=== PATIENT | female | born 1950 | race Caucasian/White ===

== ENCOUNTER 2024-12-12 11:23 | Outpatient (REF) | payer MEDICARE, SELFPAY ==
[2024-12-12 12:19] LABS: Anion Gap 8.3; BUN Creatinine Ratio 9.1; Calcium 8.1 mg/dL (8.5-10.1); Carbon Dioxide 30.2 mmol/L (21.0-32.0); Chloride 104 mmol/L (98-107); Estimated GFR (African America >60 (>=60 mL/min/1.73m^2); Estimated GFR (Non-African Ame >60 (>=60 mL/min/1.73m^2); Glucose 103 mg/dL (74-106); Potassium 3.5 mmol/L (3.5-5.1); Sodium 139 mmol/L (136-145)
== END 2024-12-12 11:24 | disposition home or self-care (01) ==
LOC: LAB 11:23
PROVIDERS: Family Provider Family Medicine; PCP Family Medicine; Visit Provider Family Medicine
DX: A04.72 Enterocolitis due to Clostridium difficile, not specified as recurrent (principal)
CPT/HCPCS: 36415; 80048

== ENCOUNTER 2024-12-17 08:18 | Outpatient (OUT) | payer MEDICARE, SELFPAY ==
--- NOTE | 2024-12-17 08:21 | US_ITS ---
[place] [id number] Patient Name: FLOR NIETO MRN: [id number] date: 1950 Sex: F Assigned Patient Location: US Current Patient Location: US Accession/Order Number: [id number] Exam Date: 12/17/2024 14:58 Report Date: 12/17/2024 14:59 At the request of: MARCELINO GROSS NP Procedure: US renal BI BILATERAL RENAL AND BLADDER ULTRASOUND CLINICAL HISTORY: Hydronephrosis COMPARISON: None FINDINGS: Estimation of renal size is approximately 8.1 cm on the right and 12.2 cm on the left. No contour deforming mass, shadowing stone or hydronephrosis. The urinary bladder is decompressed by Martinez. US/US renal BI IMPRESSION: NO ACUTE FINDINGS. NO HYDRONEPHROSIS. Impression dictated by: Polo Landeros Jr., D.O.12/17/2024 2:59 PM Dictation Location: [place] [address] Electronically authenticated by: [id number] Y Date: 12/17/2024 14:59
== END 2024-12-17 08:19 | disposition home or self-care (01) ==
LOC: US 08:18
PROVIDERS: Family Provider Family Medicine; PCP Family Medicine; Visit Provider Nurse Practitioner Family
DX: N13.30 Unspecified hydronephrosis (principal)
CPT/HCPCS: 76775

== ENCOUNTER 2024-12-23 09:29 | Outpatient (REF) | payer MEDICARE, SELFPAY ==
[2024-12-23 10:42] LABS: Vancomycin Trough 22.9 ug/mL (5.0-20.0)
== END 2024-12-23 09:30 | disposition home or self-care (01) ==
LOC: LAB 09:29
PROVIDERS: Family Provider Family Medicine; PCP Family Medicine; Visit Provider Family Medicine
DX: Z79.2 Long term (current) use of antibiotics (principal)
CPT/HCPCS: 36415; 80202

== ENCOUNTER 2024-12-23 13:08 | Outpatient (OUT) | payer MEDICARE, SELFPAY | END 2024-12-23 13:09 | disposition home or self-care (01) | LOC: WC 13:08 | PROVIDERS: Family Provider Family Medicine; PCP Family Medicine; Visit Provider Podiatrist Foot & Ankle Surgery | DX: L97.925 Non-pressure chronic ulcer of unspecified part of left lower leg with muscle involvement without evidence of necrosis (principal) | CPT/HCPCS: 80202; G0463 ==

== ENCOUNTER 2025-01-16 09:45 | Outpatient (OUT) | payer MEDICARE, SELFPAY | END 2025-01-16 09:46 | disposition home or self-care (01) | LOC: WC 09:46 | PROVIDERS: Family Provider Family Medicine; PCP Family Medicine; Visit Provider Physician Assistant | DX: L97.925 Non-pressure chronic ulcer of unspecified part of left lower leg with muscle involvement without evidence of necrosis (principal) | CPT/HCPCS: A6213; G0463 ==

== ENCOUNTER 2025-01-21 13:39 | Outpatient (OUT) | payer MEDICARE, SELFPAY ==
--- NOTE | 2025-01-21 13:44 | MR_ITS ---
[place] [id number] Patient Name: FLOR NIETO MRN: [id number] date: 1950 Sex: F Assigned Patient Location: MRI Current Patient Location: MRI Accession/Order Number: [id number] Exam Date: 01/21/2025 15:06 Report Date: 01/21/2025 15:11 At the request of: SHARON BUSBY Procedure: MR lumbar spine wo con EXAMINATION: MRI LUMBAR SPINE WITHOUT IV CONTRAST CLINICAL HISTORY: Compression deformity COMPARISON: None TECHNIQUE: Multiecho imaging was performed in the sagittal and axial planes without contrast administration. FINDINGS: Mild vertebral body height loss involving the L2 vertebral body with mild bone marrow edema present suggestive of a subacute component. There is approximately 2 mm of retropulsion into the spinal canal. Minimal vertebral body height loss involving the L1 vertebral body without bone marrow edema likely chronic in nature. No retropulsion into the spinal canal is seen. Remaining vertebral body heights appear maintained. Spinal cord demonstrate normal position without abnormal cord signal. No paraspinal mass. Visualized retroperitoneum demonstrates no acute process. Cyst right kidney. At L1-L2: Diffuse broad-based disc bulge is present malignant flavum hypertrophy and facet joint degenerative changes causing moderate canal and bilateral neural foraminal stenosis. At L2-L3: 2 mm of anterolisthesis. Mild broad-based disc bulge with ligamentum flavum hypertrophy and facet joint degenerative changes causing mild canal and bilateral neural foraminal stenosis. At L3-L4: Diffuse broad-based disc bulge is present with ligamentum flavum hypertrophy and facet joint degenerative changes causing mild canal stenosis. No significant neural foraminal stenosis. At L4-L5: Diffuse broad-based disc bulge is present with ligamentum flavum flavum hypertrophy and facet joint degenerative changes causing moderate canal and bilateral neural foraminal stenosis. At L5-S1: No posterior disc pathology. No neural canal or foraminal stenosis. MR/MR lumbar spine wo con IMPRESSION: Multilevel degenerative disease as described above. Compression deformities involving L1 and L2 vertebral bodies with what appears to be a subacute component involving the L2 vertebral body. There is approximately 2 mm retropulsion into the spinal canal of the L2 vertebral body fracture. Impression dictated by: Polo Landeros Jr., D.OJia 01/21/2025 3:11 PM Dictation Location: [place] [address] Electronically authenticated by: [id number] Y Date: 01/21/2025 15:11
== END 2025-01-21 13:40 | disposition home or self-care (01) ==
LOC: MRI 13:39
PROVIDERS: Family Provider Family Medicine; PCP Family Medicine; Visit Provider Nurse Practitioner
DX: S32.020A Wedge compression fracture of second lumbar vertebra, initial encounter for closed fracture (principal); M51.369 Other intervertebral disc degeneration, lumbar region without mention of lumbar back pain or lower extremity pain
CPT/HCPCS: 72148

== ENCOUNTER 2025-02-03 09:20 | Outpatient (OUT) | payer MEDICARE, SELFPAY | END 2025-02-03 09:21 | disposition home or self-care (01) | LOC: WC 09:20 | PROVIDERS: Family Provider Family Medicine; PCP Family Medicine; Visit Provider Physician Assistant | DX: L97.925 Non-pressure chronic ulcer of unspecified part of left lower leg with muscle involvement without evidence of necrosis (principal) | CPT/HCPCS: G0463 ==

== ENCOUNTER 2025-02-24 10:46 | Outpatient (OUT) | payer MEDICARE, SELFPAY ==
--- OUTSIDE RECORDS SUMMARY | 2025-02-24 10:48 | XMS_ITS | Encounter Summary ---
Author Organization [employer] Address [id number] [place] [address] Care Team Providers Care Psychiatric Social Worker Supervisor Name Role Phone Destiny Figueroa APRN-CFNP Primary Care Pro vider Reason for Visit * Reason Onset Date Comments Hospital Follow-up 10/08/2024 Encounter Details Date Type Department Care Team (Late st Contact Info) Description 10/08/2024 [facility] [address] [place] [address] [facility] Follow-up Social History Tobacco Use Types Packs/Day Years Used Date Smoking Tobacco: Never Smokeless Tobacco: Never Alcohol Use Standard Drinks/Week Comments Never 0 (1 standard drink = 0.6 oz pur e alcohol) [facility] Utilities Answer Date Recorded In the past 12 months has [employer] electric, gas, oil, or water company threatened to shut off services in your home? No 10/07/2024 AUDIT-C Answer Date Recorded Q1: How often do you have a drink containing alcohol? Never 10/06/2024 Q2: How many drinks containi ng alcohol do you have on a typical day when you are drinking? Patient does not drink Q3: How often do you have si x or more drinks on one occasion? Never 10/06/2024 PHQ-2 Answer Date Recorded Total Score 6 10/06/2024 PRAPARE - Transportation Answer Date Re corded In the past 12 months, has l ack of transportation kept you from medical appointments or from getting medications? No 09/24 In the past 12 months, has l ack of transportation kept you from meetings, work, or from getting things needed for daily living? No 10/07/2024 Housing Instability Answer Date Recorde d Are you worried or concerned that in the next two months you may not have stable housing that you own, rent or stay in as a part of a household? No 10/07/2024 Hunger Screening Answer Date Recorded Within the past 12 months we worried whether our food would run out before we got money to buy more. Never True 10/08/2024 Within the past 12 months th e food we bought just didn't last and we didn't have money to get more. Never True 10/08/2024 Comments No Sex and Gender Information Value Date Recorded Sex Assigned at Not on file Legal Sex Female 8:35 PM EDT Gender Identity Not on file Sexual Orientation Not on file documented as of this encounter Mental Status * Question Answer Entry Date Author Overall Cognitive Status X 10/11/2024 11:09 AM EST Geraldine Naidu COTA/Rowan documented in this encounter Miscellaneous Notes * Telephone Encounter - Rody Wiggins - 10/08/2024 10:21 AM EST Message from the 10/07/24 discharge list per RBP. 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 * Telephone Encounter - Brittany Keene MA - 10/08/2024 10:21 AM EST Pt still currently admitted to [facility]. JLW * Telephone Encounter - Brittany Keene MA - 10/08/2024 10:21 AM EST Pt still currently admitted to [facility]. JLW * Telephone Encounter - Brittany Keene MA - 10/08/2024 10:21 AM EST Pt still currently admitted to [facility]. JLW * Telephone Encounter - Brittany Keene MA - 10/08/2024 10:21 AM EST Pt still currently admitted to [facility]. JLW * Telephone Encounter - Michelle Bey - 10/08/2024 10:21 AM EST STILL INPT * Telephone Encounter - Brittany Keene MA - 10/08/2024 10:21 AM EST Pt still currently admitted to [facility]. JLW * Telephone Encounter - Brittany Keene MA - 10/08/2024 10:21 AM EST Appt sched 11/21/2024 in [facility] office. JLW documented in this encounter Plan of Treatment Not on file documented as of this encounter Goals Goal Patient Goal Type Associated Problems Recent Progress Patient-Stated? Author safe transition from hospital General Yes Corrine Porras, RN Note: Evaluation of progress towards goal: Progressing towards safe transition from hospital <enter goal here> General Yes Claudia Whitman SOFTWARE DEVELOPER MID LEVEL Note: Evaluation of progress towards goal: Current Discharge Plan: SNF for short term rehab documented as of this encounter Visit Diagnoses Not on filedocumented in this encounter Additional Health Concerns Assessment Noted Time PHQ-9 Depression Total Score: 6 10/06/19 25 7:54 PM EST documented as of this encounter Care Teams Psychiatric Social Worker Supervisor Relationship Specialty Start Date End Date Destiny Figueroa APRN-CFNP [id number] [place] [address] PCP - General Family Medicine 05/30/24 documented as of this encounter
--- OUTSIDE RECORDS SUMMARY | 2025-02-24 10:48 | XMS_ITS | Clinical Summary ---
Author Organization [facility] Address [address] [place] [address] Care Team Providers Care Diploma Pharmacy Technician Name Role Phone Unavailable Primary Care Provider Unavailabl e Encounters Date Type Department Care Team Description 01/23/2025 Telephone MILAGRO FRAZIER [address] [place] [address] Rosa Reed PA hospital f/u r/s 01/21/2025 Clinisync Result Encounter [facility] External Department Unsolicited Provider, Generic External Data 12/23/2024 Clinisync Result Encounter [facility] External Department Unsolicited Lynda Peters MD 12/17/2024 Clinisync Result Encounter [facility] External Department Unsolicited Provider, Generic External Data 12/12/2024 Clinisync Result Encounter [facility] External Department Unsolicited Lynda Peters MD 12/12/2024 Abstract [facility] [address] [place] [address] Unallocated, Noms MD Giovanna from Last 3 Months Social History Tobacco Use Types Packs/Day Years Used Date Smoking Tobacco: Never Assessed Comments Unknown Sex and Gender Information Value Date Recorded Sex Assigned at Not on file Legal Sex Female 10:14 PM EDT Gender Identity Not on file Sexual Orientation Not on file Plan of Treatment Not on file Procedures Procedure Name Priority Date/Time Associated Diagnosis Comments MR LUMBAR SPINE WO CON 3:11 PM EDT [facility] VANCOMYCINOUGH LEVEL Routine 12/23/2024 8:30 AM EDT US RENAL BI 12/17/2024 2:59 PM EDT ALL BASIC METABOLIC PANEL Routine 12/12/2024 10:50 AM EDT from Last 3 Months Results * MR LUMBAR SPINE WO CON (01/21/2025 3:11 PM EDT) Anatomical Region Laterality Modality Other 01/21/2025 3:11 PM EDT Narrative 01/21/2025 3:14 [place] [address] Magnetic Resonance Report Signed Patient: KELSEY NIETO MR#: [id number] : 1950 Acct:[id number] Age/Sex: 74 / F ADM Date: 01/21/25 Loc: MRI Attending Dr: SHARON BUSBY Ordering Physician: SHARON BUSBY Date of Service: 01/21/25 Procedure(s): MR lumbar spine wo con Accession Number(s): [id number] cc: LYNDA PETERS ; SHARON BUSBY [place] [id number] Patient Name: KELSEY NIETO MRN: [facility]:[id number] date: 1950 Sex: F Assigned Patient Location: MRI Current Patient Location: MRI Accession/Order Number: [id number] Exam Date: 01/21/2025 15:06 Report Date: 01/21/2025 15:11 At the request of: SHARON BUSBY Procedure: MR lumbar spine wo con EXAMINATION: MRI LUMBAR SPINE WITHOUT IV CONTRAST CLINICAL HISTORY: Compression deformity COMPARISON: None TECHNIQUE: Multiecho imaging was performed in the sagittal and axial planes without contrast administration. FINDINGS: Mild vertebral body height loss involving the L2 vertebral body with mild bone marrow edema present suggestive of a subacute component. There is approximately 2 mm of retropulsion into the spinal canal. Minimal vertebral body height loss involving the L1 vertebral body without bone marrow edema likely chronic in nature. No retropulsion into the spinal canal is seen. Remaining vertebral body heights appear maintained. Spinal cord demonstrate normal position without abnormal cord signal. No paraspinal mass. Visualized retroperitoneum demonstrates no acute process. Cyst right kidney. At L1-L2: Diffuse broad-based disc bulge is present malignant flavum hypertrophy and facet joint degenerative changes causing moderate canal and bilateral neural foraminal stenosis. At L2-L3: 2 mm of anterolisthesis. Mild broad-based disc bulge with ligamentum flavum hypertrophy and facet joint degenerative changes causing mild canal and bilateral neural foraminal stenosis. At L3-L4: Diffuse broad-based disc bulge is present with ligamentum flavum hypertrophy and facet joint degenerative changes causing mild canal stenosis. No significant neural foraminal stenosis. At L4-L5: Diffuse broad-based disc bulge is present with ligamentum flavum flavum hypertrophy and facet joint degenerative changes causing moderate canal and bilateral neural foraminal stenosis. At L5-S1: No posterior disc pathology. No neural canal or foraminal stenosis. MR/MR lumbar spine wo con IMPRESSION: Multilevel degenerative disease as described above. Compression deformities involving L1 and L2 vertebral bodies with what appears to be a subacute component involving the L2 vertebral body. There is approximately 2 mm retropulsion into the spinal canal of the L2 vertebral body fracture. Impression dictated by: Polo Landeros Jr., D.O. 01/21/2025 3:11 PM Dictation Location: [place] [address] Electronically authenticated by: [id number] Y Date: 01/21/2025 15:11 Dictated By: Polo Landeros M.D. Signed By: 01/21/25 1514 DD/ 1511 TD/TT: Fire Sprinkler Designer: Procedure Note Radiology, Radiologist, MD - 01/21/2025 [place] [address] Magnetic Resonance Report Signed Patient: KELSEY NIETO LMR#: [id number] : 1950Acct:[id number] Age/Sex: 74 / FADM Date: 01/21/25 Loc: MRI Attending Dr: SHARON BUSBY Ordering Physician: SHARON BUSBY Date of Service: 01/21/25 Procedure(s): MR lumbar spine wo con Accession Number(s): [id number] cc: LYNDA PETERS ; SHARON BUSBY [place] [id number] Patient Name: KELSEY NIETO MRN: [facility]:[id number] date: 1950 Sex: F Assigned Patient Location: MRI Current Patient Location: MRI Accession/Order Number: [id number] Exam Date: 01/21/2025 15:06 Report Date: 01/21/2025 15:11 At the request of: SHARON BUSBY Procedure: MR lumbar spine wo con EXAMINATION: MRI LUMBAR SPINE WITHOUT IV CONTRAST CLINICAL HISTORY: Compression deformity COMPARISON: None TECHNIQUE: Multiecho imaging was performed in the sagittal and axialplanes without contrast administration. FINDINGS: Mild vertebral body height loss involving the L2 vertebral bodywith mild bone marrow edema present suggestive of a subacute component. Thereis approximately 2 mm of retropulsion into the spinal canal. Minimalvertebral body height loss involving the L1 vertebral body without bone marrow edema likely chronic in nature. No retropulsion into the spinal canal is seen. Remaining vertebral body heights appear maintained. Spinal corddemonstrate normal position without abnormal cord signal. No paraspinal mass.Visualized retroperitoneum demonstrates no acute process. Cyst right kidney. At L1-L2: Diffuse broad-based disc bulge is present malignant flavum hypertrophy and facet joint degenerative changes causing moderate [place] bilateral neural foraminal stenosis. At L2-L3: 2 mm of anterolisthesis. Mild broad-based disc bulge with ligamentum flavum hypertrophy and facet joint degenerative changes causing mild canal and bilateral neural foraminal stenosis. At L3-L4: Diffuse broad-based disc bulge is present with ligamentum flavum hypertrophy and facet joint degenerative changes causing mild canalstenosis. No significant neural foraminal stenosis. At L4-L5: Diffuse broad-based disc bulge is present with ligamentum flavum flavum hypertrophy and facet joint degenerative changes causing moderatecanal and bilateral neural foraminal stenosis. At L5-S1: No posterior disc pathology. No neural canal or foraminalstenosis. MR/MR lumbar spine wo con IMPRESSION: Multilevel degenerative disease as described above. Compression deformities involving L1 and L2 vertebral bodies with whatappears to be a subacute component involving the L2 vertebral body. There is approximately 2 mm retropulsion into the spinal canal of the L2 vertebralbody fracture. Impression dictated by: Polo Landeros Jr., D.O. 01/21/2025 3:11 PM Dictation Location: [place] [address] Electronically authenticated by: [id number] Y Date: :11 Dictated By: Polo Landeros M.D. Signed By:01/21/25 1514 DD/ 1511 TD/TT: Fire Sprinkler Designer: us Generic External Data Provider [facility] Final Result * (ABNORMAL) [facility] VANCOMYCINTROUGH LEVEL (12/23/2024 8:30 AM EDT) VANCOMYCIN TROUGH 22.9(H) 5.0 - 20.0 ug/mL [facility] 12/23/2024 8:30 AM EDT 12/23/2024 9:37 AM EDT Narrative [facility] - 12/23/2024 10:42 AM EDT [facility] DROP OFF Lynda Peters MD [facility] Final Result [facility] * US RENAL BI (12/17/2024 2:59 PM EDT) Anatomical Region Laterality Modality Other 12/17/2024 2:59 PM EDT Narrative 12/17/2024 3:01 [place] [address] Ultrasound Report Signed Patient: KELSEY NIETO MR#: [id number] : 1950 Acct:[id number] Age/Sex: 74 / F ADM Date: 12/17/24 Loc: US Attending Dr: Anabel Hernández CERTIFIED EXECUTIVE CHEF Ordering Physician: Anabel Hernández NP Date of Service: 12/17/24 Procedure(s): US renal BI Accession Number(s): [id number] cc: LYNDA PETERS ; Anabel Hernández NP [address] [address] Patient Name: KELSEY NIETO MRN: [id number] date: 1950 Sex: F Assigned Patient Location: US Current Patient Location: US Accession/Order Number: [id number] Exam Date: 12/17/2024 14:58 Report Date: 12/17/2024 14:59 At the request of: ANABEL HERNÁNDEZ NP Procedure: US renal BI BILATERAL RENAL AND BLADDER ULTRASOUND CLINICAL HISTORY: Hydronephrosis COMPARISON: None FINDINGS: Estimation of renal size is approximately 8.1 cm on the right and 12.2 cm on the left. No contour deforming mass, shadowing stone or hydronephrosis. The urinary bladder is decompressed by Martinez. US/US renal BI IMPRESSION: NO ACUTE FINDINGS. NO HYDRONEPHROSIS. Impression dictated by: Polo Landeros Jr., D.O.12/17/2024 2:59 PM Dictation Location: [place] [address] Electronically authenticated by: [id number] Y Date: 12/17/2024 14:59 Dictated By: Polo Landeros M.D. Signed By: 12/17/24 1501 DD/ 1459 TD/TT: Fire Sprinkler Designer: Procedure Note Radiology, Radiologist, MD - 12/17/[address] [address] Ultrasound Report Signed Patient: KELSEY NIETO LMR#: [id number] : 1950Acct:[id number] Age/Sex: 74 / FADM Date: 12/17/24 Loc: US Attending Dr: Anabel Hernández NP Ordering Physician: Anabel Hernández NP Date of Service: 12/17/24 Procedure(s): US renal BI Accession Number(s): [id number] cc: LYNDA PETERS ; Anabel Hernández NP The [address] [address] Patient Name: KELSEY NIETO MRN: [facility]:[id number] date: 1950 Sex: F Assigned Patient Location: US Current Patient Location: US Accession/Order Number: [id number] Exam Date: 12/17/2024 14:58 Report Date: 12/17/2024 14:59 At the request of: ANABEL HERNÁNDEZ NP Procedure: US renal BI BILATERAL RENAL AND BLADDER ULTRASOUND CLINICAL HISTORY: Hydronephrosis COMPARISON: None FINDINGS: Estimation of renal size is approximately 8.1 cm on the right and 12.2 cmon the left. No contour deforming mass, shadowing stone or hydronephrosis. The urinary bladder is decompressed by Martinez. US/US renal BI IMPRESSION: NO ACUTE FINDINGS. NO HYDRONEPHROSIS. Impression dictated by: Polo Landeros Jr., Aletha12/17/2024 2:59 PM Dictation Location: [place] [address] Electronically authenticated by: [id number] Y Date: 4:59 Dictated By: Polo Landeros M.D. Signed By:12/17/24 1501 DD/ 1459 TD/TT: Fire Sprinkler Designer: [facility] External Data Provider [facility] Final Result * (ABNORMAL) ALL BASIC METABOLIC PANEL (12/12/2024 10:50 AM EDT) SODIUM 139 136 - 145 mmol/L [facility] POTASSIUM 3.5 3.5 - 5.1 mmol/L [facility] CHLORIDE 104 98 - 107 mmol/L [facility] CARBON DIOXIDE 30.2 21.0 - 32.0 mmol/L [facility] ANION GAP 8.3 [facility] GLUCOSE 103 74 - 106 mg/dL [facility] BLOOD UREA NITROGEN 7.0 7.0 - 18.0 mg/dL [facility] CREATININE 0.77 0.55 - 1.02 mg/dL [facility] EGFR-AF LATVIAN >60 >=60 mL/min/1.7 3m 2 [facility] EGFR-NON AF LATVIAN >60 >=60 mL/min/1.7 3m 2 [facility] BUN CREATININE RATIO 9.1 [facility] CALCIUM 8.1(L) 8.5 - 10.1 mg/dL [facility] 12/12/2024 10:5 0 AM EDT 12/12/2024 12:05 PM EDT Narrative [facility] - 12/12/2024 12:23 PM EDT [facility] DROP OFF us Lynda PARISH Final Result [facility] from Last 3 Months Insurance [employer] MEDICARE
--- OUTSIDE RECORDS SUMMARY | 2025-02-24 10:48 | XMS_ITS | Encounter Summary ---
Author Organization [id number] [address] [place] [address] Care Team Providers Care Licensed Insurance Sales Agent Name Role Phone Destiny Figueroa APRN-CFNP Primary Care Pro vider Encounter Details Date Type Department Care Team (Late st Contact Info) Description 09/11/2024 Orders Only [facility] [address] [place] [phone] External, Scanning Provider Social History Tobacco Use Types Packs/Day Years Used Date Smoking Tobacco: Never Smokeless Tobacco: Never Alcohol Use Standard Drinks/Week Comments Never 0 (1 standard drink = 0.6 oz pur e alcohol) [facility] Utilities Answer Date Recorded In the past 12 months has [employer], gas, oil, or water [employer] threatened to shut off services in your home? No 05/30/2024 AUDIT-C Answer Date Recorded Q1: How often do you have a drink containing alcohol? Never 05/30/2024 Q2: How many drinks containi ng alcohol do you have on a typical day when you are drinking? Patient does not drink Q3: How often do you have si x or more drinks on one occasion? Never 05/30/2024 PHQ-2 Answer Date Recorded Total Score 9 05/30/2024 PRAPARE - Transportation Answer Date Re corded In the past 12 months, has l ack of transportation kept you from medical appointments or from getting medications? No 02/2024 In the past 12 months, has l ack of transportation kept you from meetings, work, or from getting things needed for daily living? No 05/30/2024 Housing Instability Answer Date Recorde d Are you worried or concerned that in the next two months you may not have stable housing that you own, rent or stay in as a part of a household? No 05/30/2024 Hunger Screening Answer Date Recorded Within the past 12 months we worried whether our food would run out before we got money to buy more. Never True 05/30/2024 Within the past 12 months th e food we bought just didn't last and we didn't have money to get more. Never True 05/30/2024 Comments No Sex and Gender Information Value Date Recorded Sex Assigned at Not on file Legal Sex Female 8:35 PM EDT Gender Identity Not on file Sexual Orientation Not on file documented as of this encounter Plan of Treatment Not on file documented as of this encounter Goals Goal Patient Goal Type Associated Problems Recent Progress Patient-Stated? Author safe transition from hospital General Yes Corrine Porras, RN Note: Evaluation of progress towards goal: Progressing towards safe transition from hospital documented as of this encounter Procedures Procedure Name Priority Date/Time Associated Diagnosis Comments ECG 12-LEAD Routine 08/21/2024 3:00 PM EST ECHO COMPLETE W CONTRAST Routine 08/19/2024 3:02 PM EST ECG 12-LEAD Routine 08/19/2024 3:02 PM EST ECG 12-LEAD Routine 08/18/2024 3:01 PM EST documented in this encounter Results * ECG 12 lead (08/21/2024 3:00 PM EST) us Scanning Provider External ECG ORDERABLES Final Result MANUALLY TRANSCRIBED RESULTS * Echo complete W/ contrast (08/19/2024 3:02 PM EST) Anatomical Region Laterality Modality Chest N/A Ultrasound us Scanning Provider External CV ECHO ORDERABLES Fi nal Result * ECG 12 lead (08/19/2024 3:02 PM EST) us Scanning Provider External ECG ORDERABLES Final Result MANUALLY TRANSCRIBED RESULTS * ECG 12 lead (08/18/2024 3:01 PM EST) us Scanning Provider External ECG ORDERABLES Final Result Performing Organization Address City/[facility] Co de Phone Number MANUALLY TRANSCRIBED RESULTS documented in this encounter Visit Diagnoses Not on filedocumented in this encounter Additional Health Concerns Assessment Noted Time PHQ-9 Depression Total Score: 9 05/30/20 24 10:46 AM EDT documented as of this encounter Care Teams Licensed Insurance Sales Agent Relationship Specialty Start Date End Date Destiny Figueroa APRN-CFNP [address] [place] [address] PCP - General Family Medicine 05/30/24 documented as of this encounter
--- OUTSIDE RECORDS SUMMARY | 2025-02-24 10:48 | XMS_ITS | Encounter Summary ---
Author Organization [facility] [facility] Address [id number] [address] [place] [address] Care Team Providers Care Air Support Operations Operator Name Role Phone Destiny Figueroa ENRICHMENT TEACHER-CFNP Primary Care Pro vider Reason for Visit * Reason Onset Date Comments Sign Off Patient Care 08/25/2024 Encounter Details Date Type Department Care Team (Late st Contact Info) Description 08/25/2024 Telephone [facility] [address] [place] [phone] Des Whyte MD [address] [place], [place] [id number] Sign Off Patient Care Social History Tobacco Use Types Packs/Day Years Used Date Smoking Tobacco: Never Smokeless Tobacco: Never Alcohol Use Standard Drinks/Week Comments Never 0 (1 standard drink = 0.6 oz pur e alcohol) [facility] Utilities Answer Date Recorded In the past 12 months has [employer], gas, oil, or water [employer] threatened to shut off services in your [...] on file documented as of this encounter Miscellaneous Notes * Telephone Encounter - Lizzy Herrera - 08/25/2024 10:34 AM EST PER MESSAGE FROM THE 08/20/2024 D/C LIST: PER FRS; HE HAS SIGNED OFF PT CARE FROM DX:AFIB/PAF-PTNEEDS TO F/U IN 1-2 WEEKS-[facility] documented in this encounter Plan of Treatment Not on file documented as of this encounter Goals Goal Patient Goal Type Associated Problems Recent Progress Patient-Stated? Author safe transition from hospital General Yes Corrine Porras, RN Note: Evaluation of progress towards goal: Progressing towards safe transition from hospital documented as of this encounter Visit Diagnoses Not on filedocumented in this encounter Additional Health Concerns Assessment Noted Time PHQ-9 Depression Total Score: 9 05/30/20 24 10:46 AM EDT documented as of this encounter Care Teams Air Support Operations Operator Relationship Specialty Start Date End Date Destiny Figueroa, TORI-LAURA [address] [place] [address] PCP - General Family Medicine 05/30/24 documented as of this encounter
--- OUTSIDE RECORDS SUMMARY | 2025-02-24 10:48 | XMS_ITS | Clinical Summary ---
Author Organization [employer] Address [facility]-[id number] [address] [place] [address] Care Team Providers Care Financial Manager Name Role Phone Destiny Figueroa APRN-CFALVINO Primary Care Pro vider Allergies Active Allergy Reactions Criticality Noted Date Comments Citalopram Other (See Comments) 05/30/2024 unknown Cortisone Other (See Comments) Medium 05/30/2024 Unknown ELEVATES B/P Hydromorphone Other (See Comments) 05/30/2024 Severe sedation Iodine Swelling High 07/07/2024 Other Reaction(s): Tongue swelling TONGUE AND LIPS Penicillin Hives,Swelling High 05/30/2024 Mouth and tongue swelling Other Reaction(s): HIVES SWELLING LIPS AND TONGUE Shellfish Derived Swelling High 07/07/2024 LIPS AND TONGUE Shrimp rigors High 05/30/2024 Medications pravastatin (PRAVACHOL) 20 mg tablet Take 1 tablet (20 mg total) by mouth in the morning. Active traZODone (DESYREL) 50 mg tablet Take 1 tablet (50 mg total) by mouth nightly. Active hydrOXYzine (ATARAX) 25 mg tablet Take 1 tablet (25 mg total) by mouth 4 (four) times a day as needed for anxiety. Active aspirin 81 mg Take 1 tablet (81 mg total) by mouth in the morning. Active oxybutynin XL (DITROPAN XL) 15 mg 24 hr tablet Take 1 tablet (15 mg total) by mouth in the morning. Active tiZANidine (ZANAFLEX) 4 mg tablet Take 1 tablet (4 mg total) by mouth in the morning and at bedtime. Active ELIQUIS 5 mg tablet Take 1 tablet (5 mg total) by mouth in the morning and 1 tablet (5 mg total) before bedtime. 4 Active ONETOUCH ULTRA2 METER [facility] USE TO CHECK GLUCOSE ONCE DAILY 4 Active ONETOUCH DELICA PLUS LANCET 33 gauge misc USE 1 LANCET TO CHECK GLUCOSE ONCE DAILY 4 Active mirtazapine (REMERON) 15 mg tablet Take 1 tablet (15 mg total) by mouth nightly. 4 Active acetaminophen (TYLENOL) 325 mg tablet Take 2 tablets (650 mg total) by mouth every 6 (six) hours as needed for pain. 30 tablet 5 Active diclofenac sodium (VOLTAREN) 1 % gel Apply 2 g topically in the morning and 2 g at noon and 2 g in the evening and 2 g before bedtime. 100 g 5 Active lidocaine (LIDODERM) 5 %Indications:Sk in ulcer of sacrum, limited to breakdown of skin ([facility]) Place 1 patch on the skin in the morning. Remove & Discard patch within 12 hours or as directed by MD. 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 10/21/2024 Pressure injury of deep tissue of sacral region 10/07/2024 Traumatic injury of sacrum 10/07/2024 Skin ulcer of sacrum, limited to breakdown of sk in 10/07/2024 Traumatic ulcer of left lowe r extremity with fat layer exposed 10/07/2024 Pulmonary embolism 10/06/2024 Transaminitis 05/30/2024 Benign essential tremor 05/30/2024 HTN (hypertension) 05/30/2024 Hyperlipemia, mixed 05/30/2024 Type 2 diabetes mellitus 05/30/2024 Right upper quadrant abdominal pain 05/30/2024 Immunizations No known immunizations Family History Medical History Relation Name Comments Heart attack Brother Other Father cerebral hemorr gina Stroke Father Heart disease Mother Stroke Mother COPD Sister Heart disease Sister Relation Name Status Comments Brother Father Mother Sister Social History Tobacco Use Types Packs/Day Years Used Date Smoking Tobacco: Never Smokeless Tobacco: Never Tobacco Cessation:Counseling Given: Not Answered Alcohol Use Standard Drinks/Week Comments Never 0 (1 standard drink = 0.6 oz pur e alcohol) [facility] Utilities Answer Date Recorded In the past 12 months has th e electric, gas, oil, or water company threatened [...] on file Sexual Orientation Not on file Last Filed Vital Signs Vital Sign Reading Time Taken Comments Blood Pressure 153/76 10/29/2024 8:05 AM EST Pulse 92 10/29/2024 9:00 AM EST Temperature 36.7 C (98 F) 10/29/2024 8:05 AM EST Respiratory Rate 15 10/29/2024 8:05 AM EST Oxygen Saturation 98% 10/29/2024 8:05 AM EST Inhaled Oxygen Concentration - - Weight 106.2 kg (234 lb 2.1 oz) 10/29/2024 5:00 AM EST Height 165.1 cm (5' 5 ) 10/07/2024 4:39 AM EST Body Mass Index 38.96 10/07/2024 4:39 AM EST Plan of Treatment Health Maintenance Due Date Last Done Comments Diabetic Ophthalmology Exam 1950 DTaP,Tdap and Td Vaccines (1 - Tdap) 1968 Zoster (Shingles) Vaccine (1 of 2) 1999 Fall Risk Screening 2014 Influenza Vaccine 05/25/2025 Depression Screening 10/06/2025 10/06/2024 Tobacco Screening 10/28/2025 10/28/2024 Goals Goal Patient Goal Type Associated Problems Recent Progress Patient-Stated? Author safe transition from hospital General Yes Corrine Porras, RN Note: Evaluation of progress towards goal: Progressing towards safe transition from hospital <enter goal here> General Yes Claudia Whitman HAND ROUTER OPERATOR Note: Evaluation of progress towards goal: Current Discharge Plan: SNF for short term rehab Medical Devices Implanted Type Area Sales Contracts Analyst Device Identifier Shelf Expiration Date Model / Serial / Lot Filter Embl 49mm 65cm Vc Rdpq Preld Flsh Sdprt Intro Strl Rpl [id number] - [id number] Implanted:Qty: 1 on 10/06/2024 by Mer Galvan MD at [facility] IVC Filter [employer] [id number] 07/30/2027 [id number] / / [id number] Insurance [employer] MEDICARE Advance Directives Documents on File Type Date Recorded Patient Heating Systems Installer Expl anation Durable Power of Community Coordinator 11/03/2024 11:17 AM Durable Power of Community Coordinator 10/15/2024 7:36 PM Power of Community Coordinator 10 15 2024 Advance Directive 10/15/2024 7:34 PM Ivonne Gutierrezhailey Mukul phillips Power of Community Coordinator 10 15 2024 Durable Power of Community Coordinator 10/15/2024 4:46 PM [facility] Myles r of Community Coordinator * Full Code (Latest Code Status on File) Date Activated Date Inactivated Comments 10/06/2024 6:34 PM 10/29/2024 2:26 PM * Full Code Date Activated Date Inactivated Comments 05/30/2024 5:31 AM 05/31/2024 7:59 PM Healthcare Agents on File Name Relationship Healthcare Agent Relationshi p Communication Ivonne Ngdavid Daughter Health Care Agent Geetha Gilmant Daughter First Alternate Health Care Agent Care Teams Financial Manager Relationship Specialty Start Date End Date Destiny Figueroa, EXCHANGE SPECIALIST-CFALVINO [address] [place] [address] PCP - General Family Medicine 05/30/24
--- OUTSIDE RECORDS SUMMARY | 2025-02-24 10:48 | XMS_ITS | Encounter Summary ---
Author Organization [employer] Address [facility]-[id number] [address] [place] [address] Care Team Providers Care Gang Boss Name Role Phone Destiny Figueroa APRN-CFNP Primary Care Pro vider Encounter Details Date Type Department Care Team (Late st Contact Info) Description 10/07/2024 Orders Only [facility] [address] [place] [phone] Transcribe, Orders Support User Pain (Primary Dx); Acute chest pain Social History Tobacco Use Types Packs/Day Years Used Date Smoking Tobacco: Never Smokeless Tobacco: Never Alcohol Use Standard Drinks/Week Comments Never 0 (1 standard drink = 0.6 oz pur e alcohol) [facility] Utilities Answer Date Recorded In the past 12 months has [employer], gas, oil, or water [employer] threatened to shut off services in your [...] on file documented as of this encounter Functional Status * Intimate Partner Violence Question Answer Date of Assessment Author Within the last year, have y ou been humiliated or emotionally abused in other ways by your partner or ex-partner? No 10/07/2024 9:42 AM Cristina Gonzáles RN Within the last year, have y ou been afraid of your partner or ex-partner? No 10/07/2024 9:42 AM Cristina Gonzáles RN Within the last year, have y ou been raped or forced to have any kind of sexual activity by your partner or ex-partner? No 10/07/2024 9:42 AM Cristina Gonzáles RN Within the last year, have y ou been kicked, hit, slapped, or otherwise physically hurt by your partner or ex-partner? No 10/07/2024 9:42 AM Cristina Gonzáles RN * Question Answer Date of Assessment Author Functional Status Moderate assistance 10/07/2024 9:40 AM Cristina Gonzáles RN documented as of this encounter Mental Status * Question Answer Entry Date Author Overall Cognitive Status X 10/09/2024 9:38 AM EST Tazzi, Lynzie, PT documented in this encounter Plan of Treatment Not on file documented as of this encounter Goals Goal Patient Goal Type Associated Problems Recent Progress Patient-Stated? Author safe transition from hospital General Yes Corrine Porras, RN Note: Evaluation of progress towards goal: Progressing towards safe transition from hospital <enter goal here> General Yes Claudia Whitman DEPUTY COUNTY ATTORNEY Note: Evaluation of progress towards goal: Current Discharge Plan: SNF for short term rehab documented as of this encounter Results * CT extremity lower left with contrast (10/06/2024 10:40 AM EST) us Scanning Provider External IMG CT ORDERABLES Fin al Result * CT angiogram chest (10/06/2024 10:30 AM EST) us Scanning Provider External IMG CT ORDERABLES Fin al Result documented in this encounter Visit Diagnoses Diagnosis Pain- Primary Generalized pain Acute chest pain Unspecified chest pain documented in this encounter Additional Health Concerns Assessment Noted Time PHQ-9 Depression Total Score: 6 10/06/19 25 7:54 PM EST documented as of this encounter Care Teams Gang Boss Relationship Specialty Start Date End Date Destiny Figueroa APRN-LAURA [address] [place] [address] PCP - General Family Medicine 05/30/24 documented as of this encounter
--- OUTSIDE RECORDS SUMMARY | 2025-02-24 10:48 | XMS_ITS | Encounter Summary ---
Author Organization [employer] Address [facility]-[id number] [address] [place] [address] Care Team Providers Care Wood Buffer Name Role Phone Destiny Figueroa APRN-CFALVINO Primary Care Pro vider Encounter Details Date Type Department Care Team (Late st Contact Info) Description 10/07/2024 Orders Only [facility] [address] [place] [phone] External, Scanning Provider Pain (Primary Dx) Social History Tobacco Use Types Packs/Day Years Used Date Smoking Tobacco: Never Smokeless Tobacco: Never Alcohol Use Standard Drinks/Week Comments Never 0 (1 standard drink = 0.6 oz pur e alcohol) [facility] Utilities Answer Date Recorded In the past 12 months has [employer], gas, oil, or water [employer] threatened to shut off services in your [...] Status Moderate assistance 10/07/2024 9:40 AM Cristina Goználes RN documented as of this encounter Mental Status * Question Answer Entry Date Author Overall Cognitive Status X 10/09/2024 9:38 AM Lazaro Machado PT documented in this encounter Plan of Treatment Not on file documented as of this encounter Goals Goal Patient Goal Type Associated Problems Recent Progress Patient-Stated? Author safe transition from hospital General Yes Corrine Porras, RN Note: Evaluation of progress towards goal: Progressing towards safe transition from hospital <enter goal here> General Yes Claudia Whitman PILOT CAPTAIN Note: Evaluation of progress towards goal: Current Discharge Plan: SNF for short term rehab documented as of this encounter Results * Vas venous duplex lwr bilateral (10/06/2024 12:05 PM EST) us Scanning Provider External CV VASCULAR ORDERABLE S Final Result Performing Organization Address City/[facility]/ZIP Co de Phone Number MEDSTREAMING * Non [facility] Echo (10/06/2024 12:05 PM EST) us Scanning Provider External CV ECHO ORDERABLES Fi nal Result Performing Organization Address City/[facility]/ZIP Co de Phone Number XCELERA * CT lumbar spine without contrast (10/04/2024 9:35 AM EST) us Scanning Provider External IMG CT ORDERABLES Fin al Result * CT abdomen and pelvis without contrast (10/04/2024 9:30 AM EST) us Scanning Provider External IMG CT ORDERABLES Fin al Result * CT chest without contrast (10/04/2024 9:25 AM EST) us Scanning Provider External IMG CT ORDERABLES Fin al Result documented in this encounter Visit Diagnoses Diagnosis Pain- Primary Generalized pain documented in this encounter Additional Health Concerns Assessment Noted Time PHQ-9 Depression Total Score: 6 10/06/19 25 7:54 PM EST documented as of this encounter Care Teams Wood Buffer Relationship Specialty Start Date End Date Destiny Figueroa, CASINO INVESTIGATOR-CFNP [address] [place] [id number] PCP - General Family Medicine 05/30/24 documented as of this encounter
--- OUTSIDE RECORDS SUMMARY | 2025-02-24 10:49 | XMS_ITS | Encounter Summary ---
Author Organization [facility] Address [facility]-[id number] [address] [place] [address] Care Team Providers Care Percolator Operator Name Role Phone Destiny Figueroa APRN-CFNP Primary Care Pro vider Encounter Details Date Type Department Care Team (Late st Contact Info) Description 11/20/2024 Orders Only [facility] [address] [place] [phone] External, Scanning Provider Social History Tobacco Use Types Packs/Day Years Used Date Smoking Tobacco: Never Smokeless Tobacco: Never Alcohol Use Standard Drinks/Week Comments Never 0 (1 standard drink = 0.6 oz pur e alcohol) [facility] Utilities Answer Date Recorded In the past 12 months has [employer], gas, oil, or water [employer] threatened to shut off services in your [...] <enter goal here> General Yes Claudia Whitman LSW Note: Evaluation of progress towards goal: Current Discharge Plan: SNF for short term rehab documented as of this encounter Procedures Procedure Name Priority Date/Time Associated Diagnosis Comments ECHO COMPLETE WO CONTRAST Routine 10/07/2024 2:17 PM EST MULTIPLE LABS Routine 10/06/2024 2:[address] CHEST W CONT Routine 10/06/2024 2:18 PM EST MULTIPLE LABS Routine 10/05/2024 2:23 PM EST ECG 12-LEAD Routine 10/04/2024 2:23 PM EST documented in this encounter Results * Echo complete W/O contrast (10/07/2024 2:17 PM EST) Anatomical Region Laterality Modality Chest N/A Ultrasound us Scanning Provider External CV ECHO ORDERABLES Fi nal Result * Multiple labs (10/06/2024 2:22 PM EST) us Scanning Provider External ID IMAGING Final Result Performing Organization Address City/[facility] Co de Phone Number MANUALLY TRANSCRIBED RESULTS * CT chest with contrast (10/06/2024 2:18 PM EST) Anatomical Region Laterality Modality Body, Lung, Chest, Body Covera N/A C omputed Tomography us Scanning Provider External IMG CT ORDERABLES Fin al Result * Multiple labs (10/05/2024 2:23 PM EST) us Scanning Provider External ID IMAGING Final Result Performing Organization Address City/[facility] Co de Phone Number MANUALLY TRANSCRIBED RESULTS * ECG 12 lead (10/04/2024 2:23 PM EST) us Scanning Provider External ECG ORDERABLES Final Result Performing Organization Address City/[facility] de Phone Number MANUALLY TRANSCRIBED RESULTS documented in this encounter Visit Diagnoses Not on filedocumented in this encounter Additional Health Concerns Assessment Noted Time PHQ-9 Depression Total Score: 6 10/06/19 25 7:54 PM EST documented as of this encounter Care Teams Percolator Operator Relationship Specialty Start Date End Date Destiny Figueroa APRN-CFNP [address] [place] [address] PCP - General Family Medicine 05/30/24 documented as of this encounter
--- OUTSIDE RECORDS SUMMARY | 2025-02-24 10:49 | XMS_ITS | Clinical Summary ---
Author Organization [facility] Address [address] [place] [address] Phone Care Team Providers Care Health Safety Instructor Name Role Phone Unavailable Primary Care Provider Unavailabl e Encounters Date Type Department Care Team Description 11/26/2024 Scanned Document [facility] [address] [place] [address] Scanning, Generic Provider from Last 3 Months Social History Tobacco Use Types Packs/Day Years Used Date Smoking Tobacco: Never Assessed Comments Unknown Sex and Gender Information Value Date Recorded Sex Assigned at Not on file Legal Sex Female 9:11 AM EST Gender Identity Not on file Sexual Orientation Not on file Plan of Treatment Upcoming Encounters Date Type Department Care Team (Late st Contact Info) Description 07/29/2025 9:10 AM EST Office Visit [facility] [address] [phone] Rola Phillips MD 703 [facility] 2, [facility] [address] [place] [address] Health Maintenance Due Date Last Done Comments Bone Density Scan 1949 CT Colonography 1949 Colonoscopy 1949 Colorectal Cancer Screening 1949 FIT-DNA (Cologuard) 1949 FIT 1949 Lipid Panel 1949 Sigmoidoscopy 1949 Yearly Adult Physical 1949 Diabetes Screening 1967 Hepatitis C Screening 1967 DTaP/Tdap/Td Vaccines (1 - Tdap) 1971 Pneumococcal Vaccine (1 of 1 - PCV) 1999 Zoster Vaccines (1 of 2) 1999 COVID-19 Vaccine (1 - 4-2 5 season) 2024 RSV High Risk: (Elderly (60+ ) or Population) (1 - 1-dose 75+ series) 2024 Influenza Vaccine (Season Ended) 2025 HIB Vaccines Aged Out No longer eligi ble based on patient's age to complete this topic HPV Vaccines Aged Out No longer eligi ble based on patient's age to complete this topic Hepatitis A Vaccines Aged Out No long er eligible based on patient's age to complete this topic Hepatitis B Vaccines Aged Out No long er eligible based on patient's age to complete this topic IPV Vaccines Aged Out No longer eligi ble based on patient's age to complete this topic Meningococcal Vaccine Aged Out No nathan charlie eligible based on patient's age to complete this topic Rotavirus Vaccines Aged Out No longer eligible based on patient's age to complete this topic Insurance
--- OUTSIDE RECORDS SUMMARY | 2025-02-24 10:49 | XMS_ITS | Encounter Summary ---
Author Organization [facility] Address [address] [place] [address] Phone Care Team Providers Care Sliver Lapper Name Role Phone Unavailable Primary Care Provider Unavailabl e Encounter Details Date Type Department Care Team (Late st Contact Info) Description 11/26/2024 Scanned Document [facility] [address] [place] [phone] Scanning, Generic Provider Social History Tobacco Use Types Packs/Day Years Used Date Smoking Tobacco: Never Assessed Comments Unknown Sex and Gender Information Value Date Recorded Sex Assigned at Not on file Legal Sex Female 9:11 AM EST Gender Identity Not on file Sexual Orientation Not on file documented as of this encounter Plan of Treatment Upcoming Encounters Date Type Department Care Team (Late st Contact Info) Description 07/29/2025 9:10 AM EST Office Visit [facility] [address] [phone] Rola Phillips MD 703 [facility] 2, [facility] [address] [place] [address] documented as of this encounter Visit Diagnoses Not on filedocumented in this encounter
== END 2025-02-24 10:47 | disposition home or self-care (01) ==
LOC: WC 10:46
PROVIDERS: Family Provider Family Medicine; PCP Family Medicine; Visit Provider Physician Assistant
DX: L97.925 Non-pressure chronic ulcer of unspecified part of left lower leg with muscle involvement without evidence of necrosis (principal); L89.610 Pressure ulcer of right heel, unstageable; L76.32 Postprocedural hematoma of skin and subcutaneous tissue following other procedure
CPT/HCPCS: A6213; G0463

== ENCOUNTER 2025-03-04 10:42 | Outpatient (OUT) | payer MEDICARE, SELFPAY ==
--- OUTSIDE RECORDS SUMMARY | 2025-01-14 10:30 | XMS_ITS ---
Author Organization [facility] Address [address] [place] [address] [place] [address] Care Team Providers Care Baker Head Name Role Phone Lynda Jean Primary Care Provider Kevin Quintana Unavailable [phone] Encounters Encounter Location Date Provider Diagnosis [address] [address] 01/14/2025 Kevin Reyes Plan Of Treatment No Information Progress Notes * Kelsey NIETODOB:1950 (74 yo F)Acc No.[id number]:01/14/2025 Patient: Kelsey PETER Provider: Joey Reyes DPM :1950 A ge:74 Y S ex:Female Date:01/14/2025 Address:[facility] Pcp:Lynda Jean Subjective: * Chief Complaints: * * Medical History: Objective: * Vitals: Assessment: Plan: * Treatment: * Images: * Electronic signature of Davison in MIGEL Reyes on 03/04/2025 at 10:44 AM EDT Sign off status: Pending * Provider: Joey Reyes DPM Date: 01/14/2025 Generated for Mirta stearns/Theodora/eTransmitting on: 03/04/2025 10:44 AM EDT
--- OUTSIDE RECORDS SUMMARY | 2025-02-06 05:20 | XMS_ITS ---
Author Organization [facility] Address [address] [place] [address] Care Team Providers Care Electric Needle Specialist Name Role Phone Chris Lynda Unavailable [phone] Amber Montes De Oca Unavailable [phone] Allergies Allergen (clinical drug ingredient) Drug/Non Drug Allergy documented on EMR Reaction Allergy Type Onset Date Status PCN (uncoded) Unknown Allergy Active Reason For Referral Reason REFERRAL FOR [place] [facility] PAINMANGEMENT FOR L4-5 JUNITO Diagnosis 1 Compression fracture of L1 vertebra with routine healing, subsequent encounter (S32.010D) Referral Organization [facility] Referring Provider First Name Lydna Referring Provider Last Name Chris Referring Provider Speciality Orthopedic Surgery Referred Organization [facility] Referred Address [address] [place] [address] [address], [address],[place], [place],[address], General Notes Alyssa Gutierrez 2024 10:23:41 AM >, Alyssa Gutierrez 02/11/2025 10:02:14 AM >FAXED Referral Priority Routine REASON FOR VISIT Low Back Pain Encounters Encounter Location Date Provider Diagnosis [facility] Office [address] [place] [address] [place] [address] 02/06/2025 Amber Montes De Oca Compression fracture of L1 vertebra with routine healing, subsequent encounter S32.010D and Compression fracture of L2 vertebra with routine healing, subsequent encounter S32.020D Assessments Encounter Date Diagnosis (ICD Code) Assessment Notes Treatment Notes Treatment Clinical Notes Section Notes 02/06/2025 Compression fracture of L1 vertebra with routine healing, subsequent encounter (ICD-10 - S32.010D) 1. Dynamic L4-5 spondylolisthesis 2. L1 and L2 compression fracture 3. 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 02/06/2025 Compression fracture of L2 vertebra with routine healing, subsequent encounter (ICD-10 - S32.020D) 1. Dynamic L4-5 spondylolisthesis 2. L1 and L2 compression fracture 3. 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 02/06/2025 Other Plan established by Dr. Boswell. Patient evaluated by myself and Dr. Boswell today. We did review imaging with patient and her daughter and recommend an LSO brace for the compression fractures and referral to the [facility] for an L4-5 epidural steroid injection. She can wear the LSO brace when out of bed. We will see her back in 4 weeks for symptom recheck for her compression fracture. The patient is very much in agreement with the treatment and/or diagnostic plan set forth and all questions were answered to the patient's satisfaction. Thanks once again. If we can be of further service to your patients with disorders of the spine, cervical, thoracic, or lumbar, please do not hesitate to contact Dr. Boswell. Best regards, 1. Dynamic L4-5 spondylolisthesis 2. L1 and L2 compression fracture 3. 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 Plan Of Treatment Treatment Notes Assessment Notes Other Plan established by Dr. Boswell. Patient evaluated by myself and Dr. Boswell today. We did review imaging with patient and her daughter and recommend an LSO brace for the compression fractures and referral to the [facility] for an L4-5 epidural steroid injection. She can wear the LSO brace when out of bed. We will see her back in 4 weeks for symptom recheck for her compression fracture. The patient is very much in agreement with the treatment and/or diagnostic plan set forth and all questions were answered to the patient's satisfaction. Thanks once again. If we can be of further service to your patients with disorders of the spine, cervical, thoracic, or lumbar, please do not hesitate to contact Dr. Boswell. Best regards, Pending Test Test Name Order Date Lumbar spine, 4v flex ext - 67427 2024 DME - Lumbar Support, Surgical OTS 02/06 Epidural injection - lumbar 02/06/2025 Referrals Referral Date Details 02/06/2025 02/06/2025, REFERRAL FOR [place] PAINMANGEMENT FOR L4-5 JUNITO, [address], [place], [address], Next Appt Details Follow Up: 6 Weeks, Reason: Provider Name:Lynda Jha, 03/13/2025 10:10:00 AM, [address] [facility], [address], [place], [address], Progress Notes * EMILIA, DAYANNAVANESSADOB:1950 (74 yo F)Acc No.[id number]:02/06/2025 Patient: FLOR PETER Provider: JORDY Alexis :1950 A ge:74 Y S ex:Female Date:02/06/2025 [facility] Subjective: * Chief Complaints: * 1 . Low Back Pain. * HPI: G eneral Follow Up Information: Dictated by Amber Montes De Oca PA-C Patient is a 74-year-old female that presents with complaints of low back pain and numbness and tingling into her bilateral lower extremities down to her feet. She has been at a [facility] facility since the fall last year for multiple medical issues and fell in July and then again in December there. She has been using a wheelchair as she has been having leg weakness and ambulation issues after being diagnosed with a pulmonary alcoholism and bilateral lower extremity blood clots. She has chronic wounds on her right lower extremity. She also lost a significant amount of weight after she could eat last fall from stomach issues. Current VAS score of 5 out of 10. Percentagewise 50% of her pain is in her back and 50% is in her legs, 25% in the left leg and 75% in the right leg. Aggravating factors of her pain are sitting, bending forward, lying on her side, back, and stomach, rising from sitting, and changing positions. She does have a Martinez in place but denies any bowel incontinence or saddle anesthesia. G eneral Info per Patient Report: Side affected is R ight. J oint or body part affected is l ower back. S tart of Pain/Cause of Injury f ell out of bed. W ork related: N o. M otor vehicle accident: N o. M VA N o. T hird constitution party responsibility: N o. W hat activities make your symptoms worse? s itting,bending forward,lying on side,lying on back, lying on stomach, rising from sitting . * ROS: C onstitutional: Appetite Change Y es. M arked Fatigue Y es. ? E yes: Glasses/ Contacts Y es. G astrointestinal: Nausea/Vomiting Y es. S tomach Pain/Ulcers Y es.?Frequent Diarrhea Y es. F requent Constipation Y es. H emorrhoids Y es. ? S kin: Easy Bruising Y es. S wollen Ankles Y es. ? M usculoskeletal: Joint pain Y es. B ack Pain Y es. N renaldo Pain?Yes. M uscle Pain Y es. C ardiovascular: Abnormal Heart Beat Y es. L eg Swelling Y es. ? N eurological: Headaches/Migraines Y es. P sychiatric: Anxiety Y es. D epression Y es. * Medical History: H igh Blood Pressure, Abnormal Heart Rhythm, Liver Disease, Diabetes, Irritable bowel syndrome, Blood Clots in Legs/Lungs, Anxiety, Depression, Rheumatoid arthritis. * Surgical History: P ulmonary bilateral lung 09/2024. * Family History: N o Family History documented.. * Medications: N one * Allergies: P CN. Objective: * Vitals: P ain Scale (NRS): 5. * Examination: G eneral examination: O n examination, the patient is well-developed, well-nourished, well-groomed, alert and oriented x3, normal mood. Patient in a wheelchair, ambulation not observed. Limited lumbar ROM. Midline lumbar tenderness and right lumbar paraspinal tenderness. 5/5 muscle strength bilateral lower extremities. Sensory intact lower extremities. Negative SLR and clonus bilaterally. X -ray Imaging Studies: 4 view x-rays of the lumbar spine AP/lateral and flexion/extension taken in office were reviewed and interpreted by myself as compression deformities at L1 and L2. Worse at L2. There appears to be some anterolisthesis of L4 on 5 in flexion view that corrects in extension. M RI Imaging Studies: M RI lumbar spine without contrast was reviewed from the [facility] from 01/21/2025 Impression Multilevel degenerative disease. Compression deformities involving L1 and L2 vertebral bodies with what appears to be a subacute component involving the L2 vertebral body. There is approximately 2 mm retropulsion into the spinal canal of the L2 vertebral body fracture. L1-2 diffuse broad-based disc bulge is present, ligamentum flavum hypertrophy and facet joint degenerative changes causing moderate canal and bilateral neuroforaminal stenosis. L2-3 2 mm of anterolisthesis. Mild broad-based disc bulge with ligamentum flavum hypertrophy and facet joint degenerative changes causing mild canal and bilateral neuroforaminal stenosis. L3-4 diffuse broad-based disc bulge is present with ligamentum flavum hypertrophy and facet joint degenerative changes causing mild canal stenosis. No significant neural foraminal stenosis. L4-5 diffuse broad-based disc bulges present with ligamentum flavum hypertrophy and facet joint degenerative changes causing moderate canal and bilateral neuroforaminal stenosis. L5-S1 no posterior disc pathology. No neural canal or foraminal stenosis. C T Imaging Studies: C T lumbar spine without contrast was reviewed from 10/04/2024 from [facility] Impression Stable moderate compression fracture of L2 with marked central canal and foramen narrowing at this level, not appreciably changed since CT abdomen/pelvis from 08/18/2024. Multilevel moderate marked degenerative facet arthropathy of the lumbar spine and mild disc bulging resulting in multilevel moderate to marked neuroforaminal narrowing and moderate central canal narrowing, grossly stable. Assessment: * Assessment: 1. C ompression fracture of L1 vertebra with routine healing, subsequent encounter - S32.010D (Primary) 2 . C ompression fracture of L2 vertebra with routine healing, subsequent encounter - S32.020D 1. Dynamic L4-5 spondylolist hesis 2. L1 and L2 compression fracture 3. L4-5 neuroforaminal stenosis/stenosis/radiculopathy. Plan: * Treatment: 2. O thers I maging: Lumbar spine, 4v flex ext - [id number] Notes: Plan established by Dr. Boswell. Patient evaluated by myself and Dr. Boswell today. We did review imaging with patient and her daughter and recommend an LSO brace for the compression fractures and referral to the [facility] for an L4-5 epidural steroid injection. She can wear the LSO brace when out of bed. We will see her back in 4 weeks for symptom recheck for her compression fracture. The patient is very much in agreement with the treatment and/or diagnostic plan set forth and all questions were answered to the patient's satisfaction. Thanks once again. If we can be of further service to your patients with disorders of the spine, cervical, thoracic, or lumbar, please do not hesitate to contact Dr. Boswell. Best regards, * Procedure Codes: 7 2109 X-ray Lumbar Spine, 5 view complete * Follow Up: 6 Weeks Forms: * Images: * Electronic signature of Colt Montes De Oca PA-C on 03/04/2025 at 10:45 AM EDT Sign off status: Pending * Provider: JORDY Alexis Date: 0 02/06/2025 Generated for Mirta stearns/Theodora/Belkisitting on: 0 03/04/2025 10:45 AM EDT History and Physical Notes * HPI (History of Present Illness) Category Sub-Category Detail Notes Category Not es General Follow Up Information Dictated by Amber Montes De Oca PA-C Patient is a 74-year-old female that presents with complaints of low back pain and numbness and tingling into her bilateral lower extremities down to her feet. She has been at a prison facility since the fall last year for multiple medical issues and fell in July and then again in December there. She has been using a wheelchair as she has been having leg weakness and ambulation issues after being diagnosed with a pulmonary alcoholism and bilateral lower extremity blood clots. She has chronic wounds on her right lower extremity. She also lost a significant amount of weight after she could eat last fall from stomach issues. Current VAS score of 5 out of 10. Percentagewise 50% of her pain is in her back and 50% is in her legs, 25% in the left leg and 75% in the right leg. Aggravating factors of her pain are sitting, bending forward, lying on her side, back, and stomach, rising from sitting, and changing positions. She does have a Martinez in place but denies any bowel incontinence or saddle anesthesia. General Info per Patient Report Side affected is Right Joint or body part affected is lower klaus k Work related: No Motor vehicle accident: No Start of Pain/Cause of Injury fell out o f bed Third constitution party responsibility: No What activities make your symptoms worse ? sitting,bending forward,lying on side,lying on back, lying on stomach, rising from sitting MVA No Examination Category Sub-Category Detail Notes Category Not es General examination On exami nation, the patient is well-developed, well-nourished, well-groomed, alert and oriented x3, normal mood. Patient in a wheelchair, ambulation not observed. Limited lumbar ROM. Midline lumbar tenderness and right lumbar paraspinal tenderness. 5/5 muscle strength bilateral lower extremities. Sensory intact lower extremities. Negative SLR and clonus bilaterally. X-ray Imaging Studies 4 view x-rays of the lumbar spine AP/lateral and flexion/extension taken in office were reviewed and interpreted by myself as compression deformities at L1 and L2. Worse at L2. There appears to be some anterolisthesis of L4 on 5 in flexion view that corrects in extension. MRI Imaging Studies MRI lumbar spine without contrast was reviewed from the [facility] from 01/21/2025 Impression Multilevel degenerative disease. Compression deformities involving L1 and L2 vertebral bodies with what appears to be a subacute component involving the L2 vertebral body. There is approximately 2 mm retropulsion into the spinal canal of the L2 vertebral body fracture. L1-2 diffuse broad-based disc bulge is present, ligamentum flavum hypertrophy and facet joint degenerative changes causing moderate canal and bilateral neuroforaminal stenosis. L2-3 2 mm of anterolisthesis. Mild broad-based disc bulge with ligamentum flavum hypertrophy and facet joint degenerative changes causing mild canal and bilateral neuroforaminal stenosis. L3-4 diffuse broad-based disc bulge is present with ligamentum flavum hypertrophy and facet joint degenerative changes causing mild canal stenosis. No significant neural foraminal stenosis. L4-5 diffuse broad-based disc bulges present with ligamentum flavum hypertrophy and facet joint degenerative changes causing moderate canal and bilateral neuroforaminal stenosis. L5-S1 no posterior disc pathology. No neural canal or foraminal stenosis. CT Imaging Studies CT lumbar spine without contrast was reviewed from 10/04/2024 from [facility] Impression Stable moderate compression fracture of L2 with marked central canal and foramen narrowing at this level, not appreciably changed since CT abdomen/pelvis from 08/18/2024. Multilevel moderate marked degenerative facet arthropathy of the lumbar spine and mild disc bulging resulting in multilevel moderate to marked neuroforaminal narrowing and moderate central canal narrowing, grossly stable. Consultation Request Notes Referral Date Referring Provider Referred Provider Not es 02/06/2025 Lynda Perez , REFERRAL [facility] FOR L4-5 JUNITO
--- OUTSIDE RECORDS SUMMARY | 2025-03-04 10:45 | XMS_ITS | Patient Health Record ---
Author Organization [facility] Address [address] [place] [address] [place] [address] Care Team Providers Care Dermatology Physician Name Role Phone Lynda Jean Primary Care Provider Kevin Quintana Unavailable [phone] Reason For Referral No Information Encounters Encounter Location Date Provider Diagnosis [facility] [address] [place] [address] 01/14/2025 Kevin Reyes Plan Of Treatment No Information Insurance Providers Payer Name Payer Address Payer Phone Subscriber Number Group Number Insured Name Patient Relationship to Insured Coverage Start Date Coverage End Date [facility] [address] [address] [place] [phone] [id number] Kelsey Macias Self - patient is the insured
--- OUTSIDE RECORDS SUMMARY | 2025-03-04 10:45 | XMS_ITS | Encounter Summary ---
Author Organization [employer] Address [facility]-[id number] [address] [place] [address] Care Team Providers Care Hand Crocheter Name Role Phone Destiny Figueroa APRN-CFALVINO Primary Care Pro vider Encounter Details Date Type Department Care Team (Late st Contact Info) Description 10/07/2024 Orders Only [facility] [address] [place] [phone] External, Scanning Provider Pain (Primary Dx) Social History Tobacco Use Types Packs/Day Years Used Date Smoking Tobacco: Never Smokeless Tobacco: Never Alcohol Use Standard Drinks/Week Comments Never 0 (1 standard drink = 0.6 oz pur e alcohol) [facility] Utilities Answer Date Recorded In the past 12 months has [employer], gas, oil, or water [employer] threatened to shut off services in your [...] <enter goal here> General Yes Claudia Whitman EMPLOYEE RELATIONS DIRECTOR Note: Evaluation of progress towards goal: Current Discharge Plan: SNF for short term rehab documented as of this encounter Results * Vas venous duplex lwr bilateral (10/06/2024 12:05 PM EST) us Scanning Provider External CV VASCULAR ORDERABLE S Final Result Performing Organization Address City/[facility]/ZIP Co de Phone Number MEDSTREAMING * Non [facility] Echo (10/06/2024 12:05 PM EST) us Scanning Provider External CV ECHO ORDERABLES Fi nal Result Performing Organization Address City/[facility]/ZIP Co de Phone Number XCELERA * [...] documented as of this encounter Care Teams Hand Crocheter Relationship Specialty Start Date End Date Destiny Figueroa, LAST CODE STRIPER-CFNP [address] [phone] PCP - General Family Medicine 05/30/24 documented as of this encounter
--- OUTSIDE RECORDS SUMMARY | 2025-03-04 10:45 | XMS_ITS | Encounter Summary ---
Author Organization [facility] Address [facility]-[id number] [address] [place] [address] Care Team Providers Care Nutrition Professor Name Role Phone Destiny Figueroa APRN-CFNP Primary Care Pro vider Encounter Details Date Type Department Care Team (Late st Contact Info) Description 09/11/2024 Orders Only [facility] [address] [place] [phone] External, Scanning Provider Social History Tobacco Use Types Packs/Day Years Used Date Smoking Tobacco: Never Smokeless Tobacco: Never Alcohol Use Standard Drinks/Week Comments Never 0 (1 standard drink = 0.6 oz pur e alcohol) [facility] Utilities Answer Date Recorded In the past 12 months has [employer], gas, oil, or water [employer] threatened to shut off services in your [...] ECG ORDERABLES Final Result Performing Organization Address City/[facility] Co de Phone Number MANUALLY TRANSCRIBED RESULTS documented in this encounter Visit Diagnoses Not on filedocumented in this encounter Additional Health Concerns Assessment Noted Time PHQ-9 Depression Total Score: 9 05/30/20 24 10:46 AM EDT documented as of this encounter Care Teams Nutrition Professor Relationship Specialty Start Date End Date Destiny Figueroa APRN-CFNP [address] [place] [address] PCP - General Family Medicine 05/30/24 documented as of this encounter
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
--- OUTSIDE RECORDS SUMMARY | 2025-03-04 10:45 | XMS_ITS | Continuity of Care Document ---
Author Organization [facility] Address [address] [place] [id number] Insurance Providers Payer Plan Claims Address Claims Phone Policy Number Group Number Relation Employer Guarantor Name Guarantor Guarantor Address Guarantor Phone [employer] tel:(86 6) [phone] [id number] MMO MCR Adv PFFS MMO MCR Adv PFFS [id number] [facility] MCR PFFS [id number] Problems Condition ICD9 code ICD10 code SNOMED code Start Date End Date S tatus Enterocolitis due to Clostridium difficile, not specified as recurrent A04.72 12/05/2024 Active Peripheral vascular disease, unspecified I73.9 12/05/2024 Acti ve Type 2 diabetes mellitus without complications E11.9 12/05/2024 Act magda Hyperlipidemia, unspecified E78.5 12/05/2024 Active Anxiety disorder, unspecified F41.9 12/05/2024 Active Major depressive disorder, single episode, mild F32.0 12/05/2024 Active Cellulitis of right lower limb L03.115 12/05/2024 Active Cellulitis of left lower limb L03.116 12/05/2024 Active Acute respiratory failure, unspecified whether with hypoxia or hypercapnia J96.00 12/05/2024 Active Rheumatoid arthritis without rheumatoid factor, unspecified site M06.00 12/05/2024 Active Unspecified osteoarthritis, unspecified site M19.90 12/05/2024 Active Generalized edema R60.1 12/05/2024 Act magda Abnormality of albumin R77.0 12/05/2024 Active Hereditary and idiopathic neuropathy, unspecified G60.9 12/05/2024 A ctive Obesity, class 2 12/05/2024 Acti ve Essential (primary) hypertension I10 12/05/2024 Active Nausea R11.0 12/05/2024 Active Muscle weakness (generalized) M62.81 12/06/2024 Active Difficulty in walking, not elsewhere classified R26.2 12/06/2024 Active Dysphagia, oropharyngeal phase R13.12 12/06/2024 Active Cognitive communication deficit R41.841 12/06/2024 Active Retention of urine, unspecified R33.9 12/08/2024 Active Type 2 diabetes mellitus with diabetic polyneuropathy E11.42 12/05/2024 Active Bacteremia R78.81 12/05/2024 Active Other disorders of plasma-protein metabolism, 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 12/05/2024 Active Essential tremor G25.0 12/05/2024 Acti ve Paroxysmal atrial fibrillation I48.0 12/05/2024 Active 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.929 12/05/2024 Acti ve Retention of urine, unspecified R33.9 12/05/2024 Active Personal history of pulmonary embolism Z86.711 12/05/2024 Active Nutritional deficiency, unspecified E63.9 12/09/2024 Active Dysphagia, oral phase R13.11 12/11/2024 Active Neuromuscular dysfunction of bladder, unspecified N31.9 01/23/2025 A ctive Neuromuscular dysfunction of bladder, unspecified N31.9 01/24/2025 A ctive Obesity, class 2 E66.812 12/05/2024 Acti ve Results Test Value / Unit Interpretation Reference Ran ge Tuberculosis reaction wheal[ 51536-4] Tuberculosis reaction wheal [06338-8] See note TB test Tuberculosis reaction wheal[ 43496-0] Tuberculosis reaction wheal [46215-3] 0 mm NEG Allergies, adverse reactions, alerts Substance Reaction Date Status Type No allergies have been recorded Non Drug Penicillins (PCN) 12/06/2024 Non Jeb g citalopram 12/08/2024 Non Drug cortisone 12/08/2024 Non Drug hydromorphone 12/08/2024 Non Drug iodine 12/08/2024 Non Drug morphine 12/08/2024 Non Drug Shrimp 12/08/2024 Non Drug Immunizations Vaccine Route Date Status COVID-19 Vaccine Unassigned Route of Administration Refused Medications Medication Instructions Route Dosage Frequency Start Date Stop Date Indications Status amiodarone 200 mg tablet (amiodarone) 200mg, oral, Twice A Day oral 1.0 12.0 h 12/12 Peripheral vascular disease, unspecified Active furosemide 20 mg tablet (furosemide) 20mg, oral, Twice A Day oral 1.0 12.0 h 12/07 Generalized edema Active gabapentin 100 mg capsule (gabapentin) 100 mg, oral, Three Times A Day oral 1.0 8.0 h 01/16 Hereditary and idiopathic neuropathy, unspecified Active metronidazole in NaCl (iso-os) 500 mg/100 mL piggyback (metronidazole in NaCl (iso-os)) 500mg, intravenous, Every 8 Hours intraveno us 1.0 8.0 h 12/07 Enterocolitis due to Clostridium difficile, not specified as recurrent Active potassium chloride 20 mEq tablet extended release (potassium chloride) 20, oral, Twice A Day oral 1.0 12.0 h 2024 Generalized edema Active aspirin 81 mg tablet,chewabl e (aspirin) 81 mg, oral, Once A Day oral 1.0 1.0 d 2024 Peripheral vascular disease, unspecified Active atorvastatin 80 mg tablet (atorvastatin) 80 mg, oral, At Bedtime oral 1.0 2024 Hyperlipidemia , unspecified Active calcium carbonate-quiana min D3 600 mg-10 mcg (400 unit) tablet (calcium carbonate-quiana min D3) one tablet, oral, Once A Day oral 1.0 1.0 d 2024 Unspecified osteoarthritis , unspecified site Active Eliquis (apixaban) 5 mg tablet (Eliquis (apixaban)) 5 mg, oral, Twice A Day oral 1.0 12.0 h 2024 Peripheral vascular disease, unspecified Active glucagon HCl 1 mg/mL recon soln (glucagon HCl) 1 mg, intramuscular , Three Times A Day - PRN intramusc ular 1.0 8.0 h 12/17 Active Lidoderm (lidocaine) 5 % adhesive patch,medicate d (Lidoderm (lidocaine)) one patch, patch, Twice A Day, on in AM off in PM 1.0 12.0 h 2024 Unspecified osteoarthritis , unspecified site Active metoprolol tartrate 25 mg tablet (metoprolol tartrate) 25 mg, oral, Twice A Day oral 1.0 12.0 h 2024 Essential (primary) hypertension Active mirtazapine 15 mg tablet (mirtazapine) 15 mg, oral, At Bedtime oral 1.0 01/19 Anxiety disorder, unspecified Active multivitamin - tablet (multivitamin) one tablet, oral, Once A Day oral 1.0 1.0 d 12/08 Abnormality of albumin Active promethazine 12.5 mg tablet (promethazine) 12.5 mg, oral, With Meals, Do not give after 4 pm oral 1.0 01/14 Nausea Active Tylenol (acetaminophen ) 325 mg tablet (Tylenol (acetaminophen )) 650 mg, oral, Every 6 Hours - PRN oral 1.0 6.0 h 2024 Unspecified osteoarthritis , unspecified site Active Voltaren Arthritis Pain (diclofenac sodium) 1 % gel (Voltaren Arthritis Pain (diclofenac sodium)) 2 grams, topical, Every 6 Hours, apply to elbow wrist and back of hand topical 1.0 6.0 h 2024 Unspecified osteoarthritis , unspecified site Active vancomycin 250 mg capsule (vancomycin) 500, oral, Every 6 Hours oral 1.0 6.0 h 12/07 Active Beneprotein (whey protein isolate) 6 gram-25 kcal/7 gram powder in packet (Beneprotein (whey protein isolate)) 1 packet, oral, Before Meals and At Bedtime oral 1.0 2024 Enterocolitis due to Clostridium difficile, not specified as recurrent Active Normal Saline Flush (sodium chloride 0.9 % (flush)) - syringe (Normal Saline Flush (sodium chloride 0.9 % (flush))) 10ml, injection, 6 Times Per Day 1.0 6.0 d 12/08 Active tramadol 50 mg tablet (tramadol) 1 tab, oral, Every 6 Hours - PRN, for severe pain oral 1.0 6.0 h 01/12 Active furosemide 20 mg tablet (furosemide) 40mg, oral, Twice A Day oral 1.0 12.0 h 12/08 Generalized edema Active vancomycin 50 mg/mL recon soln (vancomycin) 10ml, oral, Every 6 Hours oral 1.0 6.0 h 12/09 Enterocolitis due to Clostridium difficile, not specified as recurrent Active vancomycin 50 mg/mL recon soln (vancomycin) 10ml, oral, Every 6 Hours oral 1.0 6.0 h 12/09 Enterocolitis due to Clostridium difficile, not specified as recurrent Active vancomycin 50 mg/mL recon soln (vancomycin) 10ml, oral, Every 6 Hours oral 1.0 6.0 h 12/07 Enterocolitis due to Clostridium difficile, not specified as recurrent Active amiodarone 200 mg tablet (amiodarone) 200mg, oral, Twice A Day oral 1.0 12.0 h 12/08 Peripheral vascular disease, unspecified Active amiodarone 200 mg tablet (amiodarone) 200mg, oral, Once A Day oral 1.0 1.0 d 12/08 Peripheral vascular disease, unspecified Active Daily Multivitamin-M inerals (multivitamin with minerals) - tablet (Daily Multivitamin-M inerals (multivitamin with minerals)) 1 tablet, oral, Once A Day oral 1.0 1.0 d 12/17 Type 2 diabetes mellitus without complications Active furosemide 20 mg tablet (furosemide) 20mg, oral, Twice A Day oral 1.0 12.0 h 2024 Generalized edema Active amiodarone 200 mg tablet (amiodarone) 200mg, oral, Twice A Day oral 1.0 12.0 h 12/08 Peripheral vascular disease, unspecified Active Mucinex (guaifenesin) 600 mg tablet extended release 12hr (Mucinex (guaifenesin)) 600, oral, Twice A Day oral 1.0 12.0 h 12/18 Active amiodarone 200 mg tablet (amiodarone) 200mg, oral, Once A Day oral 1.0 1.0 d 2024 Peripheral vascular disease, unspecified Active Normal Saline Flush (sodium chloride 0.9 % (flush)) - syringe (Normal Saline Flush (sodium chloride 0.9 % (flush))) 10ml, injection, Twice A Day 1.0 12.0 h 01/06 Active amiodarone 200 mg tablet (amiodarone) 200mg, oral, Once A Day oral 1.0 1.0 d 12/05 Active amiodarone 200 mg tablet (amiodarone) 200mg, oral, Once A Day oral 1.0 1.0 d 12/08 Peripheral vascular disease, unspecified Active Glucagon Emergency Kit (human) (glucagon) 1 mg recon soln (Glucagon Emergency Kit (human) (glucagon)) 1 mg, intramuscular , Three Times A Day - PRN intramusc ular 1.0 8.0 h 2024 Type 2 diabetes mellitus with diabetic polyneuropathy Active [id number] penny fum-folic ac 7.5 mg iron-400 mcg tablet (multivit-min- iron fum-folic ac) 1 tablet, oral, Once A Day, supplement oral 1.0 1.0 d 2024 Active cefepime 1 gram recon soln (cefepime) 1 gram, intravenous, Twice A Day, wound infection/abs cess LLE intraveno us 1.0 12.0 h 12/24 Active cefepime 1 gram recon soln (cefepime) 1 gram, intravenous, Twice A Day, wound infection/abs cess LLE intraveno us 1.0 12.0 h 12/31 Active Normal Saline Flush (sodium chloride 0.9 % (flush)) - syringe (Normal Saline Flush (sodium chloride 0.9 % (flush))) 10 cc, injection, Four Times A Day 1.0 6.0 h 12/31 Active vancomycin 1,000 mg recon soln (vancomycin) 1 gram, intravenous, Twice A Day, wound infection/abs cess LLE. PHARMACY TO DOSE intraveno us 1.0 12.0 h 12/31 Active vancomycin 1,000 mg recon soln (vancomycin) 1 gram, intravenous, Twice A Day, wound infection/abs cess LLE intraveno us 1.0 12.0 h 12/21 Active cefepime 1 gram recon soln (cefepime) 1 gram, intravenous, Twice A Day, wound infection/abs cess LLE intraveno us 1.0 12.0 h 12/21 Active Zoloft (sertraline) 25 mg tablet (Zoloft (sertraline)) 25mg, oral, Once A Day, Give one tablet daily for depression. oral 1.0 1.0 d 01/19 Active vancomycin in 0.9 % sodium chl 750 mg/150 mL solution (vancomycin in 0.9 % sodium chl) 750 mg, intravenous, Twice A Day intraveno us 1.0 12.0 h 12/31 Bacteremia Active vancomycin 1,000 mg recon soln (vancomycin) 1 gram, intravenous, Twice A Day, wound infection/abs cess LLE. PHARMACY TO DOSE intraveno us 1.0 12.0 h 12/24 Active Normal Saline Flush (sodium chloride 0.9 % (flush)) - syringe (Normal Saline Flush (sodium chloride 0.9 % (flush))) 10 cc, injection, Four Times A Day 1.0 6.0 h 01/06 Active cyclobenzaprin e 10 mg tablet (cyclobenzapri ne) 1 tab, oral, Three Times A Day - PRN, pain oral 1.0 8.0 h 01/14 Active hydrocodone-ac etaminophen 7.5-325 mg tablet (hydrocodone-a cetaminophen) 1 tab, oral, Every 6 Hours - PRN, pain oral 1.0 6.0 h 2024 Active gabapentin 100 mg capsule (gabapentin) 200mg, oral, Three Times A Day, Give to tabs to equal 200mg oral 1.0 8.0 h 01/19 Hereditary and idiopathic neuropathy, unspecified Active ferrous sulfate 325 mg (65 mg iron) tablet (ferrous sulfate) 325mg, oral, Twice A Day oral 1.0 12.0 h 2024 Active gabapentin 300 mg capsule (gabapentin) 1 capsule, oral, Three Times A Day oral 1.0 8.0 h 2024 Type 2 diabetes mellitus with diabetic polyneuropathy Active mirtazapine 30 mg tablet (mirtazapine) 30mg, oral, At Bedtime oral 1.0 2024 Active Prilosec OTC (omeprazole magnesium) 20 mg tablet,delayed release (DR/EC) (Prilosec OTC (omeprazole magnesium)) 20mg, oral, Once A Day oral 1.0 1.0 d 2024 Active Zoloft (sertraline) 50 mg tablet (Zoloft (sertraline)) 50mg, oral, Once A Day oral 1.0 1.0 d 2024 Active Calcium with Vitamin D (calcium carbonate-quiana min d3) 600 mg-10 mcg (400 unit) tablet (Calcium with Vitamin D (calcium carbonate-quiana min d3)) 1 tab, oral, Once A Day, hypocalcemia oral 1.0 1.0 d 2024 Active Vital Signs Date Vital Result Comment 12/05/2024 11:48 PM Heart Rate 73 /min Blood Pressure Systolic 109 mm[Hg] Blood Pressure Diastolic 59 mm[Hg] 12/05/2024 07:50 PM Temperature 98.3 [degF] Oxygen Saturation 98 % Respiratory Rate 18 /min Heart Rate 73 /min Blood Pressure Systolic 109 mm[Hg] Blood Pressure Diastolic 59 mm[Hg] 12/06/2024 06:27 AM Body Height 64 [in_us] 12/06/2024 08:04 AM Heart Rate 76 /min Blood Pressure Systolic 136 mm[Hg] Blood Pressure Diastolic 58 mm[Hg] 12/06/2024 04:22 PM Temperature 98.1 [degF] Oxygen Saturation 96 % Respiratory Rate 18 /min Heart Rate 83 /min Blood Pressure Systolic 122 mm[Hg] Blood Pressure Diastolic 72 mm[Hg] 12/06/2024 04:21 PM Temperature 98.1 [degF] Oxygen Saturation 96 % Respiratory Rate 18 /min Heart Rate 83 /min Blood Pressure Systolic 122 mm[Hg] Blood Pressure Diastolic 72 mm[Hg] 12/06/2024 07:13 PM Heart Rate 83 /min Blood Pressure Systolic 122 mm[Hg] Blood Pressure Diastolic 72 mm[Hg] 12/07/2024 01:37 AM Oxygen Saturation 98 % 12/07/2024 01:36 AM Temperature 98 [degF] Respiratory Rate 18 /min Heart Rate 80 /min Blood Pressure Systolic 129 mm[Hg] Blood Pressure Diastolic 70 mm[Hg] 12/07/2024 08:12 AM Heart Rate 81 /min Blood Pressure Systolic 108 mm[Hg] Blood Pressure Diastolic 58 mm[Hg] 12/07/2024 12:17 PM Temperature 98.3 [degF] Oxygen Saturation 96 % Respiratory Rate 16 /min 12/07/2024 01:54 PM Temperature 98.3 [degF] Oxygen Saturation 96 % Respiratory Rate 16 /min Heart Rate 81 /min Blood Pressure Systolic 108 mm[Hg] Blood Pressure Diastolic 58 mm[Hg] 12/07/2024 04:56 PM Temperature 98.3 [degF] Oxygen Saturation 94 % Respiratory Rate 18 /min Heart Rate 90 /min Blood Pressure Systolic 132 mm[Hg] Blood Pressure Diastolic 80 mm[Hg] 12/07/2024 07:18 PM Heart Rate 90 /min Blood Pressure Systolic 132 mm[Hg] Blood Pressure Diastolic 80 mm[Hg] 12/07/2024 07:15 PM Heart Rate 90 /min Blood Pressure Systolic 132 mm[Hg] Blood Pressure Diastolic 80 mm[Hg] 12/08/2024 12:18 AM Temperature 98 [degF] Oxygen Saturation 95 % Respiratory Rate 18 /min Heart Rate 87 /min Blood Pressure Systolic 130 mm[Hg] Blood Pressure Diastolic 81 mm[Hg] 12/08/2024 08:06 AM Heart Rate 99 /min Blood Pressure Systolic 151 mm[Hg] Blood Pressure Diastolic 84 mm[Hg] 12/08/2024 04:47 AM Heart Rate 90 /min Blood Pressure Systolic 133 mm[Hg] Blood Pressure Diastolic 75 mm[Hg] 12/08/2024 12:06 PM Temperature 98.2 [degF] Oxygen Saturation 97 % Respiratory Rate 18 /min Heart Rate 92 /min Blood Pressure Systolic 131 mm[Hg] Blood Pressure Diastolic 80 mm[Hg] 12/08/2024 08:30 PM Heart Rate 97 /min Blood Pressure Systolic 125 mm[Hg] Blood Pressure Diastolic 53 mm[Hg] 12/08/2024 12:15 PM Body Weight 221.2 [lb_av] Body Mass Index 37.96 kg/m2 12/09/2024 02:38 AM Temperature 98.1 [degF] Oxygen Saturation 98 % Respiratory Rate 16 /min 12/09/2024 08:21 AM Heart Rate 89 /min Blood Pressure Systolic 141 mm[Hg] Blood Pressure Diastolic 60 mm[Hg] 12/09/2024 12:09 PM Temperature 98.4 [degF] Oxygen Saturation 98 % Respiratory Rate 16 /min 12/09/2024 10:46 PM Heart Rate 83 /min Blood Pressure Systolic 114 mm[Hg] Blood Pressure Diastolic 65 mm[Hg] 12/10/2024 08:28 AM Temperature 98.3 [degF] Oxygen Saturation 97 % Respiratory Rate 18 /min Heart Rate 90 /min Blood Pressure Systolic 137 mm[Hg] Blood Pressure Diastolic 70 mm[Hg] 12/11/2024 12:09 AM Heart Rate 56 /min Blood Pressure Systolic 93 mm[Hg] Blood Pressure Diastolic 59 mm[Hg] 12/11/2024 07:46 AM Heart Rate 104 /min Blood Pressure Systolic 110 mm[Hg] Blood Pressure Diastolic 60 mm[Hg] 12/11/2024 09:19 AM Temperature 98.2 [degF] Oxygen Saturation 96 % Respiratory Rate 18 /min Heart Rate 104 /min Blood Pressure Systolic 110 mm[Hg] Blood Pressure Diastolic 60 mm[Hg] 12/11/2024 09:16 PM Heart Rate 90 /min Blood Pressure Systolic 118 mm[Hg] Blood Pressure Diastolic 68 mm[Hg] 12/12/2024 07:44 AM Heart Rate 89 /min Blood Pressure Systolic 122 mm[Hg] Blood Pressure Diastolic 80 mm[Hg] 12/12/2024 09:59 AM Temperature 98.1 [degF] Oxygen Saturation 98 % Respiratory Rate 18 /min Heart Rate 89 /min Blood Pressure Systolic 122 mm[Hg] Blood Pressure Diastolic 80 mm[Hg] 12/12/2024 09:07 PM Heart Rate 90 /min Blood Pressure Systolic 131 mm[Hg] Blood Pressure Diastolic 84 mm[Hg] 12/13/2024 09:36 AM Heart Rate 86 /min Blood Pressure Systolic 126 mm[Hg] Blood Pressure Diastolic 80 mm[Hg] 12/13/2024 01:33 PM Temperature 98 [degF] Oxygen Saturation 98 % Respiratory Rate 18 /min 12/13/2024 08:33 PM Heart Rate 97 /min Blood Pressure Systolic 115 mm[Hg] Blood Pressure Diastolic 67 mm[Hg] 12/14/2024 09:20 AM Heart Rate 90 /min Blood Pressure Systolic 121 mm[Hg] Blood Pressure Diastolic 63 mm[Hg] 12/14/2024 10:23 AM Temperature 98.2 [degF] Oxygen Saturation 98 % Respiratory Rate 18 /min Heart Rate 84 /min Blood Pressure Systolic 126 mm[Hg] Blood Pressure Diastolic 66 mm[Hg] 12/14/2024 09:05 PM Heart Rate 98 /min Blood Pressure Systolic 125 mm[Hg] Blood Pressure Diastolic 60 mm[Hg] 12/15/2024 07:43 AM Heart Rate 83 /min Blood Pressure Systolic 126 mm[Hg] Blood Pressure Diastolic 90 mm[Hg] 12/15/2024 10:02 AM Temperature 98 [degF] Oxygen Saturation 95 % Respiratory Rate 18 /min Heart Rate 83 /min Blood Pressure Systolic 126 mm[Hg] Blood Pressure Diastolic 90 mm[Hg] 12/15/2024 09:10 PM Heart Rate 86 /min Blood Pressure Systolic 128 mm[Hg] Blood Pressure Diastolic 86 mm[Hg] 12/15/2024 12:08 PM Body Weight 207.2 [lb_av] Body Mass Index 35.56 kg/m2 12/16/2024 07:30 AM Heart Rate 83 /min Blood Pressure Systolic 130 mm[Hg] Blood Pressure Diastolic 82 mm[Hg] 12/16/2024 09:32 AM Temperature 98.4 [degF] Oxygen Saturation 93 % Respiratory Rate 18 /min Heart Rate 83 /min Blood Pressure Systolic 130 mm[Hg] Blood Pressure Diastolic 82 mm[Hg] 12/16/2024 09:51 PM Heart Rate 89 /min Blood Pressure Systolic 132 mm[Hg] Blood Pressure Diastolic 72 mm[Hg] 12/17/2024 07:47 AM Temperature 97.9 [degF] Oxygen Saturation 95 % Respiratory Rate 20 /min Heart Rate 91 /min Blood Pressure Systolic 103 mm[Hg] Blood Pressure Diastolic 81 mm[Hg] 12/17/2024 07:41 PM Heart Rate 89 /min Blood Pressure Systolic 135 mm[Hg] Blood Pressure Diastolic 69 mm[Hg] 12/18/2024 10:57 AM Temperature 97.5 [degF] Oxygen Saturation 95 % Respiratory Rate 18 /min Heart Rate 88 /min Blood Pressure Systolic 132 mm[Hg] Blood Pressure Diastolic 76 mm[Hg] 12/18/2024 09:17 AM Heart Rate 86 /min Blood Pressure Systolic 140 mm[Hg] Blood Pressure Diastolic 72 mm[Hg] 12/18/2024 08:57 PM Heart Rate 86 /min Blood Pressure Systolic 126 mm[Hg] Blood Pressure Diastolic 75 mm[Hg] 12/19/2024 09:21 AM Heart Rate 82 /min Blood Pressure Systolic 122 mm[Hg] Blood Pressure Diastolic 70 mm[Hg] 12/19/2024 08:59 PM Heart Rate 89 /min Blood Pressure Systolic 108 mm[Hg] Blood Pressure Diastolic 56 mm[Hg] 12/20/2024 08:00 AM Heart Rate 84 /min Blood Pressure Systolic 142 mm[Hg] Blood Pressure Diastolic 86 mm[Hg] 12/20/2024 09:56 AM Temperature 98.3 [degF] Oxygen Saturation 95 % Respiratory Rate 18 /min Heart Rate 84 /min Blood Pressure Systolic 142 mm[Hg] Blood Pressure Diastolic 86 mm[Hg] 12/20/2024 07:27 PM Heart Rate 88 /min Blood Pressure Systolic 118 mm[Hg] Blood Pressure Diastolic 78 mm[Hg] 12/21/2024 07:58 AM Heart Rate 87 /min Blood Pressure Systolic 120 mm[Hg] Blood Pressure Diastolic 80 mm[Hg] 12/21/2024 10:00 AM Temperature 98.6 [degF] Oxygen Saturation 95 % Respiratory Rate 18 /min Heart Rate 87 /min Blood Pressure Systolic 120 mm[Hg] Blood Pressure Diastolic 80 mm[Hg] 12/21/2024 08:13 PM Heart Rate 85 /min Blood Pressure Systolic 124 mm[Hg] Blood Pressure Diastolic 82 mm[Hg] 12/22/2024 09:14 AM Temperature 97.9 [degF] Oxygen Saturation 97 % Respiratory Rate 18 /min Heart Rate 80 /min Blood Pressure Systolic 126 mm[Hg] Blood Pressure Diastolic 77 mm[Hg] 12/22/2024 08:01 PM Heart Rate 87 /min Blood Pressure Systolic 125 mm[Hg] Blood Pressure Diastolic 70 mm[Hg] 12/22/2024 02:39 PM Body Weight 201.6 [lb_av] Body Mass Index 34.6 kg/m2 12/23/2024 08:25 AM Temperature 98 [degF] Oxygen Saturation 97 % Respiratory Rate 18 /min Heart Rate 82 /min Blood Pressure Systolic 132 mm[Hg] Blood Pressure Diastolic 73 mm[Hg] 12/23/2024 11:34 PM Heart Rate 93 /min Blood Pressure Systolic 127 mm[Hg] Blood Pressure Diastolic 80 mm[Hg] 12/24/2024 08:54 AM Temperature 98.1 [degF] Respiratory Rate 18 /min Heart Rate 85 /min 12/24/2024 08:50 AM Blood Pressure Systolic 116 mm[Hg] Blood Pressure Diastolic 41 mm[Hg] 12/24/2024 08:48 AM Heart Rate 60 /min 12/24/2024 08:55 AM Oxygen Saturation 98 % 12/24/2024 10:57 PM Heart Rate 82 /min Blood Pressure Systolic 124 mm[Hg] Blood Pressure Diastolic 54 mm[Hg] 12/25/2024 07:54 AM Heart Rate 76 /min Blood Pressure Systolic 128 mm[Hg] Blood Pressure Diastolic 80 mm[Hg] 12/25/2024 09:47 AM Temperature 98.2 [degF] Oxygen Saturation 99 % Respiratory Rate 18 /min Heart Rate 76 /min Blood Pressure Systolic 128 mm[Hg] Blood Pressure Diastolic 80 mm[Hg] 12/25/2024 07:46 PM Heart Rate 79 /min Blood Pressure Systolic 130 mm[Hg] Blood Pressure Diastolic 78 mm[Hg] 12/26/2024 07:52 AM Heart Rate 78 /min Blood Pressure Systolic 122 mm[Hg] Blood Pressure Diastolic 80 mm[Hg] 12/26/2024 11:22 AM Temperature 98.3 [degF] Oxygen Saturation 97 % Respiratory Rate 18 /min Heart Rate 78 /min Blood Pressure Systolic 122 mm[Hg] Blood Pressure Diastolic 80 mm[Hg] 12/26/2024 08:13 PM Heart Rate 80 /min Blood Pressure Systolic 129 mm[Hg] Blood Pressure Diastolic 75 mm[Hg] 12/27/2024 08:49 AM Heart Rate 82 /min Blood Pressure Systolic 122 mm[Hg] Blood Pressure Diastolic 78 mm[Hg] 12/28/2024 12:43 AM Heart Rate 75 /min Blood Pressure Systolic 118 mm[Hg] Blood Pressure Diastolic 64 mm[Hg] 12/27/2024 10:50 AM Temperature 98 [degF] Oxygen Saturation 98 % Blood Pressure Systolic 130 mm[Hg] Blood Pressure Diastolic 74 mm[Hg] 12/28/2024 08:31 AM Heart Rate 76 /min Blood Pressure Systolic 124 mm[Hg] Blood Pressure Diastolic 66 mm[Hg] 12/28/2024 10:14 PM Heart Rate 84 /min Blood Pressure Systolic 121 mm[Hg] Blood Pressure Diastolic 73 mm[Hg] 12/29/2024 08:04 AM Heart Rate 76 /min Blood Pressure Systolic 118 mm[Hg] Blood Pressure Diastolic 80 mm[Hg] 12/29/2024 10:03 AM Temperature 98.1 [degF] Oxygen Saturation 96 % Respiratory Rate 18 /min Heart Rate 76 /min Blood Pressure Systolic 118 mm[Hg] Blood Pressure Diastolic 80 mm[Hg] 12/29/2024 02:45 PM Temperature 98.2 [degF] Oxygen Saturation 97 % Respiratory Rate 18 /min Heart Rate 75 /min Blood Pressure Systolic 130 mm[Hg] Blood Pressure Diastolic 72 mm[Hg] 12/29/2024 04:23 PM Temperature 98.2 [degF] Oxygen Saturation 97 % Respiratory Rate 18 /min Heart Rate 75 /min Blood Pressure Systolic 130 mm[Hg] Blood Pressure Diastolic 72 mm[Hg] 12/29/2024 11:21 PM Temperature 98.4 [degF] Oxygen Saturation 98 % Respiratory Rate 18 /min Heart Rate 78 /min Blood Pressure Systolic 120 mm[Hg] Blood Pressure Diastolic 82 mm[Hg] 12/29/2024 10:48 PM Heart Rate 80 /min 12/29/2024 10:50 PM Blood Pressure Systolic 126 mm[Hg] Blood Pressure Diastolic 78 mm[Hg] 12/30/2024 07:52 AM Heart Rate 65 /min Blood Pressure Systolic 130 mm[Hg] Blood Pressure Diastolic 90 mm[Hg] 12/30/2024 01:01 AM Body Weight 190.2 [lb_av] Body Mass Index 32.64 kg/m2 12/30/2024 10:06 AM Temperature 98.1 [degF] Oxygen Saturation 91 % Respiratory Rate 16 /min Heart Rate 65 /min Blood Pressure Systolic 130 mm[Hg] Blood Pressure Diastolic 90 mm[Hg] 12/30/2024 09:42 PM Heart Rate 79 /min Blood Pressure Systolic 95 mm[Hg] Blood Pressure Diastolic 67 mm[Hg] 12/31/2024 01:29 AM Temperature 98.4 [degF] Oxygen Saturation 95 % Respiratory Rate 16 /min Heart Rate 79 /min Blood Pressure Systolic 95 mm[Hg] Blood Pressure Diastolic 67 mm[Hg] 12/31/2024 09:31 AM Heart Rate 76 /min Blood Pressure Systolic 110 mm[Hg] Blood Pressure Diastolic 87 mm[Hg] 12/31/2024 12:28 PM Temperature 98.4 [degF] Oxygen Saturation 95 % Respiratory Rate 18 /min Heart Rate 78 /min Blood Pressure Systolic 128 mm[Hg] Blood Pressure Diastolic 68 mm[Hg] 12/31/2024 05:46 PM Temperature 98.3 [degF] Oxygen Saturation 95 % Respiratory Rate 20 /min Heart Rate 74 /min Blood Pressure Systolic 118 mm[Hg] Blood Pressure Diastolic 62 mm[Hg] 12/31/2024 09:53 PM Heart Rate 68 /min 12/31/2024 09:52 PM Blood Pressure Systolic 110 mm[Hg] Blood Pressure Diastolic 58 mm[Hg] 01/01/2025 01:31 AM Temperature 98.4 [degF] Oxygen Saturation 97 % Respiratory Rate 18 /min Heart Rate 70 /min Blood Pressure Systolic 118 mm[Hg] Blood Pressure Diastolic 70 mm[Hg] 12/31/2024 10:29 PM Body Weight 299.8 [lb_av] Body Mass Index 51.45 kg/m2 01/01/2025 09:12 AM Blood Pressure Systolic 114 mm[Hg] Blood Pressure Diastolic 72 mm[Hg] 01/01/2025 09:11 AM Heart Rate 76 /min 01/01/2025 12:47 PM Oxygen Saturation 97 % Respiratory Rate 18 /min 01/01/2025 12:46 PM Temperature 98.1 [degF] 01/02/2025 08:10 AM Temperature 97.5 [degF] Oxygen Saturation 96 % Respiratory Rate 18 /min Heart Rate 74 /min Blood Pressure Systolic 96 mm[Hg] Blood Pressure Diastolic 74 mm[Hg] 01/02/2025 07:57 AM Temperature 97.8 [degF] Oxygen Saturation 96 % Respiratory Rate 18 /min Heart Rate 80 /min Blood Pressure Systolic 87 mm[Hg] Blood Pressure Diastolic 70 mm[Hg] 01/02/2025 10:06 PM Heart Rate 62 /min Blood Pressure Systolic 120 mm[Hg] Blood Pressure Diastolic 76 mm[Hg] 01/02/2025 02:00 PM Body Weight 198.2 [lb_av] Body Mass Index 34.02 kg/m2 01/03/2025 07:57 AM Heart Rate 75 /min Blood Pressure Systolic 120 mm[Hg] Blood Pressure Diastolic 72 mm[Hg] 01/03/2025 09:52 AM Temperature 98.2 [degF] Oxygen Saturation 97 % Respiratory Rate 18 /min Heart Rate 75 /min Blood Pressure Systolic 120 mm[Hg] Blood Pressure Diastolic 72 mm[Hg] 01/03/2025 08:49 PM Heart Rate 83 /min Blood Pressure Systolic 95 mm[Hg] Blood Pressure Diastolic 72 mm[Hg] 01/04/2025 07:42 AM Heart Rate 71 /min Blood Pressure Systolic 140 mm[Hg] Blood Pressure Diastolic 88 mm[Hg] 01/04/2025 09:40 AM Temperature 98.3 [degF] Oxygen Saturation 98 % Respiratory Rate 18 /min Heart Rate 71 /min Blood Pressure Systolic 140 mm[Hg] Blood Pressure Diastolic 88 mm[Hg] 01/04/2025 07:37 PM Heart Rate 77 /min Blood Pressure Systolic 131 mm[Hg] Blood Pressure Diastolic 61 mm[Hg] 01/05/2025 08:34 AM Heart Rate 82 /min Blood Pressure Systolic 136 mm[Hg] Blood Pressure Diastolic 66 mm[Hg] 01/05/2025 11:48 AM Temperature 98.1 [degF] Oxygen Saturation 97 % Respiratory Rate 18 /min 01/05/2025 11:51 AM Body Weight 202.4 [lb_av] Body Mass Index 34.74 kg/m2 01/05/2025 08:12 PM Blood Pressure Systolic 106 mm[Hg] Blood Pressure Diastolic 62 mm[Hg] 01/05/2025 08:11 PM Heart Rate 64 /min 01/06/2025 08:42 AM Blood Pressure Systolic 110 mm[Hg] Blood Pressure Diastolic 66 mm[Hg] 01/06/2025 08:46 AM Heart Rate 66 /min 01/07/2025 01:19 AM Heart Rate 75 /min Blood Pressure Systolic 104 mm[Hg] Blood Pressure Diastolic 57 mm[Hg] 01/07/2025 09:07 AM Temperature 98 [degF] Oxygen Saturation 94 % Respiratory Rate 18 /min 01/07/2025 09:06 AM Heart Rate 80 /min Blood Pressure Systolic 147 mm[Hg] Blood Pressure Diastolic 41 mm[Hg] 01/07/2025 09:28 PM Heart Rate 74 /min Blood Pressure Systolic 136 mm[Hg] Blood Pressure Diastolic 66 mm[Hg] 01/08/2025 10:05 AM Temperature 98.6 [degF] Oxygen Saturation 91 % Respiratory Rate 16 /min Heart Rate 71 /min Blood Pressure Systolic 100 mm[Hg] Blood Pressure Diastolic 66 mm[Hg] 01/08/2025 10:52 PM Heart Rate 73 /min Blood Pressure Systolic 98 mm[Hg] Blood Pressure Diastolic 68 mm[Hg] 01/09/2025 07:46 AM Temperature 99 [degF] Oxygen Saturation 98 % Respiratory Rate 15 /min Heart Rate 83 /min Blood Pressure Systolic 121 mm[Hg] Blood Pressure Diastolic 59 mm[Hg] 01/09/2025 12:07 PM Temperature 99 [degF] Oxygen Saturation 98 % Respiratory Rate 16 /min Heart Rate 83 /min Blood Pressure Systolic 121 mm[Hg] Blood Pressure Diastolic 59 mm[Hg] 01/09/2025 07:59 PM Blood Pressure Systolic 136 mm[Hg] Blood Pressure Diastolic 50 mm[Hg] 01/09/2025 07:58 PM Heart Rate 72 /min 01/10/2025 09:00 AM Temperature 98.4 [degF] Oxygen Saturation 97 % Respiratory Rate 16 /min Blood Pressure Systolic 122 mm[Hg] Blood Pressure Diastolic 60 mm[Hg] 01/10/2025 08:53 AM Heart Rate 76 /min Blood Pressure Systolic 130 mm[Hg] Blood Pressure Diastolic 58 mm[Hg] 01/10/2025 10:41 PM Heart Rate 61 /min Blood Pressure Systolic 106 mm[Hg] Blood Pressure Diastolic 56 mm[Hg] 01/11/2025 08:56 AM Heart Rate 66 /min Blood Pressure Systolic 110 mm[Hg] Blood Pressure Diastolic 62 mm[Hg] 01/11/2025 11:40 PM Heart Rate 71 /min Blood Pressure Systolic 105 mm[Hg] Blood Pressure Diastolic 61 mm[Hg] 01/12/2025 07:39 AM Heart Rate 78 /min Blood Pressure Systolic 122 mm[Hg] Blood Pressure Diastolic 80 mm[Hg] 01/12/2025 09:41 AM Temperature 98.9 [degF] Oxygen Saturation 99 % Respiratory Rate 18 /min Heart Rate 78 /min Blood Pressure Systolic 122 mm[Hg] Blood Pressure Diastolic 80 mm[Hg] 01/12/2025 07:34 PM Heart Rate 69 /min Blood Pressure Systolic 120 mm[Hg] Blood Pressure Diastolic 64 mm[Hg] 01/13/2025 01:33 AM Temperature 98 [degF] Oxygen Saturation 93 % Respiratory Rate 18 /min Heart Rate 63 /min Blood Pressure Systolic 125 mm[Hg] Blood Pressure Diastolic 57 mm[Hg] 01/13/2025 08:32 AM Heart Rate 65 /min Blood Pressure Systolic 126 mm[Hg] Blood Pressure Diastolic 60 mm[Hg] 01/13/2025 01:27 PM Temperature 98.2 [degF] 01/13/2025 09:27 PM Heart Rate 75 /min Blood Pressure Systolic 100 mm[Hg] Blood Pressure Diastolic 77 mm[Hg] 01/13/2025 03:47 PM Body Weight 202.6 [lb_av] Body Mass Index 34.77 kg/m2 01/14/2025 08:23 AM Temperature 98.2 [degF] Oxygen Saturation 96 % Respiratory Rate 18 /min Heart Rate 73 /min 01/14/2025 08:21 AM Heart Rate 73 /min Blood Pressure Systolic 134 mm[Hg] Blood Pressure Diastolic 55 mm[Hg] 01/14/2025 09:25 PM Heart Rate 77 /min Blood Pressure Systolic 85 mm[Hg] Blood Pressure Diastolic 51 mm[Hg] 01/15/2025 01:04 AM Temperature 97.8 [degF] Oxygen Saturation 95 % Respiratory Rate 18 /min Heart Rate 72 /min Blood Pressure Systolic 109 mm[Hg] Blood Pressure Diastolic 61 mm[Hg] 01/15/2025 06:52 AM Temperature 98 [degF] Oxygen Saturation 98 % Respiratory Rate 18 /min Heart Rate 83 /min Blood Pressure Systolic 155 mm[Hg] Blood Pressure Diastolic 66 mm[Hg] 01/15/2025 08:49 PM Heart Rate 76 /min 01/15/2025 08:47 PM Blood Pressure Systolic 147 mm[Hg] Blood Pressure Diastolic 86 mm[Hg] 01/15/2025 08:42 AM Heart Rate 80 /min Blood Pressure Systolic 150 mm[Hg] Blood Pressure Diastolic 62 mm[Hg] 01/16/2025 02:02 AM Temperature 98 [degF] Oxygen Saturation 98 % Respiratory Rate 16 /min Heart Rate 73 /min Blood Pressure Systolic 121 mm[Hg] Blood Pressure Diastolic 62 mm[Hg] 01/16/2025 10:44 AM Temperature 97.8 [degF] Oxygen Saturation 97 % Respiratory Rate 16 /min 01/16/2025 10:42 AM Heart Rate 70 /min Blood Pressure Systolic 124 mm[Hg] Blood Pressure Diastolic 66 mm[Hg] 01/16/2025 11:43 PM Heart Rate 88 /min Blood Pressure Systolic 122 mm[Hg] Blood Pressure Diastolic 52 mm[Hg] 01/17/2025 07:45 AM Heart Rate 78 /min Blood Pressure Systolic 140 mm[Hg] Blood Pressure Diastolic 80 mm[Hg] 01/17/2025 09:35 AM Temperature 98.7 [degF] Oxygen Saturation 94 % Respiratory Rate 18 /min Heart Rate 78 /min Blood Pressure Systolic 140 mm[Hg] Blood Pressure Diastolic 80 mm[Hg] 01/17/2025 07:48 PM Heart Rate 90 /min Blood Pressure Systolic 138 mm[Hg] Blood Pressure Diastolic 84 mm[Hg] 01/18/2025 07:35 AM Heart Rate 71 /min Blood Pressure Systolic 142 mm[Hg] Blood Pressure Diastolic 74 mm[Hg] 01/18/2025 09:53 AM Temperature 98.4 [degF] Oxygen Saturation 96 % Respiratory Rate 18 /min Heart Rate 71 /min Blood Pressure Systolic 142 mm[Hg] Blood Pressure Diastolic 74 mm[Hg] 01/18/2025 07:37 PM Heart Rate 103 /min Blood Pressure Systolic 111 mm[Hg] Blood Pressure Diastolic 83 mm[Hg] 01/19/2025 08:38 AM Oxygen Saturation 95 % 01/19/2025 08:37 AM Respiratory Rate 18 /min Heart Rate 98 /min Blood Pressure Systolic 110 mm[Hg] Blood Pressure Diastolic 80 mm[Hg] 01/19/2025 08:36 AM Temperature 98.2 [degF] 01/20/2025 02:55 AM Temperature 97.8 [degF] Oxygen Saturation 98 % Respiratory Rate 16 /min Heart Rate 68 /min Blood Pressure Systolic 131 mm[Hg] Blood Pressure Diastolic 64 mm[Hg] 01/20/2025 08:47 AM Oxygen Saturation 97 % Respiratory Rate 16 /min Heart Rate 62 /min Blood Pressure Systolic 128 mm[Hg] Blood Pressure Diastolic 66 mm[Hg] 01/20/2025 08:45 AM Temperature 97.8 [degF] 01/20/2025 11:26 PM Heart Rate 81 /min Blood Pressure Systolic 113 mm[Hg] Blood Pressure Diastolic 51 mm[Hg] 01/21/2025 08:22 AM Temperature 98.8 [degF] Oxygen Saturation 95 % Respiratory Rate 18 /min Heart Rate 58 /min Blood Pressure Systolic 102 mm[Hg] Blood Pressure Diastolic 60 mm[Hg] 01/21/2025 11:54 PM Heart Rate 85 /min Blood Pressure Systolic 123 mm[Hg] Blood Pressure Diastolic 66 mm[Hg] 01/22/2025 07:37 AM Heart Rate 80 /min Blood Pressure Systolic 148 mm[Hg] Blood Pressure Diastolic 82 mm[Hg] 01/22/2025 09:33 AM Temperature 98.4 [degF] Oxygen Saturation 90 % Respiratory Rate 18 /min Heart Rate 80 /min Blood Pressure Systolic 148 mm[Hg] Blood Pressure Diastolic 82 mm[Hg] 01/22/2025 08:33 PM Heart Rate 71 /min Blood Pressure Systolic 75 mm[Hg] Blood Pressure Diastolic 49 mm[Hg] 01/23/2025 07:48 AM Heart Rate 74 /min Blood Pressure Systolic 120 mm[Hg] Blood Pressure Diastolic 88 mm[Hg] 01/23/2025 09:34 AM Temperature 98.3 [degF] Oxygen Saturation 97 % Respiratory Rate 16 /min Heart Rate 74 /min Blood Pressure Systolic 120 mm[Hg] Blood Pressure Diastolic 88 mm[Hg] 01/23/2025 02:25 PM Body Weight 192.4 [lb_av] Body Mass Index 33.02 kg/m2 01/23/2025 08:37 PM Heart Rate 73 /min Blood Pressure Systolic 129 mm[Hg] Blood Pressure Diastolic 64 mm[Hg] 01/24/2025 07:13 AM Heart Rate 75 /min Blood Pressure Systolic 131 mm[Hg] Blood Pressure Diastolic 67 mm[Hg] 01/25/2025 09:20 AM Temperature 98.1 [degF] Oxygen Saturation 98 % Respiratory Rate 16 /min Blood Pressure Systolic 122 mm[Hg] Blood Pressure Diastolic 68 mm[Hg] 01/25/2025 09:14 AM Heart Rate 70 /min Blood Pressure Systolic 130 mm[Hg] Blood Pressure Diastolic 64 mm[Hg] 01/25/2025 08:37 PM Heart Rate 75 /min Blood Pressure Systolic 158 mm[Hg] Blood Pressure Diastolic 63 mm[Hg] 01/26/2025 09:30 AM Temperature 98.1 [degF] Oxygen Saturation 94 % Respiratory Rate 16 /min Heart Rate 66 /min Blood Pressure Systolic 116 mm[Hg] Blood Pressure Diastolic 80 mm[Hg] 01/26/2025 07:35 AM Heart Rate 66 /min Blood Pressure Systolic 116 mm[Hg] Blood Pressure Diastolic 80 mm[Hg] Social History No smoking Hx information available Encounters Type CPT Code Date Location Provider Indication s encounter report 12/05/2024 04:01 PM Edelmira Jean MD encounter report 12/05/2024 07:00 PM Edelmira Jean MD Advance Directives Directive Description Verification Date Supporting Document(s) Other Directive
--- OUTSIDE RECORDS SUMMARY | 2025-03-04 10:45 | XMS_ITS | Encounter Summary ---
[id number] [address] [place] [address] Care Team Providers Care Door Puller Name Role Phone Destiny Figueroa APRN-CFNP Primary Care Pro vider Encounter Details Date Type Department Care Team (Late st Contact Info) Description 11/20/2024 Orders Only [facility] [address] [place] [phone] External, Scanning Provider Social History Tobacco Use Types Packs/Day Years Used Date Smoking Tobacco: Never Smokeless Tobacco: Never Alcohol Use Standard Drinks/Week Comments Never 0 (1 standard drink = 0.6 oz pur e alcohol) [facility] Utilities Answer Date Recorded In the past 12 months has [employer], gas, oil, or water [employer] threatened to shut off services in your [...] 2:22 PM EST) us Scanning Provider External [place] [facility] Final Result Performing Organization Address City/[facility] Co de Phone Number MANUALLY TRANSCRIBED RESULTS * CT chest with contrast (10/06/2024 2:18 PM EST) Anatomical Region Laterality Modality Body, Lung, Chest, Body Covera N/A C omputed Tomography us Scanning Provider External IMG CT ORDERABLES Fin al Result * Multiple labs (10/05/2024 2:23 PM EST) us Scanning Provider External [place] [facility] Final Result Performing Organization Address City/[facility] Co de Phone Number MANUALLY TRANSCRIBED RESULTS * ECG 12 lead (10/04/2024 2:23 PM EST) us Scanning Provider External ECG ORDERABLES Final Result Performing Organization Address City/[facility] de Phone Number MANUALLY TRANSCRIBED RESULTS documented in this encounter Visit Diagnoses Not on filedocumented in this encounter Additional Health Concerns Assessment Noted Time PHQ-9 Depression Total Score: 6 10/06/19 25 7:54 PM EST documented as of this encounter Care Teams Door Puller Relationship Specialty Start Date End Date Destiny Figueroa APRN-CFNP [address] [place] [address] PCP - General Family Medicine 05/30/24 documented as of this encounter
--- OUTSIDE RECORDS SUMMARY | 2025-03-04 10:45 | XMS_ITS | Clinical Summary ---
Author Organization [facility] Address [address] [place] [address] Care Team Providers Care Rooming House Operator Name Role Phone Unavailable Primary Care Provider Unavailabl e Encounters Date Type Department Care Team Description 01/23/2025 Telephone MILAGRO FRAZIER [address] [place] [address] Rosa Reed PA hospital f/u r/s 01/21/2025 Clinisync Result Encounter [facility] External Department Unsolicited Provider, Generic External Data 12/23/2024 Clinisync Result Encounter [facility] External Department Unsolicited Lynda Peters MD 12/17/2024 Clinisync Result Encounter [facility] External Department Unsolicited Provider, Generic External Data 12/12/2024 Clinisync Result Encounter [facility] External Department Unsolicited Lynda Peters MD 12/12/2024 Abstract [facility] [address] [place] [address] Unallocated, Noms MD Giovanna from [...] LUMBAR SPINE WO CON 3:11 PM EDT [facility] VANCOMYCINOUGH LEVEL Routine 12/23/2024 8:30 AM EDT US RENAL BI 12/17/2024 2:59 PM EDT ALL BASIC METABOLIC PANEL Routine 12/12/2024 10:50 AM EDT from Last 3 Months Results * MR LUMBAR SPINE WO CON (01/21/2025 3:11 PM EDT) Anatomical Region Laterality Modality Other 01/21/2025 3:11 PM EDT Narrative 01/21/2025 3:14 [place] [address] Magnetic Resonance Report Signed Patient: KELSEY NIETO MR#: [id number] : 1950 Acct:[id number] Age/Sex: 74 / F ADM Date: 01/21/25 Loc: MRI Attending Dr: SHARON BUSBY Ordering Physician: SHARON BUSBY Date of Service: 01/21/25 Procedure(s): MR lumbar spine wo con Accession Number(s): [id number] cc: LYNDA PETERS ; SHARON BUSBY [place] [id number] Patient Name: KELSEY NIETO MRN: [id number] date: 1950 Sex: F Assigned Patient Location: MRI Current Patient Location: MRI Accession/Order Number: [id number] Exam Date: 01/21/2025 15:06 Report Date: 01/21/2025 [...] Jr., D.O. 01/21/2025 3:11 PM Dictation Location: [place] [address] Electronically authenticated by: [id number] Y Date: 01/21/2025 15:11 Dictated By: Polo Landeros M.D. Signed By: 01/21/25 1514 DD/ 1511 TD/TT: Arts And Crafts Instructor: Procedure Note Radiology, Radiologist, MD - 01/21/2025 [place] [address] Magnetic Resonance Report Signed Patient: KELSEY NIETO LMR#: [id number] : 1950Acct:[id number] Age/Sex: 74 / FADM Date: 01/21/25 Loc: MRI Attending Dr: SHARON BUSBY Ordering Physician: SHARON BUSBY Date of Service: 01/21/25 Procedure(s): MR lumbar spine wo con Accession Number(s): [id number] cc: LYNDA PETERS ; SHARON BUSBY [place] [id number] Patient Name: KELSEY NIETO MRN: [facility]:[id number] date: 1950 Sex: F Assigned Patient Location: MRI Current Patient Location: MRI Accession/Order Number: [id number] Exam Date: 01/21/2025 15:06 Report Date: 01/21/2025 [...] Jr., D.O. 01/21/2025 3:11 PM Dictation Location: [place] [address] Electronically authenticated by: [id number] Y Date: :11 Dictated By: Polo Landeros M.D. Signed By:01/21/25 1514 DD/ 1511 TD/TT: Arts And Crafts Instructor: us Generic External Data Provider [facility] Final Result * (ABNORMAL) [facility] VANCOMYCINTROUGH LEVEL (12/23/2024 8:30 AM EDT) VANCOMYCIN TROUGH 22.9(H) 5.0 - 20.0 ug/mL [facility] 12/23/2024 8:30 AM EDT 12/23/2024 9:37 AM EDT Narrative [facility] - 12/23/2024 10:42 AM EDT [facility] DROP OFF Lynda Peters MD [facility] Final Result [facility] * US RENAL BI (12/17/2024 2:59 PM EDT) Anatomical Region Laterality Modality Other 12/17/2024 2:59 PM EDT Narrative 12/17/2024 3:01 [place] [address] Ultrasound Report Signed Patient: KELSEY NIETO MR#: [id number] : 1950 Acct:[id number] Age/Sex: 74 / F ADM Date: 12/17/24 Loc: US Attending Dr: Anabel Hernández LEGAL NURSE CONSULTANT Ordering Physician: Anabel Hernández NP Date of Service: 12/17/24 Procedure(s): US renal BI Accession Number(s): [id number] cc: LYNDA PETERS ; Anabel Hernández NP [address] [address] Patient Name: KELSEY NIETO MRN: [id number] date: 1950 Sex: F Assigned Patient Location: US Current Patient Location: US Accession/Order Number: [id number] Exam Date: 12/17/2024 14:58 Report Date: 12/17/2024 [...] Landeros Jr., D.O.12/17/2024 2:59 PM Dictation Location: [place] [address] Electronically authenticated by: [id number] Y Date: 12/17/2024 14:59 Dictated By: Polo Landeros M.D. Signed By: 12/17/24 1501 DD/ 1459 TD/TT: Arts And Crafts Instructor: Procedure Note Radiology, Radiologist, MD - 12/17/[address] [address] Ultrasound Report Signed Patient: KELSEY NIETO LMR#: [id number] : 1950Acct:[id number] Age/Sex: 74 / FADM Date: 12/17/24 Loc: US Attending Dr: Anabel Hernández NP Ordering Physician: Anabel Hernández NP Date of Service: 12/17/24 Procedure(s): US renal BI Accession Number(s): [id number] cc: LYNDA PETERS ; Anabel Hernández NP The [address] [address] Patient Name: KELSEY NIETO MRN: [id number] date: 1950 Sex: F Assigned Patient Location: US Current Patient Location: US Accession/Order Number: [id number] Exam Date: 12/17/2024 14:58 Report Date: 12/17/2024 [...] Landeros Jr., Aletha12/17/2024 2:59 PM Dictation Location: [place] [address] Electronically authenticated by: [id number] Y Date: 4:59 Dictated By: Polo Landeros M.D. Signed By:12/17/24 1501 DD/ 1459 TD/TT: Arts And Crafts Instructor: [facility] External Data Provider [facility] Final Result [...] 0.55 - 1.02 mg/dL TB[facility] TB[facility] EGFR-AF [place] >60 >=60 mL/min/1.7 3m 2 TB[facility] EGFR-NON AF [place] >60 >=60 mL/min/1.7 3m 2 [facility] BUN CREATININE RATIO 9.1 [facility] CALCIUM 8.1(L) 8.5 - 10.1 mg/dL [facility] 12/12/2024 10:5 0 AM EDT 12/12/2024 12:05 PM EDT Narrative [facility] - 12/12/2024 12:23 PM EDT [facility] DROP OFF us Lynda PARISH Final Result [facility] from Last 3 Months Insurance [employer] MEDICARE
--- OUTSIDE RECORDS SUMMARY | 2025-03-04 10:45 | XMS_ITS | Patient Health Record ---
Author Organization [facility] Address [address] [place] [address] Care Team Providers Care Bonding Machine Operator Name Role Phone Lynda Perez Unavailable [phone] Amber Montes De Oca Unavailable [phone] Allergies Allergen (clinical drug ingredient) Drug/Non Drug Allergy documented on EMR Reaction Allergy Type Onset Date Status PCN (uncoded) Unknown Allergy Active Reason For Referral Reason REFERRAL FOR [facility] FOR L4-5 JUNITO Diagnosis 1 Compression fracture of L1 vertebra with routine healing, subsequent encounter (S32.010D) Referral Organization [facility] Referring Provider First Name Lynda Referring Provider Last Name [facility] Referring Provider Speciality Orthopedic Surgery Referred Organization [facility] Referred Address [address] [place] [address] [address], [address],[place], [place],[address], General Notes Alyssa Gutierrez 2024 10:23:41 AM >, Alyssa Gutierrez 02/11/2025 10:02:14 AM >FAXED Referral Priority Routine Encounters Encounter Location Date Provider Diagnosis [facility] Office [address] [place] [address] [place] [address] 02/06/2025 Amber Montes De Oca Compression fracture [...] the compression fractures and referral to the [place] [facility] for an L4-5 epidural [...] 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 Plan Of Treatment Pending Test Test Name Order Date Lumbar spine, 4v flex ext - 41780 2024 DME - Lumbar Support, Surgical OTS 02/06 Epidural injection - lumbar 02/06/2025 Next Appt Details Provider Name:Lynda Ramirez , 03/13/2025 10:10:00 AM, [address], [address], [place], [address], Insurance Providers Payer Name Payer Address Payer Phone Subscriber Number Group Number Insured Name Patient Relationship to Insured Coverage Start Date Coverage End Date MEDICARE UHC AARP [address] [address] [place] [address] [id number] EMILIA FLOR Self - patient is the insured [place] [address] [id number] FLOR NIETO Self - patient is the insured 5 [facility] [address] [place] [address] [phone] 2025 FLOR NIETO Self - patient is the insured 5 Medical (General) History Medical History History ICD Code High Blood Pressure Abnormal Heart Rhythm Liver Disease Diabetes Irritable bowel syndrome Blood Clots in Legs/Lungs Anxiety Depression Rheumatoid arthritis Surgical History Surgery Date(Month/Year) Pulmonary bilateral lung 09/2024
--- OUTSIDE RECORDS SUMMARY | 2025-03-04 10:45 | XMS_ITS | Encounter Summary ---
Author Organization [facility] [facility] Address [facility] [address] [place] [place] [address] Care Team Providers Care Aluminum Can Collector Name Role Phone Destiny Figueroa APRN-CFNP Primary Care Pro vider Reason for Visit * Reason Onset Date Comments Hospital Follow-up 10/08/2024 Encounter Details Date Type Department Care Team (Late st Contact Info) Description 10/08/2024 [facility] [address] [place] [address] [facility] Follow-up Social History Tobacco Use Types Packs/Day Years Used Date Smoking Tobacco: Never Smokeless Tobacco: Never Alcohol Use Standard Drinks/Week Comments Never 0 (1 standard drink = 0.6 oz pur e alcohol) [facility] Utilities Answer Date Recorded In the past 12 months has [employer], gas, oil, or water company threatened [...] RBP. He signed off patient care from [facility] Dx [place] pulmonary embolism with bilateral heavy [...] AM EST Pt still currently admitted to [facility]. JLW * Telephone Encounter - Brittany Keene MA - 10/08/2024 10:21 AM EST Pt still currently admitted to [facility]. JLW * Telephone Encounter - Brittany Keene MA - 10/08/2024 10:21 AM EST Pt still currently admitted to [facility]. JLW * Telephone Encounter - Brittany Keene MA - 10/08/2024 10:21 AM EST Pt still currently admitted to [facility]. JLW * Telephone Encounter - Michelle Bey - 10/08/2024 10:21 AM EST STILL INPT * Telephone Encounter - Brittany Keene MA - 10/08/2024 10:21 AM EST Pt still currently admitted to [facility]. JLW * Telephone Encounter - Brittany Keene [...] <enter goal here> General Yes Claudia Whitman AGRONOMY MANAGER Note: Evaluation of progress towards goal: Current Discharge Plan: SNF for short term rehab documented as of this encounter Visit Diagnoses Not on filedocumented in this encounter Additional Health Concerns Assessment Noted Time PHQ-9 Depression Total Score: 6 10/06/19 25 7:54 PM EST documented as of this encounter Care Teams Aluminum Can Collector Relationship Specialty Start Date End Date Destiny Figueroa APRN-CFNP [address] [place] [address] PCP - General Family Medicine 05/30/24 documented as of this encounter
--- OUTSIDE RECORDS SUMMARY | 2025-03-04 10:45 | XMS_ITS | Encounter Summary ---
Author Organization [employer] Address [facility] [id number] [address] [place] [address] Care Team Providers Care Health Counselor Name Role Phone Destiny Figueroa SALT CUTTER-CFNP Primary Care Pro vider Reason for Visit * Reason Onset Date Comments Sign Off Patient Care 08/25/2024 Encounter Details Date Type Department Care Team (Late st Contact Info) Description 08/25/2024 Telephone [facility] [address] [place] [phone] Des Whyte MD [address] [place], [place] [id number] Sign Off Patient Care Social History Tobacco Use Types Packs/Day Years Used Date Smoking Tobacco: Never Smokeless Tobacco: Never Alcohol Use Standard Drinks/Week Comments Never 0 (1 standard drink = 0.6 oz pur e alcohol) [facility] Utilities Answer Date Recorded In the past 12 months has [employer], gas, oil, or water [employer] threatened to shut off services in your [...] documented as of this encounter Care Teams Health Counselor Relationship Specialty Start Date End Date Destiny Figueroa, TORI-LAURA [address] [place] [address] PCP - General Family Medicine 05/30/24 documented as of this encounter
--- OUTSIDE RECORDS SUMMARY | 2025-03-04 10:45 | XMS_ITS | Clinical Summary ---
Author Organization [facility] Address [address] [place] [address] Phone Care Team Providers Care Support Director Name Role Phone Unavailable Primary Care Provider Unavailabl e Encounters Date Type Department Care Team Description 02/26/2025 Scanned Document [facility] [address] [place] [address] Scanning, Generic Provider 02/26/[address] [address] Kassidy Blake LPN hematoma 12/05/2024 Scanned Document [facility] [address] [place] [address] Scanning, Generic Provider from Last [...] Description 07/29/2025 9:10 AM EST Office Visit [address] [address] Rola Phillips MD [address] [facility] [address] [place] [address] Health Maintenance Due Date Last [...] of 2) 1999 COVID-19 Vaccine (1 - 2023-2 5 season) 2024 RSV High Risk: (Elderly [...] patient's age to complete this topic Insurance [facility]
--- OUTSIDE RECORDS SUMMARY | 2025-03-04 10:45 | XMS_ITS | Encounter Summary ---
Author Organization [facility] Address [address] [place] [address] Phone Care Team Providers Care Night Clerk Name Role Phone Unavailable Primary Care Provider Unavailabl e Encounter Details Date Type Department Care Team (Late st Contact Info) Description 11/26/2024 Scanned Document [facility] [address] [place] [address] Scanning, Generic Provider Social History Tobacco Use [...] Description 07/29/2025 9:10 AM EST Office Visit [facility] [address] [phone] Rola Phillips MD 703 [facility] [address] [place] [address] documented as of this encounter Visit Diagnoses Not on filedocumented in this encounter
--- OUTSIDE RECORDS SUMMARY | 2025-03-04 10:45 | XMS_ITS | Encounter Summary ---
Author Organization [facility] Address [address] [place] [address] Phone Care Team Providers Care Mortuary Technician Name Role Phone Unavailable Primary Care Provider Unavailabl e Encounter Details Date Type Department Care Team (Late st Contact Info) Description 02/26/2025 Scanned Document [facility] [address] [place] [address] Scanning, Generic Provider Social History Tobacco Use [...] Description 07/29/2025 9:10 AM EST Office Visit [facility] [address] [phone] Rola Phillips MD [address]03 [facility] [address] [place] [address] documented as of this encounter Visit Diagnoses Not on filedocumented in this encounter
--- OUTSIDE RECORDS SUMMARY | 2025-03-04 10:45 | XMS_ITS | Encounter Summary ---
Author Organization [facility] Address [address] [place] [address] Care Team Providers Care Spiritual Advisor Name Role Phone Unavailable Primary Care Provider Unavailabl e Encounter Details Date Type Department Care Team (Late st Contact Info) Description 12/12/2024 Abstract [facility] [address] [place] [address] Unallocated, Noms Provider, [address] [place] [address] Social History Tobacco Use Types Packs/Day Years Used Date Smoking Tobacco: Never Assessed Comments Unknown Sex and Gender Information Value Date Recorded Sex Assigned at Not on file Legal Sex Female 10:14 PM EDT Gender Identity Not on file Sexual Orientation Not on file documented as of this encounter Plan of Treatment Not on file documented as of this encounter Visit Diagnoses Not on filedocumented in this encounter
--- OUTSIDE RECORDS SUMMARY | 2025-03-04 10:45 | XMS_ITS | Encounter Summary ---
Author Organization [employer] Address [facility] [id number] [address] [place] [address] Care Team Providers Care Commercial Accountant Name Role Phone Destiny Figueroa APRN-CFNP Primary Care Pro vider Encounter Details Date Type Department Care Team (Late st Contact Info) Description 10/07/2024 Orders Only [facility] [address] [place] [phone] Transcribe, Orders Support User Pain (Primary Dx); Acute chest pain Social History Tobacco Use Types Packs/Day Years Used Date Smoking Tobacco: Never Smokeless Tobacco: Never Alcohol Use Standard Drinks/Week Comments Never 0 (1 standard drink = 0.6 oz pur e alcohol) [facility] Utilities Answer Date Recorded In the past 12 months has [employer], gas, oil, or water [employer] threatened to shut off services in your [...] <enter goal here> General Yes Claudia Whitman PROFESSOR OF FINE ART Note: Evaluation of progress towards goal: Current [...] documented as of this encounter Care Teams Commercial Accountant Relationship Specialty Start Date End Date Destiny Figueroa APRN-LAURA [address] [place] [address] PCP - General Family Medicine 05/30/24 documented as of this encounter
--- OUTSIDE RECORDS SUMMARY | 2025-03-04 10:45 | XMS_ITS | Encounter Summary ---
Author Organization [facility] Address [address] [place] [address] Phone Care Team Providers Care Virtualization Engineer Name Role Phone Unavailable Primary Care Provider Unavailabl e Encounter Details Date Type Department Care Team (Late st Contact Info) Description 12/05/2024 Scanned Document [facility] [address] [place] [address] Scanning, Generic Provider Social History Tobacco Use [...] Description 07/29/2025 9:10 AM EST Office Visit [facility] [address] [phone] Rola Phillips MD 703 [facility] [address] [place] [address] documented as of this encounter Visit Diagnoses Not on filedocumented in this encounter
--- OUTSIDE RECORDS SUMMARY | 2025-03-04 10:45 | XMS_ITS | Encounter Summary ---
Author Organization [facility] Address [address] [place] [address] Phone Care Team Providers Care Fighting Vehicle Infantryman Name Role Phone Unavailable Primary Care Provider Unavailabl e Reason for Visit * Reason Onset Date Comments hematoma 02/26/2025 Encounter Details Date Type Department Care Team (Late st Contact Info) Description 02/26/2025 Telephone [facility] 703 [facility] [address] [place] [address] Kassidy Blake LPN hematoma Social History Tobacco Use Types Packs/Day Years Used Date Smoking Tobacco: Never Assessed Comments Unknown Sex and Gender Information Value Date Recorded Sex Assigned at Not on file Legal Sex Female 9:11 AM EST Gender Identity Not on file Sexual Orientation Not on file documented as of this encounter Miscellaneous Notes * Telephone Encounter - Yamileth Macedo RN - 03/02/2025 12:56 PM EDT [facility] left message on nurse line. Phoned [facility] back, they states that house doctor wanted Dr. Rola Phillips MD to be aware that patient has developed large hematomas on her legs in the last [address]. [address] Rola Phillips MD is aware but he is deferring this to patient's pcp until she isseen by him in July, she verbalized understanding. * Telephone Encounter - Sue Jackson LPN - 03/02/2025 9:58 AM EDT [facility] phoned left message on nursing line. Attempted to phone unable to leave message. Orders faxed [phone]. * Telephone Encounter - Gretta Cohen LPN - 02/27/2025 2:22 PM EDT [facility]oned [facility] and left VM with Aida DON to return call. * Telephone Encounter - Kassidy Blake LPN - 02/26/2025 3:14 PM EDT Discharge is in the chart. Per discharge patient is taking Klor con 20meq 2 daily Lasix 20 mg bid Amio 200 mg daily Eliquis 5 mg bid Asa 81 mg daily Gabapentin, Lidocaine patch, lipitor 80 mg daily, metoprolol tart 25 mg bid Promethazine 12.5 mg daily and mirtazapine 15 mg daily * Telephone Encounter - Kassidy Blake LPN - 02/26/2025 2:15 PM EDT [facility] called [phone] to report large hematomas cole lower extremities. House doctor inquired if Eliquis should be adjusted. Consult in chart, will request discharge. July visit with Dr. Rola Phillips MD pending. [facility] to fax med list over and will forward to Dr. Rola Phillips MD when received. documented in this encounter Plan of Treatment Upcoming Encounters Date Type Department Care Team (Late st Contact Info) Description 07/29/2025 9:10 AM EST Office Visit [facility] 703 [facility] [address] [place] [address] Rola Phillips MD 703 [facility] [address] [place] [address] documented as of this encounter Visit Diagnoses Not on filedocumented in this encounter
== END 2025-03-04 10:43 | disposition home or self-care (01) ==
LOC: WC 10:42
PROVIDERS: Family Provider Family Medicine; PCP Family Medicine; Visit Provider Physician Assistant
DX: L89.610 Pressure ulcer of right heel, unstageable (principal); S81.802D Unspecified open wound, left lower leg, subsequent encounter
CPT/HCPCS: A6213; G0463

== ENCOUNTER 2025-03-09 13:20 | Outpatient (OUT) | payer MEDICARE, SELFPAY ==
--- OUTSIDE RECORDS SUMMARY | 2025-03-09 13:26 | XMS_ITS | Encounter Summary ---
Author Organization [facility] Address [address] [place] [address] Care Team Providers Care Sr. Vendor Management Associate Name Role Phone Unavailable Primary Care Provider Unavailabl e Encounter Details Date Type Department Care Team (Late st Contact Info) Description 12/12/2024 Abstract [facility] [address] [place] [address] Unallocated, Noms Provider, [address] [place] [address] Social History Tobacco Use Types Packs/Day Years [...]
--- OUTSIDE RECORDS SUMMARY | 2025-03-09 13:26 | XMS_ITS | Encounter Summary ---
Author Organization [facility] Address [address] [place] [address] Phone Care Team Providers Care Supervisor Denture Department Name Role Phone Unavailable Primary Care Provider Unavailabl e Reason for Visit * Reason Onset Date Comments hematoma 02/26/2025 Encounter Details Date Type Department Care Team (Late st Contact Info) Description 02/26/2025 Telephone [facility] 703 [facility] [address] [place] [address] Kassidy Blake LPN hematoma Social [...] Macedo RN - 03/02/2025 12:56 PM EDT [facility] left message on nurse line. Phoned [facility] back, they states that house doctor [...] Jackson LPN - 03/02/2025 9:58 AM EDT [facility] phoned left message on nursing line. Attempted to phone unable to leave message. Orders faxed [phone]. * Telephone Encounter - Gretta Cohen LPN - 02/27/2025 2:22 PM EDT Phoned [facility] and left VM with Aida DON [...] Blake LPN - 02/26/2025 2:15 PM EDT [facility] called [phone] to report large hematomas cole lower extremities. House doctor inquired if Eliquis should be adjusted. Consult in chart, will request discharge. July visit with Dr. Rola Phillips MD pending. [facility] to fax med list over and will forward to Dr. Rola Phillips MD when received. documented in this encounter Plan of Treatment Upcoming Encounters Date Type Department Care Team (Late st Contact Info) Description 07/29/2025 9:10 AM EST Office Visit [facility] 703 [facility] [address] [place] [address] Rola Phillips MD 703 [facility] [address] [place] [address] documented as of this encounter Visit Diagnoses Not on filedocumented in this encounter
--- OUTSIDE RECORDS SUMMARY | 2025-03-09 13:26 | XMS_ITS | Clinical Summary ---
Author Organization [facility] Address [address] [place] [address] Care Team Providers Care Career And Guidance Counselor Name Role Phone Destiny Figueroa Primary Care Provider [phone] Allergies Active Allergy Reactions Criticality Noted Date Comments Cortisone Other Medium 07/07/2024 ELEVATES B/P Hydromorphone Other Low 07/07/2024 COULDN'T TALK Iodine Swelling High 07/07/2024 TONGUE AND LIPS Penicillin Hives,Swelling High 07/07/2024 LIPS AND TONGUE Shellfish Derived Swelling High 07/07/2024 LIPS AND TONGUE Medications celecoxib (CeleBREX) 200 mg capsule Take 200 mg by mouth two times daily. Active hydrOXYzine HCL (Atarax) 25 mg tablet Take 25 mg by mouth if needed for anxiety. Active metoprolol succinate XL (Toprol-XL) 25 mg 24 hr tablet Take 25 mg by mouth at bedtime. Do not crush or chew. Active oxybutynin XL (Ditropan-XL) 15 mg 24 hr tablet Take 15 mg by mouth in the morning. Do not crush, chew, or split. Active pravastatin (Pravachol) 20 mg tablet Take 20 mg by mouth at bedtime. Active tiZANidine (Zanaflex) 4 mg capsule Take 4 mg by mouth two times daily. Active traZODone (Desyrel) 50 mg tablet Take 50 mg by mouth at bedtime. Active amLODIPine (Norvasc) 10 mg tablet Take by mouth in the morning. Active polyethylene glycol (Glycolax) oral powder Take 17 g by mouth in the morning. Active ondansetron (Zofran) 4 mg tablet Take 4 mg by mouth every 8 (eight) hours if needed for nausea or vomiting. Active aspirin 325 mg EC tablet Take 325 mg by mouth in the morning. Active pantoprazole (ProtoNix) 40 mg EC tabletIndication s:Gastroesophage al reflux disease, unspecified whether esophagitis present Take 1 tablet (40 mg) by mouth before breakfast. Do not crush, chew, or split. 30 tablet 1 07/21/2024 Active Social History Tobacco Use Types Packs/Day Years Used Date Smoking Tobacco: Never Smokeless Tobacco: Never Tobacco Cessation:Counseling Given: Not Answered Alcohol Use Standard Drinks/Week Comments Yes 0 (1 standard drink = 0.6 oz pur e alcohol) 1-2 A YEAR Comments No Sex and Gender Information Value Date Recorded Sex Assigned at Not on file Legal Sex Female 11:59 PM EDT Gender Identity Not on file Sexual Orientation Not on file Last Filed Vital Signs Vital Sign Reading Time Taken Comments Blood Pressure 162/72 07/21/2024 3:45 PM EDT Pulse 92 07/21/2024 3:45 PM EDT Temperature 36.5 C (97.7 F) 07/21/2024 3:30 PM EDT Respiratory Rate 14 07/21/2024 3:45 PM EDT Oxygen Saturation 99% 07/21/2024 3:45 PM EDT Inhaled Oxygen Concentration - - Weight 113 kg (248 lb 7.3 oz) 07/21/2024 11:44 A M EDT Height 163.8 cm (5' 4.5 ) 07/21/2024 11:44 AM ED T Body Mass Index 41.99 07/21/2024 11:44 AM EDT Plan of Treatment Health Maintenance Due Date Last Done Comments CT Colonography 1949 Colonoscopy 1949 Colorectal Cancer Screening 1949 Diabetes: Hemoglobin A1C 1949 FIT-DNA 1949 FIT 1949 FOBT 1950 Medicare Annual Wellness (AWV) 1950 Sigmoidoscopy 1949 Diabetes: Retinopathy Screening 1959 Depression Screening 1961 Diabetes: Urine Protein Screening 1968 Pneumococcal Vaccine: 50+ Ye ars (1 of 2 - PCV) 1968 Adult Tetanus 1971 Zoster Vaccines (1 of 2) 1999 Fall Risk Screening 2014 COVID-19 Vaccine (2023-2 5 season) 2024 Influenza Vaccine (Season Ended) 2025 HIB Vaccines Aged Out No longer eligi ble based on patient's age to complete this topic HPV Vaccines Aged Out No longer eligi ble based on patient's age to complete this topic IPV Vaccines Aged Out No longer eligi ble based on patient's age to complete this topic Meningococcal B Vaccine Aged Out No l onger eligible based on patient's age to complete this topic Meningococcal Vaccine Aged Out No nathan charlie eligible based on patient's age to complete this topic Rotavirus Vaccines Aged Out No longer eligible based on patient's age to complete this topic Insurance [employer] MEDICARE [employer] MEDICARE Care Teams Career And Guidance Counselor Relationship Specialty Start Date End Date Destiny Figueroa PCP - General 07/21/24
--- OUTSIDE RECORDS SUMMARY | 2025-03-09 13:26 | XMS_ITS | Clinical Summary ---
Author Organization [facility] Address [address] [place] [address] Phone Care Team Providers Care Personnel Recruiter Name Role Phone Unavailable Primary Care Provider Unavailabl e Encounters Date Type Department Care Team Description 02/26/2025 Scanned Document [facility] [address] [place] [phone] Scanning, Generic Provider 02/26/[address] [place] [address] Kassidy Blake, SUPERVISOR MOLD SHOP hematoma from Last 3 Months Social History Tobacco [...] Description 07/29/2025 9:10 AM EST Office Visit [facility] 703 [facility] [address] [place] [address] Rola Phillips MD 703 [facility] [address] [place] [address] Health Maintenance Due Date Last [...]
--- OUTSIDE RECORDS SUMMARY | 2025-03-09 13:26 | XMS_ITS | Encounter Summary ---
Author Organization [facility] Address [address] [place] [address] Phone Care Team Providers Care Sheet Metal Assembler Name Role Phone Unavailable Primary Care Provider Unavailabl e Encounter Details Date Type Department Care Team (Late st Contact Info) Description 11/26/2024 Scanned Document [facility] [address] [place] [address] Scanning, Generic Provider Social History Tobacco Use [...] Office Visit [facility] [address] [phone] Rola Phillips MD 703 [facility] [address] [place] [address] documented as of this encounter Visit Diagnoses Not on filedocumented in this encounter
--- OUTSIDE RECORDS SUMMARY | 2025-03-09 13:26 | XMS_ITS | Referral Summary ---
Author Organization [facility] Address [address] [place] [address] Care Team Providers Care Benzene Operator Name Role Phone Destiny Figueroa Primary Care Provider [phone] Allergies Active Allergy Reactions Criticality Noted Date [...] 07/21/2024 11:44 AM EDT Plan of Treatment Not on file Insurance [employer] MEDICARE [employer] MEDICARE Care Teams Benzene Operator Relationship Specialty Start Date End Date Destiny Figueroa PCP - General 07/21/24
--- OUTSIDE RECORDS SUMMARY | 2025-03-09 13:26 | XMS_ITS | Encounter Summary ---
Author Organization [facility] Address [address] [place] [address] Phone Care Team Providers Care Senior Teradata Developer Name Role Phone Unavailable Primary Care Provider Unavailabl e Encounter Details Date Type Department Care Team (Late st Contact Info) Description 02/26/2025 Scanned Document [facility] [address] [place] [address] Scanning, Generic Provider Social History Tobacco Use [...] Description 07/29/2025 9:10 AM EST Office Visit [facility] [address] [phone] Rola Phillips MD 703 [facility] [address] [place] [address] documented as of this encounter Visit Diagnoses Not on filedocumented in this encounter
--- OUTSIDE RECORDS SUMMARY | 2025-03-09 13:26 | XMS_ITS | Clinical Summary ---
Author Organization [facility] Address [address] [place] [address] Care Team Providers Care Disbursing Officer Name Role Phone Unavailable Primary Care Provider Unavailabl e Encounters Date Type Department Care Team Description 01/23/2025 Telephone MILAGRO FRAZIER [address] [place] [address] Rosa Reed PA hospital f/u r/s 01/21/2025 Clinisync Result Encounter [facility] External Department Unsolicited Provider, Generic External Data 12/23/2024 Clinisync Result Encounter [facility] External Department Unsolicited Lynda Peters MD 12/17/2024 Clinisync Result Encounter [facility] External Department Unsolicited Provider, Generic External Data 12/12/2024 Clinisync Result Encounter [facility] External Department Unsolicited Lynda Peters MD 12/12/2024 Abstract [facility] [address] [place] [address] Unallocated, Noms MD Giovanna from [...] LUMBAR SPINE WO CON 3:11 PM EDT [facility] VANCOMYCINOUGH LEVEL Routine 12/23/2024 8:30 AM EDT US RENAL BI 12/17/2024 2:59 PM EDT ALL BASIC METABOLIC PANEL Routine 12/12/2024 10:50 AM EDT from Last 3 Months Results * MR LUMBAR SPINE WO CON (01/21/2025 3:11 PM EDT) Anatomical Region Laterality Modality Other 01/21/2025 3:11 PM EDT Narrative 01/21/2025 3:14 [place] [address] Magnetic Resonance Report Signed Patient: KELSEY NIETO MR#: [id number] : 1950 Acct:[id number] Age/Sex: 74 / F ADM Date: 01/21/25 Loc: MRI Attending Dr: SHARON BUSBY Ordering Physician: SHARON BUSBY Date of Service: 01/21/25 Procedure(s): MR lumbar spine wo con Accession Number(s): [id number] cc: LYNDA PETERS ; SHARON BUSBY [place] [id number] Patient Name: KELSEY NIETO MRN: [id number] date: 1950 Sex: F Assigned Patient Location: MRI Current Patient Location: MRI Accession/Order Number: [id number] Exam Date: 01/21/2025 15:06 Report Date: 01/21/2025 [...] Jr., D.O. 01/21/2025 3:11 PM Dictation Location: [place] [address] Electronically authenticated by: [id number] Y Date: 01/21/2025 15:11 Dictated By: Polo Landeros M.D. Signed By: 01/21/25 1514 DD/ 1511 TD/TT: Director Of Product Development: Procedure Note Radiology, Radiologist, MD - 01/21/2025 [place] [address] Magnetic Resonance Report Signed Patient: KELSEY NIETO LMR#: [id number] : 1950Acct:[id number] Age/Sex: 74 / FADM Date: 01/21/25 Loc: MRI Attending Dr: SHARON BUSBY Ordering Physician: SHARON BUSBY Date of Service: 01/21/25 Procedure(s): MR lumbar spine wo con Accession Number(s): [id number] cc: LYNDA PETERS ; SHARON BUSBY [place] [id number] Patient Name: KELSEY NIETO MRN: [facility]:[id number] date: 1950 Sex: F Assigned Patient Location: MRI Current Patient Location: MRI Accession/Order Number: [id number] Exam Date: 01/21/2025 15:06 Report Date: 01/21/2025 [...] Jr., D.O. 01/21/2025 3:11 PM Dictation Location: [place] [address] Electronically authenticated by: [id number] Y Date: :11 Dictated By: Polo Landeros M.D. Signed By:01/21/25 1514 DD/ 1511 TD/TT: Director Of Product Development: us Generic External Data Provider [facility] IMAGING Final Result * (ABNORMAL) [facility] VANCOMYCINTROUGH LEVEL (12/23/2024 8:30 AM EDT) VANCOMYCIN TROUGH 22.9(H) 5.0 - 20.0 ug/mL TB[facility] 12/23/2024 8:30 AM EDT 12/23/2024 9:37 AM EDT Narrative CLINISYNC - 12/23/2024 10:42 AM EDT [facility] DROP OFF Lynda Peters MD CLINISYNC Final Result [facility] * US RENAL BI (12/17/2024 2:59 PM EDT) Anatomical Region Laterality Modality Other 12/17/2024 2:59 PM EDT Narrative 12/17/2024 3:01 [place] [address] Ultrasound Report Signed Patient: KELSEY NIETO MR#: [id number] : 1950 Acct:[id number] Age/Sex: 74 / F ADM Date: 12/17/24 Loc: US Attending Dr: Anabel Hernández FITTING ROOM INSPECTOR Ordering Physician: Anabel Hernández NP Date of Service: 12/17/24 Procedure(s): US renal BI Accession Number(s): [id number] cc: LYNDA PETERS ; Anabel Hernández NP [address] [address] Patient Name: KELSEY NIETO MRN: [id number] date: 1950 Sex: F Assigned Patient Location: US Current Patient Location: US Accession/Order Number: [id number] Exam Date: 12/17/2024 14:58 Report Date: 12/17/2024 [...] Landeros Jr., D.O.12/17/2024 2:59 PM Dictation Location: [place] [address] Electronically authenticated by: [id number] Y Date: 12/17/2024 14:59 Dictated By: Polo Landeros M.D. Signed By: 12/17/24 1501 DD/ 1459 TD/TT: Director Of Product Development: Procedure Note Radiology, Radiologist, MD - 12/17/[address] [address] Ultrasound Report Signed Patient: KELSEY NIETO LMR#: [id number] : 1950Acct:[id number] Age/Sex: 74 / FADM Date: 12/17/24 Loc: US Attending Dr: Anabel Hernández NP Ordering Physician: Anabel Hernández NP Date of Service: 12/17/24 Procedure(s): US renal BI Accession Number(s): [id number] cc: LYNDA PETERS ; Anabel Hernández NP The [address] [address] Patient Name: KELSEY NIETO MRN: [id number] date: 1950 Sex: F Assigned Patient Location: US Current Patient Location: US Accession/Order Number: [id number] Exam Date: 12/17/2024 14:58 Report Date: 12/17/2024 [...] Landeros Jr., Aletha12/17/2024 2:59 PM Dictation Location: [place] [address] Electronically authenticated by: [id number] Y Date: 4:59 Dictated By: Polo Landeros M.D. Signed By:12/17/24 1501 DD/ 1459 TD/TT: Director Of Product Development: [facility] [place] Data Provider [facility] IMAG[facility] Final Result [...] 0.55 - 1.02 mg/dL TBH TB[facility] EGFR-AF ANGUILLAN >60 >=60 mL/min/1.7 3m 2 TB[facility] EGFR-NON AF ANGUILLAN >60 >=60 mL/min/1.7 3m 2 [facility] BUN CREATININE RATIO 9.1 [facility] CALCIUM 8.1(L) 8.5 - 10.1 mg/dL [facility] 12/12/2024 10:5 0 AM EDT 12/12/2024 12:05 PM EDT Narrative CLINISYNC - 12/12/2024 12:23 PM EDT [facility] DROP OFF us Lynda PARISH Final Result CLINISYCRUZ [facility] from Last 3 Months Insurance [employer] MEDICARE
--- OUTSIDE RECORDS SUMMARY | 2025-03-09 13:26 | XMS_ITS | Encounter Summary ---
Author Organization [facility] Address [address] [place] [address] Phone Care Team Providers Care Cook Boat Name Role Phone Unavailable Primary Care Provider Unavailabl e Encounter Details Date Type Department Care Team (Late st Contact Info) Description 12/05/2024 Scanned Document [facility] [address] [place] [address] Scanning, Generic Provider Social History Tobacco Use [...] Description 07/29/2025 9:10 AM EST Office Visit [facility] [address] [phone] Rola Phillips MD 703 [facility] 2[address] [place] [address] documented as of this encounter Visit Diagnoses Not on filedocumented in this encounter
--- OUTSIDE RECORDS SUMMARY | 2025-03-09 13:27 | XMS_ITS | Encounter Summary ---
Author Organization [employer] Address [id number] [address] [place] [address] Care Team Providers Care Manpower Development Advisor Name Role Phone Destiny Figueroa APRN-CFNP Primary Care Pro vider Reason for Visit * Reason Onset Date Comments Hospital Follow-up 10/08/2024 Encounter Details Date Type Department Care Team (Late st Contact Info) Description 10/08/2024 [facility]phone [facility] [address] [place] [address] [facility] Follow-up Social History Tobacco Use Types Packs/Day Years Used Date Smoking Tobacco: Never Smokeless Tobacco: Never Alcohol Use Standard Drinks/Week Comments Never 0 (1 standard drink = 0.6 oz pur e alcohol) [facility] Utilities Answer Date Recorded In the past 12 months has [employer], gas, oil, or water company threatened [...] RBP. He signed off patient care from [facility] Dx Saddle pulmonary embolism with bilateral [...] AM EST Pt still currently admitted to [facility]. JLW * Telephone Encounter - Brittany Keene MA - 10/08/2024 10:21 AM EST Pt still currently admitted to [facility]. JLW * Telephone Encounter - Brittany Keene MA - 10/08/2024 10:21 AM EST Pt still currently admitted to [facility]. JLW * Telephone Encounter - Brittany Keene MA - 10/08/2024 10:21 AM EST Pt still currently admitted to [facility]. JLW * Telephone Encounter - Michelle Bey - 10/08/2024 10:21 AM EST STILL INPT * Telephone Encounter - Brittany Keene MA - 10/08/2024 10:21 AM EST Pt still currently admitted to [facility]. JLW * Telephone Encounter - Brittany [...] <enter goal here> General Yes Claudia Whitman DROSSER Note: Evaluation of progress towards goal: Current Discharge Plan: SNF for short term rehab documented as of this encounter Visit Diagnoses Not on filedocumented in this encounter Additional Health Concerns Assessment Noted Time PHQ-9 Depression Total Score: 6 10/06/19 25 7:54 PM EST documented as of this encounter Care Teams Manpower Development Advisor Relationship Specialty Start Date End Date Destiny Figueroa APRN-CFNP [address] [place] [address] PCP - General Family Medicine 05/30/24 documented as of this encounter
--- OUTSIDE RECORDS SUMMARY | 2025-03-09 13:27 | XMS_ITS | Encounter Summary ---
Author Organization [employer] Address [id number] [address] [place] [address] Care Team Providers Care Executive Creative Director Name Role Phone Destiny Figueroa APRN-CFALVINO Primary Care Pro vider Encounter Details Date Type Department Care Team (Late st Contact Info) Description 10/07/2024 Orders Only [facility] [address] [place] [phone] External, Scanning Provider Pain (Primary Dx) Social History Tobacco Use Types Packs/Day Years Used Date Smoking Tobacco: Never Smokeless Tobacco: Never Alcohol Use Standard Drinks/Week Comments Never 0 (1 standard drink = 0.6 oz pur e alcohol) [facility] Utilities Answer Date Recorded In the past 12 months has [employer], gas, oil, or water [employer] threatened to shut off services in your [...] <enter goal here> General Yes Claudia Whitman FRAME NAILER Note: Evaluation of progress towards goal: Current Discharge Plan: SNF for short term rehab documented as of this encounter Results * Vas venous duplex lwr bilateral (10/06/2024 12:05 PM EST) us Scanning Provider External CV VASCULAR ORDERABLE S Final Result Performing Organization Address City/[facility]/ZIP Co de Phone Number MEDSTREAMING * Non [facility] Echo (10/06/2024 12:05 PM EST) us Scanning Provider External CV ECHO ORDERABLES Fi nal Result Performing Organization Address City/[facility]/ZIP Co de Phone Number XCELERA * CT [...] documented as of this encounter Care Teams Executive Creative Director Relationship Specialty Start Date End Date Destiny Figueroa, WAREHOUSE RECORD CLERK-CFNP [address] [place] [phone] PCP - General Family Medicine 05/30/24 documented as of this encounter
--- OUTSIDE RECORDS SUMMARY | 2025-03-09 13:27 | XMS_ITS | Clinical Summary ---
Author Organization [employer] Address [id number] [address] [place] [address] Care Team Providers Care Appliance Adjuster Name Role Phone Destiny Figueroa APRN-CFALVINO Primary [...] before bedtime. 4 Active ONETOUCH ULTRA2 METER [facility] USE TO CHECK GLUCOSE ONCE DAILY 4 [...] of sacrum, limited to breakdown of skin ([facility]) Place 1 patch on the skin in [...] urinary incontinence 10/21/2024 Pressure injury due to clinical medical assistant 10/21/2024 Pressure injury of deep tissue of [...] drink = 0.6 oz pur e alcohol) [facility] Utilities Answer Date Recorded In [...] <enter goal here> General Yes Claudia Whitman CASHIER CLERK Note: Evaluation of progress towards goal: Current Discharge Plan: SNF for short term rehab Medical Devices Implanted Type Area Box Stamper Device Identifier Shelf Expiration Date Model / Serial / Lot Filter Embl 49mm 65cm Vc Rdpq Preld Flsh Sdprt Intro Strl Rpl [id number] - [id number] Implanted:Qty: 1 on 10/06/2024 by Mer Galvan MD at [facility] IVC Filter COOK VASCULAR [id number] 07/30/2027 [id number] / / [id number] Insurance [employer] MEDICARE Advance Directives Documents on File Type Date Recorded Patient Nailing Machine Operator Expl anation Durable Power of Employment Trainer 11/03/2024 11:17 AM Durable Power of Employment Trainer 10/15/2024 7:36 PM Power of Employment Trainer 10 15 2024 Advance Directive 10/15/2024 7:34 PM Ivonne Gutierrezhailey Mukul phillips Power of Employment Trainer 10 15 2024 Durable Power of Employment Trainer 10/15/2024 4:46 PM [facility] Myles r of Employment Trainer * Full Code (Latest Code Status on File) Date Activated Date Inactivated Comments 10/06/2024 6:34 PM 10/29/2024 2:26 PM * Full Code Date Activated Date Inactivated Comments 05/30/2024 5:31 AM 05/31/2024 7:59 PM Healthcare Agents on File Name Relationship Healthcare Agent Relationshi p Communication Ivonne Ngdavid Daughter Health Care Agent Geetha Gilmant Daughter First Alternate Health Care Agent Care Teams Appliance Adjuster Relationship Specialty Start Date End Date Destiny Figueroa, BRAIDING OPERATOR-CFALVINO [address] [place] [address] PCP - General Family Medicine 05/30/24
--- OUTSIDE RECORDS SUMMARY | 2025-03-09 13:27 | XMS_ITS | Encounter Summary ---
Author Organization [employer] Address [id number] [address] [place] [address] Care Team Providers Care Gelatin Dynamite Packing Operator Name Role Phone Destiny Figueroa APRN-CFNP Primary Care Pro vider Encounter Details Date Type Department Care Team (Late st Contact Info) Description 10/07/2024 Orders Only [facility] [address] [place] [phone] Transcribe, Orders Support User Pain (Primary Dx); Acute chest pain Social History Tobacco Use Types Packs/Day Years Used Date Smoking Tobacco: Never Smokeless Tobacco: Never Alcohol Use Standard Drinks/Week Comments Never 0 (1 standard drink = 0.6 oz pur e alcohol) [facility] Utilities Answer Date Recorded In the past 12 months has [employer], gas, oil, or water [employer] threatened to shut off services in your [...] <enter goal here> General Yes Claudia Whitman TALENT RECRUITER Note: Evaluation of progress towards goal: Current [...] documented as of this encounter Care Teams Gelatin Dynamite Packing Operator Relationship Specialty Start Date End Date Destiny Figueroa APRN-LAURA [address] [place] [address] PCP - General Family Medicine 05/30/24 documented as of this encounter
--- OUTSIDE RECORDS SUMMARY | 2025-03-09 13:27 | XMS_ITS | Encounter Summary ---
Author Organization [employer] Address [facility] [id number] [address] [place] [address] Care Team Providers Care Sounding Device Operator Name Role Phone Destiny Figueroa MARKET MAKER-CFNP Primary Care Pro vider Reason for Visit * Reason Onset Date Comments Sign Off Patient Care 08/25/2024 Encounter Details Date Type Department Care Team (Late st Contact Info) Description 08/25/2024 Telephone [facility] [address] [place] [phone] Des Whyte MD [address] [place], [place] [phone] Sign Off Patient Care Social History Tobacco Use Types Packs/Day Years Used Date Smoking Tobacco: Never Smokeless Tobacco: Never Alcohol Use Standard Drinks/Week Comments Never 0 (1 standard drink = 0.6 oz pur e alcohol) [facility] Utilities Answer Date Recorded In the past 12 months has [employer], gas, oil, or water [employer] threatened to shut off services in your [...] documented as of this encounter Care Teams Sounding Device Operator Relationship Specialty Start Date End Date Destiny Figueroa, TORI-LAURA [address] [place] [address] PCP - General Family Medicine 05/30/24 documented as of this encounter
--- OUTSIDE RECORDS SUMMARY | 2025-03-09 13:27 | XMS_ITS | Encounter Summary ---
Author Organization [facility] Address [id number] [address] [place] [address] Care Team Providers Care Fire Management Technician Name Role Phone Destiny Figueroa APRN-CFNP Primary Care Pro vider Encounter Details Date Type Department Care Team (Late st Contact Info) Description 09/11/2024 Orders Only [facility] [address] [place] [phone] External, Scanning Provider Social History Tobacco Use Types Packs/Day Years Used Date Smoking Tobacco: Never Smokeless Tobacco: Never Alcohol Use Standard Drinks/Week Comments Never 0 (1 standard drink = 0.6 oz pur e alcohol) [facility] Utilities Answer Date Recorded In the past 12 months has [employer], gas, oil, or water [employer] threatened to shut off services in your [...] ECG ORDERABLES Final Result Performing Organization Address City/[facility] Co de Phone Number MANUALLY TRANSCRIBED RESULTS documented in this encounter Visit Diagnoses Not on filedocumented in this encounter Additional Health Concerns Assessment Noted Time PHQ-9 Depression Total Score: 9 05/30/20 24 10:46 AM EDT documented as of this encounter Care Teams Fire Management Technician Relationship Specialty Start Date End Date Destiny Figueroa APRN-CFNP [address] [place] [address] PCP - General Family Medicine 05/30/24 documented as of this encounter
--- OUTSIDE RECORDS SUMMARY | 2025-03-09 13:27 | XMS_ITS | Encounter Summary ---
Author Organization [facility] Address [id number] [address] [place] [address] Care Team Providers Care Patient Relations Representative Name Role Phone Destiny Figueroa APRN-CFNP Primary Care Pro vider Encounter Details Date Type Department Care Team (Late st Contact Info) Description 11/20/2024 Orders Only [facility] [address] [place] [phone] External, Scanning Provider Social History Tobacco Use Types Packs/Day Years Used Date Smoking Tobacco: Never Smokeless Tobacco: Never Alcohol Use Standard Drinks/Week Comments Never 0 (1 standard drink = 0.6 oz pur e alcohol) [facility] Utilities Answer Date Recorded In the past 12 months has [employer], gas, oil, or water [employer] threatened to shut off services in your [...] 2:22 PM EST) us Scanning Provider External CO IMAGING Final Result Performing Organization Address City/[facility] Co de Phone Number MANUALLY TRANSCRIBED RESULTS * CT chest with contrast (10/06/2024 2:18 PM EST) Anatomical Region Laterality Modality Body, Lung, Chest, Body Covera N/A C omputed Tomography us Scanning Provider External IMG CT ORDERABLES Fin al Result * Multiple labs (10/05/2024 2:23 PM EST) us Scanning Provider External CO IMAGING Final Result Performing Organization Address City/[facility] Co de Phone Number MANUALLY TRANSCRIBED RESULTS * ECG 12 lead (10/04/2024 2:23 PM EST) us Scanning Provider External ECG ORDERABLES Final Result Performing Organization Address City/[facility]/[place] de Phone Number MANUALLY TRANSCRIBED RESULTS documented in this encounter Visit Diagnoses Not on filedocumented in this encounter Additional Health Concerns Assessment Noted Time PHQ-9 Depression Total Score: 6 10/06/19 25 7:54 PM EST documented as of this encounter Care Teams Patient Relations Representative Relationship Specialty Start Date End Date Destiny Figueroa APRN-CFNP [address] [place] [address] PCP - General Family Medicine 05/30/24 documented as of this encounter
--- NOTE | 2025-03-09 14:23 | P.CN_ITS ---
Consult Note: HPI Data of Consult Patient: new to practice Consult date: 03/09/25 Requesting Physician: Jim Solomon MD Primary Care Provider: NAJMA PETERS Family Provider: DAVID COVINGTON, Consult Narrative Reason for consult: low back, bilateral lower extrem pain Narrative: 74of who presents for evaluation. several months of worsening low back, bilateral hip and leg pain. imaging reviewed, shows subacute l1 and l2 fractures, also multilevel stenosis, worst at l4-5. recently evaluated by back surgeon, who recommended patient undergo lumbar epidural. has continued in a series of provider directed home exercises >6 weeks, without benefit. uses pain meds as needed. denies adverse med side effects. cc:: CC: Jim Solomon MD Review of Systems ROS Status of ROS 10 or more systems reviewed and unremark able except as noted in history and below Exam Narrative Exam Narrative: Psych-alert and oriented x 3. Attentive and appropriate, constitutionally normal, displays normal mood and affect per situation. There are no obvious deficits in memory, reasoning, or intellect.? Skin-no obvious rashes, bruising, erythema noted to the patient's area of pain.? Extremities- extremities are warm with minimal edema and palpable pulses. Lumbar-tenderness to palpation noted in the lumbar spine and paraspinal musculature. Pain is elicited with flexion, extension, and lateral rotation of the lumbar spine. Range of motion is diminished with these motions. Facet loading maneuvers are positive. Strength-noted to be unremarkable with the exception of decreased strength rated at 4 out of 5 in bilateral quadriceps femoris, anterior tibialis. Sensory-no notable sensory deficits in the bilateral lower extremities to touch or pinprick in all dermatomal distributions with the exception to decreased sensation to the bilateral L4, 5 dermatomal distribution Coordination remains intact.? Gait remains non-antalgic Assessment and Plan Assessment and Plan (1) Lumbar stenosis with neurogenic claudication: (2) Lumbar spondylosis: Plan 74yof who presents for evaluation. failed conservative measures, as noted. lizy phan reviewed, as noted. given symptoms and imaging, prudent to attempt bilateral l4-5 tfesi under fluoroscopic guidance. she is in agreement. meds reviewed, no changes. follow up after procedure.
== END 2025-03-09 13:21 | disposition home or self-care (01) ==
PROVIDERS: Family Provider Family Medicine; PCP Family Medicine; Visit Provider Anesthesiology
DX: M48.062 Spinal stenosis, lumbar region with neurogenic claudication (principal); M47.816 Spondylosis without myelopathy or radiculopathy, lumbar region
CPT/HCPCS: G0463

== ENCOUNTER 2025-03-16 08:49 | Day surgery (SDC) | payer MEDICARE, SELFPAY ==
[2025-03-16 09:08] VITALS: BP 123/64; PULSE 74; TEMP 36.3; O2SAT 97
[2025-03-16 09:12] LABS: Glucometer 115 mg/dL (74-106)
[2025-03-16 09:53] VITALS: BP 170/73; PULSE 74; O2SAT 99
[2025-03-16 09:56] VITALS: BP 156/63; PULSE 94; O2SAT 96
[2025-03-16] MEDS: BUPIVACAINE HCL 0.25% PF 25 MG/10 ML VIAL INJ (09:56)
[2025-03-16] MEDS: 0.9 % SODIUM CHLORIDE 10 ML SYRINGE - SALINE FLUSH INJ (09:56)
[2025-03-16] MEDS: IOHEXOL 240 MG/ML - 10 ML VIAL INJ (09:56)
[2025-03-16] MEDS: LIDOCAINE HCL 2% 400 MG/20 ML MDV 3 ML INJ (09:57)
[2025-03-16] MEDS: METHYLPREDNISOLONE ACETATE 80 MG/ML VIAL INJ (09:57)
--- NOTE | 2025-03-16 09:59 | W.PM.PROCNOT ---
Date of procedure: 03/16/25 Pre-op diagnosis: Pain due to lumbar stenosis with neurogenic claudication Post-op diagnosis: same as pre-op Procedure: Procedure: Bilateral L4-5 transforaminal epidural steroid injection Medications: Bupivacaine 0.25% 2cc, lidocaine 2% 1cc, depomedrol 80mg The patient was seen and examined in the preoperative holding area.? Informed consent was obtained and placed on the chart.? Patient was brought to the medical procedure unit and placed in the prone position where a timeout was completed verifying the correct patient, procedure site, position, and planned special equipment using sterile aseptic technique.? Under direct fluoroscopic visualization a 25-gauge Quincke tipped spinal needle was advanced at level left L4-5 to the designated neural foramen where contrast dye was injected to show adequate spread.? There was no evidence of vascular or adverse uptake.? Epidural spread was appreciated.? The above-mentioned injectate was then placed in a 1.5 mL aliquot preceded by negative aspiration.? The needle was removed. The same procedure, at the same level, was completed on the opposite side. ? Patient was taken to the postprocedural recovery area and monitored for an appropriate length of time before found suitable for discharge in the accompaniment of a responsible adult. Anesthesia: Local Surgeon: Jim Solomon Pathology: none sent Condition: stable Disposition: no change
== END 2025-03-16 10:12 | disposition home or self-care (01) ==
LOC: SURGOUT 08:50
PROVIDERS: Family Provider Family Medicine; PCP Family Medicine; Visit Provider Anesthesiology
DX: M54.50 Low back pain, unspecified (principal); M48.062 Spinal stenosis, lumbar region with neurogenic claudication; E11.8 Type 2 diabetes mellitus with unspecified complications; Z79.85 Long-term (current) use of injectable non-insulin antidiabetic drugs
CPT/HCPCS: 36415; 64483; 82948; J0665; J1010; Q9966

== ENCOUNTER 2025-03-18 13:51 | Outpatient (OUT) | payer MEDICARE, SELFPAY ==
--- OUTSIDE RECORDS SUMMARY | 2025-03-18 13:53 | XMS_ITS | Encounter Summary ---
Author Organization [facility] Address [address] [place] [address] Care Team Providers Care Boarder Steam Name Role Phone Unavailable Primary Care Provider Unavailabl e Encounter Details Date Type Department Care Team (Late st Contact Info) Description 12/12/2024 Abstract [facility] [address] [place] [address] Unallocated, Noms Provider, [address] [place] [address] Social History Tobacco Use Types Packs/Day Years [...]
--- OUTSIDE RECORDS SUMMARY | 2025-03-18 13:53 | XMS_ITS | Encounter Summary ---
Author Organization [facility] Address [address] [place] [address] Phone Care Team Providers Care Central Office Frame Wirer Name Role Phone Unavailable Primary Care Provider Unavailabl e Encounter Details Date Type Department Care Team (Late st Contact Info) Description 11/26/2024 Scanned Document [facility] [address] [place] [address] Scanning, Generic Provider Social History Tobacco Use [...] Description 07/29/2025 9:10 AM EST Office Visit [facility] [address] [phone] Rola Phillips MD 703 [facility] [address] [place] [address] documented as of this encounter Visit Diagnoses Not on filedocumented in this encounter
--- OUTSIDE RECORDS SUMMARY | 2025-03-18 13:53 | XMS_ITS | Clinical Summary ---
Author Organization [facility] Address [address] [place] [address] Phone Care Team Providers Care Lumber Loader Name Role Phone Unavailable Primary Care Provider Unavailabl e Encounters Date Type Department Care Team Description 02/26/2025 Scanned Document [facility] [address] [place] [place] [phone] Scanning, Generic Provider 02/26/[address] [place] [address] Kassidy Blake, SHORE HAND DREDGE OR BARGE hematoma from Last 3 Months Social History [...] Description 07/29/2025 9:10 AM EST Office Visit [facility] 703 [facility] [address] [place] [address] Rola Phillips MD 703 [facility] [address] [place] [address] Health Maintenance Due Date Last Done Comments Bone Density Scan 1950 CT Colonography 1950 Colonoscopy 1950 Colorectal Cancer Screening 1950 FIT-DNA (Cologuard) 1950 FIT 1950 Lipid Panel 1950 Sigmoidoscopy 1950 Skin Cancer Screening 1950 Yearly Adult Physical 1950 Diabetes Screening [...] age to complete this topic HPV Vaccines (No Doses Required) Completed Hepatitis A Vaccines Aged Out No long [...] patient's age to complete this topic [place] [address] [place] [address] Member Subscriber Plan / Payer (Ef fective 2024-Present) Name:Kelsey Macias Relation to Subscriber:Self Name:Kelsey Macias Payer ID:[id number] (NAIC) Group ID:[id number] Type:Not on file Address: Cole Trotter [address] [place] [id number]
--- OUTSIDE RECORDS SUMMARY | 2025-03-18 13:53 | XMS_ITS | Clinical Summary ---
Author Organization [facility] Address [address] [place] [address] Care Team Providers Care News Internship Name Role Phone Unavailable Primary Care Provider Unavailabl e Encounters Date Type Department Care Team Description 01/23/2025 Telephone MILAGRO FRAZIER [address] [place] [address] Rosa Reed PA hospital f/u r/s 01/21/2025 Clinisync Result Encounter [facility] External Department Unsolicited Provider, Generic External Data 12/23/2024 Clinisync Result Encounter [facility] External Department Unsolicited Najma Peters MD 12/17/2024 Clinisync Result Encounter [facility] External Department Unsolicited Provider, Generic External Data from Last 3 Months Social History Tobacco [...] LUMBAR SPINE WO CON 3:11 PM EDT [facility] VANCOMYCINTROUGH LEVEL Routine 12/23/2024 8:30 AM EDT US RENAL BI 12/17/2024 2:59 PM EDT from Last 3 Months Results * MR LUMBAR SPINE WO CON (01/21/2025 3:11 PM EDT) Anatomical Region Laterality Modality Other 01/21/2025 3:11 PM EDT Narrative 01/21/2025 3:14 [place] [address] Magnetic Resonance Report Signed Patient: KELSEY NIETO MR#: [id number] : 1950 Acct:[id number] Age/Sex: 74 / F ADM Date: 01/21/25 Loc: MRI Attending Dr: SHARON BUSBY Ordering Physician: SHARON BUSBY Date of Service: 01/21/25 Procedure(s): MR lumbar spine wo con Accession Number(s): [id number] cc: NAJMA PETERS ; SHARON BUSBY [place] [address] Patient Name: KELSEY NIETO MRN: [id number] date: 1950 Sex: F Assigned Patient Location: MRI Current Patient Location: MRI Accession/Order Number: [id number] Exam Date: 01/21/2025 15:06 Report Date: 01/21/2025 [...] Jr., D.O. 01/21/2025 3:11 PM Dictation Location: [place] [address] Electronically authenticated by: [id number] Y Date: 01/21/2025 15:11 Dictated By: Polo Landeros M.D. Signed By: 01/21/25 1514 DD/ 1511 TD/TT: Access Liaison: Procedure Note Radiology, Radiologist, MD - 01/21/2025 [address] [place] [id number] Magnetic Resonance Report Signed Patient: KELSEY NIETO LMR#: [id number] : 1950Acct:[id number] Age/Sex: 74 / FADM Date: 01/21/25 Loc: MRI Attending Dr: SHARON BUSBY Ordering Physician: SHARON BUSBY Date of Service: 01/21/25 Procedure(s): MR lumbar spine wo con Accession Number(s): [id number] cc: NAJMA PETERS ; SHARON BUSBY [address] [address] Patient Name: KELSEY NIETO MRN: [id number] date: 1950 Sex: F Assigned Patient Location: MRI Current Patient Location: MRI Accession/Order Number: [id number] Exam Date: 01/21/2025 15:06 Report Date: 01/21/2025 [...] Jr., D.O. 01/21/2025 3:11 PM Dictation Location: [place] [address] Electronically authenticated by: [id number] Y Date: 5:11 Dictated By: Polo Landeros M.D. Signed By:01/21/25 1514 DD/ 1511 TD/TT: Access Liaison: us Generic External Data Provider [facility] Final Result * (ABNORMAL) [facility] VANCOMYCINTROUGH LEVEL (12/23/2024 8:30 AM EDT) VANCOMYCIN TROUGH 22.9(H) 5.0 - 20.0 ug/mL [facility] 12/23/2024 8:30 AM EDT 12/23/2024 9:37 AM EDT Narrative [facility] - 12/23/2024 10:42 AM EDT [facility] DROP OFF us Najma Peters MD [facility] Final [facility] * US RENAL BI (12/17/2024 2:59 PM EDT) Anatomical Region Laterality Modality Other 12/17/2024 2:59 PM EDT Narrative 12/17/2024 3:01 [place] [address] Ultrasound Report Signed Patient: KELSEY NIETO MR#: [id number] : 1950 Acct:[id number] Age/Sex: 74 / F ADM Date: 12/17/24 Loc: US Attending Dr: Anabel Hernández MEDICAL PRACTICE MANAGER Ordering Physician: Anabel Hernández NP Date of Service: 12/17/24 Procedure(s): US renal BI Accession Number(s): [id number] cc: NAJMA PETERS ; Anabel Hernández MEDICAL PRACTICE MANAGER [place] [id number] Patient Name: KELSEY NIETO MRN: [id number] date: 1950 Sex: F Assigned Patient Location: US Current Patient Location: US Accession/Order Number: [id number] Exam Date: 12/17/2024 14:58 Report Date: 12/17/2024 [...] Landeros Jr., D.O.12/17/2024 2:59 PM Dictation Location: [place] [address] Electronically authenticated by: [id number] Y Date: 12/17/2024 14:59 Dictated By: Polo Landeros M.D. Signed By: 12/17/24 1501 DD/ 1459 TD/TT: Access Liaison: Procedure Note Radiology, Radiologist, - 12/17/2024 [place] [address] Ultrasound Report Signed Patient: KELSEY NIETO LMR#: [id number] : 1950Acct:[id number] Age/Sex: 74 / FADM Date: 12/17/24 Loc: US Attending Dr: Anabel Hernández NP Ordering Physician: Anabel Hernández NP Date of Service: 12/17/24 Procedure(s): US renal BI Accession Number(s): [id number] cc: NAJMA PETERS ; Anabel Hernández NP [address] [place] [id number] Patient Name: KELSEY NIETO MRN: [facility]:[id number] date: 1950 Sex: F Assigned Patient Location: Current Patient Location: US Accession/Order Number: [id number] Exam Date: 12/17/2024 14:58 Report Date: 12/17/2024 [...] Landeros Jr., D.O.12/17/2024 2:59 PM Dictation Location: [place] [address] Electronically authenticated by: [id number] Y Date: 4:59 Dictated By: Polo Landeros M.D. Signed By:12/17/24 1501 DD/ 1459 TD/TT: Access Liaison: Generic External Data Provider [facility] Final Result from Last 3 Months Insurance [employer] MEDICARE
--- OUTSIDE RECORDS SUMMARY | 2025-03-18 13:53 | XMS_ITS | Encounter Summary ---
Author Organization [facility] Address [address] [place] [address] Phone Care Team Providers Care Brick Dropper Name Role Phone Unavailable Primary Care Provider Unavailabl e Encounter Details Date Type Department Care Team (Late st Contact Info) Description 02/26/2025 Scanned Document [facility] [address] [place] [address] Scanning, Generic Provider Social History Tobacco Use [...] Description 07/29/2025 9:10 AM EST Office Visit [facility] [address] [phone] Rola Phillips MD 703 [facility] [address] [place] [address] documented as of this encounter Visit Diagnoses Not on filedocumented in this encounter
--- OUTSIDE RECORDS SUMMARY | 2025-03-18 13:53 | XMS_ITS | Referral Summary ---
Author Organization [facility] Address [address] [place] [address] Care Team Providers Care Geoscience Professor Name Role Phone Destiny Figueroa Primary Care Provider [phone] Allergies Active Allergy Reactions Criticality Noted Date [...] MUTUAL MEDICARE UNITED HEALTH[employer]ARE MEDICARE Care Teams Geoscience Professor Relationship Specialty Start Date End Date Destiny Figueroa PCP - General 07/21/24
--- OUTSIDE RECORDS SUMMARY | 2025-03-18 13:53 | XMS_ITS | Encounter Summary ---
Author Organization [facility] Address [address] [place] [address] Phone Care Team Providers Care Parts Lister Name Role Phone Unavailable Primary Care Provider Unavailabl e Encounter Details Date Type Department Care Team (Late st Contact Info) Description 12/05/2024 Scanned Document [facility] [address] [place] [address] Scanning, Generic Provider Social History Tobacco Use [...] Description 07/29/2025 9:10 AM EST Office Visit [facility] [address] [phone] Rola Phillips MD 703 [facility] [address] [place] [address] documented as of this encounter Visit Diagnoses Not on filedocumented in this encounter
--- OUTSIDE RECORDS SUMMARY | 2025-03-18 13:53 | XMS_ITS | Clinical Summary ---
Author Organization [facility] Address [address] [place] [address] Care Team Providers Care Kitchen Stewardess Name Role Phone Destiny Figueroa Primary Care Provider [phone] Allergies Active Allergy Reactions Criticality Noted Date [...] MUTUAL MEDICARE UNITED HEALTH[employer]ARE MEDICARE Care Teams Kitchen Stewardess Relationship Specialty Start Date End Date Destiny Figueroa PCP - General 07/21/24
--- OUTSIDE RECORDS SUMMARY | 2025-03-18 13:54 | XMS_ITS | Clinical Summary ---
Author Organization [facility] Address [id number] [address] [place] [address] Care Team Providers Care Enterprise Software Engineer Name Role Phone Destiny Figueroa APRN-CFALVINO Primary [...] before bedtime. 4 Active ONETOUCH ULTRA2 METER [facility] USE TO CHECK GLUCOSE ONCE DAILY 4 [...] of sacrum, limited to breakdown of skin ([facility]) Place 1 patch on the skin in [...] incontinence 10/21/2024 Pressure injury due to medical technical writer 10/21/2024 Pressure injury of deep tissue of [...] drink = 0.6 oz pur e alcohol) [facility] Utilities Answer Date Recorded In [...] <enter goal here> General Yes Claudia Whitman LAWYER CRIMINAL Note: Evaluation of progress towards goal: Current Discharge Plan: SNF for short term rehab Medical Devices Implanted Type Area Home Health Cna Device Identifier Shelf Expiration Date Model / Serial / Lot Filter Embl 49mm 65cm Vc Rdpq Preld Flsh Sdprt Intro Strl Rpl [id number] - [id number] Implanted:Qty: 1 on 10/06/2024 by Mer Galvan MD at [facility] IVC Filter [employer] [id number] 07/30/2027 [id number] / / [id number] Insurance [employer] MEDICARE Advance Directives Documents on File Type Date Recorded Patient Bee Tender Expl anation Durable Power of Medical Management Specialist 11/03/2024 11:17 AM Durable Power of Medical Management Specialist 10/15/2024 7:36 PM Power of Medical Management Specialist 10 15 2024 Advance Directive 10/15/2024 7:34 PM Ivonne Gutierrezhailey Mukul phillips Power of Medical Management Specialist 10 15 2024 Durable Power of Medical Management Specialist 10/15/2024 4:46 PM [facility] Myles r of Medical Management Specialist * Full Code (Latest Code Status on File) Date Activated Date Inactivated Comments 10/06/2024 6:34 PM 10/29/2024 2:26 PM * Full Code Date Activated Date Inactivated Comments 05/30/2024 5:31 AM 05/31/2024 7:59 PM Healthcare Agents on File Name Relationship Healthcare Agent Relationshi p Communication Ivonne Ngdavid Daughter Health Care Agent Geetha Gilmant Daughter First Alternate Health Care Agent Care Teams Enterprise Software Engineer Relationship Specialty Start Date End Date Destiny Figueroa, CASE MANAGEMENT ASSOCIATE-CFALVINO [address] [place] [address] PCP - General Family Medicine 05/30/24
--- OUTSIDE RECORDS SUMMARY | 2025-03-18 13:54 | XMS_ITS | Encounter Summary ---
Author Organization [facility] Address [id number] [address] [place] [address] Care Team Providers Care Act English Tutor Name Role Phone Destiny Figueroa APRN-CFNP Primary Care Pro vider Encounter Details Date Type Department Care Team (Late st Contact Info) Description 09/11/2024 Orders Only [facility] [address] [place] [phone] External, Scanning Provider Social History Tobacco Use Types Packs/Day Years Used Date Smoking Tobacco: Never Smokeless Tobacco: Never Alcohol Use Standard Drinks/Week Comments Never 0 (1 standard drink = 0.6 oz pur e alcohol) [facility] Utilities Answer Date Recorded In the past 12 months has [facility], gas, oil, or water [employer] threatened to shut off services in your [...] Final Result Performing Organization Address City/[facility] Co de Phone Number MANUALLY TRANSCRIBED RESULTS documented in this encounter Visit Diagnoses Not on filedocumented in this encounter Additional Health Concerns Assessment Noted Time PHQ-9 Depression Total Score: 9 05/30/20 24 10:46 AM EDT documented as of this encounter Care Teams Act English Tutor Relationship Specialty Start Date End Date Destiny Figueroa APRN-CFNP [address] [place] [address] PCP - General Family Medicine 05/30/24 documented as of this encounter
--- OUTSIDE RECORDS SUMMARY | 2025-03-18 13:54 | XMS_ITS | Encounter Summary ---
Author Organization [employer] Address [id number] [address] [place] [address] Care Team Providers Care Desk Officer Name Role Phone Destiny Figueroa REWARDS CONSULTANT-CFNP Primary Care Pro vider Reason for Visit * Reason Onset Date Comments Sign Off Patient Care 08/25/2024 Encounter Details Date Type Department Care Team (Late st Contact Info) Description 08/25/2024 Telephone [facility] [address] [place] [phone] Des Whyte MD [address] [place], [place] [phone] Sign Off Patient Care Social History Tobacco Use Types Packs/Day Years Used Date Smoking Tobacco: Never Smokeless Tobacco: Never Alcohol Use Standard Drinks/Week Comments Never 0 (1 standard drink = 0.6 oz pur e alcohol) [facility] Utilities Answer Date Recorded In the past 12 months has [employer], gas, oil, or water [employer] threatened to shut off services in your [...] documented as of this encounter Care Teams Desk Officer Relationship Specialty Start Date End Date Destiny Figueroa, TORI-LAURA [address] [place] [address] PCP - General Family Medicine 05/30/24 documented as of this encounter
--- OUTSIDE RECORDS SUMMARY | 2025-03-18 13:54 | XMS_ITS | Encounter Summary ---
Author Organization [employer] Address [facility] [place] [place]-[id number] [address] [place] [place] [address] Care Team Providers Care Traffic Engineering Technician Name Role Phone Destiny Figueroa APRN-CFNP Primary Care Pro vider Reason for Visit * Reason Onset Date Comments Hospital Follow-up 10/08/2024 Encounter Details Date Type Department Care Team (Late st Contact Info) Description 10/08/2024 [facility]phone [facility] [address] [place] [address] [facility] Follow-up Social History Tobacco Use Types Packs/Day Years Used Date Smoking Tobacco: Never Smokeless Tobacco: Never Alcohol Use Standard Drinks/Week Comments Never 0 (1 standard drink = 0.6 oz pur e alcohol) [facility] Utilities Answer Date Recorded In the past 12 months has [employer] electric, gas, oil, or water company threatened [...] RBP. He signed off patient care from [facility] Dx Saddle pulmonary embolism with bilateral [...] AM EST Pt still currently admitted to [facility]. JLW * Telephone Encounter - Brittany Keene MA - 10/08/2024 10:21 AM EST Pt still currently admitted to [facility]. JLW * Telephone Encounter - Brittany Keene MA - 10/08/2024 10:21 AM EST Pt still currently admitted to [facility]. JLW * Telephone Encounter - Brittany Keene MA - 10/08/2024 10:21 AM EST Pt still currently admitted to [facility]. JLW * Telephone Encounter - Michelle Bey - 10/08/2024 10:21 AM EST STILL INPT * Telephone Encounter - Brittany Keene MA - 10/08/2024 10:21 AM EST Pt still currently admitted to [facility]. JLW * Telephone Encounter - Brittany [...] <enter goal here> General Yes Claudia Whitman BARKEEPER Note: Evaluation of progress towards goal: Current Discharge Plan: SNF for short term rehab documented as of this encounter Visit Diagnoses Not on filedocumented in this encounter Additional Health Concerns Assessment Noted Time PHQ-9 Depression Total Score: 6 10/06/19 25 7:54 PM EST documented as of this encounter Care Teams Traffic Engineering Technician Relationship Specialty Start Date End Date Destiny Figueroa APRN-CFNP [address] [place] [address] PCP - General Family Medicine 05/30/24 documented as of this encounter
--- OUTSIDE RECORDS SUMMARY | 2025-03-18 13:54 | XMS_ITS | Encounter Summary ---
Author Organization [employer] Address [id number] [address] [place] [address] Care Team Providers Care Director Correctional Agency Name Role Phone Destiny Figueroa APRN-CFNP Primary Care Pro vider Encounter Details Date Type Department Care Team (Late st Contact Info) Description 10/07/2024 Orders Only [facility] [address] [place] [phone] Transcribe, Orders Support User Pain (Primary Dx); Acute chest pain Social History Tobacco Use Types Packs/Day Years Used Date Smoking Tobacco: Never Smokeless Tobacco: Never Alcohol Use Standard Drinks/Week Comments Never 0 (1 standard drink = 0.6 oz pur e alcohol) [facility] Utilities Answer Date Recorded In the past 12 months has [employer], gas, oil, or water [employer] threatened to shut off services in your [...] documented as of this encounter Functional Status documented as of this encounter Mental Status * Question Answer Entry Date Author Overall Cognitive Status X 10/09/2024 9:38 AM EST Lazaro Bonds PT documented in this encounter Plan of [...] documented as of this encounter Care Teams Director Correctional Agency Relationship Specialty Start Date End Date Destiny Figueroa APRN-CFNP [address] [place] [address] PCP - General Family Medicine 05/30/24 documented as of this encounter
--- OUTSIDE RECORDS SUMMARY | 2025-03-18 13:54 | XMS_ITS | Encounter Summary ---
Author Organization [facility] [employer] Address [facility] [id number] [address] [place] [address] Care Team Providers Care Data Entry Analyst Name Role Phone Destiny Figueroa APRN-CFNP Primary Care Pro vider Encounter Details Date Type Department Care Team (Late st Contact Info) Description 11/20/2024 Orders Only [facility] [address] [place] [phone] External, Scanning Provider Social History Tobacco Use Types Packs/Day Years Used Date Smoking Tobacco: Never Smokeless Tobacco: Never Alcohol Use Standard Drinks/Week Comments Never 0 (1 standard drink = 0.6 oz pur e alcohol) [facility] Utilities Answer Date Recorded In the past 12 months has [employer], gas, oil, or water [employer] threatened to shut off services in your [...] 2:22 PM EST) us Scanning Provider External [place] [facility] Final Result Performing Organization Address [facility] Co de Phone Number MANUALLY TRANSCRIBED RESULTS * CT chest with contrast (10/06/2024 2:18 PM EST) Anatomical Region Laterality Modality Body, Lung, Chest, Body Covera N/A C omputed Tomography us Scanning Provider External IMG CT ORDERABLES Fin al Result * Multiple labs (10/05/2024 2:23 PM EST) us Scanning Provider External [place] [facility] Final Result Performing Organization Address [facility] Co de Phone Number MANUALLY TRANSCRIBED RESULTS * ECG 12 lead (10/04/2024 2:23 PM EST) us Scanning Provider External ECG ORDERABLES Final Result Performing Organization Address [facility] de Phone Number MANUALLY TRANSCRIBED RESULTS documented in this encounter Visit Diagnoses Not on filedocumented in this encounter Additional Health Concerns Assessment Noted Time PHQ-9 Depression Total Score: 6 10/06/19 25 7:54 PM EST documented as of this encounter Care Teams Data Entry Analyst Relationship Specialty Start Date End Date Destiny Figueroa APRN-CFNP [address] [place] [address] PCP - General Family Medicine 05/30/24 documented as of this encounter
--- OUTSIDE RECORDS SUMMARY | 2025-03-18 13:54 | XMS_ITS | Encounter Summary ---
Author Organization [employer] Address [facility] [id number] [address] [place] [address] Care Team Providers Care Cycle Liaison Name Role Phone Destiny Figueroa APRN-CFALVINO Primary Care Pro vider Encounter Details Date Type Department Care Team (Late st Contact Info) Description 10/07/2024 Orders Only [facility] [address] [place] [phone] External, Scanning Provider Pain (Primary Dx) Social History Tobacco Use Types Packs/Day Years Used Date Smoking Tobacco: Never Smokeless Tobacco: Never Alcohol Use Standard Drinks/Week Comments Never 0 (1 standard drink = 0.6 oz pur e alcohol) [facility] Utilities Answer Date Recorded In the past 12 months has [employer], gas, oil, or water [employer] threatened to shut off services in your [...] Status X 10/09/2024 9:38 AM EST Lazaro Bonds, PT documented in this encounter Plan of Treatment Not on file documented as of this encounter Goals Goal Patient Goal Type Associated Problems Recent Progress Patient-Stated? Author safe transition from hospital General Yes Corrine Porras, RN Note: Evaluation of progress towards goal: Progressing towards safe transition from hospital <enter goal here> General Yes Claudia Whitman MEDIA RELATIONS ASSOCIATE Note: Evaluation of progress towards goal: Current Discharge Plan: SNF for short term rehab documented as of this encounter Results * Vas venous duplex lwr bilateral (10/06/2024 12:05 PM EST) us Scanning Provider External CV VASCULAR ORDERABLE S Final Result [facility] * Non [facility] Echo (10/06/2024 12:05 PM EST) us Scanning Provider External CV ECHO ORDERABLES Fi nal Result XCELERA * CT lumbar spine without contrast [...] documented as of this encounter Care Teams Cycle Liaison Relationship Specialty Start Date End Date Destiny Figueroa APRN-LAURA [address] [place] [address] PCP - General Family Medicine 05/30/24 documented as of this encounter
== END 2025-03-18 13:52 | disposition home or self-care (01) ==
LOC: WC 13:51
PROVIDERS: Family Provider Family Medicine; PCP Family Medicine; Visit Provider Physician Assistant
DX: L89.610 Pressure ulcer of right heel, unstageable (principal); S81.802D Unspecified open wound, left lower leg, subsequent encounter
CPT/HCPCS: G0463

== ENCOUNTER 2025-03-25 15:04 | Outpatient (OUT) | payer MEDICARE, SELFPAY ==
--- OUTSIDE RECORDS SUMMARY | 2025-01-14 10:30 | XMS_ITS ---
Author Organization [facility] Address [address] [place] [address] [place] [address] Care Team Providers Care Wrong Address Clerk Name Role Phone Lynda Jean Primary Care Provider Kevin Quintana [facility] [phone] Encounters Encounter Location Date Provider Diagnosis [address] [address] 01/14/2025 Kevin Reyes Plan Of Treatment No Information Progress Notes * Kelsey NIETODOB:1950 (74 yo F)Acc No.[id number]:01/14/2025 Patient: Kelsey PETER Provider: Joey Reyes DPM :1950 A ge:74 Y S ex:Female Date:01/14/2025 Address:[facility] Pcp:Lynda Jean Subjective: * Chief Complaints: * * Medical History: Objective: * Vitals: Assessment: Plan: * Treatment: * Images: * Electronic signature of Linden in MIGEL Reyes on 03/25/2025 at 03:08 PM EDT Sign off status: Pending * Provider: Joey Reyes DPM Date: 01/14/2025 Generated for Mirta stearns/Theodora/eTransmitting on: 03/25/2025 03:08 PM EDT
--- OUTSIDE RECORDS SUMMARY | 2025-03-13 06:10 | XMS_ITS ---
Author Organization [facility] Address [address] [place] [address] Care Team Providers Care Tool Room Gear Machine Operator Name Role Phone Miranda PINEDA, Lynda Primary Care Provider Lynda Santos Unavailable [phone] REASON FOR VISIT LUMBAR RECHECK Encounters Encounter Location Date Provider Diagnosis [facility] [facility] [address] [place] [address] [place] [address] 03/13/2025 Lynda Perez Plan Of Treatment No Information Progress Notes * FLOR NIETODOB:1950 (74 yo F)Acc No.[id number]:03/13/2025 Patient: FLOR PETER Provider: Estuardo Boswell MD, PhD :1950 A ge:74 Y S ex:Female Date:03/13/2025 [facility] Pcp:Lynda Jean MD Subjective: * Chief Complaints: * 1 . LUMBAR RECHECK. * Medical History: Objective: * Vitals: Assessment: Plan: * Treatment: Forms: * Images: * Electronic signature of Alex Perez MD, PHD on 03/25/2025 at 03:08 PM EDT Sign off status: Pending * Provider: Estuardo Boswell MD, PhD Date: 03/13/2025 Generated for Ebeni jinny/Fapat/eTransmitting on: 03/25/2025 03:08 PM EDT
--- OUTSIDE RECORDS SUMMARY | 2025-03-20 06:00 | XMS_ITS ---
Author Organization [facility] Address [address] [place] [address] Care Team Providers Care Electrical Assembler Name Role Phone Lynda Jean MD Primary Care Provider [facility] Unavailable [phone] Beny Blackwell Unavailable [phone] Allergies Allergen (clinical drug ingredient) Drug/Non Drug Allergy documented on EMR Reaction Allergy Type Onset Date Status PCN (uncoded) Unknown Allergy Active Reason For Referral Reason NO AUTH REQ......... ...................NOT SCHEDULED...................................[facility] MRI cervical and lumbar spine at [place] Diagnosis 1 Radiculopathy, lumba r region (M54.16) Diagnosis 2 Weakness (R53.1) Diagnosis 3 Cervical myelopathy (G95.9) Referral Organization [facility] Referring Provider First Name Lynda Referring Provider Last Name Chris Referring Provider Speciality Orthopedic Surgery Referred Organization [facility] fer Referred Address [place], [place], Procedure 1 MRI Cervical w/o dye (04714) Procedure 2 MRI Lumbar Spine w/o Dye (29639) General Notes Octavia Rutherford 02/23 11:04:01 AM >, Leni Foster 03/20/2025 11:36:49 AM > [facility] ACTIVE [facility]FFECT[facility] 09/24/24 PER [facility] PROVIDER PORTAL. NO AUTHORIZATION REQUIRED. FAXED TO [facility]. Ariel Rutherforda 03/23/2025 09:49:57 AM > faxed Referral [...] Problem Status W/U Status Risk Notes Problem [id number] Cervical myelopathy (G95.9) Active confirmed Encounters Encounter Location Date Provider Diagnosis [facility] [facility] [address] [place] [phone] 03/20/2025 Beny Diglio Radiculopathy, lumba r region [...] Date Details 03/20/2025 03/20/2025, NO AUTH REQ............................NOT SCHEDULED...................................[facility] MRI cervical and lumbar spine at [place], [place] Next Appt Details Follow Up: after mri, Reason : Progress Notes * MICHELE NIETO:1950 (74 yo F)Acc No.[id number]:03/20/2025 Patient: FLOR PETER Provider: Ruth Ann Blackwell PA-C :1950 A ge:74 Y S ex:Female Date:03/20/2025 Address:[address] [place] [address], [id number] Pcp:Lynda Jean MD Subjective: * Chief [...] MRI : Lumbosacral Spine W/O Contrast - 86901 3. C ervical myelopathy I maging: MRI : Cervical Spine W/O Contrast - 14952 Referral To: Reason:NO AUTH REQ............................NOT SCHEDULED.................................. .[facility] MRI cervical and lumbar spine at [place] 4. W eakness I maging: MRI : Cervical Spine W/O Contrast - 45604 Referral To: Reason:NO AUTH REQ............................NOT SCHEDULED.................................. .[facility] MRI cervical and lumbar spine at [place] 5. O thers Notes: Patient with complaints [...] Electronic signature of Bola Blackwell PA-C on 03/25/2025 at 03:07 PM EDT Sign off status: Pending * Provider: Ruth Ann Blackwell PA-C Date: 0 03/20/2025 Generated for Mirta stearns/Theodora/Belkisitting on: 0 03/25/2025 03:07 PM EDT History and Physical Notes * HPI [...] Lynda Perez , NO AUTH REQ............................NOT SCHEDULED......................... ..........[facility] MRI cervical and lumbar spine at [place]
--- OUTSIDE RECORDS SUMMARY | 2025-03-25 15:08 | XMS_ITS | Encounter Summary ---
Author Organization [facility] Address [address] [place] [address] Phone Care Team Providers Care Pricing Coordinator Name Role Phone Unavailable Primary Care Provider Unavailabl e Encounter Details Date Type Department Care Team (Late st Contact Info) Description 02/26/2025 Scanned Document [facility] [address] [place] [phone] Scanning, Generic Provider Social History Tobacco Use [...] Description 07/29/2025 9:10 AM EST Office Visit [facility] [address] [phone] Rola Phillips MD [address] [facility] [address] [place] [address] documented as of this encounter Visit Diagnoses Not on filedocumented in this encounter
--- OUTSIDE RECORDS SUMMARY | 2025-03-25 15:08 | XMS_ITS | Encounter Summary ---
Author Organization [facility] Address [address] [place] [address] Care Team Providers Care Financial Aid Administrator Name Role Phone Unavailable Primary Care Provider Unavailabl e Encounter Details Date Type Department Care Team (Late st Contact Info) Description 12/12/2024 Abstract [facility] [address] [place] [address] Unallocated, Noms Provider, [address] [place] [address] Social History Tobacco Use Types Packs/Day Years [...]
--- OUTSIDE RECORDS SUMMARY | 2025-03-25 15:08 | XMS_ITS | Clinical Summary ---
Author Organization [facility] Address [address] [facility] [place] [address] Care Team Providers Care Floodplain Manager Name Role Phone Unavailable Primary Care Provider Unavailabl e Encounters Date Type Department Care Team Description 01/23/2025 Telephone MILAGRO FRAZIER [address] [place] [address] Rosa Reed PA hospital f/u [...] Diagnosis Comments MR LUMBAR SPINE WO CON 01/21/2025 3:11 PM EDT from Last 3 Months Results * MR LUMBAR SPINE WO CON (01/21/2025 3:11 PM EDT) Anatomical Region Laterality Modality Other 01/21/2025 3:11 PM EDT Narrative 01/21/2025 3:14 PM EDT The [address] [address] Magnetic Resonance Report Signed Patient: KELSEY NIETO MR#: [id number] : 1950 Acct:[id number] Age/Sex: 74 / F ADM Date: 01/21/25 Loc: MRI Attending Dr: SHARON BUSBY Ordering Physician: SHARON BUSBY Date of Service: 01/21/25 Procedure(s): MR lumbar spine wo con Accession Number(s): [id number] cc: NAJMA PETERS ; SHARON BUSBY [place] [id number] Patient Name: KELSEY NIETO MRN: [id number] date: 1950 Sex: F Assigned Patient Location: MRI Current Patient Location: MRI Accession/Order Number: [id number] Exam Date: 01/21/2025 15:06 Report Date: 01/21/2025 [...] Jr., D.O. 01/21/2025 3:11 PM Dictation Location: [place] [address] Electronically authenticated by: [id number] Y Date: 01/21/2025 15:11 Dictated By: Polo Landeros M.D. Signed By: 01/21/25 1514 DD/ 151 TD/TT: Binitrotoluene Operator: Procedure Note Radiology, Radiologist, MD - 01/21/2025 [place] [address] Magnetic Resonance Report Signed Patient: KELSEY NIETO R#: [id number] : 1950Acct:[id number] Age/Sex: 74 / FADM Date: 01/21/25 Loc: MRI Attending Dr: SHARON BUSBY Ordering Physician: SHARON BUSBY Date of Service: 01/21/25 Procedure(s): MR lumbar spine wo con Accession Number(s): [id number] cc: NAJMA PETERS ; SHARON BUSBY [place] [address] Patient Name: KELSEY NIETO MRN: [id number] date: 1950 Sex: F Assigned Patient Location: MRI Current Patient Location: MRI Accession/Order Number: [id number] Exam Date: 01/21/2025 15:06 Report Date: 01/21/2025 [...] Jr., D.O. 01/21/2025 3:11 PM Dictation Location: [place] [address] Electronically authenticated by: [id number] Y Date: :11 Dictated By: Polo Landeros M.D. Signed By:01/21/25 1514 DD/ 1511 TD/TT: Binitrotoluene Operator: Generic External Data Provider [facility] Final Result from Last 3 Months Insurance UNITED HEALTHCARE MEDICARE
--- OUTSIDE RECORDS SUMMARY | 2025-03-25 15:08 | XMS_ITS | Encounter Summary ---
Author Organization [facility] Address [address] [place] [address] Phone Care Team Providers Care Digital Design Engineer Name Role Phone Unavailable Primary Care Provider Unavailabl e Encounter Details Date Type Department Care Team (Late st Contact Info) Description 11/26/2024 Scanned Document [facility] [address] [place] [address] Scanning, Generic Provider Social History Tobacco Use [...] Description 07/29/2025 9:10 AM EST Office Visit [facility] [address] [phone] Rola Phillips MD 703 [facility] [address] [place] [address] documented as of this encounter Visit Diagnoses Not on filedocumented in this encounter
--- OUTSIDE RECORDS SUMMARY | 2025-03-25 15:08 | XMS_ITS | Encounter Summary ---
Author Organization [facility] Address [address] [place] [address] Phone Care Team Providers Care Food Service Representative Name Role Phone Unavailable Primary Care Provider Unavailabl e Encounter Details Date Type Department Care Team (Late st Contact Info) Description 12/05/2024 Scanned Document [facility] [address] [place] [phone] Scanning, Generic Provider Social History Tobacco Use [...] Description 07/29/2025 9:10 AM EST Office Visit [facility] [address] [phone] Rola Phillips MD 703 [facility] [address] [place] [address] documented as of this encounter Visit Diagnoses Not on filedocumented in this encounter
--- OUTSIDE RECORDS SUMMARY | 2025-03-25 15:08 | XMS_ITS | Clinical Summary ---
Author Organization [facility] Address [address] [place] [address] Care Team Providers Care Synoptic Meteorologist Name Role Phone Destiny Figueroa Primary Care Provider [phone] Allergies Active Allergy Reactions Criticality Noted Date [...] Vaccine (2023-2 5 season) 2024 Influenza Vaccine (#1) 2025 HIB Vaccines Aged Out No longer [...] MUTUAL MEDICARE UNITED HEALTHC[employer] MEDICARE Care Teams Synoptic Meteorologist Relationship Specialty Start Date End Date Destiny Figueroa PCP - General 07/21/24
--- OUTSIDE RECORDS SUMMARY | 2025-03-25 15:08 | XMS_ITS | Clinical Summary ---
Author Organization [facility] Address [address] [place] [address] Phone Care Team Providers Care Otolaryngology Physician Name Role Phone Unavailable Primary Care Provider Unavailabl e Encounters Date Type Department Care Team Description 02/26/2025 Scanned Document [facility] [address] [place] [phone] Scanning, Generic Provider 02/26/[address] [place] [address] Kassidy Blake, HR ADVISOR hematoma from Last 3 Months Social History [...] Description 07/29/2025 9:10 AM EST Office Visit [facility] 703 [facility] [address] [place] [address] Rloa Phillips MD 7[address] [facility] [address] [place] [address] Health Maintenance Due Date Last [...] patient's age to complete this topic Insurance [place] [address] [address] [facility]
--- OUTSIDE RECORDS SUMMARY | 2025-03-25 15:09 | XMS_ITS ---
Author Organization [facility] Care Team Providers Care Overhead Line Worker Name Role Phone OsorioCarlos whitingn Unavailable Unavailable Allergies and adverse reactions Code CodeSystem Substance Reaction Severity StartDate Concern Status 795007404 SNOMED CT Shrimp Unknown 09/05/2024 active 7984 RXNORM Penicillin Unknown 09/05/2024 active 3423 RXNORM Dilaudid Unknown 09/05/2024 active 2878 RXNORM Cortisone Unknown 09/05/2024 active 2556 RXNORM Citalopram Unknown 09/05/2024 active Care Team Name Role Address Phone Organization Dates [place] [facility] [facility] [address] [facility] [address], [place], [address], [place] (Office): : : [facility] 09/12/2024 - 10/04/2024 Goals Section Goals Description Status Target Date Early recognition of respira tory infection to allow for prompt treatment. Active 12/28/2024 LLE wound will resolve by ne xt review without s/sx of pain or infection. Active 12/28/2024 Maintain baseline VS x's 90 days. Active 12/28/2024 Maintain partial continence and no s/sx of UTI x 's 90 days. Active 12/28/2024 No adverse side effects of psychotropic medicati on x's 90 days. Active 12/28/2024 No s/sx of dental pain/infection x's 90 days. Ac tive 12/28/2024 Prevent falls x's 90 days. Active 12/28 Prevent skin breakdown r/t pressure x's 90 days. Active 12/28/2024 Resident will continue to re ceive support from family and friends to help maintain mood. Active 12/28/2024 Resident will demonstrate relaxed facial express ions Active 12/28/2024 Resident will discharge to [facility] with services as necessary upon completion of rehab Active 12/28/2024 Resident will express feelin gs d/t lack of control over illness and/or placement Active 12/28/2024 Resident will express positi ve aspect of self and/or situation daily through next review Active 12/28/2024 Resident will receive daily opportunities for social contact through the review date. Active 12/28/2024 Resident will remain free of respiratory infection AEB normal vital signs, absence of signs and symptoms of respiratory infection. Active 12/28/2024 Resident will show evidence of adjustment to placement by having meals in dining room, attending activities of choice through the review date. Active 12/28/2024 Resident will verbalize acce ptance of placement in facility through next review Active 12/28/2024 Resident will verbalize/comm unicate and understanding of the discharge plan and describe the desired outcome by the review date. Active 12/28/2024 The resident will maintain t he ability to seek social contact and stimulation through the review date. Active 12/28/2024 Will be free from any s/sx o f hypo/hyperglycemia through the review date. Active 12/28/2024 Will be free from s/sx of pain or discomfort x's 90 days. Active 12/28/2024 Will consume at least 50% of 2 meals/day Active 12/28/2024 Will have minimal or no SOB x's 90 days. Active 12/28/2024 Will have minimal or no edema through next revie w. Active 12/28/2024 Will have no complications r elated to diabetes through the review date. Active 12/28/2024 Will have soft formed BM q1-3 days. x's 90 days. Active 12/28/2024 Will improve current level o f function in order to return home when rehab complete. Active 12/28/2024 Immunizations Immunization Status Vaccine Details Vaccine Code CodeSystem Alcides e Notes TB 2 Step Mantoux Skin Test completed tuberculin skin test; unspecified formulation lotNumber: [id number] expiry: 01/22/2026 Mfg: Aplisol Given 0.1 ml Left Forearm intradermally Step 1 of Multi-step with next step required 98 CVX created date: 09/19/2024 consent date: 09/19/2024 administere d date: 09/19/2024 TB 2 Step Mantoux Skin Test completed tuberculin skin test; unspecified formulation Given 0.1 ml Right Forearm intradermally Step 2 of Multi-step with next step required 98 CVX created date: 09/15/2024 consent date: 09/12/2024 administere d date: 09/12/2024 TB 2 Step Mantoux Skin Test completed tuberculin skin test; unspecified formulation Given 0.1 ml intradermally Step 1 of Multi-step with next step required 98 CVX created date: 09/15/2024 consent date: 09/12/2024 administere d date: 09/12/2024 Mental Status Section Date Assessment Total Score Description 10/04/2024 CAM 0 No delirium ind icated 09/30/2024 BIMS 12 moderate cognit magda impairment CAM 0 No delirium ind icated PHQ-9 01 minimal depress ion Problems Problem # Description Date of onset Resolved Date Code CodeSystem Concern Status 1 ACIDOSIS, UNSPECIFIED 09/12/[address] active 2 ACUTE STRESS REACTION 09/12/[address] active 3 ANXIETY DISORDER, UNSPECIFIED 09/12/[address] active 4 CONTUSION OF LEFT LOWER LEG, SUBSEQUENT ENCOUNTER 09/12/[address] active 5 COVID-19 09/12/[address] active 6 DEPRESSION, UNSPECIFIED 09/12/[address] active 7 ESSENTIAL TREMOR 09/12/[address] active 8 HISTORY OF FALLING 09/12/[address] active 9 HYPOKALEMIA 09/12/[address] active 10 IRON DEFICIENCY ANEMIA SECONDARY TO BLOOD LOSS (CHRONIC) 09/12/[address] active 11 MIXED HYPERLIPIDEMIA 09/12/[address] active 12 MORBID (SEVERE) OBESITY DUE TO EXCESS CALORIES 09/12/[address] active 13 MUSCLE WEAKNESS (GENERALIZED) 09/12/[address] active 14 NEED FOR ASSISTANCE WITH PERSONAL CARE 09/12/[address] active 15 ORTHOSTATIC HYPOTENSION 09/12/[address] active 16 OVERACTIVE BLADDER 09/12/[address] active 17 PAROXYSMAL ATRIAL FIBRILLATION 09/12/[address] active 18 TYPE 2 DIABETES MELLITUS WITH DIABETIC POLYNEUROPATHY 09/12/[address] active 19 UNSPECIFIED OSTEOARTHRITIS, UNSPECIFIED SITE 09/12/[address] active 20 UNSTEADINESS ON FEET 09/12/[address] active Reason for Referral No Reasons for Referral Entered Social History Social History Observation Description Start Date End Date Code Code System Current Smoking Status Tobacco smoking consumption unknown 941628795 SNOMED CT Sex Assigned At Female 1950 81279-2 [facility] Gender Identity Vital Signs Code Code System Vitals Name Values and Units Timing Information 9279-1 [facility] Respiratory Rate Value=18.0 Units=/m in 10/04/2024 8462-4 [facility] Blood Pressure-Diastolic Value=43 Un its=mmHg 10/04/2024 8480-6 [facility] Blood Pressure-Systolic Value=86 Uni ts=mmHg 10/04/2024 8310-5 [facility] Body Temperature Gqifs=588.7 Units= F 10/04/2024 8867-4 [facility] Heart rate Qyluh=376.0 Units=/min 10/04/2024 96474-4 [facility] O2 % dC Oximetry Value=92.0 Units= % 10/04/2024 71084-5 [facility] Pain Level Value=0.0 10/04/2024 2339-0 [facility] Blood Sugar Aqxfz=503.0 Units=mg/dL 10/03/2024 97793-2 [facility] Weight Ztegn=923.0 Units=Lbs 12/2024 8302-2 [facility] Height Value=65.0 Units=Inches 09/12/2024
--- OUTSIDE RECORDS SUMMARY | 2025-03-25 15:09 | XMS_ITS | Encounter Summary ---
Author Organization [employer] [facility] [employer] Address [facility]-[id number] [address] [place] [address] Care Team Providers Care Hide And Skin Classer Name Role Phone Destiny Figueroa APRN-CFALVINO Primary Care Pro vider Encounter Details Date Type Department Care Team (Late st Contact Info) Description 10/07/2024 Orders Only [facility] [address] [place] [phone] External, Scanning Provider Pain (Primary Dx) Social History Tobacco Use Types Packs/Day Years Used Date Smoking Tobacco: Never Smokeless Tobacco: Never Alcohol Use Standard Drinks/Week Comments Never 0 (1 standard drink = 0.6 oz pur e alcohol) [facility] Utilities Answer Date Recorded In the past 12 months has [employer], gas, oil, or water [employer] threatened to shut off services in your [...] <enter goal here> General Yes Claudia Whitman SPRAY MAKER Note: Evaluation of progress towards goal: Current [...] documented as of this encounter Care Teams Hide And Skin Classer Relationship Specialty Start Date End Date Destiny Figueroa APRN-LAURA [address] [place] [address] PCP - General Family Medicine 05/30/24 documented as of this encounter
--- OUTSIDE RECORDS SUMMARY | 2025-03-25 15:09 | XMS_ITS | Clinical Summary ---
Author Organization [employer] Address [id number] [address] [place] [address] Care Team Providers Care Sales Engineer Name Role Phone Destiny Figueroa APRN-CFALVINO [...] before bedtime. 4 Active ONETOUCH ULTRA2 METER [facility] USE TO CHECK GLUCOSE ONCE DAILY 4 [...] of sacrum, limited to breakdown of skin ([facility]) Place 1 patch on the skin in [...] urinary incontinence 10/21/2024 Pressure injury due to registered medical assistant 10/21/2024 Pressure injury of deep [...] drink = 0.6 oz pur e alcohol) [facility] Utilities Answer Date [...] <enter goal here> General Yes Claudia Whitman RIVET [employer] Note: Evaluation of progress towards goal: Current Discharge Plan: SNF for short term rehab Medical Devices Implanted Type Area Carpet Installer Device Identifier Shelf Expiration Date Model / Serial / Lot Filter Embl 49mm 65cm Vc Rdpq Preld Flsh Sdprt Intro Strl Rpl [id number] - [id number] Implanted:Qty: 1 on 10/06/2024 by Mer Galvan MD at [facility] IVC Filter [employer] [id number] 07/30/2027 [id number] / / [id number] Insurance UNITED[employer]ARE MEDICARE Advance Directives Documents on File Type Date Recorded Patient Therapist Phys Expl anation Durable Power of Rag Shredder 11/03/2024 11:17 AM Durable Power of Rag Shredder 10/15/2024 7:36 PM Power of Rag Shredder 10 15 2024 Advance Directive 10/15/2024 7:34 PM Ivonne Gutierrezhailey Mukul phillips Power of Rag Shredder 10 15 2024 Durable Power of Rag Shredder 10/15/2024 4:46 PM [facility] Myles r of Rag Shredder * Full Code (Latest Code Status on File) Date Activated Date Inactivated Comments 10/06/2024 6:34 PM 10/29/2024 2:26 PM * Full Code Date Activated Date Inactivated Comments 05/30/2024 5:31 AM 05/31/2024 7:59 PM Healthcare Agents on File Name Relationship Healthcare Agent Relationshi p Communication Ivonne Ngdavid Daughter Health Care Agent Geetha Gilmant Daughter First Alternate Health Care Agent Care Teams Sales Engineer Relationship Specialty Start Date End Date Destiny Figueroa, ASE MASTER MECHANIC-CFALVINO [address] [place] [address] PCP - General Family Medicine 05/30/24
--- OUTSIDE RECORDS SUMMARY | 2025-03-25 15:09 | XMS_ITS | Encounter Summary ---
Author Organization [employer] [facility] [employer] Address [id number] [address] [place] [address] Care Team Providers Care Wound Care Rn Name Role Phone Destiny Figueroa APRN-CFNP Primary Care Pro vider Encounter Details Date Type Department Care Team (Late st Contact Info) Description 10/07/2024 Orders Only [facility] [address] [place] [phone] Transcribe, Orders Support User Pain (Primary Dx); Acute chest pain Social History Tobacco Use Types Packs/Day Years Used Date Smoking Tobacco: Never Smokeless Tobacco: Never Alcohol Use Standard Drinks/Week Comments Never 0 (1 standard drink = 0.6 oz pur e alcohol) [facility] Utilities Answer Date Recorded In the past 12 months has [employer], gas, oil, or water [employer] threatened to shut off services in your [...] documented as of this encounter Care Teams Wound Care Rn Relationship Specialty Start Date End Date Destiny Figueroa APRN-CFNP [address] [place] [address] PCP - General Family Medicine 05/30/24 documented as of this encounter
--- OUTSIDE RECORDS SUMMARY | 2025-03-25 15:09 | XMS_ITS | Patient Health Record ---
Author Organization [facility] Address [address] [place] [address] [place] [address] Care Team Providers Care Licensing Analyst Name Role Phone Lynda Jean Primary Care Provider Kevin Quintana Unavailable [phone] Reason For Referral No Information Encounters Encounter Location Date Provider Diagnosis [facility] [address] [place] [address] 01/14/2025 Kevin Reyes Plan Of Treatment No Information Insurance Providers Payer Name Payer Address Payer Phone Subscriber Number Group Number Insured Name Patient Relationship to Insured Coverage Start Date Coverage End Date [facility] [place] [facility] [address] [address] [place] [address] [id number] Kelsey Macias Self - patient is the insured
--- OUTSIDE RECORDS SUMMARY | 2025-03-25 15:09 | XMS_ITS | Encounter Summary ---
Author Organization [employer] Address [id number] [address] [place] [address] Care Team Providers Care Carbon Accountant Name Role Phone Destiny Figueroa APRN-CFNP Primary Care Pro vider Reason for Visit * Reason Onset Date Comments Hospital Follow-up 10/08/2024 Encounter Details Date Type Department Care Team (Late st Contact Info) Description 10/08/2024 Telephone [facility] [address] [place] [address] [facility] Follow-up Social History Tobacco Use Types Packs/Day Years Used Date Smoking Tobacco: Never Smokeless Tobacco: Never Alcohol Use Standard Drinks/Week Comments Never 0 (1 standard drink = 0.6 oz pur e alcohol) [facility] Utilities Answer Date Recorded In the past 12 months has [employer], gas, oil, or water company threatened [...] RBP. He signed off patient care from [facility] Dx Saddle pulmonary embolism with bilateral heavy [...] AM EST Pt still currently admitted to [facility]. JLW * Telephone Encounter - Brittany Keene MA - 10/08/2024 10:21 AM EST Pt still currently admitted to [facility]. JLW * Telephone Encounter - Brittany Keene MA - 10/08/2024 10:21 AM EST Pt still currently admitted to [facility]. JLW * Telephone Encounter - Brittany Keene MA - 10/08/2024 10:21 AM EST Pt still currently admitted to [facility]. JLW * Telephone Encounter - Michelle Bey - 10/08/2024 10:21 AM EST STILL INPT * Telephone Encounter - Brittany Keene MA - 10/08/2024 10:21 AM EST Pt still currently admitted to [facility]. JLW * Telephone Encounter - Brittany Keene [...] <enter goal here> General Yes Claudia Whitman FACILITIES MECHANICAL DESIGN ENGINEER Note: Evaluation of progress towards goal: Current Discharge Plan: SNF for short term rehab documented as of this encounter Visit Diagnoses Not on filedocumented in this encounter Additional Health Concerns Assessment Noted Time PHQ-9 Depression Total Score: 6 10/06/19 25 7:54 PM EST documented as of this encounter Care Teams Carbon Accountant Relationship Specialty Start Date End Date Destiny Figueroa APRN-CFNP [address] [place] [address] PCP - General Family Medicine 05/30/24 documented as of this encounter
--- OUTSIDE RECORDS SUMMARY | 2025-03-25 15:09 | XMS_ITS | Encounter Summary ---
Author Organization [facility] Address [id number] [address] [place] [address] Care Team Providers Care Organizational Development Director Name Role Phone Destiny Figueroa APRN-CFNP Primary Care Pro vider Encounter Details Date Type Department Care Team (Late st Contact Info) Description 09/11/2024 Orders Only [facility] [address] [place] [phone] External, Scanning Provider Social History Tobacco Use Types Packs/Day Years Used Date Smoking Tobacco: Never Smokeless Tobacco: Never Alcohol Use Standard Drinks/Week Comments Never 0 (1 standard drink = 0.6 oz pur e alcohol) [facility] Utilities Answer Date Recorded In the past 12 months has [employer], gas, oil, or water [employer] threatened to shut off services in your [...] ECG ORDERABLES Final Result Performing Organization Address City/[facility] Co de Phone Number MANUALLY TRANSCRIBED RESULTS documented in this encounter Visit Diagnoses Not on filedocumented in this encounter Additional Health Concerns Assessment Noted Time PHQ-9 Depression Total Score: 9 05/30/20 24 10:46 AM EDT documented as of this encounter Care Teams Organizational Development Director Relationship Specialty Start Date End Date Destiny Figueroa APRN-CFNP [address] [place] [address] PCP - General Family Medicine 05/30/24 documented as of this encounter
--- OUTSIDE RECORDS SUMMARY | 2025-03-25 15:09 | XMS_ITS | Encounter Summary ---
Author Organization [facility] tem Address [id number] [address] [place] [address] Care Team Providers Care Clinical Lab Assistant Name Role Phone Destiny Figueroa APRN-CFNP Primary Care Pro vider Encounter Details Date Type Department Care Team (Late st Contact Info) Description 11/20/2024 Orders Only [facility] [address] [place] [phone] External, Scanning Provider Social History Tobacco Use Types Packs/Day Years Used Date Smoking Tobacco: Never Smokeless Tobacco: Never Alcohol Use Standard Drinks/Week Comments Never 0 (1 standard drink = 0.6 oz pur e alcohol) [facility] Utilities Answer Date Recorded In the past 12 months has [employer], gas, oil, or water [employer] threatened to shut off services in your [...] 2:22 PM EST) us Scanning Provider External NE IMAGING Final Result Performing Organization Address [facility] Co de Phone Number MANUALLY TRANSCRIBED RESULTS * CT chest with contrast (10/06/2024 2:18 PM EST) Anatomical Region Laterality Modality Body, Lung, Chest, Body Covera N/A C omputed Tomography us Scanning Provider External IMG CT ORDERABLES Fin al Result * Multiple labs (10/05/2024 2:23 PM EST) us Scanning Provider External NE IMAGING Final Result Performing Organization Address [facility] Co de Phone Number MANUALLY TRANSCRIBED RESULTS * ECG 12 lead (10/04/2024 2:23 PM EST) us Scanning Provider External ECG ORDERABLES Final Result Performing Organization Address [facility] de Phone Number MANUALLY TRANSCRIBED RESULTS documented in this encounter Visit Diagnoses Not on filedocumented in this encounter Additional Health Concerns Assessment Noted Time PHQ-9 Depression Total Score: 6 10/06/19 25 7:54 PM EST documented as of this encounter Care Teams Clinical Lab Assistant Relationship Specialty Start Date End Date Destiny Figueroa APRN-CFNP [address] [place] [address] PCP - General Family Medicine 05/30/24 documented as of this encounter
--- OUTSIDE RECORDS SUMMARY | 2025-03-25 15:09 | XMS_ITS | Patient Health Record ---
Author Organization [facility] Address [address] [place] [address] Care Team Providers Care Plunger Machine Operator Name Role Phone Lynda Jean MD Primary Care Provider Lynda Santos Unavailable [phone] Beny Blackwell Unavailable [phone] Amber Diamond Unavailable [phone] Allergies Allergen (clinical drug ingredient) Drug/Non Drug Allergy documented on EMR Reaction Allergy Type Onset Date Status PCN (uncoded) Unknown Allergy Active Reason For Referral Reason REFERRAL FOR NEW [place] [facility] FOR L4-5 JUNITO Diagnosis 1 Compression fracture of L1 vertebra with routine healing, subsequent encounter (S32.010D) Referral Organization [facility] Referring Provider First Name Lynda Referring Provider Last Name [facility] Referring Provider Speciality Orthopedic Surgery Referred Organization [facility] Referred Address [address] [facility] [address], [address],[place], [place],[address], General Notes Alyssa Gutierrez 2024 10:23:41 AM >, Alyssa Gutierrez 02/11/2025 10:02:14 AM >FAXED Referral Priority Routine Reason NO AUTH REQ......... ...................NOT SCHEDULED...................................[facility] MRI cervical and lumbar spine at [place] Diagnosis 1 Radiculopathy, lumba r region (M54.16) Diagnosis 2 Weakness (R53.1) Diagnosis 3 Cervical myelopathy (G95.9) Referral Organization [facility] Referring Provider First Name Lynda Referring Provider Last Name [facility] Referring Provider Speciality Orthopedic Surgery Referred Organization [facility] Referred Address [place], [place], Procedure 1 MRI Cervical w/o dye ([address]136) Procedure 2 MRI Lumbar Spine w/o Dye (83628) General Notes Octavia Rutherford 02/23 11:04:01 AM >, Leni Foster 03/20/2025 11:36:49 AM > [facility] ACTIVE AND EFFECTIVE 09/24/24 PER [facility] PROVIDER PORTAL. NO AUTHORIZATION REQUIRED. FAXED TO KARIN.Sangeeta Sara 03/23/2025 09:49:57 AM > faxed Referral Priority Routine Medications Medication SIG (Take, Route, Fr equency, Duration) Notes Start Date End Date Status Lyrica Active metoprolol Active mirtazapine Active gabapentin Active Colace Active Eliquis Active ferrous sulfate Acti ve furosemide Active potassium chloride A ctive amiodarone Active promethazine Active aspirin Active Tylenol Active atorvastatin Active Zoloft Active Calcium 600+D Active Problems Problem Type SNOMED Code ICD Code Onset Dates Problem Status W/U Status Risk Notes Problem 864684689 Cervical myelopathy (G95.9) Active confirmed Problem 718217315588983 Spondylolisthesi s, 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) Active confirmed Problem 507180463 Radiculopathy, lumbar region (M54.16) Active confirmed Problem 782088965 History of fall (Z91.81) Active confirmed Problem 55340680 Spinal stenosis, lumbar region without neurogenic claudication (M48.061) Active confirmed Problem 385655235 Compression fracture of L1 vertebra, initial encounter (S32.010A) Active confirmed Problem 58515257182704597 Compression fracture of L2 vertebra, initial encounter (S32.020A) Active confirmed Encounters Encounter Location Date Provider Diagnosis [facility] [address] [place] [address] 03/20/2025 Beny Diglio Radiculopathy, lumbar region M54.16 ; Spinal stenosis, lumbar region without neurogenic claudication M48.061 ; Cervical myelopathy G95.9 and Weakness R53.[address] [place] [address] [place] [address] 02/06/2025 [facility] Spinal stenosis, lumbar region without neurogenic claudication M48.061 ; Compression fracture of L1 vertebra, initial encounter S32.010A ; Compression fracture of L2 vertebra, initial encounter S32.020A ; Spondylolisthesis, lumbar region M43.16 ; Radiculopathy, lumbar region M54.16 and History of fall Z91.81 Assessments Encounter Date Diagnosis (ICD Code) Assessment Notes Treatment Notes Treatment Clinical Notes Section Notes 02/06/2025 Spinal stenosis, lumbar region without neurogenic claudication (ICD-10 - M48.061) 1. Dynamic L4-5 spondylolisthesis 2. L1 and L2 compression fracture 3. 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 02/06/2025 Compression fracture of L1 vertebra, initial encounter (ICD-10 - S32.010A) 1. Dynamic L4-5 spondylolisthesis 2. L1 and L2 compression fracture 3. 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 02/06/2025 Compression fracture of L2 vertebra, initial encounter (ICD-10 - S32.020A) 1. Dynamic L4-5 spondylolisthesis 2. L1 and L2 compression fracture 3. 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 03/20/2025 Radiculopathy, lumbar region (ICD-10 - M54.16) 1. Upper and lower extremity weakness 2. Cervical myelopathy 3. L4-5 spondylolisthesis , grade 1 with stenosis and radiculopathy 4. L1 and L2 compression fractures 03/20/2025 Spinal stenosis, lumbar region without neurogenic claudication (ICD-10 - M48.061) 1. Upper and lower extremity weakness 2. Cervical myelopathy 3. L4-5 spondylolisthesis , grade 1 with stenosis and radiculopathy 4. L1 and L2 compression fractures 02/06/2025 Spondylolisthesi s, lumbar region (ICD-10 - M43.16) 1. Dynamic L4-5 spondylolisthesis 2. L1 and L2 compression fracture 3. 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 02/06/2025 Radiculopathy, lumbar region (ICD-10 - M54.16) 1. Dynamic L4-5 spondylolisthesis 2. L1 and L2 compression fracture 3. 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 03/20/2025 Cervical myelopathy (ICD-10 - G95.9) 1. Upper and lower extremity weakness 2. Cervical myelopathy 3. L4-5 spondylolisthesis , grade 1 with stenosis and radiculopathy 4. L1 and L2 compression fractures 03/20/2025 Weakness (ICD-10 - R53.1) 1. Upper and lower extremity weakness 2. Cervical myelopathy 3. L4-5 spondylolisthesis , grade 1 with stenosis and radiculopathy 4. L1 and L2 compression fractures 02/06/2025 History of fall (ICD-10 - Z91.81) 1. Dynamic L4-5 spondylolisthesis 2. L1 and L2 compression fracture 3. 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 03/20/2025 Other Patient with complaints today of [...] extremity weakness 2. Cervical myelopathy 3. L4-5 spondylolisthesis , grade 1 with stenosis and radiculopathy 4. L1 and L2 compression fractures 02/06/2025 Other Plan established by Dr. Boswell. Patient evaluated by myself and Dr. Boswell today. We did review imaging with patient and her daughter and recommend an LSO brace for the compression fractures and referral to the [place] [facility] for an L4-5 epidural [...] Date Lumbar spine, 4v flex ext - 98556 2024 MRI : Cervical Spine W/O Contrast - 7214 1 03/20/2025 MRI : Lumbosacral Spine W/O Contrast - 7 2148 03/20/2025 DME - Lumbar Support, Surgical OTS 02/06 Epidural injection - lumbar 02/06/2025 Insurance Providers Payer Name Payer Address Payer Phone Subscriber Number Group Number Insured Name Patient Relationship to Insured Coverage Start Date Coverage End Date MEDICARE UHC AARP [address] [address] [place] [address] [id number] FLOR NIETO Self - patient is the insured 5 [place] [address] [id number] FLOR NIETO Self - patient is the insured 5 [facility] [address] [place] [address]25 FLOR NIETO Self - patient is the insured 5 Medical (General) History Medical History History ICD Code High Blood Pressure Abnormal Heart Rhythm Liver Disease Diabetes Irritable bowel syndrome Blood Clots in Legs/Lungs Anxiety Depression Rheumatoid arthritis Surgical History Surgery Date(Month/Year) Pulmonary bilateral lung 09/2024
--- OUTSIDE RECORDS SUMMARY | 2025-03-25 15:09 | XMS_ITS | Encounter Summary ---
Author Organization [employer] Address [id number] [address] [place] [address] Care Team Providers Care Derrick Car Operator Name Role Phone Destiny Figueroa ONCOLOGY PATIENT NAVIGATOR-CFNP Primary Care Pro vider Reason for Visit * Reason Onset Date Comments Sign Off Patient Care 08/25/2024 Encounter Details Date Type Department Care Team (Late st Contact Info) Description 08/25/2024 Telephone [facility] [address] [place] [phone] Des Whyte MD [address] [place], [place] [phone] Sign Off Patient Care Social History Tobacco Use Types Packs/Day Years Used Date Smoking Tobacco: Never Smokeless Tobacco: Never Alcohol Use Standard Drinks/Week Comments Never 0 (1 standard drink = 0.6 oz pur e alcohol) [facility] Utilities Answer Date Recorded In the past 12 months has [employer], gas, oil, or water [employer] threatened to shut off services in your [...] documented as of this encounter Care Teams Derrick Car Operator Relationship Specialty Start Date End Date Destiny Figueroa, TORI-LAURA [address] [place] [address] PCP - General Family Medicine 05/30/24 documented as of this encounter
--- NOTE | 2025-03-25 15:40 | PM.CN ---
Consult Note: HPI Data of Consult Patient: known to practice within the last 3 years Requesting Physician: Sasha Gomez NP Primary Care Provider: NAJMA PETERS Family Provider: DAVID COVINGTON DO Consult Narrative Reason for consult: low back, bilateral lower extrem pain Narrative: 74of who presents for evaluation. several months of worsening low back, bilateral hip and leg pain. imaging reviewed, shows subacute l1 and l2 fractures, also multilevel stenosis, worst at l4-5. recently evaluated by back surgeon, who recommended patient undergo lumbar epidural. has continued in a series of provider directed home exercises >6 weeks, without benefit. uses pain meds as needed. denies adverse med side effects. recently underwent bilateral L4-5 TFESI with no improvement. pending updated lumbar MRI and f/u with Dr Jenkins cc:: CC: Sasha Gomez NP [facility] Medical History (Updated 03/12/25 @ 16:10 by Kassidy Lu) CHF (congestive heart failure) �I50.9 - Heart failure, unspecified (ICD-10) History of pulmonary embolism �Z86.711 - Personal history of pulmonary embolism (ICD-10) Dysphagia �R13.10 - Dysphagia, unspecified (ICD-10) Hypertension �I10 - Essential (primary) hypertension (ICD-10) Osteoarthritis �M19.90 - Unspecified osteoarthritis, unspecified site (ICD-10) Rheumatoid arthritis �M06.9 - Rheumatoid arthritis, unspecified (ICD-10) Depression �F32.A - Depression, unspecified (ICD-10) Anxiety �F41.9 - Anxiety disorder, unspecified (ICD-10) Peripheral vascular disease �I73.9 - Peripheral vascular disease, unspecified (ICD-10) High cholesterol �E78.00 - Pure hypercholesterolemia, unspecified (ICD-10) Diabetes �E11.9 - Type 2 diabetes mellitus without complications (ICD-10) Surgical History (Updated 03/12/25 @ 16:10 by Kassidy Lu) Hx of tonsillectomy �Z90.89 - Acquired absence of other organs (ICD-10) Hx of cholecystectomy �Z90.49 - Acquired absence of other specified parts of digestive tract (ICD-10) Meds Home Medications and Allergies Home Medications �Medication �Instructions �Recorded �Confirmed �Type amiodarone 200 mg tablet 200 mg PO Q24H 03/11/25 03/16/25 History acetaminophen 325 mg tablet 325 mg PO Q6H PRN pain 03/12/25 03/12/25 History (Tylenol) apixaban 5 mg tablet (Eliquis) 5 mg PO Q12H 03/12/25 03/16/25 History aspirin 81 mg capsule 81 mg PO DAILY 03/12/25 03/12/25 History atorvastatin 80 mg tablet 80 mg PO DAILY 03/12/25 03/16/25 History calcium 600 mg (as 1 cap PO DAILY 03/12/25 03/16/25 History carbonate)-vitamin D3 5 mcg (200 unit) capsule (Calcium 600 + D(3)) collagenase clostridium histo. 250 1 applic topical DAILY 03/12/25 03/12/25 History unit/gram topical ointment (Santyl) diclofenac sodium 1 % topical gel 2 g topical QID 03/12/25 03/12/25 History docusate sodium 100 mg capsule 100 mg PO BID 03/12/25 03/12/25 History (Colace) ferrous sulfate 325 mg (65 mg 325 mg PO BID 03/12/25 03/12/25 History iron) tablet (Feosol) furosemide 20 mg tablet 20 mg PO Q12H 03/12/25 03/16/25 History gabapentin 300 mg capsule 300 mg PO Q8H 03/12/25 03/16/25 History glucagon HCl 1 mg solution for 1 mg subcut Q20M PRN hypoglycemia 03/12/25 03/12/25 History injection (Glucagon (HCl) Emergency Kit) hydroxyzine HCl 25 mg tablet 25 mg PO Q6H PRN nausea and 03/12/25 03/16/25 History vomiting lidocaine 5 % topical patch 1 patch topical Q24H 03/12/25 03/16/25 History metoprolol succinate 25 mg 25 mg PO Q12H 03/12/25 03/16/25 History tablet,extended release 24 hr mirtazapine 30 mg tablet 30 mg PO DAILY 03/12/25 03/16/25 History multivitamin 1 tab PO DAILY 03/12/25 03/12/25 History polyethylene glycol 3350 17 gram 17 g PO DAILY 03/12/25 03/12/25 History oral powder packet (ClearLax) potassium chloride 20 mEq 20 meq PO BID 03/12/25 03/16/25 History tablet,extended release(part/cryst) pregabalin 75 mg capsule 75 mg PO Q12H 03/12/25 03/16/25 History promethazine 25 mg tablet 25 mg PO Q6H PRN nausea and 03/12/25 03/16/25 History vomiting witch micah-glycerin (hamamel) 1 pad topical DAILY PRN hemorrhoids 03/12/25 03/12/25 History topical pads Allergies Allergy/AdvReac Type Severity Reaction Status Date / Time citalopram Allergy Unknown Verified 03/16/25 09:11 cortisone Allergy Unknown Verified 03/16/25 09:11 hydromorphone Allergy Unknown Verified 03/16/25 09:11 iodine Allergy Unknown Verified 03/16/25 09:11 morphine Allergy Unknown Verified 03/16/25 09:11 Penicillins Allergy Unknown Verified 03/16/25 09:11 shrimp Allergy Unknown Verified 03/16/25 09:11 Exam Constitutional Documenting provider has reviewed patient's vital signs: yes Common normals: no apparent distress, oriented x3, healthy appearing, alert and well nourished General appearance: cooperative HENMT Common normals: normocephalic, hearing grossly normal bilaterally and moist oral mucous membranes Head and scalp: normocephalic Eye Common normals: PERRL Pupil: PERRL Neck & C-Spine Common normals: full ROM General: normal visual inspection Chest Common normals: inspection of chest normal Respiratory Common normals: normal respiratory effort, no retractions and no use of accessory muscles Back & Pelvis Lumbar spine/lower back: ROM limited, pain with ROM and straight leg raise positive right Other: decreased sensation to right L4,5,S1 unable to assess strength Neuro Common normals: oriented x3 Sensorium/orientation: alert Gait (neuro): unable to assess gait and assistive device used (wheelchair); abnormal gait Psych Common normals: mental status grossly normal, thought process normal, cooperative, affect normal, speech normal and activity/motor behavior normal Speech: normal speech Thought process: normal thought process Results Additional Findings Additional findings: If on a controlled substance or opioids, I have checked an [place]AR[place] report on this patient and there are no aberrancies noted in the prescribing history.��If on a controlled substance or opioid a drug screen was completed and reviewed within the last year, and if there has not been a drug screen completed we ordered one today to monitor higher risk, state monitored pain medication use. As part of providing excellent, safe, comprehensive care, the following was completed at our patient's visit: 1. A medication reconciliation and review to ensure accurate knowledge of current/active medications, including asking our patients to inform us about any [id number] medications or herbal remedies/nutritional supplements/alternative remedies. 2. A review to specifically ensure our patients have had annual screening for screening for depression, screening for tobacco use, and screening for unhealthy alcohol use. For concerning screenings had a discussion with the patient, provided patient education, and recommended follow-up with primary care provider when appropriate. If patient noted with a risk of falling, they received education on strength, gait, and balance training to prevent future risk of falling. Portions of this note may have been carried over from the previous visit and updated as appropriate. Please note this office utilizes paper charting in addition to the electronic medical record. A list of current medications, vitals, and PMH is available there as the clinical staff outside of myself do not have access to [employer] charting during the clinic day operations. As part of providing quality comprehensive care the current medications, vitals, and PMH were reviewed in the paper chart. Assessment and Plan Assessment and Plan (1) Lumbar stenosis with neurogenic claudication: Plan recently underwent bilateral L4-5 TFESI with no improvement, pending additional lumbar MRI with Dr Jenkins. f/u with SAVAGE as planned. return to our care PRN or as advised by SAVAGE
== END 2025-03-25 15:05 | disposition home or self-care (01) ==
LOC: PM 15:04
PROVIDERS: Family Provider Family Medicine; PCP Family Medicine; Visit Provider Nurse Practitioner
DX: M48.062 Spinal stenosis, lumbar region with neurogenic claudication (principal)
CPT/HCPCS: G0463

== ENCOUNTER 2025-04-03 08:24 | Outpatient (OUT) | payer MEDICARE, SELFPAY ==
--- OUTSIDE RECORDS SUMMARY | 2025-01-14 10:30 | XMS_ITS ---
Author Organization [facility] Address [address] [place] [address] [place] [address] Care Team Providers Care Arrt Technologist Name Role Phone Lynda Jean Primary Care Provider Kevin Quintana Unavailable [phone] Encounters Encounter Location Date Provider Diagnosis [address] [address] 01/14/2025 Kevin Reyes Plan Of Treatment No Information Progress Notes * Kelsey NIETODOB:1950 (74 yo F)Acc No.[id number]:01/14/2025 Patient: Kelsey PETER Provider: Joey Reyes DPM :1950 A ge:74 Y S ex:Female Date:01/14/2025 Address:[facility] Pcp:Lynda Jean Subjective: * Chief Complaints: * * Medical History: Objective: * Vitals: Assessment: Plan: * Treatment: * Images: * Electronic signature of Mears in MIGEL Reyes on 04/03/2025 at 08:27 AM EDT Sign off status: Pending * Provider: Joey Reyes DPM Date: 01/14/2025 Generated for Mirta stearns/Theodora/eTransmitting on: 04/03/2025 08:27 AM EDT
--- OUTSIDE RECORDS SUMMARY | 2025-03-13 06:10 | XMS_ITS ---
Author Organization [facility] Address [address] [place] [address] Care Team Providers Care Manager Unit Name Role Phone Miranda PINEDA, Lynda Primary Care Provider Lynda Santos Unavailable [phone] REASON FOR VISIT LUMBAR RECHECK Encounters Encounter Location Date Provider Diagnosis [facility] [facility] [address] [place] [address] [place] [address] 03/13/2025 Lynda Perez Plan Of Treatment No Information Progress Notes * FLOR NIETODOB:1950 (74 yo F)Acc No.[id number]:03/13/2025 Patient: FLOR PETER Provider: Estuardo Boswell MD, PhD :1950 A ge:74 Y S ex:Female Date:03/13/2025 Address[facility] Pcp:Lynda Jean MD Subjective: * Chief Complaints: * 1 . LUMBAR RECHECK. * Medical History: Objective: * Vitals: Assessment: Plan: * Treatment: Forms: * Images: * Electronic signature of Alex Perez MD, PHD on 04/03/2025 at 08:27 AM EDT Sign off status: Pending * Provider: Estuardo Boswell MD, PhD Date: 03/13/2025 Generated for Printi ng/Fabulmarog/eTransmitting on: 0 04/03/2025 08:27 AM EDT
--- OUTSIDE RECORDS SUMMARY | 2025-03-20 06:00 | XMS_ITS ---
Author Organization [facility] Address [address] [place] [address] Care Team Providers Care Raw Material Handler Name Role Phone Lynda Jean MD Primary Care Provider [facility] Unavailable [phone] Beny Blackwell Unavailable [phone] Allergies Allergen (clinical drug ingredient) Drug/Non Drug Allergy documented on EMR Reaction Allergy Type Onset Date Status PCN (uncoded) Unknown Allergy Active Reason For Referral Reason NO AUTH REQ......... ...................NOT SCHEDULED...................................[facility] MRI cervical and lumbar spine at [place] Diagnosis 1 Radiculopathy, lumba r region (M54.16) Diagnosis 2 Weakness (R53.1) Diagnosis 3 Cervical myelopathy (G95.9) Referral Organization [facility] Referring Provider First Name Lynda Referring Provider Last Name Chris Referring Provider Speciality Orthopedic Surgery Referred Organization [facility] fer Referred Address [place], [place], Procedure 1 MRI Cervical w/o dye (78465) Procedure 2 MRI Lumbar Spine w/o Dye (65927) General Notes Octavia Rutherford 02/23 11:04:01 AM >, Leni Foster 03/20/2025 11:36:49 AM > [facility] 09/24/24 PER [facility] PROVIDER PORTAL. NO AUTHORIZATION REQUIRED. FAXED TO [facility]. Airel Rutherforda 03/23/2025 09:49:57 AM > faxed Referral Priority Routine REASON FOR VISIT LUMBAR RECHECK, Lumbar recheck Medications Medication SIG (Take, Route, Fr equency, Duration) Notes Start Date End Date Status Eliquis Active ferrous sulfate Acti ve furosemide Active Lyrica Active metoprolol Active potassium chloride A ctive promethazine Active Tylenol Active Zoloft Active mirtazapine Active gabapentin Active amiodarone Active aspirin Active atorvastatin Active Calcium 600+D Active Colace Active Problems Problem Type SNOMED Code ICD Code Onset Dates Problem Status W/U Status Risk Notes Problem [id number] Cervical myelopathy (G95.9) Active confirmed Encounters Encounter Location Date Provider Diagnosis [facility] [facility] [address] [place] [phone] 03/20/2025 Beny Diglio Radiculopathy, lumba r region M54.16 ; Spinal stenosis, lumbar region without neurogenic claudication M48.061 ; Cervical myelopathy G95.9 and Weakness R53.1 Assessments Encounter Date Diagnosis (ICD Code) Assessment Notes Treatment Notes Treatment Clinical Notes Section Notes 03/20/2025 Radiculopathy, lumbar region (ICD-10 - M54.16) 1. Upper and lower extremity weakness 2. Cervical myelopathy 3. L4-5 spondylolisthes is, grade 1 with stenosis and radiculopathy 4. L1 and L2 compression fractures 03/20/2025 Spinal stenosis, lumbar region without neurogenic claudication (ICD-10 - M48.061) 1. Upper and lower extremity weakness 2. Cervical myelopathy 3. L4-5 spondylolisthes is, grade 1 with stenosis and radiculopathy 4. L1 and L2 compression fractures 03/20/2025 Cervical myelopathy (ICD-10 - G95.9) 1. Upper and lower extremity weakness 2. Cervical myelopathy 3. L4-5 spondylolisthes is, grade 1 with stenosis and radiculopathy 4. L1 and L2 compression fractures 03/20/2025 Weakness (ICD-10 - R53.1) 1. Upper and lower extremity weakness 2. Cervical myelopathy 3. L4-5 spondylolisthes is, grade 1 with stenosis and radiculopathy 4. L1 and L2 compression fractures 03/20/2025 Other Patient with complaints today of worsening weakness/heavy sensation in the lower extremities. We will get a MRI of the cervical and lumbar spine to rule out a cervical myelopathy or possible hematoma from the epidural steroid injection. We will see her back after the testing is completed to discuss the results. The patient is very much in agreement with the treatment and/or diagnostic plan set forth and all questions were answered to the patient's satisfaction. Thanks once again. If we can be of further service to your patients with disorders of the spine, cervical, thoracic, or lumbar, please do not hesitate to contact Dr. Boswell. 1. Upper and lower extremity weakness 2. Cervical myelopathy 3. L4-5 spondylolisthes is, grade 1 with stenosis and radiculopathy 4. L1 and L2 compression fractures Plan Of Treatment Treatment Notes Assessment Notes Other Patient with complaints today of worsening weakness/heavy sensation in the lower extremities. We will get a MRI of the cervical and lumbar spine to rule out a cervical myelopathy or possible hematoma from the epidural steroid injection. We will see her back after the testing is completed to discuss the results. The patient is very much in agreement with the treatment and/or diagnostic plan set forth and all questions were answered to the patient's satisfaction. Thanks once again. If we can be of further service to your patients with disorders of the spine, cervical, thoracic, or lumbar, please do not hesitate to contact Dr. Boswell. Pending Test Test Name Order Date MRI : Cervical Spine W/O Contrast - 7214 1 03/20/2025 MRI : Lumbosacral Spine W/O Contrast - 7 2148 03/20/2025 Referrals Referral Date Details 03/20/2025 03/20/2025, NO AUTH REQ............................NOT SCHEDULED...................................[facility] MRI cervical and lumbar spine at [place], [place] Next Appt Details Follow Up: after mri, Reason : Progress Notes * MICHELE NIETO:1950 (74 yo F)Acc No.[id number]:03/20/2025 Patient: FLOR PETER Provider: Ruth Ann Blackwell PA-C :1950 A ge:74 Y S ex:Female Date:03/20/2025 Address:[address] [place] [address], [phone] Pcp:Lynda Jean MD Subjective: * Chief Complaints: * 1 . LUMBAR RECHECK. 2. Lumbar recheck. * HPI: H PI: Dictated by Beny Blackwell PA-C, The patient returns to the office today over a month since her last appointment. At that time, she was referred for an epidural steroid injection. She had the injection earlier this week and feels it provided no relief of her symptoms. She is now having worsening weakness in the legs. Prior to the injection she was able to stand, but she feels she is unable to stand since having the injection. She has not been ambulating since sometime last year, unclear when. She feels about a month ago she was able to stand for approximately 2 minutes. Her legs feel heavier with a pressure sensation. She also reports some pain into the right arm and upper extremity weakness. She is currently residing in a nursing facility for multiple comorbidities. Import medication. * Medical History: H igh Blood Pressure, Abnormal Heart Rhythm, Liver Disease, Diabetes, Irritable bowel syndrome, Blood Clots in Legs/Lungs, Anxiety, Depression, Rheumatoid arthritis. * Surgical History: P ulmonary bilateral lung 09/2024. * Family History: N o Family History documented.. * Medications: T aking gabapentin , Taking Zoloft , Taking Tylenol , Taking promethazine , Taking potassium chloride , Taking mirtazapine , Taking metoprolol , Taking Lyrica , Taking furosemide , Taking ferrous sulfate , Taking Eliquis , Taking Colace , Taking Calcium 600+D , Taking atorvastatin , Taking aspirin , Taking amiodarone , Medication List reviewed and reconciled with the patient * Allergies: P CN. Objective: * Vitals: * Examination: G eneral examination: O n examination, the patient is well-developed, well-nourished, well-groomed, alert and oriented x3, normal mood. Patient is in a wheelchair. 5 out of 5 bilateral pedal push pull. 4 out of 5 bilateral upper extremity motor strength. X -ray Imaging Studies: N one done today. Assessment: * Assessment: 1. R adiculopathy, lumbar region - M54.16 (Primary) 2 . S lobo stenosis, lumbar region without neurogenic claudication - M48.061 3 . C ervical myelopathy - G95.9 4 . W eakness - R53.1 1. Upper and lower extremity weakness 2. Cervical myelopathy 3. L4-5 spondylolisthesis, grade 1 with stenosis and radiculopathy 4. L1 and L2 compression fractures. Plan: * Treatment: 2. S lobo stenosis, lumbar region without neurogenic claudication I maging: MRI : Lumbosacral Spine W/O Contrast - 45002 3. C ervical myelopathy I maging: MRI : Cervical Spine W/O Contrast - 02554 Referral To: Reason:NO AUTH REQ............................NOT SCHEDULED.................................. .[facility] MRI cervical and lumbar spine at [place] 4. W eakness I maging: MRI : Cervical Spine W/O Contrast - 61907 Referral To: Reason:NO AUTH REQ............................NOT SCHEDULED.................................. .[facility] MRI cervical and lumbar spine at [place] 5. O thers Notes: Patient with complaints today of worsening weakness/heavy sensation in the lower extremities. We will get a MRI of the cervical and lumbar spine to rule out a cervical myelopathy or possible hematoma from the epidural steroid injection. We will see her back after the testing is completed to discuss the results. The patient is very much in agreement with the treatment and/or diagnostic plan set forth and all questions were answered to the patient's satisfaction. Thanks once again. If we can be of further service to your patients with disorders of the spine, cervical, thoracic, or lumbar, please do not hesitate to contact Dr. Boswell. * Follow Up: a fter mri Forms: * Images: * Electronic signature of Bola Blackwell PA-C on 04/03/2025 at 08:26 AM EDT Sign off status: Pending * Provider: Ruth Ann Blackwell PA-C Date: 0 03/20/2025 Generated for Ebeni jinny/Theodora/Omidsmitting on: 0 04/03/2025 08:26 AM EDT History and Physical Notes * HPI (History of Present Illness) Category Sub-Category Detail Notes Category Not es HPI Dictated by Beny Blackwell PA-C, The patient returns to the office today over a month since her last appointment. At that time, she was referred for an epidural steroid injection. She had the injection earlier this week and feels it provided no relief of her symptoms. She is now having worsening weakness in the legs. Prior to the injection she was able to stand, but she feels she is unable to stand since having the injection. She has not been ambulating since sometime last year, unclear when. She feels about a month ago she was able to stand for approximately 2 minutes. Her legs feel heavier with a pressure sensation. She also reports some pain into the right arm and upper extremity weakness. She is currently residing in a nursing facility for multiple comorbidities. Import medication Examination Category Sub-Category Detail Notes Category Not es General examination On exami nation, the patient is well-developed, well-nourished, well-groomed, alert and oriented x3, normal mood. Patient is in a wheelchair. 5 out of 5 bilateral pedal push pull. 4 out of 5 bilateral upper extremity motor strength X-ray Imaging Studies None d one today Consultation Request Notes Referral Date Referring Provider Referred Provider Not es 03/20/2025 Lynda Perez , NO AUTH REQ............................NOT SCHEDULED......................... ..........[facility] MRI cervical and lumbar spine at [place]
--- NOTE | 2025-04-03 08:26 | MR_ITS ---
The [address] [address] Patient Name: FLOR NIETO MRN: [id number] date: 1950 Sex: F Assigned Patient Location: MRI Current Patient Location: MRI Accession/Order Number: [id number] Exam Date: 04/03/2025 13:32 Report Date: 04/03/2025 13:37 At the request of: HERVE REYNA MD Procedure: MR cervical spine wo con MR cervical spine wo con 04/03/2025 10:15 AM SIGNS AND SYMPTOMS: Chronic neck pain PROTOCOL: Multiplanar multisequence MR images of the cervical spine without IV contrast COMPARISON: None. FINDINGS: The bones of the cervical spine are in anatomic alignment. There is preservation of vertebral body heights. There is mild to moderate disc height loss throughout the cervical spine. There is a punctate 2 fatty endplate degenerative change at C6-C7. Significant edema is noted in the lateral mass of C1 on the left which is partially collapsed. There is accompanying edema involving the atlantoaxial joint. The cord is normal in signal. No epidural or paraspinous fluid collection is appreciated. The visualized paraspinous soft tissues are within normal limits. The prevertebral soft tissues are within normal limits. There is a 7 mm T2 hyperintense nodule within the right thyroid lobe. Ultrasound evaluation is recommended as malignancy is not excluded. At C2-C3: There is a normal disc, central canal, and neural foramen. At C3-C4: There is a broad-based disc bulge with facet hypertrophy and operative joint spurring contributing to moderate left and severe right neural foraminal narrowing with mild spinal canal narrowing. At C4-C5: There is facet hypertrophy and osteophyte spurring contributing to mild bilateral neural foraminal narrowing and mild spinal canal narrowing. At C5-C6: There is a broad-based disc bulge with facet and uncovertebral joint degenerative change. There is mild bilateral neural foraminal narrowing and mild spinal canal narrowing. At C6-C7: There is facet hypertrophy contributing to mild bilateral neural foraminal narrowing without spinal canal narrowing. At C7-T1: There is a normal disc, central canal, and neural foramen. MR/MR cervical spine wo con IMPRESSION: No cord compression or cord signal abnormality. Significant edema is noted in the lateral mass of C1 on the left which is partially collapsed. There is accompanying edema involving the atlantoaxial joint. CT is recommended as a compression fracture of the lateral mass of C1 on the left is suspected with only partly visualized. There is a 7 mm T2 hyperintense nodule within the right thyroid lobe. Ultrasound evaluation is recommended as malignancy is not excluded. Degenerative changes are noted in the cervical spine as above. Impression dictated by: Josué Pinto M.D. 04/03/2025 1:37 PM Dictation Location: [place] [address] Electronically authenticated by: [id number] Y Date: 04/03/2025 13:37
--- NOTE | 2025-04-03 08:26 | MR_ITS ---
The [address] [address] Patient Name: FLOR NIETO MRN: [id number] date: 1950 Sex: F Assigned Patient Location: MRI Current Patient Location: MRI Accession/Order Number: [id number] Exam Date: 04/03/2025 13:38 Report Date: 04/03/2025 13:44 At the request of: HERVE REYNA MD Procedure: MR lumbar spine wo con MR lumbar spine wo con 04/03/2025 10:15 AM SIGNS AND SYMPTOMS: Low back pain with radiculopathy PROTOCOL: Multiplanar multisequence MR images of the lumbar spine without IV contrast COMPARISON: 01/21/2025 FINDINGS: The bones of the lumbar spine are in anatomic alignment. There is a compression deformity of the superior endplate of the L2 vertebral body which appears to be remote. There is Schmorl's information the endplates at T11 and L1. The marrow signal is within normal limits. The conus terminates at the inferior endplate of the L1 vertebral body level. No epidural or paraspinous fluid collection is appreciated. There is a simple cyst in the right renal cortex are no further follow-up. There is a complex cystic structure in the right adnexa which is unchanged measuring 4.6 cm in greatest axial dimension. At T12-L1: There is a broad-based disc bulge with facet hypertrophy and ligament flavum thickening. There is mild spinal canal stenosis with mild bilateral neural foraminal narrowing. At L1-L2: There is a circumferential disc bulge with facet hypertrophy and ligamentum flavum thickening. There is moderate spinal canal stenosis with moderate to severe bilateral neural foraminal narrowing similar to the prior exam. At L2-L3: There is a broad-based disc bulge with facet hypertrophy and ligamentum flavum thickening. There is mild spinal canal stenosis with mild bilateral neural foraminal narrowing similar to the prior exam. At L3-L4: There is facet hypertrophy with ligamentum flavum thickening. There is mild spinal canal narrowing without significant neural foraminal narrowing. This is unchanged. At L4-L5: There is a broad-based disc bulge with facet hypertrophy and ligamentum flavum thickening contributing to moderate spinal canal stenosis along with moderate bilateral neural foraminal narrowing similar to the prior exam. At L5-S1: Facet degenerative changes are present. No significant spinal canal or neural foraminal narrowing. This is unchanged. MR/MR lumbar spine wo con IMPRESSION: There is a compression deformity of the superior endplate of the L2 vertebral body which appears to be remote. At L1-L2: There is a circumferential disc bulge with facet hypertrophy and ligamentum flavum thickening. There is moderate spinal canal stenosis with moderate to severe bilateral neural foraminal narrowing similar to the prior exam. At L4-L5: There is a broad-based disc bulge with facet hypertrophy and ligamentum flavum thickening contributing to moderate spinal canal stenosis along with moderate bilateral neural foraminal narrowing similar to the prior exam. Lesser degrees of degenerative changes are redemonstrated as above. There is a complex cystic structure in the right adnexa which is unchanged measuring 4.6 cm in greatest axial dimension. Follow-up with pelvic ultrasound is recommended as this is atypical for the patient's age. Impression dictated by: Josué Pinto M.D. 04/03/2025 1:44 PM Dictation Location: [place] [address] Electronically authenticated by: [id number] Y Date: 04/03/2025 13:44
--- OUTSIDE RECORDS SUMMARY | 2025-04-03 08:27 | XMS_ITS | Encounter Summary ---
Author Organization [facility] Address [address] [place] [address] Phone Care Team Providers Care Beauty Parlor Cleaner Name Role Phone Unavailable Primary Care Provider Unavailabl e Encounter Details Date Type Department Care Team (Late st Contact Info) Description 12/05/2024 Scanned Document [facility] [address] [place] [phone] Scanning, Generic Provider Social History Tobacco Use [...] Description 07/29/2025 9:10 AM EST Office Visit [facility] [address] [phone] Rola Phillips MD 703 [facility] [address] [place] [address] documented as of this encounter Visit Diagnoses Not on filedocumented in this encounter
--- OUTSIDE RECORDS SUMMARY | 2025-04-03 08:27 | XMS_ITS | Encounter Summary ---
Author Organization [facility] Address [address] [place] [address] Phone Care Team Providers Care Power Operator Name Role Phone Unavailable Primary Care Provider Unavailabl e Encounter Details Date Type Department Care Team (Late st Contact Info) Description 11/26/2024 Scanned Document [facility] [address] [place] [address] Scanning, Generic Provider Social History Tobacco Use [...] Office Visit [facility] [address] [phone] Rola Phillips MD 703 [facility] [address] [place] [address] documented as of this encounter Visit Diagnoses Not on filedocumented in this encounter
--- OUTSIDE RECORDS SUMMARY | 2025-04-03 08:27 | XMS_ITS | Encounter Summary ---
Author Organization [facility] Address [address] [place] [address] Phone Care Team Providers Care Touring Production Manager Name Role Phone Unavailable Primary Care Provider Unavailabl e Encounter Details Date Type Department Care Team (Late st Contact Info) Description 02/26/2025 Scanned Document [facility] [address] [place] [address] Scanning, Generic Provider Social History Tobacco Use [...] Description 07/29/2025 9:10 AM EST Office Visit [facility] [address] [phone] Rola Phillips MD [address] [facility] [address] [place] [address] documented as of this encounter Visit Diagnoses Not on filedocumented in this encounter
--- OUTSIDE RECORDS SUMMARY | 2025-04-03 08:27 | XMS_ITS | Clinical Summary ---
Author Organization [facility] Address [address] [facility] [place] [address] Care Team Providers Care Cold Mill Operator Name Role Phone Unavailable Primary Care Provider Unavailabl e Encounters Date Type Department Care Team Description 01/23/2025 Telephone MILAGRO FRAZIER [address] [place] [address] Rosa Reed PA hospital f/u [...] EDT Narrative 01/21/2025 3:14 PM EDT The [address] [address] Magnetic Resonance Report Signed Patient: KELSEY NIETO MR#: [id number] : 1950 Acct:[id number] Age/Sex: 74 / F ADM Date: 01/21/25 Loc: MRI Attending Dr: SHARON BUSBY Ordering Physician: SHARON BUSBY Date of Service: 01/21/25 Procedure(s): MR lumbar spine wo con Accession Number(s): [id number] cc: NAJMA PETERS ; SHARON BUSBY [place] [id number] Patient Name: KELSEY NIETO MRN: [id number] date: 1950 Sex: F Assigned Patient Location: MRI Current Patient Location: MRI Accession/Order Number: [id number] Exam Date: 01/21/2025 15:06 Report Date: 01/21/2025 [...] Jr., D.O. 01/21/2025 3:11 PM Dictation Location: [place] [address] Electronically authenticated by: [id number] Y Date: 01/21/2025 15:11 Dictated By: Polo Landeros M.D. Signed By: 01/21/25 1514 DD/ 151 TD/TT: Telecommunications Sales Representative: Procedure Note Radiology, Radiologist, MD - 01/21/2025 [place] [address] Magnetic Resonance Report Signed Patient: KELSEY NIETO R#: [id number] : 1950Acct:[id number] Age/Sex: 74 / FADM Date: 01/21/25 Loc: MRI Attending Dr: SHARON BUSBY Ordering Physician: SHARON BUSBY Date of Service: 01/21/25 Procedure(s): MR lumbar spine wo con Accession Number(s): [id number] cc: NAJMA PETERS ; SHARON BUSBY [place] [address] Patient Name: KELSEY NIETO MRN: [id number] date: 1950 Sex: F Assigned Patient Location: MRI Current Patient Location: MRI Accession/Order Number: [id number] Exam Date: 01/21/2025 15:06 Report Date: 01/21/2025 [...] Jr., D.O. 01/21/2025 3:11 PM Dictation Location: [place] [address] Electronically authenticated by: [id number] Y Date: :11 Dictated By: Polo Landeros M.D. Signed By:01/21/25 1514 DD/ 1511 TD/TT: Telecommunications Sales Representative: Generic External Data Provider [facility] Final Result from Last 3 Months Insurance [employer] MEDICARE
--- OUTSIDE RECORDS SUMMARY | 2025-04-03 08:27 | XMS_ITS | Clinical Summary ---
Author Organization [facility] Address [address] [place] [address] Phone Care Team Providers Care Humanities Coordinator Name Role Phone Unavailable Primary Care Provider Unavailabl e Encounters Date Type Department Care Team Description 02/26/2025 Scanned Document [facility] [address] [place] [phone] Scanning, Generic Provider 02/26/[address] [place] [address] Kassidy Blake, GUM WORKER hematoma from Last 3 Months Social History [...] Description 07/29/2025 9:10 AM EST Office Visit [facility] 703 [facility] [address] [place] [address] Rola Phillips MD 703 [facility] [address] [place] [address] Health Maintenance Due Date Last [...] - 1-dose 75+ series) 2024 Influenza Vaccine (#1) 2025 HIB Vaccines [...] patient's age to complete this topic [place] [address] [address] [facility]
--- OUTSIDE RECORDS SUMMARY | 2025-04-03 08:27 | XMS_ITS | Encounter Summary ---
Author Organization [facility] Address [address] [place] [address] Care Team Providers Care Conveyor Worker Name Role Phone Unavailable Primary Care Provider Unavailabl e Encounter Details Date Type Department Care Team (Late st Contact Info) Description 12/12/2024 Abstract [facility] [address] [place] [address] Unallocated, Noms Provider, [address] [place] [address] Social History Tobacco Use Types Packs/Day Years [...]
--- OUTSIDE RECORDS SUMMARY | 2025-04-03 08:28 | XMS_ITS ---
Author Organization [facility] Care Team Providers Care Escalator Attendant Name Role Phone OsorioCarlos whitingn Unavailable Unavailable Allergies and adverse reactions Code CodeSystem Substance Reaction Severity StartDate Concern Status 012760584 SNOMED CT Shrimp Unknown 09/05/2024 active 7984 RXNORM Penicillin Unknown 09/05/2024 active 3423 RXNORM Dilaudid Unknown 09/05/2024 active 2878 RXNORM Cortisone Unknown 09/05/2024 active 2556 RXNORM Citalopram Unknown 09/05/2024 active Care Team Name Role Address Phone Organization Dates Rome Smithahan PCP [address] [facility] [address], [place], [address], [place] (Office): : : [facility] 09/12/2024 - 10/04/2024 Goals Section Goals Description [...] ions Active 12/28/2024 Resident will discharge to [facility] with services as necessary upon completion [...] completed tuberculin skin test; unspecified formulation lotNumber: [id number] expiry: 01/22/2026 Mfg: Aplisol Given 0.1 ml [...] CodeSystem Concern Status 1 ACIDOSIS, UNSPECIFIED 09/12/[address] active 2 ACUTE STRESS REACTION 09/12/[address] active 3 ANXIETY DISORDER, UNSPECIFIED 09/12/[address] active 4 CONTUSION OF LEFT LOWER LEG, SUBSEQUENT ENCOUNTER 09/12/[address] active 5 COVID-19 09/12/[address] active 6 DEPRESSION, UNSPECIFIED 09/12/[address] active 7 ESSENTIAL TREMOR 09/12/[address] active 8 HISTORY OF FALLING 09/12/[address] active 9 HYPOKALEMIA 09/12/[address] active 10 IRON DEFICIENCY ANEMIA SECONDARY TO BLOOD LOSS (CHRONIC) 09/12/[address] active 11 MIXED HYPERLIPIDEMIA 09/12/[address] active 12 MORBID (SEVERE) OBESITY DUE TO EXCESS CALORIES 09/12/[address] active 13 MUSCLE WEAKNESS (GENERALIZED) 09/12/[address] active 14 NEED FOR ASSISTANCE WITH PERSONAL CARE 09/12/[address] active 15 ORTHOSTATIC HYPOTENSION 09/12/[address] active 16 OVERACTIVE BLADDER 09/12/[address] active 17 PAROXYSMAL ATRIAL FIBRILLATION 09/12/[address] active 18 TYPE 2 DIABETES MELLITUS WITH DIABETIC POLYNEUROPATHY 09/12/[address] active 19 UNSPECIFIED OSTEOARTHRITIS, UNSPECIFIED SITE 09/12/[address] active 20 UNSTEADINESS ON FEET 09/12/[address] active Reason for Referral No Reasons for Referral Entered Social History Social History Observation Description Start Date End Date Code Code System Current Smoking Status Tobacco smoking consumption unknown 105434295 SNOMED CT Sex Assigned At Female 1950 [address]9 [facility] Gender Identity Vital Signs Code Code System Vitals Name Values and Units Timing Information 9279-1 [facility] Respiratory Rate Value=18.0 Units=/m in 10/04/2024 8462-4 [facility] Blood Pressure-Diastolic Value=43 Un its=mmHg 10/04/2024 8480-6 [facility] Blood Pressure-Systolic Value=86 Uni ts=mmHg 10/04/2024 8310-5 [facility] Body Temperature Mutxn=896.7 Units= F 10/04/2024 8867-4 [facility] Heart rate Jrghx=087.0 Units=/min 10/04/2024 72747-2 [facility] O2 % dC Oximetry Value=92.0 Units= % 10/04/2024 67185-8 [facility] Pain Level Value=0.0 10/04/2024 2339-0 [facility] Blood Sugar Bolrc=171.0 Units=mg/dL 10/03/2024 57562-7 [facility] Weight Cgmhs=512.0 Units=Lbs 12/2024 8302-2 [facility] Height Value=65.0 Units=Inches 09/12/2024
--- OUTSIDE RECORDS SUMMARY | 2025-04-03 08:28 | XMS_ITS | Patient Health Record ---
Author Organization [facility] Address [address] [place] [address] Care Team Providers Care Stain Wiper Name Role Phone Lynda Jean MD Primary Care Provider Lynda Santos Unavailable [phone] Beny Blackwell Unavailable [phone] Amber Diamond Unavailable Allergies Allergen (clinical drug ingredient) Drug/Non Drug Allergy documented on EMR Reaction Allergy Type Onset Date Status PCN (uncoded) Unknown Allergy Active Reason For Referral Reason REFERRAL FOR RIVERDALEEVU E PAINMANGEMENT FOR L4-5 JUNITO Diagnosis 1 Compression fracture of L1 vertebra with routine healing, subsequent encounter (S32.010D) Referral Organization [facility] Referring Provider First Name Lynda Referring Provider Last Name [facility] [place] Referring Provider Speciality Orthopedic Surgery Referred Organization [facility] Referred Address [address] [address], [address],[place], [place],[address], General Notes Alyssa Gutierrez 2024 10:23:41 AM >, Alyssa Gutierrez 02/11/2025 10:02:14 AM >FAXED Referral Priority Routine Reason NO AUTH REQ......... ...................NOT SCHEDULED...................................[facility] MRI cervical and lumbar spine at [facility] Diagnosis 1 Radiculopathy, lumba r region (M54.16) Diagnosis 2 Weakness (R53.1) Diagnosis 3 Cervical myelopathy (G95.9) Referral Organization [facility] Referring Provider First Name Lynda Referring Provider Last Name [facility] Referring Provider Speciality Orthopedic Surgery Referred Organization [facility] fer Referred Address [place], [place], Procedure 1 MRI Cervical w/o dye (12096) Procedure 2 MRI Lumbar Spine w/o Dye (97289) General Notes Octavia Rutherford 02/23 11:04:01 AM >, Leni Foster 03/20/2025 11:36:49 AM > [facility] ACTIVE AND EFFECTIVE 09/24/24 PER [facility] PROVIDER PORTAL. NO AUTHORIZATION REQUIRED. 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) Active confirmed Problem 124119021 Radiculopathy, lumbar region (M54.16) Active confirmed Problem 226251873 History of fall (Z91.81) Active confirmed Problem 53524558 Spinal stenosis, lumbar region without neurogenic claudication (M48.061) Active confirmed Problem 793312702 Compression fracture of L1 vertebra, initial encounter (S32.010A) Active confirmed Problem 93725846058581060 Compression fracture of L2 vertebra, initial encounter (S32.020A) Active confirmed Encounters Encounter Location Date Provider Diagnosis [facility] [address] [place] [address] 03/20/2025 Beny Diglio Radiculopathy, lumbar region M54.16 ; Spinal stenosis, lumbar region without neurogenic claudication M48.061 ; Cervical myelopathy G95.9 and Weakness R53.[address] [place] [address] 02/06/2025 [facility] Spinal stenosis, lumbar region without neurogenic claudication [...] the compression fractures and referral to the [facility] for an L4-5 epidural [...] Date Lumbar spine, 4v flex ext - 98665 2024 MRI : Cervical Spine W/O Contrast - 7214 1 03/20/2025 MRI : Lumbosacral Spine W/O Contrast - 7 2148 03/20/2025 DME - Lumbar Support, Surgical OTS 02/06 Epidural injection - lumbar 02/06/2025 Insurance Providers Payer Name Payer Address Payer Phone Subscriber Number Group Number Insured Name Patient Relationship to Insured Coverage Start Date Coverage End Date MEDICARE UHC A[employer] [address] [address] [place] [address] [id number] FLOR NIETO Self - patient is the insured 5 [place] [address] [id number] FLOR NIETO Self - patient is the insured 5 [facility] [address] [place] [address] 2025 FLOR NIETO Self - patient is the insured 5 Medical (General) History Medical History History ICD Code High Blood Pressure Abnormal Heart Rhythm Liver Disease Diabetes Irritable bowel syndrome Blood Clots in Legs/Lungs Anxiety Depression Rheumatoid arthritis Surgical History Surgery Date(Month/Year) Pulmonary bilateral lung 09/2024
--- OUTSIDE RECORDS SUMMARY | 2025-04-03 08:28 | XMS_ITS | Patient Health Record ---
Author Organization [facility] Address [address] [place] [address] [place] [address] Care Team Providers Care Associate Software Engineer Name Role Phone Lynda Jean Primary Care Provider Kevin Quintana Unavailable [phone] Reason For Referral No Information Encounters Encounter Location Date Provider Diagnosis [facility] [address] [place] [address] 01/14/2025 Kevin Reyes Plan Of Treatment No Information Insurance Providers Payer Name Payer Address Payer Phone Subscriber Number Group Number Insured Name Patient Relationship to Insured Coverage Start Date Coverage End Date [facility] [address] [address] [place] [address] [id number] Kelsey Macias Self - patient is the insured
--- OUTSIDE RECORDS SUMMARY | 2025-04-03 08:28 | XMS_ITS | Clinical Summary ---
Author Organization [employer] tem Address [id number] [address] [place] [address] Care Team Providers Care Customer Retention Representative Name Role Phone Destiny Figueroa APRN-CFALVINO Primary [...] before bedtime. 4 Active ONETOUCH ULTRA2 METER [facility] USE TO CHECK GLUCOSE ONCE DAILY 4 [...] sacrum, limited to breakdown of skin ([facility]) Place 1 patch on the skin [...] incontinence 10/21/2024 Pressure injury due to medical assisting instructor 10/21/2024 Pressure injury of deep tissue of [...] <enter goal here> General Yes Claudia Whitman STRIPER SPRAY GUN Note: Evaluation of progress towards goal: Current Discharge Plan: SNF for short term rehab Medical Devices Implanted Type Area Fine Chemicals Operator Device Identifier Shelf Expiration Date Model / Serial / Lot Filter Embl 49mm 65cm Vc Rdpq Preld Flsh Sdprt Intro Strl Rpl [id number] - [id number] Implanted:Qty: 1 on 10/06/2024 by Mer Galvan MD at [facility] IVC Filter [employer] [id number] 07/30/2027 [id number] / / [id number] Insurance [employer] MEDICARE Advance Directives Documents on File Type Date Recorded Patient Ecology Teacher Expl anation Durable Power of Ux Design Manager 11/03/2024 11:17 AM Durable Power of Ux Design Manager 10/15/2024 7:36 PM Power of Ux Design Manager 10 15 2024 Advance Directive 10/15/2024 7:34 PM Ivonne Gutierrezhailey Mukul phillips Power of Ux Design Manager 10 15 2024 Durable Power of Ux Design Manager 10/15/2024 4:46 PM [facility] Myles r of Ux Design Manager * Full Code (Latest Code Status on File) Date Activated Date Inactivated Comments 10/06/2024 6:34 PM 10/29/2024 2:26 PM * Full Code Date Activated Date Inactivated Comments 05/30/2024 5:31 AM 05/31/2024 7:59 PM Healthcare Agents on File Name Relationship Healthcare Agent Relationshi p Communication Ivonne Ngdavid Daughter Health Care Agent Geetha Gilmant Daughter First Alternate Health Care Agent Care Teams Customer Retention Representative Relationship Specialty Start Date End Date Destiny Figueroa, SENIOR PROJECT ARCHITECT-CFALVINO [address] [place] [address] PCP - General Family Medicine 05/30/24
--- OUTSIDE RECORDS SUMMARY | 2025-04-03 08:28 | XMS_ITS | Encounter Summary ---
Author Organization [employer] Address [id number] [address] [place] [address] Care Team Providers Care Software Licensing Executive Name Role Phone Destiny Figueroa APRN-CFALVINO Primary Care Pro vider Encounter Details Date Type Department Care Team (Late st Contact Info) Description 10/07/2024 Orders Only [facility] [address] [place] [phone] External, Scanning Provider Pain (Primary Dx) Social History Tobacco Use Types Packs/Day Years Used Date Smoking Tobacco: Never Smokeless Tobacco: Never Alcohol Use Standard Drinks/Week Comments Never 0 (1 standard drink = 0.6 oz pur e alcohol) [facility] Utilities Answer Date Recorded In the past 12 months has [employer], gas, oil, or water [employer] threatened to shut off services in your [...] <enter goal here> General Yes Claudia Whitman SQUARE DANCE CALLER Note: Evaluation of progress towards goal: Current [...] documented as of this encounter Care Teams Software Licensing Executive Relationship Specialty Start Date End Date Destiny Figueroa APRN-LAURA [address] [place] [address] PCP - General Family Medicine 05/30/24 documented as of this encounter
--- OUTSIDE RECORDS SUMMARY | 2025-04-03 08:28 | XMS_ITS | Encounter Summary ---
Author Organization [employer] Address [id number] [address] [place] [address] Care Team Providers Care Therapeutic Support Staff Name Role Phone Destiny Figueroa APRN-CFNP Primary Care Pro vider Encounter Details Date Type Department Care Team (Late st Contact Info) Description 10/07/2024 Orders Only [facility] [address] [place] [phone] Transcribe, Orders Support User Pain (Primary Dx); Acute chest pain Social History Tobacco Use Types Packs/Day Years Used Date Smoking Tobacco: Never Smokeless Tobacco: Never Alcohol Use Standard Drinks/Week Comments Never 0 (1 standard drink = 0.6 oz pur e alcohol) [facility] Utilities Answer Date Recorded In the past 12 months has [employer], gas, oil, or water [employer] threatened to shut off services in your [...] documented as of this encounter Care Teams Therapeutic Support Staff Relationship Specialty Start Date End Date Destiny Figueroa APRN-CFNP [address] [place] [address] PCP - General Family Medicine 05/30/24 documented as of this encounter
--- OUTSIDE RECORDS SUMMARY | 2025-04-03 08:28 | XMS_ITS | Clinical Summary ---
Author Organization [facility] Address [address] [place] [address] Care Team Providers Care Foreign Banknote Teller Name Role Phone Destiny Figueroa Primary Care Provider [phone] Allergies Active Allergy Reactions Criticality Noted Date [...] MUTUAL MEDICARE [employer] MEDICARE Care Teams Foreign Banknote Teller Relationship Specialty Start Date End Date Destiny Figueroa PCP - General 07/21/24
--- OUTSIDE RECORDS SUMMARY | 2025-04-03 08:28 | XMS_ITS | Encounter Summary ---
Author Organization [employer] [facility] [facility] Address [facility]-[id number] [address] [place] [address] Care Team Providers Care Carrier Washer Name Role Phone Destiny Figueroa APRN-CFNP Primary Care Pro vider Encounter Details Date Type Department Care Team (Late st Contact Info) Description 09/11/2024 Orders Only [facility] [address] [place] [phone] External, Scanning Provider Social History Tobacco Use Types Packs/Day Years Used Date Smoking Tobacco: Never Smokeless Tobacco: Never Alcohol Use Standard Drinks/Week Comments Never 0 (1 standard drink = 0.6 oz pur e alcohol) [facility] Utilities Answer Date Recorded In the past 12 months has [employer], gas, oil, or water [employer] threatened to shut off services in your [...] ECG ORDERABLES Final Result Performing Organization Address City/[facility] Co de Phone Number MANUALLY TRANSCRIBED RESULTS documented in this encounter Visit Diagnoses Not on filedocumented in this encounter Additional Health Concerns Assessment Noted Time PHQ-9 Depression Total Score: 9 05/30/20 24 10:46 AM EDT documented as of this encounter Care Teams Carrier Washer Relationship Specialty Start Date End Date Destiny Figueroa APRN-CFNP [address] [place] [address] PCP - General Family Medicine 05/30/24 documented as of this encounter
--- OUTSIDE RECORDS SUMMARY | 2025-04-03 08:28 | XMS_ITS | Encounter Summary ---
Author Organization [facility] Address [facility]-[id number] [address] [place] [address] Care Team Providers Care Senior Program Analyst Name Role Phone Destiny Figueroa APRN-CFNP Primary Care Pro vider Encounter Details Date Type Department Care Team (Late st Contact Info) Description 11/20/2024 Orders Only [facility] [address] [place] [phone] External, Scanning Provider Social History Tobacco Use Types Packs/Day Years Used Date Smoking Tobacco: Never Smokeless Tobacco: Never Alcohol Use Standard Drinks/Week Comments Never 0 (1 standard drink = 0.6 oz pur e alcohol) [facility] Utilities Answer Date Recorded In the past 12 months has [employer], gas, oil, or water [employer] threatened to shut off services in your [...] [place] IM[place] Final Result Performing Organization Address City/[facility] Co de Phone Number MANUALLY TRANSCRIBED RESULTS * CT chest with contrast (10/06/2024 2:18 PM EST) Anatomical Region Laterality Modality Body, Lung, Chest, Body Covera N/A C omputed Tomography us Scanning Provider External IMG CT ORDERABLES Fin al Result * Multiple labs (10/05/2024 2:23 PM EST) us Scanning Provider External [place] [facility] Final Result Performing Organization Address City/[facility] Co de Phone Number MANUALLY TRANSCRIBED RESULTS * ECG 12 lead (10/04/2024 2:23 PM EST) us Scanning Provider External ECG ORDERABLES Final Result Performing Organization Address City/[facility] de Phone Number MANUALLY TRANSCRIBED RESULTS documented in this encounter Visit Diagnoses Not on filedocumented in this encounter Additional Health Concerns Assessment Noted Time PHQ-9 Depression Total Score: 6 10/06/19 25 7:54 PM EST documented as of this encounter Care Teams Senior Program Analyst Relationship Specialty Start Date End Date Destiny Figueroa APRN-CFNP [address] [place] [address] PCP - General Family Medicine 05/30/24 documented as of this encounter
--- OUTSIDE RECORDS SUMMARY | 2025-04-03 08:28 | XMS_ITS | Encounter Summary ---
Author Organization [employer] Address [id number] [address] [place] [address] Care Team Providers Care Internship Coordinator Name Role Phone Destiny Figueroa APRN-CFNP Primary Care Pro vider Reason for Visit * Reason Onset Date Comments Hospital Follow-up 10/08/2024 Encounter Details Date Type Department Care Team (Late st Contact Info) Description 10/08/2024 [facility]phone [facility] [address] [place] [address] [facility] Follow-up Social History Tobacco Use Types Packs/Day Years Used Date Smoking Tobacco: Never Smokeless Tobacco: Never Alcohol Use Standard Drinks/Week Comments Never 0 (1 standard drink = 0.6 oz pur e alcohol) [facility] Utilities Answer Date Recorded In the past 12 months has [employer], gas, oil, or water company threatened [...] RBP. He signed off patient care from [facility] Dx Saddle pulmonary embolism with bilateral heavy [...] AM EST Pt still currently admitted to [facility]. JLW * Telephone Encounter - Brittany Keene MA - 10/08/2024 10:21 AM EST Pt still currently admitted to [facility]. JLW * Telephone Encounter - Brittany Keene MA - 10/08/2024 10:21 AM EST Pt still currently admitted to [facility]. JLW * Telephone Encounter - Brittany Keene MA - 10/08/2024 10:21 AM EST Pt still currently admitted to [facility]. JLW * Telephone Encounter - Michelle Bey - 10/08/2024 10:21 AM EST STILL INPT * Telephone Encounter - Brittany Keene MA - 10/08/2024 10:21 AM EST Pt still currently admitted to [facility]. JLW * Telephone Encounter - Brittany Keene [...] <enter goal here> General Yes Claudia Whitman CHAIRMAN OF THE BOARD Note: Evaluation of progress towards goal: Current Discharge Plan: SNF for short term rehab documented as of this encounter Visit Diagnoses Not on filedocumented in this encounter Additional Health Concerns Assessment Noted Time PHQ-9 Depression Total Score: 6 10/06/19 25 7:54 PM EST documented as of this encounter Care Teams Internship Coordinator Relationship Specialty Start Date End Date Destiny Figueroa APRN-CFNP [address] [place] [address] PCP - General Family Medicine 05/30/24 documented as of this encounter
--- OUTSIDE RECORDS SUMMARY | 2025-04-03 08:28 | XMS_ITS | Encounter Summary ---
Author Organization [employer] Address [facility][id number] [address] [place] [address] Care Team Providers Care Technical Staff Engineer Name Role Phone Destiny Figueroa PROCEDURES NURSE-CFNP Primary Care Pro vider Reason for Visit * Reason Onset Date Comments Sign Off Patient Care 08/25/2024 Encounter Details Date Type Department Care Team (Late st Contact Info) Description 08/25/2024 Telephone [facility] [address] [place] [phone] Des Whyte MD [address] [place], [place] [id number] Sign Off Patient Care Social History Tobacco Use Types Packs/Day Years Used Date Smoking Tobacco: Never Smokeless Tobacco: Never Alcohol Use Standard Drinks/Week Comments Never 0 (1 standard drink = 0.6 oz pur e alcohol) [facility] Utilities Answer Date Recorded In the past 12 months has [employer], gas, oil, or water [employer] threatened to shut off services in your [...] documented as of this encounter Care Teams Technical Staff Engineer Relationship Specialty Start Date End Date Destiny Figueroa, TORI-LAURA [address] [place] [address] PCP - General Family Medicine 05/30/24 documented as of this encounter
== END 2025-04-03 08:25 | disposition home or self-care (01) ==
LOC: MRI 08:24
PROVIDERS: Family Provider Family Medicine; PCP Family Medicine; Visit Provider Orthopaedic Surgery Orthopaedic Surgery of the Spine
DX: M54.16 Radiculopathy, lumbar region (principal); M48.061 Spinal stenosis, lumbar region without neurogenic claudication; G95.9 Disease of spinal cord, unspecified; R53.1 Weakness; M48.56XA Collapsed vertebra, not elsewhere classified, lumbar region, initial encounter for fracture; M51.369 Other intervertebral disc degeneration, lumbar region without mention of lumbar back pain or lower extremity pain; N83.291 Other ovarian cyst, right side
CPT/HCPCS: 72141; 72148

== ENCOUNTER 2025-04-07 11:00 | Outpatient (OUT) | payer MEDICARE, SELFPAY ==
--- OUTSIDE RECORDS SUMMARY | 2025-01-14 10:30 | XMS_ITS ---
Author Organization [facility] Address [address] [place] [address] [place] [address] Care Team Providers Care Circulating Nurse Name Role Phone Lynda Jean Primary Care Provider Kevin Quintana Unavailable [phone] Encounters Encounter Location Date Provider Diagnosis [address] [address] 01/14/2025 Kevin Reyes Plan Of Treatment No Information Progress Notes * Kelsey NIETODOB:1950 (74 yo F)Acc No.[id number]:01/14/2025 Patient: Kelsey PETER Provider: Joey Reyes DPM :1950 A ge:74 Y S ex:Female Date:01/14/2025 Address:[facility] Pcp:Lynda Jean Subjective: * Chief Complaints: * * Medical History: Objective: * Vitals: Assessment: Plan: * Treatment: * Images: * Electronic signature of Hawkeye in MIGEL Reyes on 04/08/2025 at 09:09 AM EDT Sign off status: Pending * Provider: Joey Reyes DPM Date: 01/14/2025 Generated for Mirta stearns/Theodora/eTransmitting on: 04/08/2025 09:09 AM EDT
--- OUTSIDE RECORDS SUMMARY | 2025-03-13 06:10 | XMS_ITS ---
Author Organization [facility] Address [address] [place] [address] Care Team Providers Care Log Inspector Name Role Phone Miranda PINEDA, Lynda Primary Care Provider Lynda Santos Unavailable [phone] REASON FOR VISIT LUMBAR RECHECK Encounters Encounter Location Date Provider Diagnosis [facility] [address] [place] [address] [place] [address] 03/13/2025 Lynda Perez Plan Of Treatment No Information Progress Notes * FLOR NIETODOB:1950 (74 yo F)Acc No.[id number]:03/13/2025 Patient: FLOR PETER Provider: Estuardo Boswell MD, PhD :1950 A ge:74 Y S ex:Female Date:03/13/2025 Address[facility] Pcp:Lynda Jean MD Subjective: * Chief Complaints: * 1 . LUMBAR RECHECK. * Medical History: Objective: * Vitals: Assessment: Plan: * Treatment: Forms: * Images: * Electronic signature of Alex Perez MD, PHD on 04/08/2025 at 09:09 AM EDT Sign off status: Pending * Provider: Estuardo Boswell MD, PhD Date: 03/13/2025 Generated for Ebeni jinny/Fapat/eTransmitting on: 0 04/08/2025 09:09 AM EDT
--- OUTSIDE RECORDS SUMMARY | 2025-04-08 09:09 | XMS_ITS | Encounter Summary ---
Author Organization [facility] Address [address] [place] [address] Care Team Providers Care Sap Abap Developer Name Role Phone Unavailable Primary Care Provider Unavailabl e Encounter Details Date Type Department Care Team (Late st Contact Info) Description 04/03/2025 Clinisync Result Encounter [facility] External Department Unsolicited Provider, Generic External Data Social History Tobacco Use Types Packs/Day Years Used Date Smoking Tobacco: Never Assessed Comments Unknown Sex and Gender Information Value Date Recorded Sex Assigned at Not on file Legal Sex Female 10:14 PM EDT Gender Identity Not on file Sexual Orientation Not on file documented as of this encounter Plan of Treatment Not on file documented as of this encounter Procedures Procedure Name Priority Date/Time Associated Diagnosis Comments MR CERVICAL SPINE WO CONTRAST 04/03/2025 1:37 PM EDT documented in this encounter Results * MR cervical spine wo contrast (04/03/2025 1:37 PM EDT) Anatomical Region Laterality Modality Spine, C-spine Magnetic Resonan ce 04/03/2025 1:37 PM EDT Narrative 04/03/2025 1:40 PM EDT The [address] [address] Magnetic Resonance Report Signed Patient: KELESY NIETO MR#: [id number] : 1950 Acct:[id number] Age/Sex: 74 / F ADM Date: 04/03/25 Loc: MRI Attending Dr: Herve Boswell M.D. Ordering Physician: Herve Boswell M.D. Date of Service: 04/03/25 Procedure(s): MR cervical spine wo con Accession Number(s): [id number] cc: NAJMA PETERS ; Herve Boswell M.D. [place] [id number] Patient Name: KELSEY NIETO MRN: [id number]:[id number] date: 1950 Sex: F Assigned Patient Location: MRI Current Patient Location: MRI Accession/Order Number: [id number] Exam Date: 04/03/2025 13:32 Report Date: 04/03/2025 13:37 At the request of: HERVE BOSWELL MD Procedure: MR cervical spine wo con MR cervical spine wo con 04/03/2025 10:15 AM SIGNS AND SYMPTOMS: Chronic neck pain PROTOCOL: Multiplanar multisequence MR images of the cervical spine without IV contrast COMPARISON: None. FINDINGS: The bones of the cervical spine are in anatomic alignment. There is preservation of vertebral body heights. There is mild to moderate disc height loss throughout the cervical spine. There is a punctate 2 fatty endplate degenerative change at C6-C7. Significant edema is noted in the lateral mass of C1 on the left which is partially collapsed. There is accompanying edema involving the atlantoaxial joint. The cord is normal in signal. No epidural or paraspinous fluid collection is appreciated. The visualized paraspinous soft tissues are within normal limits. The prevertebral soft tissues are within normal limits. There is a 7 mm T2 hyperintense nodule within the right thyroid lobe. Ultrasound evaluation is recommended as malignancy is not excluded. At C2-C3: There is a normal disc, central canal, and neural foramen. At C3-C4: There is a broad-based disc bulge with facet hypertrophy and operative joint spurring contributing to moderate left and severe right neural foraminal narrowing with mild spinal canal narrowing. At C4-C5: There is facet hypertrophy and osteophyte spurring contributing to mild bilateral neural foraminal narrowing and mild spinal canal narrowing. At C5-C6: There is a broad-based disc bulge with facet and uncovertebral joint degenerative change. There is mild bilateral neural foraminal narrowing and mild spinal canal narrowing. At C6-C7: There is facet hypertrophy contributing to mild bilateral neural foraminal narrowing without spinal canal narrowing. At C7-T1: There is a normal disc, central canal, and neural foramen. MR/MR cervical spine wo con IMPRESSION: No cord compression or cord signal abnormality. Significant edema is noted in the lateral mass of C1 on the left which is partially collapsed. There is accompanying edema involving the atlantoaxial joint. CT is recommended as a compression fracture of the lateral mass of C1 on the left is suspected with only partly visualized. There is a 7 mm T2 hyperintense nodule within the right thyroid lobe. Ultrasound evaluation is recommended as malignancy is not excluded. Degenerative changes are noted in the cervical spine as above. Impression dictated by: Josué Pinto M.D. 04/03/2025 1:37 PM Dictation Location: [place] [address] Electronically authenticated by: [id number] Y Date: 04/03/2025 13:37 Dictated By: Josué Pinto M.D. Signed By: 04/03/25 1340 DD/ 1337 TD/TT: Harness Fitter: Procedure Note Radiology, Radiologist, MD - 04/03/2025 [place] [address] Magnetic Resonance Report Signed Patient: KELSEY NIETO LMR#: [id number] : 1950Acct:[id number] Age/Sex: 74 / FADM Date: 04/03/25 Loc: MRI Attending Dr: Herve Boswell M.D. Ordering Physician: Herve Boswell M.D. Date of Service: 04/03/25 Procedure(s): MR cervical spine wo con Accession Number(s): [id number] cc: NAJMA PETERS ; Herve Boswell M.D. The [place] [id number] Patient Name: KELSEY NIETO MRN: [id number] date: 1950 Sex: F Assigned Patient Location: MRI Current Patient Location: MRI Accession/Order Number: [id number] Exam Date: 04/03/2025 13:32 Report Date: 04/03/2025 13:37 At the request of: HERVE BOSWELL MD Procedure: MR cervical spine wo con MR cervical spine wo con 04/03/2025 10:15 AM SIGNS AND SYMPTOMS: Chronic neck pain PROTOCOL: Multiplanar multisequence MR images of the cervical spinewithout IV contrast COMPARISON: None. FINDINGS: The bones of the cervical spine are in anatomic alignment. Thereis preservation of vertebral body heights. There is mild to moderate discheight loss throughout the cervical spine. There is a punctate 2 fatty endplate degenerative change at C6-C7. Significant edema is noted in the lateralmass of C1 on the left which is partially collapsed. There is accompanyingedema involving the atlantoaxial joint. The cord is normal in signal. Noepidural or paraspinous fluid collection is appreciated. The visualized paraspinous soft tissues are within normal limits. The prevertebral soft tissues are within normal limits. There is a 7 mm T2 hyperintense nodule within theright thyroid lobe. Ultrasound evaluation is recommended as malignancy is not excluded. At C2-C3: There is a normal disc, central canal, and neural foramen. At C3-C4: There is a broad-based disc bulge with facet hypertrophy and operative joint spurring contributing to moderate left and severe rightneural foraminal narrowing with mild spinal canal narrowing. At C4-C5: There is facet hypertrophy and osteophyte spurring contributingto mild bilateral neural foraminal narrowing and mild spinal canal narrowing. At C5-C6: There is a broad-based disc bulge with facet and uncovertebraljoint degenerative change. There is mild bilateral neural foraminal narrowingand mild spinal canal narrowing. At C6-C7: There is facet hypertrophy contributing to mild bilateral neural foraminal narrowing without spinal canal narrowing. At C7-T1: There is a normal disc, central canal, and neural foramen. MR/MR cervical spine wo con IMPRESSION: No cord compression or cord signal abnormality. Significant edema is noted in the lateral mass of C1 on the left which is partially collapsed. There is accompanying edema involving theatlantoaxial joint. CT is recommended as a compression fracture of the lateral mass ofC1 on the left is suspected with only partly visualized. There is a 7 mm T2 hyperintense nodule within the right thyroid lobe. Ultrasound evaluation is recommended as malignancy is not excluded. Degenerative changes are noted in the cervical spine as above. Impression dictated by: Josué Pinto M.D. 04/03/2025 1:37 PM Dictation Location: [place] [address] Electronically authenticated by: [id number] Y Date: 3:37 Dictated By: Josué Pinto M.D. Signed By:04/03/25 1340 DD/ 1337 TD/TT: Harness Fitter: us Generic External Data Provider IMG MRI PROCEDURE S Final Result documented in this encounter Visit Diagnoses Not on filedocumented in this encounter
--- OUTSIDE RECORDS SUMMARY | 2025-04-08 09:09 | XMS_ITS | Encounter Summary ---
Author Organization [facility] Address [address] [place] [address] Phone Care Team Providers Care Manager Packaging Name Role Phone Unavailable Primary Care Provider Unavailabl e Encounter Details Date Type Department Care Team (Late st Contact Info) Description 12/05/2024 Scanned Document [facility] [address] [place] [address] Scanning, Generic Provider Social History Tobacco Use [...] Description 07/29/2025 9:10 AM EST Office Visit [facility] [address] [phone] Rola Phillips MD [address] [facility], [address] [place] [address] documented as of this encounter Visit Diagnoses Not on filedocumented in this encounter
--- OUTSIDE RECORDS SUMMARY | 2025-04-08 09:09 | XMS_ITS | Encounter Summary ---
Author Organization [facility] Address [address] [place] [address] Care Team Providers Care Director Of Reservations Name Role Phone Unavailable Primary Care Provider Unavailabl e Encounter Details Date Type Department Care Team (Late st Contact Info) Description 12/12/2024 Abstract [facility] [address] [place] [address] Unallocated, Noms Provider, [address] [place] [address] Social History Tobacco Use Types Packs/Day Years [...]
--- OUTSIDE RECORDS SUMMARY | 2025-04-08 09:09 | XMS_ITS | Encounter Summary ---
Author Organization [facility] Address [address] [place] [address] Care Team Providers Care Video Game Script Writer Name Role Phone Unavailable Primary Care Provider [...] Diagnosis Comments MR LUMBAR SPINE WO CON 04/03/2025 1:44 PM EDT documented in this encounter Results * MR LUMBAR SPINE WO CON (04/03/2025 1:44 PM EDT) Anatomical Region Laterality Modality Other 04/03/2025 1:44 PM EDT Narrative 04/03/2025 1:47 PM EDT The [address] [address] Magnetic Resonance Report Signed Patient: KELSEY NIETO MR#: [id number] : 1950 Acct:[id number] Age/Sex: 74 / F ADM Date: 04/03/25 Loc: MRI Attending Dr: Herve Boswell M.D. Ordering Physician: Herve Boswell M.D. Date of Service: 04/03/25 Procedure(s): MR lumbar spine wo con Accession Number(s): [id number] cc: NAJMA PETERS ; Herve Boswell M.D. [place] [id number] Patient Name: KELSEY NIETO MRN: [facility]:[id number] date: 1950 Sex: F Assigned Patient Location: MRI Current Patient Location: MRI Accession/Order Number: [id number] Exam Date: 04/03/2025 13:38 Report Date: 04/03/2025 13:44 At the request of: HERVE BOSWELL MD Procedure: MR lumbar spine wo con MR lumbar spine wo con 04/03/2025 10:15 AM SIGNS AND SYMPTOMS: Low back pain with radiculopathy PROTOCOL: Multiplanar multisequence MR images of the lumbar spine without IV contrast COMPARISON: 01/21/2025 FINDINGS: The bones of the lumbar spine are in anatomic alignment. There is a compression deformity of the superior endplate of the L2 vertebral body which appears to be remote. There is Schmorl's information the endplates at T11 and L1. The marrow signal is within normal limits. The conus terminates at the inferior endplate of the L1 vertebral body level. No epidural or paraspinous fluid collection is appreciated. There is a simple cyst in the right renal cortex are no further follow-up. There is a complex cystic structure in the right adnexa which is unchanged measuring 4.6 cm in greatest axial dimension. At T12-L1: There is a broad-based disc bulge with facet hypertrophy and ligament flavum thickening. There is mild spinal canal stenosis with mild bilateral neural foraminal narrowing. At L1-L2: There is a circumferential disc bulge with facet hypertrophy and ligamentum flavum thickening. There is moderate spinal canal stenosis with moderate to severe bilateral neural foraminal narrowing similar to the prior exam. At L2-L3: There is a broad-based disc bulge with facet hypertrophy and ligamentum flavum thickening. There is mild spinal canal stenosis with mild bilateral neural foraminal narrowing similar to the prior exam. At L3-L4: There is facet hypertrophy with ligamentum flavum thickening. There is mild spinal canal narrowing without significant neural foraminal narrowing. This is unchanged. At L4-L5: There is a broad-based disc bulge with facet hypertrophy and ligamentum flavum thickening contributing to moderate spinal canal stenosis along with moderate bilateral neural foraminal narrowing similar to the prior exam. At L5-S1: Facet degenerative changes are present. No significant spinal canal or neural foraminal narrowing. This is unchanged. MR/MR lumbar spine wo con IMPRESSION: There is a compression deformity of the superior endplate of the L2 vertebral body which appears to be remote. At L1-L2: There is a circumferential disc bulge with facet hypertrophy and ligamentum flavum thickening. There is moderate spinal canal stenosis with moderate to severe bilateral neural foraminal narrowing similar to the prior exam. At L4-L5: There is a broad-based disc bulge with facet hypertrophy and ligamentum flavum thickening contributing to moderate spinal canal stenosis along with moderate bilateral neural foraminal narrowing similar to the prior exam. Lesser degrees of degenerative changes are redemonstrated as above. There is a complex cystic structure in the right adnexa which is unchanged measuring 4.6 cm in greatest axial dimension. Follow-up with pelvic ultrasound is recommended as this is atypical for the patient's age. Impression dictated by: Josué Pinto M.D. 04/03/2025 1:44 PM Dictation Location: [place] [address] Electronically authenticated by: [id number] Y Date: 04/03/2025 13:44 Dictated By: Josué Pinto M.D. Signed By: 04/03/25 1347 DD/ 1344 TD/TT: Finance Lead: Procedure Note Radiology, Radiologist, MD - 04/03/2025 [place] [address] Magnetic Resonance Report Signed Patient: KELSEY NIETO LMR#: [id number] : 1950Acct:[id number] Age/Sex: 74 / FADM Date: 04/03/25 Loc: MRI Attending Dr: Herve Boswell M.D. Ordering Physician: Herve Boswell M.D. Date of Service: 04/03/25 Procedure(s): MR lumbar spine wo con Accession Number(s): [id number] cc: NAJMA PETERS ; Herve Boswell M.D. The [place] [id number] Patient Name: KELSEY NIETO MRN: [id number] date: 1950 Sex: F Assigned Patient Location: MRI Current Patient Location: MRI Accession/Order Number: [id number] Exam Date: 04/03/2025 13:38 Report Date: 04/03/2025 13:44 At the request of: HERVE BOSWELL MD Procedure: MR lumbar spine wo con MR lumbar spine wo con 04/03/2025 10:15 AM SIGNS AND SYMPTOMS: Low back pain with radiculopathy PROTOCOL: Multiplanar multisequence MR images of the lumbar spine withoutIV contrast COMPARISON: 01/21/2025 FINDINGS: The bones of the lumbar spine are in anatomic alignment. Thereis a compression deformity of the superior endplate of the L2 vertebral bodywhich appears to be remote. There is Schmorl's information the endplates at T11and L1. The marrow signal is within normal limits. The conus terminates atthe inferior endplate of the L1 vertebral body level. No epidural orparaspinous fluid collection is appreciated. There is a simple cyst in the rightrenal cortex are no further follow-up. There is a complex cystic structure in the right adnexa which is unchanged measuring 4.6 cm in greatest axial dimension. At T12-L1: There is a broad-based disc bulge with facet hypertrophy and ligament flavum thickening. There is mild spinal canal stenosis with mild bilateral neural foraminal narrowing. At L1-L2: There is a circumferential disc bulge with facet hypertrophy and ligamentum flavum thickening. There is moderate spinal canal stenosiswith moderate to severe bilateral neural foraminal narrowing similar to theprior exam. At L2-L3: There is a broad-based disc bulge with facet hypertrophy and ligamentum flavum thickening. There is mild spinal canal stenosis withmild bilateral neural foraminal narrowing similar to the prior exam. At L3-L4: There is facet hypertrophy with ligamentum flavum thickening.There is mild spinal canal narrowing without significant neural foraminalnarrowing. This is unchanged. At L4-L5: There is a broad-based disc bulge with facet hypertrophy and ligamentum flavum thickening contributing to moderate spinal canalstenosis along with moderate bilateral neural foraminal narrowing similar to theprior exam. At L5-S1: Facet degenerative changes are present. No significant spinalcanal or neural foraminal narrowing. This is unchanged. MR/MR lumbar spine wo con IMPRESSION: There is a compression deformity of the superior endplate of the R0jljhzpsok body which appears to be remote. At L1-L2: There is a circumferential disc bulge with facet hypertrophy and ligamentum flavum thickening. There is moderate spinal canal stenosiswith moderate to severe bilateral neural foraminal narrowing similar to theprior exam. At L4-L5: There is a broad-based disc bulge with facet hypertrophy and ligamentum flavum thickening contributing to moderate spinal canalstenosis along with moderate bilateral neural foraminal narrowing similar to theprior exam. Lesser degrees of degenerative changes are redemonstrated as above. There is a complex cystic structure in the right adnexa which is unchanged measuring 4.6 cm in greatest axial dimension. Follow-up with pelvic ultrasound is recommended as this is atypical for the patient's age. Impression dictated by: Josué Pinto M.D. 04/03/2025 1:44 PM Dictation Location: [place] [address] Electronically authenticated by: [id number] Y Date: 3:44 Dictated By: Josué Pinto M.D. Signed By:04/03/25 1347 DD/ 1344 TD/TT: Finance Lead: us Generic External Data Provider [facility] Final Result documented in this encounter Visit Diagnoses Not on filedocumented in this encounter
--- OUTSIDE RECORDS SUMMARY | 2025-04-08 09:09 | XMS_ITS | Clinical Summary ---
Author Organization [facility] Address [address] [place] [address] Phone Care Team Providers Care Restaurant Cook Name Role Phone Unavailable Primary Care Provider Unavailabl e Encounters Date Type Department Care Team Description 02/26/2025 Scanned Document [facility] [address] [place] [phone] Scanning, Generic Provider 02/26/[address] [place] [address] Kassidy Blake, ADMISSIONS RN hematoma from Last 3 Months Social History [...] Description 07/29/2025 9:10 AM EST Office Visit [facility] [address] [facility] [address] [place] [address] Rola Phillips MD [address] [facility] [address] [place] [address] Health Maintenance Due Date Last [...] patient's age to complete this topic [place] [address] [address] [place] [address] [facility]
--- OUTSIDE RECORDS SUMMARY | 2025-04-08 09:09 | XMS_ITS | Encounter Summary ---
Author Organization [facility] Address [address] [place] [address] Phone Care Team Providers Care Ski Molder Name Role Phone Unavailable Primary Care Provider Unavailabl e Encounter Details Date Type Department Care Team (Late st Contact Info) Description 02/26/2025 Scanned Document [facility] [address] [place] [address] Scanning, Generic Provider Social History Tobacco Use [...] Description 07/29/2025 9:10 AM EST Office Visit [facility] [address] [phone] Rola Phillips MD [address] [facility] [address] [place] [address] documented as of this encounter Visit Diagnoses Not on filedocumented in this encounter
--- OUTSIDE RECORDS SUMMARY | 2025-04-08 09:09 | XMS_ITS | Encounter Summary ---
Author Organization [facility] Address [address] [place] [address] Phone Care Team Providers Care Meat Grading Machine Operator Name Role Phone Unavailable Primary Care Provider Unavailabl e Encounter Details Date Type Department Care Team (Late st Contact Info) Description 11/26/2024 Scanned Document [facility] [address] [place] [address] Scanning, Generic Provider Social History Tobacco Use [...] Description 07/29/2025 9:10 AM EST Office Visit [facility] [address] [phone] Rola Phillips MD [address] [facility] [address] [place] [address] documented as of this encounter Visit Diagnoses Not on filedocumented in this encounter
--- OUTSIDE RECORDS SUMMARY | 2025-04-08 09:09 | XMS_ITS | Clinical Summary ---
Author Organization [facility] Address [address] [place] [address] Care Team Providers Care Account Development Executive Name Role Phone Unavailable Primary Care Provider Unavailabl e Encounters Date Type Department Care Team Description 04/03/2025 Clinisync Result Encounter [facility] External Department Unsolicited Provider, Generic External Data 04/03/2025 Clinisync Result Encounter [facility] External Department Unsolicited Provider, Generic External Data 01/23/2025 Telephone [facility] FRAZ[facility] [address] [place] [phone] Rosa Reed PA hospital f/u r/s [...] SPINE WO CON 04/03/2025 1:44 PM EDT MR CERVICAL SPINE WO CONTRAST 04/03/2025 1:37 PM EDT MR LUMBAR SPINE WO CON 01/21/2025 3:11 PM EDT from Last 3 Months Results * MR LUMBAR SPINE WO CON (04/03/2025 1:44 PM EDT) Only the most recent of2 resultswithin the time period is included. Anatomical Region Laterality Modality Other 04/03/2025 1:44 PM EDT Narrative 04/03/2025 1:47 [place] [address] Magnetic Resonance Report Signed Patient: KELSEY NIETO MR#: [id number] : 1950 Acct:[id number] Age/Sex: 74 / F ADM Date: 04/03/25 Loc: MRI Attending Dr: Herve Boswell M.D. Ordering Physician: Herve Boswell M.D. Date of Service: 04/03/25 Procedure(s): MR lumbar spine wo con Accession Number(s): [id number] cc: NAJMA PETERS ; Herve Boswell M.D. [place] [address] Patient Name: KELSEY NIETO MRN: [id number] date: 1950 Sex: F Assigned Patient Location: MRI Current Patient Location: MRI Accession/Order Number: [id number] Exam Date: 04/03/2025 13:38 Report Date: 04/03/2025 [...] Pinto M.D. 04/03/2025 1:44 PM Dictation Location: [place] [address] Electronically authenticated by: [id number] Y Date: 04/03/2025 13:44 Dictated By: Josué Pinto M.D. Signed By: 04/03/25 1347 DD/ 8785 TD/TT: Manager Requirements: Procedure Note Radiology, Radiologist, MD - 04/03/2025 [place] [address] Magnetic Resonance Report Signed Patient: KELSEY NIETO LMR#: [id number] : 1950Acct:[id number] Age/Sex: 74 / FADM Date: 04/03/25 Loc: MRI Attending Dr: Herve Boswell M.D. Ordering Physician: Herve Boswell M.D. Date of Service: 04/03/25 Procedure(s): MR lumbar spine wo con Accession Number(s): [id number] cc: NAJMA PETERS ; Herve Boswell M.D. The [place] [address] Patient Name: KELSEY NIETO MRN: [id number] date: 1950 Sex: F Assigned Patient Location: MRI Current Patient Location: MRI Accession/Order Number: [id number] Exam Date: 04/03/2025 13:38 Report Date: 04/03/2025 [...] deformity of the superior endplate of the H7dfihatriz body which appears to be remote. At [...] Pinto M.D. 04/03/2025 1:44 PM Dictation Location: [place] [address] Electronically authenticated by: [id number] Y Date: 3:44 Dictated By: Josué Pinto M.D. Signed By:04/03/25 1347 DD/ 1344 TD/TT: Manager Requirements: Generic External Data Provider [facility] Final Result * MR cervical spine wo contrast (04/03/2025 1:37 PM EDT) Anatomical Region Laterality Modality Spine, C-spine Magnetic Resonan ce 04/03/2025 1:37 PM EDT Narrative 04/03/2025 1:40 [place] [address] Magnetic Resonance Report Signed Patient: KELSEY NIETO MR#: [id number] : 1950 Acct:[id number] Age/Sex: 74 / F ADM Date: 04/03/25 Loc: MRI Attending Dr: Herve Boswell M.D. Ordering Physician: Herve Boswell M.D. Date of Service: 04/03/25 Procedure(s): MR cervical spine wo con Accession Number(s): [id number] cc: NAJMA PETERS ; Herve Boswell M.D. [place] [address] Patient Name: KELSEY NIETO MRN: [facility]:[id number] date: 1950 Sex: F Assigned Patient Location: MRI Current Patient Location: MRI Accession/Order Number: [id number] Exam Date: 04/03/2025 13:32 Report Date: 04/03/2025 [...] Pinto M.D. 04/03/2025 1:37 PM Dictation Location: [place] [address] Electronically authenticated by: [id number] Y Date: 04/03/2025 13:37 Dictated By: Josué Pinto M.D. Signed By: 04/03/25 1340 DD/ 1337 TD/TT: Manager Requirements: Procedure Note Radiology, Radiologist, - 04/03/2025 [place] [address] Magnetic Resonance Report Signed Patient: KELSEY NIETO LMR#: [id number] : 1950Acct:[id number] Age/Sex: 74 / FADM Date: 04/03/25 Loc: MRI Attending Dr: Herve Boswell M.D. Ordering Physician: Herve Boswell M.D. Date of Service: 04/03/25 Procedure(s): MR cervical spine wo con Accession Number(s): [id number] cc: NAJMA PETERS ; Herve Boswell M.D. [place] [address] Patient Name: KELSEY NIETO MRN: [id number] date: 1950 Sex: F Assigned Patient Location: MRI Current Patient Location: MRI Accession/Order Number: [id number] Exam Date: 04/03/2025 13:32 Report Date: 04/03/2025 [...] Pinto M.D. 04/03/2025 1:37 PM Dictation Location: [place] [address] Electronically authenticated by: [id number] Y Date: 3:37 Dictated By: Jsoué Pinto M.D. Signed By:04/03/25 1340 DD/ 1337 TD/TT: Manager Requirements: Generic External Data Provider IMG MRI PROCEDURE S Final Result from Last 3 Months Insurance [employer] MEDICARE
--- OUTSIDE RECORDS SUMMARY | 2025-04-08 09:10 | XMS_ITS | Clinical Summary ---
Author Organization [facility] Address [address] [place] [address] Care Team Providers Care Gas Operator Name Role Phone Destiny Figueroa Primary Care Provider [phone] Allergies Active Allergy Reactions Criticality Noted Date [...] MUTUAL MEDICARE UNITED [employer] MEDICARE Care Teams Gas Operator Relationship Specialty Start Date End Date Destiny Figueroa PCP - General 07/21/24
--- OUTSIDE RECORDS SUMMARY | 2025-04-08 09:10 | XMS_ITS | Encounter Summary ---
Author Organization [facility] Address [id number] [address] [place] [address] Care Team Providers Care Last Remodeler Repairer Name Role Phone Destiny Figueroa APRN-CFNP Primary Care Pro vider Reason for Visit * Reason Onset Date Comments Hospital Follow-up 10/08/2024 Encounter Details Date Type Department Care Team (Late st Contact Info) Description 10/08[facility]20[facility] [address] [place] [address] [facility] Follow-up Social History Tobacco Use Types Packs/Day Years Used Date Smoking Tobacco: Never Smokeless Tobacco: Never Alcohol Use Standard Drinks/Week Comments Never 0 (1 standard drink = 0.6 oz pur e alcohol) [facility] Utilities Answer Date Recorded In the past 12 months has [employer], gas, oil, or water company threatened [...] RBP. He signed off patient care from [facility] Dx Saddle pulmonary embolism with bilateral heavy [...] AM EST Pt still currently admitted to [facility]. JLW * Telephone Encounter - Brittany Keene MA - 10/08/2024 10:21 AM EST Pt still currently admitted to [facility]. JLW * Telephone Encounter - Brittany Keene MA - 10/08/2024 10:21 AM EST Pt still currently admitted to [facility]. JLW * Telephone Encounter - Brittany Keene MA - 10/08/2024 10:21 AM EST Pt still currently admitted to [facility]. JLW * Telephone Encounter - Michelle Bey - 10/08/2024 10:21 AM EST STILL INPT * Telephone Encounter - Brittany Keene MA - 10/08/2024 10:21 AM EST Pt still currently admitted to [facility]. JLW * Telephone Encounter - Brittany Keene [...] <enter goal here> General Yes Claudia Whitman GAS OPERATIONS ANALYST Note: Evaluation of progress towards goal: Current Discharge Plan: SNF for short term rehab documented as of this encounter Visit Diagnoses Not on filedocumented in this encounter Additional Health Concerns Assessment Noted Time PHQ-9 Depression Total Score: 6 10/06/19 25 7:54 PM EST documented as of this encounter Care Teams Last Remodeler Repairer Relationship Specialty Start Date End Date Destiny Figueroa APRN-CFNP [address] [place] [address] PCP - General Family Medicine 05/30/24 documented as of this encounter
--- OUTSIDE RECORDS SUMMARY | 2025-04-08 09:10 | XMS_ITS | Patient Health Record ---
Author Organization [facility] Address [address] [place] [address] [place] [address] Care Team Providers Care Blood Tester Fowl Name Role Phone Lynda Jean Primary Care Provider Kevin Quintana Unavailable [phone] Reason For Referral No Information Encounters Encounter Location Date Provider Diagnosis [facility] [address] [place] [address] 01/14/2025 Kevin Reyes Plan Of Treatment No Information Insurance Providers Payer Name Payer Address Payer Phone Subscriber Number Group Number Insured Name Patient Relationship to Insured Coverage Start Date Coverage End Date [facility] [address] [address] [place] [address] [id number] Kelsey Macias Self - patient is the insured
--- OUTSIDE RECORDS SUMMARY | 2025-04-08 09:10 | XMS_ITS | Clinical Summary ---
Author Organization [facility] Address [id number] [address] [place] [address] Care Team Providers Care Header Setup Operator Name Role Phone Destiny Figueroa APRN-CFALVINO Primary [...] before bedtime. 4 Active ONETOUCH ULTRA2 METER [facility] USE TO CHECK GLUCOSE ONCE DAILY 4 [...] of sacrum, limited to breakdown of skin ([facility]) Place 1 patch on the skin in [...] incontinence 10/21/2024 Pressure injury due to medical reception 10/21/2024 Pressure injury of deep tissue of [...] <enter goal here> General Yes Claudia Whitman COMPLAINT COORDINATOR Note: Evaluation of progress towards goal: Current Discharge Plan: SNF for short term rehab Medical Devices Implanted Type Area Ticket Worker Device Identifier Shelf Expiration Date Model / Serial / Lot Filter Embl 49mm 65cm Vc Rdpq Preld Flsh Sdprt Intro Strl Rpl [id number] - [id number] Implanted:Qty: 1 on 10/06/2024 by Mer Galvan MD at [facility] IVC Filter [employer] [id number] 07/30/2027 [id number] / / [id number] Insurance [employer] MEDICARE Advance Directives Documents on File Type Date Recorded Patient [facility] Manager Expl anation Durable Power of [place] Installer 11/03/2024 11:17 AM Durable Power of [employer] Installer 10/15/2024 7:36 PM Power of [employer] Installer 10 15 2024 Advance Directive 10/15/2024 7:34 PM Ivonne Gutierrezhailey Mukul phillips Power of [employer] Installer 10 15 2024 Durable Power of [employer] Installer 10/15/2024 4:46 PM [facility] Myles r of [employer] Installer * Full Code (Latest Code Status on File) Date Activated Date Inactivated Comments 10/06/2024 6:34 PM 10/29/2024 2:26 PM * Full Code Date Activated Date Inactivated Comments 05/30/2024 5:31 AM 05/31/2024 7:59 PM Healthcare Agents on File Name Relationship Healthcare Agent Relationshi p Communication Ivonne Ngdavid Daughter Health Care Agent Geetha Gilmant Daughter First Alternate Health Care Agent Care Teams Header Setup Operator Relationship Specialty Start Date End Date Destiny Figueroa, SYSTEM CONFIGURATION SPECIALIST-CFALVINO [address] [place] [address] PCP - General Family Medicine 05/30/24
--- OUTSIDE RECORDS SUMMARY | 2025-04-08 09:10 | XMS_ITS | Encounter Summary ---
Author Organization [facility] Address [id number] [address] [place] [address] Care Team Providers Care Adzing And Boring Machine Operator Name Role Phone Destiny Figueroa APRN-CFNP Primary Care Pro vider Encounter Details Date Type Department Care Team (Late st Contact Info) Description 09/11/2024 Orders Only [facility] [address] [place] [phone] External, Scanning Provider Social History Tobacco Use Types Packs/Day Years Used Date Smoking Tobacco: Never Smokeless Tobacco: Never Alcohol Use Standard Drinks/Week Comments Never 0 (1 standard drink = 0.6 oz pur e alcohol) [facility] Utilities Answer Date Recorded In the past 12 months has [employer], gas, oil, or water [employer] threatened to shut off services in your [...] ECG ORDERABLES Final Result Performing Organization Address City/[facility] Co de Phone Number MANUALLY TRANSCRIBED RESULTS documented in this encounter Visit Diagnoses Not on filedocumented in this encounter Additional Health Concerns Assessment Noted Time PHQ-9 Depression Total Score: 9 05/30/20 24 10:46 AM EDT documented as of this encounter Care Teams Adzing And Boring Machine Operator Relationship Specialty Start Date End Date Destiny Figueroa APRN-CFNP [address] [place] [address] PCP - General Family Medicine 05/30/24 documented as of this encounter
--- OUTSIDE RECORDS SUMMARY | 2025-04-08 09:10 | XMS_ITS | Encounter Summary ---
[facility] Organization [facility] Address [facility]-[id number] [address] [place] [address] Care Team Providers Care Clam Bed Laborer Name Role Phone Destiny Figueroa APRN-CFNP Primary Care Pro vider Encounter Details Date Type Department Care Team (Late st Contact Info) Description 11/20/2024 Orders Only [facility] [address] [place] [phone] External, Scanning Provider Social History Tobacco Use Types Packs/Day Years Used Date Smoking Tobacco: Never Smokeless Tobacco: Never Alcohol Use Standard Drinks/Week Comments Never 0 (1 standard drink = 0.6 oz pur e alcohol) [facility] Utilities Answer Date Recorded In the past 12 months has [employer], gas, oil, or water [employer] threatened to shut off services in your [...] 2:22 PM EST) us Scanning Provider External [place] IMAGING Final Result Performing Organization Address City/[facility] Co de Phone Number MANUALLY TRANSCRIBED RESULTS * CT chest with contrast (10/06/2024 2:18 PM EST) Anatomical Region Laterality Modality Body, Lung, Chest, Body Covera N/A C omputed Tomography us Scanning Provider External IMG CT ORDERABLES Fin al Result * Multiple labs (10/05/2024 2:23 PM EST) us Scanning Provider External [place] IMAGING Final Result Performing Organization Address City/[facility] Co de Phone Number MANUALLY TRANSCRIBED RESULTS * ECG 12 lead (10/04/2024 2:23 PM EST) us Scanning Provider External ECG ORDERABLES Final Result Performing Organization Address City/[facility] de Phone Number MANUALLY TRANSCRIBED RESULTS documented in this encounter Visit Diagnoses Not on filedocumented in this encounter Additional Health Concerns Assessment Noted Time PHQ-9 Depression Total Score: 6 10/06/19 25 7:54 PM EST documented as of this encounter Care Teams Clam Bed Laborer Relationship Specialty Start Date End Date Destiny Figueroa APRN-CFNP [address] [place] [address] PCP - General Family Medicine 05/30/24 documented as of this encounter
--- OUTSIDE RECORDS SUMMARY | 2025-04-08 09:10 | XMS_ITS | Patient Health Record ---
Author Organization [facility] Address [address] [place] [address] Care Team Providers Care Cook Chill Technician Name Role Phone Lynda Jean MD Primary Care Provider Lynda Satnos Unavailable [phone] Beny Blackwell Unavailable [phone] Amber Diamond Unavailable Allergies Allergen (clinical drug ingredient) Drug/Non Drug Allergy documented on EMR Reaction Allergy Type Onset Date Status PCN (uncoded) Unknown Allergy Active Reason For Referral Reason REFERRAL FOR ARTIEEVU E PAINMANGEMENT FOR L4-5 JUNITO Diagnosis 1 Compression fracture of L1 vertebra with routine healing, subsequent encounter (S32.010D) Referral Organization [facility] Referring Provider First Name Lynda Referring Provider Last Name [facility] Referring Provider Speciality Orthopedic Surgery Referred Organization [facility] Referred Address [address] [facility] [address], [address],[place], [place],[address], General Notes Alyssa Gutierrez 2024 10:23:41 AM >, Alyssa Gutierrez 02/11/2025 10:02:14 AM >FAXED Referral Priority Routine Reason NO AUTH REQ......... ...................NOT SCHEDULED...................................[facility] MRI cervical and lumbar spine at [place] Diagnosis 1 Radiculopathy, lumba r region (M54.16) Diagnosis 2 Weakness (R53.1) Diagnosis 3 Cervical myelopathy (G95.9) Referral Organization [facility] Referring Provider First Name Lynda Referring Provider Last Name [facility] Referring Provider Speciality Orthopedic Surgery Referred Organization [facility] Referred Address [place], [place], Procedure 1 MRI Cervical w/o dye ([address]) Procedure 2 MRI Lumbar Spine w/o Dye (83341) General Notes Octavia Rutherford 02/23 11:04:01 AM >, Leni Foster 03/20/2025 11:36:49 AM > [facility] ACTIVE AND EFFECTIVE 09/24/24 PER [facility] PROVIDER PORTAL. NO AUTHORIZATION REQUIRED. FAXED [...] Problem Status W/U Status Risk Notes Problem 152258817 Cervical myelopathy (G95.9) Active confirmed Problem 036788991615088 Spondylolisthesi s, 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) Active confirmed Problem 817503352 Radiculopathy, lumbar region (M54.16) Active confirmed Problem 977033069 History of fall (Z91.81) Active confirmed Problem 62428172 Spinal stenosis, lumbar region without neurogenic claudication (M48.061) Active confirmed Problem 808909720 Compression fracture of L1 vertebra, initial encounter (S32.010A) Active confirmed Problem 71979735979175962 Compression fracture of L2 vertebra, initial encounter (S32.020A) Active confirmed Encounters Encounter Location Date Provider Diagnosis [facility] Office [address] [place] [address] [place] [address] 02/06/2025 [facility] Spinal stenosis, lumbar region without neurogenic claudication M48.061 ; Compression fracture of L1 vertebra, initial encounter S32.010A ; Compression fracture of L2 vertebra, initial encounter S32.020A ; Spondylolisthesis, lumbar region M43.16 ; Radiculopathy, lumbar region M54.16 and History of fall Z91.81 [facility] [address] [place] [address] 03/20/2025 Beny Diglio Radiculopathy, lumbar region M54.16 [...] the compression fractures and referral to the [place] [facility] for an L4-5 epidural [...] to contact Dr. Boswell. Best regards, 1. Upper and lower extremity weakness 2. Cervical myelopathy 3. L4-5 spondylolisthesis , grade 1 with stenosis and radiculopathy 4. L1 and L2 compression fractures Plan Of Treatment Pending Test Test Name Order Date Lumbar spine, 4v flex ext - 59760 2024 MRI : Cervical Spine W/O Contrast - 7214 1 03/20/2025 MRI : Lumbosacral Spine W/O Contrast - 7 2148 03/20/2025 DME - Lumbar Support, Surgical OTS 02/06 Epidural injection - lumbar 02/06/2025 Insurance Providers Payer Name Payer Address Payer Phone Subscriber Number Group Number Insured Name Patient Relationship to Insured Coverage Start Date Coverage End Date MEDICARE UHC A[employer] [address] [address] [place] [address] [id number] FLOR NIETO Self - patient is the insured 5 [place] [address] [phone] [id number] FLOR NIETO Self - patient is the insured 5 [facility] [address] [place] [address] 2025 FLOR NIETO Self - patient is the insured 5 Medical (General) History Medical History History ICD Code High Blood Pressure Abnormal Heart Rhythm Liver Disease Diabetes Irritable bowel syndrome Blood Clots in Legs/Lungs Anxiety Depression Rheumatoid arthritis Surgical History Surgery Date(Month/Year) Pulmonary bilateral lung 09/2024
--- OUTSIDE RECORDS SUMMARY | 2025-04-08 09:10 | XMS_ITS ---
Author Organization [facility] Care Team Providers Care Global Cto Name Role Phone OsorioCarlos whitingn Unavailable Unavailable Allergies and adverse reactions Code CodeSystem Substance Reaction Severity StartDate Concern Status 758675080 SNOMED CT Shrimp Unknown 09/05/2024 active 7984 RXNORM Penicillin Unknown 09/05/2024 active 3423 RXNORM Dilaudid Unknown 09/05/2024 active 2878 RXNORM Cortisone Unknown 09/05/2024 active 2556 RXNORM Citalopram Unknown 09/05/2024 active Care Team Name Role Address Phone Organization Dates Rome Smithahan PCP [address] [address] [facility] [address], [place], [address], [place] (Office): : : [facility] 09/12/2024 - 10/04/2024 Goals Section Goals [...] ions Active 12/28/2024 Resident will discharge to [facility] with services as necessary upon completion [...] completed tuberculin skin test; unspecified formulation lotNumber: [id number] expiry: 01/22/2026 Mfg: Aplisol Given 0.1 ml [...] CodeSystem Concern Status 1 ACIDOSIS, UNSPECIFIED 09/12/[address] active 2 ACUTE STRESS REACTION 09/12/[address] active 3 ANXIETY DISORDER, UNSPECIFIED 09/12/[address] active 4 CONTUSION OF LEFT LOWER LEG, SUBSEQUENT ENCOUNTER 09/12/[address] active 5 COVID-19 09/12/[address] active 6 DEPRESSION, UNSPECIFIED 09/12/[address] active 7 ESSENTIAL TREMOR 09/12/[address] active 8 HISTORY OF FALLING 09/12/[address] active 9 HYPOKALEMIA 09/12/[address] active 10 IRON DEFICIENCY ANEMIA SECONDARY TO BLOOD LOSS (CHRONIC) 09/12/[address] active 11 MIXED HYPERLIPIDEMIA 09/12/[address] active 12 MORBID (SEVERE) OBESITY DUE TO EXCESS CALORIES 09/12/[address] active 13 MUSCLE WEAKNESS (GENERALIZED) 09/12/[address] active 14 NEED FOR ASSISTANCE WITH PERSONAL CARE 09/12/[address] active 15 ORTHOSTATIC HYPOTENSION 09/12/[address] active 16 OVERACTIVE BLADDER 09/12/[address] active 17 PAROXYSMAL ATRIAL FIBRILLATION 09/12/[address] active 18 TYPE 2 DIABETES MELLITUS WITH DIABETIC POLYNEUROPATHY 09/12/[address] active 19 UNSPECIFIED OSTEOARTHRITIS, UNSPECIFIED SITE 09/12/[address] active 20 UNSTEADINESS ON FEET 09/12/[address] active Reason for Referral No Reasons for Referral Entered Social History Social History Observation Description Start Date End Date Code Code System Current Smoking Status Tobacco smoking consumption unknown 827328884 SNOMED CT Sex Assigned At Female 1950 [address]-0 [facility] Gender Identity Vital Signs Code Code System Vitals Name Values and Units Timing Information 9279-1 [facility] Respiratory Rate Value=18.0 Units=/m in 10/04/2024 8462-4 [facility] Blood Pressure-Diastolic Value=43 Un its=mmHg 10/04/2024 8480-6 [facility] Blood Pressure-Systolic Value=86 Uni ts=mmHg 10/04/2024 8310-5 [facility] Body Temperature Sehvn=009.7 Units= F 10/04/2024 8867-4 [facility] Heart rate Hnsxm=870.0 Units=/min 10/04/2024 59899-0 [facility] O2 % dC Oximetry Value=92.0 Units= % 10/04/2024 72738-9 [facility] Pain Level Value=0.0 10/04/2024 2339-0 [facility] Blood Sugar Jaodj=033.0 Units=mg/dL 10/03/2024 10115-9 [facility] Weight Frbyz=847.0 Units=Lbs 12/2024 8302-2 [facility] Height Value=65.0 Units=Inches 09/12/2024
--- OUTSIDE RECORDS SUMMARY | 2025-04-08 09:10 | XMS_ITS | Encounter Summary ---
Author Organization [employer] Address [facility][id number] [address] [place] [address] Care Team Providers Care Hoistman Name Role Phone Destiny Figueroa APRN-CFNP Primary Care Pro vider Encounter Details Date Type Department Care Team (Late st Contact Info) Description 10/07/2024 Orders Only [facility] [address] [place] [phone] Transcribe, Orders Support User Pain (Primary Dx); Acute chest pain Social History Tobacco Use Types Packs/Day Years Used Date Smoking Tobacco: Never Smokeless Tobacco: Never Alcohol Use Standard Drinks/Week Comments Never 0 (1 standard drink = 0.6 oz pur e alcohol) [facility] Utilities Answer Date Recorded In the past 12 months has [employer], gas, oil, or water [employer] threatened to shut off services in [...] documented as of this encounter Care Teams Hoistman Relationship Specialty Start Date End Date Destiny Figueroa APRN-CFNP [address] [place] [address] PCP - General Family Medicine 05/30/24 documented as of this encounter
--- OUTSIDE RECORDS SUMMARY | 2025-04-08 09:10 | XMS_ITS | Encounter Summary ---
Author Organization [employer] Address [id number] [address] [place] [address] Care Team Providers Care Logging Rafter Laborer Name Role Phone Destiny Figueroa CHILDCARE ATTENDANT-CFNP Primary Care Pro vider Reason for Visit * Reason Onset Date Comments Sign Off Patient Care 08/25/2024 Encounter Details Date Type Department Care Team (Late st Contact Info) Description 08/25/2024 Telephone [facility] [address] [place] [phone] Des Whyte MD [address] [place], [place] [id number] Sign Off Patient Care Social History Tobacco Use Types Packs/Day Years Used Date Smoking Tobacco: Never Smokeless Tobacco: Never Alcohol Use Standard Drinks/Week Comments Never 0 (1 standard drink = 0.6 oz pur e alcohol) [facility] Utilities Answer Date Recorded In the past 12 months has [employer], gas, oil, or water [employer] threatened to shut off services in your [...] documented as of this encounter Care Teams Logging Rafter Laborer Relationship Specialty Start Date End Date Destiny Figueroa, TORI-LAURA [address] [place] [address] PCP - General Family Medicine 05/30/24 documented as of this encounter
--- OUTSIDE RECORDS SUMMARY | 2025-04-08 09:10 | XMS_ITS | Encounter Summary ---
Author Organization [employer] Address [facility][id number] [address] [place] [address] Care Team Providers Care Molder Pipe Covering Name Role Phone Destiny Figueroa APRN-CFALVINO Primary Care Pro vider Encounter Details Date Type Department Care Team (Late st Contact Info) Description 10/07/2024 Orders Only [facility] [address] [place] [phone] External, Scanning Provider Pain (Primary Dx) Social History Tobacco Use Types Packs/Day Years Used Date Smoking Tobacco: Never Smokeless Tobacco: Never Alcohol Use Standard Drinks/Week Comments Never 0 (1 standard drink = 0.6 oz pur e alcohol) [facility] Utilities Answer Date Recorded In the past 12 months has [employer], gas, oil, or water [employer] threatened to shut off services in [...] <enter goal here> General Yes Claudia Whitman BAG WASHER Note: Evaluation of progress towards goal: Current [...] documented as of this encounter Care Teams Molder Pipe Covering Relationship Specialty Start Date End Date Destiny Figueroa APRN-LAURA [address] [place] [address] PCP - General Family Medicine 05/30/24 documented as of this encounter
== END 2025-04-07 11:01 | disposition home or self-care (01) ==
LOC: WC 04-08 09:03
PROVIDERS: Family Provider Family Medicine; PCP Family Medicine; Visit Provider Physician Assistant
DX: L89.610 Pressure ulcer of right heel, unstageable (principal); S81.802D Unspecified open wound, left lower leg, subsequent encounter
CPT/HCPCS: A6213; G0463

== ENCOUNTER 2025-04-28 07:34 | Outpatient (RCR) | payer MEDICARE, SELFPAY | END 2025-05-24 23:59 | disposition home or self-care (01) | LOC: HEMC 07:34 | PROVIDERS: Family Provider Family Medicine; PCP Family Medicine; Visit Provider Internal Medicine Hematology & Oncology | DX: I26.92 Saddle embolus of pulmonary artery without acute cor pulmonale (principal); R23.3 Spontaneous ecchymoses; I48.91 Unspecified atrial fibrillation; Z79.01 Long term (current) use of anticoagulants | CPT/HCPCS: G0463 ==

== ENCOUNTER 2025-05-05 10:53 | Outpatient (OUT) | payer MEDICARE, SELFPAY ==
--- OUTSIDE RECORDS SUMMARY | 2025-01-14 10:30 | XMS_ITS ---
Author Organization [facility] Address [address] [place] [address] [place] [address] Care Team Providers Care Software Qa Manager Name Role Phone Lynda Jean Primary Care Provider UnavailKevin Henley Unavailable [phone] Encounters Encounter Location Date Provider Diagnosis [address] [address] 01/14/2025 Kevin Reyes Plan Of Treatment No Information Progress Notes * Kelsey NIETODOB:1950 (74 yo F)Acc No.[id number]:01/14/2025 Patient: Kelsey PETER Provider: Joey Reyes DPM :1950 A ge:74 Y S ex:Female Date:01/14/2025 Address[facility] Pcp:Lynda Jean Subjective: * Chief Complaints: * * Medical History: Objective: * Vitals: Assessment: Plan: * Treatment: * Images: * Electronic signature of Eads in MIGEL Reyes on 05/05/2025 at 10:55 AM EDT Sign off status: Pending * Provider: Joey Reyes DPM Date: 01/14/2025 Generated for Mirta stearns/Theodora/Partha on: 05/05/2025 10:55 AM EDT
--- OUTSIDE RECORDS SUMMARY | 2025-03-13 06:10 | XMS_ITS ---
Author Organization [facility] Address [address] [place] [address] Care Team Providers Care Direct Service Provider Name Role Phone Miranda PINEDA, Lynda Primary Care Provider Lynda Santos Unavailable [phone] REASON FOR VISIT LUMBAR RECHECK Encounters Encounter Location Date Provider Diagnosis [facility] [address] [place] [address] [place] [address] 03/13/2025 Lynda Perez Plan Of Treatment No Information Progress Notes * FLOR NIETODOB:1950 (74 yo F)Acc No.[id number]:03/13/2025 Patient: FLOR PETER Provider: Estuardo Boswell MD, PhD :1950 A ge:74 Y S ex:Female Date:03/13/2025 Address[facility] Pcp:Lynda Jean MD Subjective: * Chief Complaints: * 1 . LUMBAR RECHECK. * Medical History: Objective: * Vitals: Assessment: Plan: * Treatment: Forms: * Images: * Electronic signature of Alex Perez MD, PHD on 05/05/2025 at 10:55 AM EDT Sign off status: Pending * Provider: Estuardo Boswell MD, PhD Date: 03/13/2025 Generated for Printi ng/Fabulmarog/eTransmitting on: 0 05/05/2025 10:55 AM EDT
--- OUTSIDE RECORDS SUMMARY | 2025-04-15 09:15 | XMS_ITS ---
Author Organization [facility] Address [address] [place] [address] [place] [address] Care Team Providers Care Equip Tech Name Role Phone Lynda Jean Primary Care Provider UnavailKevin Henley Unavailable [phone] Encounters Encounter Location Date Provider Diagnosis [address] [address] 04/15/2025 Kevin Reyes Plan Of Treatment No Information Progress Notes * Kelsey NIETODOB:1950 (74 yo F)Acc No.[id number]:04/15/2025 Patient: Kelsey PETER Provider: Joey Reyes DPM :1950 A ge:74 Y S ex:Female Date:04/15/2025 Address:[facility] Pcp:Lynda Jean Subjective: * Chief Complaints: * * Medical History: Objective: * Vitals: Assessment: Plan: * Treatment: * Images: * Electronic signature of [place] in MIGEL Reyes on 05/05/2025 at 10:55 AM EDT Sign off status: Pending * Provider: Joey Reyes DPM Date: 04/15/2025 Generated for Mirta stearns/Theodora/Partha on: 05/05/2025 10:55 AM EDT
--- OUTSIDE RECORDS SUMMARY | 2025-04-28 04:30 | XMS_ITS ---
Author Organization [facility] [place] Address [address] [place] [address] Care Team Providers Care Lens Inspector Name Role Phone Miranda PINEDA, Lynda Primary Care Provider Brittni Sheppard Unavailable [phone] REASON FOR VISIT New PT Hem Encounters Encounter Location Date Provider Diagnosis [facility] On[facility] [address] [place] [address] 04/28/2025 Brittni Ramirez Plan Of Treatment Next Appt Details Provider Name:Brittni Ramirez , 06/02/2025 09:30:00 AM, [address] [place], [address], Progress Notes * Kelsey NIETODOB:1950 (74 yo F)Acc No.[id number]:04/28/2025 UNLOCKED PROGRESS NOTE Progress Notes Patient: Kelsey PETER Provider: Ruth Ann Ramirez M.D. :1950 A ge:74 Y S ex:Female Date:04/28/2025 Address:[address] [place] [address] [address], [place] Pcp:Lynda Jean MD Subjective: * Chief Complaints: * 1 . New PT Hem. * Medical History: Objective: * Vitals: Assessment: Plan: * Treatment: * * Electronic signature of Frederick Ramirez MD, [id number] on 05/05/2025 at 10:56 AM EDT Sign off status: Pending Visit Status: P EN (Pending) * Provider: Ruth Ann Ramirez M.D. Date: 0 04/28/2025 Generated for Mirta stearns/Theodora/Partha on: 0 05/05/2025 10:56 AM EDT
--- OUTSIDE RECORDS SUMMARY | 2025-04-29 20:21 | XMS_ITS | Continuity of Care Document ---
Author Organization [facility] Address [address] [place] [address] Phone Care Team Providers Care Associate Financial Planner Name Role Phone NON STAFF Primary Care Provider Alin Dooley MD Attending Provider Care Teams Patient Care Team Team Status: Active Member Role Status Dates NON STAFF Primary Care Provider Active Patient Care Team Team Status: Inactive Member Role Status Dates NON STAFF Primary Care Provider Active Start: April 29, 2025 End: April 29, 2025 Alin Vergara MD Attending Provider Active St art: April 29, 2025 End: April 29, 2025 Chief Complaint and Reason for Visit Chief Complaint Admit Date L03.90 April 29, 2025 12: 00pm Allergies, Adverse Reactions, Alerts Allergen Type Severity Reaction Last Updated Verified Status citalopram Allergy Unknown Unknown Reaction November 20, 2024 1:39pm Yes Active cortisone Allergy Unknown high blood pressure Febru beka 2024 1:39pm Yes Active hydromorphone Allergy Unknown Unknown Reaction Febru beka 2024 1:39pm Yes Active iodine Allergy Unknown Hives November 20, 2024 1:39pm Yes Active morphine Allergy Unknown Hypotension October 2:37pm Yes Active Penicillins Allergy Unknown Swelling October 1:39pm Yes Active shrimp Allergy Unknown Swelling November 20, 2024 1:39pm Yes Active Social History Smoking Status Status Start Date End Date Date of Observa tion Never smoked tobacco (finding) December 02, 2024 10:42am Observation Status Observation Response Date of Response Legal Sex Female (finding) Sex Assigned At Female [birth year] Problems Active Problems Medical Problem Onset Date Status Ulcer of left lower leg Unknown Active C. difficile colitis Unknown Active Impaired mobility and ADLs Unknown Activ e Anaerobic bacteremia Unknown Active Leg abscess Unknown Active Leukocytosis Unknown Active Anasarca Unknown Active Hypoalbuminemia Unknown Active Paroxysmal atrial fibrillation with RVR Unknown Active History of pulmonary embolism Unknown Ac tive Inactive/Resolved Problems Medical Problem Onset Date Status Acute cystitis Unknown Resolved Chronic wound Unknown Resolved Anemia Unknown Resolved Cellulitis Unknown Resolved Elevated liver enzymes Unknown Resolved Weakness Unknown Resolved Hypoalbuminemia Unknown Resolved Acute UTI Unknown Resolved Acute hypokalemia Unknown Resolved Hypomagnesemia Unknown Resolved Medications Medication Status Dose Units Route Directions Qty Days St art Date Stop Date End Date Instructions Adherence Apixaban (Eliquis) 5 mg tablet Active 5 MG PO Twice daily 2024 1:00am Unknown Aspirin 81 mg capsule Active 81 MG PO Daily 2024 1:00am Unknown Ergocalcife rol (Vitamin D2) 1,250 mcg (50,000 unit) capsule Discont inued 63858 UNIT PO every week 2024 1:00am 2024 2:31p m every sunday for 10 weeks end 07/13/25 Folic Acid 1 mg tablet Discont inued 1 MG PO Daily 2024 1:00am 2024 2:31p m for 30 days. end 11/29/24 Gabapentin 100 mg capsule Active 100 MG PO Three times daily 2024 1:00am Unknown Glucagon Hcl (Glucagon (Hcl) Emergency Kit) 1 mg recon soln Active 1 MG IM EVERY 15 MINUTES as needed for hypoglycemi a 2024 1:00am until target blood sugar attained Unknown Hydroxyzine Pamoate 25 mg capsule Discont inued 25 MG PO Every 6 hours as needed for anxiety 2024 1:00am u 2024 2:04p m Metoprolol Tartrate 25 mg tablet Discont inued 25 MG PO Twice daily 2024 1:00am Febru 2024 2:31p m for 10 days to end 11/09/24 Mirtazapine 15 mg tablet Discont inued 15 MG PO Bedtime 2024 1:00am Febru 2024 2:31p m Oxycodone 5 mg capsule Discont inued 5 MG PO Every 6 hours as needed for pain 2024 1:00am u 2024 2:31p m Pravastatin 20 mg tablet Discont inued 20 MG PO Daily 2024 1:00am u 2024 2:31p m Tizanidine 4 mg tablet Discont inued 4 MG PO Twice daily as needed for muscle spasticity 2024 1:00am u 2024 2:04p m Lidocaine (Lidoderm) 5 % adhesive patch,medic ated Active 1 PATCH TOPICA L Daily 2024 1:00am apply in AM remove at HS Unknown Calcium Carbonate-V itamin D3 500 mg-5 mcg (200 unit) tablet Active 1 TAB PO Daily 2024 1:00am Unknown Multivitami n,Tx-Minera ls tablet Active 1 TAB PO Daily 2024 1:00am Unknown Acetaminoph en 325 mg capsule Active 650 MG PO Every 6 hours as needed for pain 2024 1:00am Unknown Diclofenac Sodium 1 % gel Active 2 GM TOPICA L Four times daily 2024 1:00am apply to single elbow, wrist or hand; for hand includes palm/fingers/ back of hand Unknown Atorvastati n 80 mg Tablet Active 80 MG PO Every evening 0 2024 1:00am Unknown Ergocalcife rol (Vitamin D2) 1,250 mcg (50,000 unit) capsule Discont inued 50905 UNIT PO every week 0 6 2024 2:21pm November 24, 2024 10:45 am every sunday for 10 weeks end 07/13/25 Mirtazapine 15 mg tablet Discont inued 30 MG PO Bedtime 0 360 2024 2:27pm Febru 2024 2:04p m Metoprolol Tartrate 25 mg tablet Active 25 MG PO Twice daily 2024 1:00am Unknown Promethazin e 12.5 mg tablet Active 12.5 MG PO Before meals 2024 1:00am 3 doses during day; last dose no later than 4 hr before bedtime Unknown Mirtazapine 15 mg tablet Active 15 MG PO Bedtime 2024 1:00am Unknown Potassium Chloride (Klor-Con M20) 20 mEq Tablet,Er Particles/C rystals Active 40 MEQ PO Daily 0 November 24, 2024 1:00am Unknown Furosemide (Lasix) 20 mg tablet Active 20 MG PO Twice daily November 24, 2024 1:00am Unknown Amiodarone 200 mg Tablet Active 200 MG PO Every morning 30 December 02, 2024 12:00a m start 12/09/24 at 0900; this is after 7 days of 200 mg twice daily Unknown Amiodarone 200 mg Tablet Active 200 MG PO Twice daily 14 December 02, 2024 12:00a m Unknown Vancomycin 250 mg Capsule Discont inued 500 MG PO Four times daily 8 December 05, 2024 12:00a m December 06, 2024 12:00 am December 07, 2024 12:01 am Metronidazo le In Nacl (Iso-Os) 500 mg/100 mL piggyback Discont inued 500 MG IV Every 8 hours 2 December 05, 2024 12:00a m December 08, 2024 12:00 am December 09, 2024 12:01 am Relevant Diagnostic Tests and/or Laboratory Data Laboratory Results Test Collection Date/Time Result Date/Time Result Interpretation Reference Range Result Comment Performing Site Glucose Level April 29, 2025 12:15pm April 29, 2025 2:42pm 121 mg/dL Above high normal 70-100 ADA recommended reference rangeRandom Glucose Reference Range is dependent on time and content of last meal. Glucose of more than 200 mg/dL in a nonstressed, ambulatory subject supports the diagnosis of Diabetes Mellitus. [facility] [id number] [address] [facility] [address] Blood Urea Nitrogen April 29, 2025 12:15pm April 29, 2025 2:42pm 29 mg/dL Above high normal 7-25 [facility] [id number] [address] [facility] [address] Creatinin e April 29, 2025 12:15pm April 29, 2025 2:42pm 1.20 mg/dL 0.60-1.20 [facility] [id number] [address] [place] [address] Estimated GFR (CKD-EPI) April 29, 2025 12:15pm April 29, 2025 2:42pm 47.206 mL/Min [facility] [id number] [address] [place] [address] Sodium Level April 29, 2025 12:15pm April 29, 2025 2:42pm 141 mmol/L 136-145 [facility] [id number] [address] [place], [place] [address] Potassium Level April 29, 2025 12:15pm April 29, 2025 2:42pm 4.0 mmol/L 3.5-5.1 [facility] [id number] [address] [place], [place] [address] Chloride Level April 29, 2025 12:15pm April 29, 2025 2:42pm 104 mmol/L 98-107 [facility] [id number] [address] [place], [place] [address] Carbon Dioxide Level April 29, 2025 12:15pm April 29, 2025 2:42pm 29.0 mmol/L 21.0-31.0 [facility] [id number] [address] [place] [address] Anion Gap April 29, 2025 12:15pm April 29, 2025 2:42pm 12.0 mEq/L 6.0-15.0 [facility] [id number] [address] [place], [place] [address] Calcium Level April 29, 2025 12:15pm April 29, 2025 2:42pm 8.7 mg/dL 8.6-10.3 [facility] [id number] [address] [place], [place] [address] Pharmacy Creatinin e Clearance (Chem April 29, 2025 12:15pm April 29, 2025 2:42pm N/A [facility] [id number] [address] [place], [place] [address] Advance Directives Advance Directive Response Recorded Date/ Time Advance Directives No October 12:21pm Insurance Providers Guarantor Kelsey Macias Address [address] [place] [address] [facility] [place] [address] Contact Info. Home Phone: Payer Policy Id Subscriber's Name Subscriber Id Effectiv e Date Expiration Date Medicare [id number] Kelsey Macias [id number] MMO MCR Adv PFFS [id number] Kelsey Macias [id number] Encounters Encounter Location(s) Arrival/Admit Date Discharge/Depart Date Provider(s) Departed Clinical -Lab [facility] April 29, 2025 12:00pm April 29, 2025 12:01pm Alin Vergara MD
--- OUTSIDE RECORDS SUMMARY | 2025-05-05 10:55 | XMS_ITS | Clinical Summary ---
Author Organization [facility] Address [address] [place] [address] Care Team Providers Care Building Maintenance Engineer Name Role Phone Unavailable Primary Care [...] SPINE WO CONTRAST 04/03/2025 1:37 PM EDT from Last 3 Months Results * MR LUMBAR SPINE WO CON (04/03/2025 1:44 PM EDT) Anatomical Region Laterality Modality Other 04/03/2025 1:44 PM EDT Narrative 04/03/2025 1:47 PM EDT The [address] [address] Magnetic Resonance Report Signed Patient: KELSEY NIETO MR#: [id number] : 1950 Acct:[id number] Age/Sex: 74 / F ADM Date: 04/03/25 Loc: MRI Attending Dr: Herve Boswell M.D. Ordering Physician: Herve Boswell M.D. Date of Service: 04/03/25 Procedure(s): MR lumbar spine wo con Accession Number(s): [id number] cc: NAJMA PETERS ; Herve Boswell M.D. [place] [address] Patient Name: KELSEY NIETO MRN: [facility]:[id number] date: 1950 Sex: F Assigned Patient Location: MRI Current Patient Location: MRI Accession/Order Number: [id number] Exam Date: 04/03/2025 13:38 Report Date: 04/03/2025 [...] Pinto M.D. 04/03/2025 1:44 PM Dictation Location: [place] [address] Electronically authenticated by: [id number] Y Date: 04/03/2025 13:44 Dictated By: Josué Pinto M.D. Signed By: 04/03/25 1347 DD/ 1344 TD/TT: Warehouse Technician: Procedure Note Radiology, Radiologist, MD - 04/03/[address] [address] Magnetic Resonance Report Signed Patient: KELSEY NIETO LMR#: [id number] : 1950Acct:[id number] Age/Sex: 74 / FADM Date: 04/03/25 Loc: MRI Attending Dr: Herve Boswell M.D. Ordering Physician: Herve Boswell M.D. Date of Service: 04/03/25 Procedure(s): MR lumbar spine wo con Accession Number(s): [id number] cc: NAJMA PETERS ; Herve Boswell M.D. [place] [address] Patient Name: KELSEY NIETO MRN: [facility]:[id number] date: 1950 Sex: F Assigned Patient Location: MRI Current Patient Location: MRI Accession/Order Number: [id number] Exam Date: 04/03/2025 13:38 Report Date: 04/03/2025 [...] deformity of the superior endplate of the [id number] body which appears to be remote. At [...] Pinto M.D. 04/03/2025 1:44 PM Dictation Location: [place] [address] Electronically authenticated by: [id number] Y Date: 3:44 Dictated By: Josué Pinto M.D. Signed By:04/03/25 1347 DD/ 1344 TD/TT: Warehouse Technician: us Generic External Data Provider [facility] Final Result * MR cervical spine wo contrast (04/03/2025 1:37 PM EDT) Anatomical Region Laterality Modality Spine, C-spine Magnetic Resonan ce 04/03/2025 1:37 PM EDT Narrative 04/03/2025 1:40 PM EDT The [address] [address] Magnetic Resonance Report Signed Patient: KELSEY NIETO MR#: [id number] : 1950 Acct:[id number] Age/Sex: 74 / F ADM Date: 04/03/25 Loc: MRI Attending Dr: Herve Boswell M.D. Ordering Physician: Herve Boswell M.D. Date of Service: 04/03/25 Procedure(s): MR cervical spine wo con Accession Number(s): [id number] cc: NAJMA PETERS ; Herve Boswell M.D. [place] [address] Patient Name: KELSEY NIETO MRN: [id number] date: 1950 Sex: F Assigned Patient Location: MRI Current Patient Location: MRI Accession/Order Number: [id number] Exam Date: 04/03/2025 13:32 Report Date: 04/03/2025 [...] Pinto M.D. 04/03/2025 1:37 PM Dictation Location: [place] [address] Electronically authenticated by: [id number] Y Date: 04/03/2025 13:37 Dictated By: Josué Pinto M.D. Signed By: 04/03/25 1340 DD/ 1337 TD/TT: Warehouse Technician: Procedure Note Radiology, Radiologist, - 04/03/2025 [place] [address] Magnetic Resonance Report Signed Patient: KELSEY NIETO LMR#: [id number] : 1950Acct:[id number] Age/Sex: 74 / FADM Date: 04/03/25 Loc: MRI Attending Dr: Herve Boswell M.D. Ordering Physician: Herve Boswell M.D. Date of Service: 04/03/25 Procedure(s): MR cervical spine wo con Accession Number(s): [id number] cc: NAJMA PETERS ; Herve Boswell M.D. The [place] [address] Patient Name: KELSEY NIETO MRN: [facility]:[id number] date: 1950 Sex: F Assigned Patient Location: MRI Current Patient Location: MRI Accession/Order Number: [id number] Exam Date: 04/03/2025 13:32 Report Date: 04/03/2025 [...] Pinto M.D. 04/03/2025 1:37 PM Dictation Location: [place] [address] Electronically authenticated by: [id number] Y Date: 3:37 Dictated By: Josué Pinto M.D. Signed By:04/03/25 1340 DD/ 1337 TD/TT: Warehouse Technician: Generic External Data Provider IMG MRI PROCEDURE S Final Result from Last 3 Months Insurance [place] [address]
--- OUTSIDE RECORDS SUMMARY | 2025-05-05 10:55 | XMS_ITS | Clinical Summary ---
Author Organization [facility] Address [address] [place] [address] Phone Care Team Providers Care Animal Doctor Name Role Phone Unavailable Primary Care Provider Unavailabl e Encounters Date Type Department Care Team Description 02/26/2025 Scanned Document [facility] [address] [place] [id number] Scanning, Generic Provider 02/26/2025 Telephone [place] [address] [facility] [address] [place] [address] Kassidy Blake, DIRECTOR MATERNAL CHILD hematoma from Last 3 Months Social History [...] Description 07/29/2025 9:10 AM EST Office Visit [facility] 703 [facility] [address] [place] [address] Rola Phillips MD 703 [facility] [address] [place] [address] Health Maintenance Due Date Last Done Comments CT Colonography 1950 Colonoscopy 1950 Colorectal Cancer Screening 1950 FIT-DNA (Cologuard) 1950 FIT 1950 Lipid Panel 1950 Sigmoidoscopy 1950 Yearly Adult Physical 1950 MMR Vaccines (1 of 1 - Stand victorina series) 1951 Diabetes Screening 1967 Hepatitis C Screening 1967 DTaP/Tdap/Td Vaccines (1 - Tdap) 1971 Pneumococcal Vaccine (1 of 1 - PCV) 1999 Zoster Vaccines (1 of 2) 1999 Bone Density Scan 2014 COVID-19 Vaccine (1 - 2023-2 5 season) [...] patient's age to complete this topic [place] [address] [place] [address]
--- OUTSIDE RECORDS SUMMARY | 2025-05-05 10:55 | XMS_ITS | Patient Health Record ---
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 [address] [place] [address] 04/28/2025 Brittni Ramirez Plan Of Treatment Next Appt Details Provider Name:Brittni Ramirez , 06/02/2025 09:30:00 AM, [address] [place], [address], Insurance Providers Payer Name Payer Address Payer Phone Subscriber Number Group Number Insured Name Patient Relationship to Insured Coverage Start Date Coverage End Date [facility] PR[facility]ICARE [address] [place] [address] [id number] Kelsey Macias Self - patient is the insured
--- OUTSIDE RECORDS SUMMARY | 2025-05-05 10:55 | XMS_ITS | Encounter Summary ---
Author Organization [facility] Address [address] [place] [address] Phone Care Team Providers Care Coach Mechanic Name Role Phone Unavailable Primary Care Provider Unavailabl e Encounter Details Date Type Department Care Team (Late st Contact Info) Description 02/26/[address] [facility] [address] [place] [address] Scanning, Generic Provider Social History Tobacco Use [...] Description 07/29/2025 9:10 AM EST Office Visit [facility] [address] [phone] Rola Phillips MD 703 [facility] [address] [place] [address] documented as of this encounter Visit Diagnoses Not on filedocumented in this encounter
--- OUTSIDE RECORDS SUMMARY | 2025-05-05 10:55 | XMS_ITS | Encounter Summary ---
Author Organization [facility] Address [address] [place] [address] Phone Care Team Providers Care Pharmacist Assistant Name Role Phone Unavailable Primary Care Provider Unavailabl e Encounter Details Date Type Department Care Team (Late st Contact Info) Description 11/26/2024 Scanned Document [facility] [address] [place] [address] Scanning, Generic Provider Social History Tobacco Use [...] Office Visit [facility] [address] [phone] Rola Phillips MD 703 [facility] 2, [address] [place] [address] documented as of this encounter Visit Diagnoses Not on filedocumented in this encounter
--- OUTSIDE RECORDS SUMMARY | 2025-05-05 10:55 | XMS_ITS | Encounter Summary ---
Author Organization [facility] Address [address] [place] [address] Phone Care Team Providers Care Buildings And Grounds Director Name Role Phone Unavailable Primary Care Provider Unavailabl e Encounter Details Date Type Department Care Team (Late st Contact Info) Description 12/05/2024 Scanned Document [facility] [address] [place] [phone] Scanning, Generic Provider Social History Tobacco Use [...] Office Visit [facility] [address] [phone] Rola Phillips MD 703 [facility] [address], [address] [place] [address] documented as of this encounter Visit Diagnoses Not on filedocumented in this encounter
--- OUTSIDE RECORDS SUMMARY | 2025-05-05 10:55 | XMS_ITS | Encounter Summary ---
Author Organization [facility] Address [address] [place] [address] Care Team Providers Care Care Attendant Name Role Phone Unavailable Primary Care Provider Unavailabl e Encounter Details Date Type Department Care Team (Late st Contact Info) Description 12/12/2024 Abstract [facility] [address] [place] [address] Unallocated, Noms Provider, [address] [place] [address] Social History Tobacco Use Types Packs/Day Years [...]
--- OUTSIDE RECORDS SUMMARY | 2025-05-05 10:56 | XMS_ITS | Patient Health Record ---
Author Organization [facility] Address [address] [place] [address] [place] [address] Care Team Providers Care Plate Maker Zinc Name Role Phone MirandaLynda mead Primary Care Provider UnavailKevin Henley Unavailable [phone] Reason For Referral No Information Encounters Encounter Location Date Provider Diagnosis [facility] [address] [place] [address] 01/14/2025 Kevin Reyes [facility] [address] [place] [address] 04/15/2025 Kevin Reyes Plan Of Treatment No Information Insurance Providers Payer Name Payer Address Payer Phone Subscriber Number Group Number Insured Name Patient Relationship to Insured Coverage Start Date Coverage End Date [facility] [address] [address] [place] [address] [id number] Kelsey Macias Self - patient is the insured
--- OUTSIDE RECORDS SUMMARY | 2025-05-05 10:56 | XMS_ITS | Encounter Summary ---
Author Organization [employer] Address [id number] [address] [place] [address] Care Team Providers Care Rail Assembler Name Role Phone Destiny Figueroa LACE SEWER-CFNP Primary Care Pro vider Reason for Visit * Reason Onset Date Comments Sign Off Patient Care 08/25/2024 Encounter Details Date Type Department Care Team (Late st Contact Info) Description 08/25/2024 Telephone [facility] [address] [place] [phone] Des Whyte MD [address] [place], [place] [phone] Sign Off Patient Care Social History Tobacco Use Types Packs/Day Years Used Date Smoking Tobacco: Never Smokeless Tobacco: Never Alcohol Use Standard Drinks/Week Comments Never 0 (1 standard drink = 0.6 oz pur e alcohol) [facility] Utilities Answer Date Recorded In the past 12 months has [employer], gas, oil, or water [employer] threatened to shut off services in your [...] documented as of this encounter Care Teams Rail Assembler Relationship Specialty Start Date End Date Destiny Figueroa, TORI-LAURA [address] [place] [address] PCP - General Family Medicine 05/30/24 documented as of this encounter
--- OUTSIDE RECORDS SUMMARY | 2025-05-05 10:56 | XMS_ITS | Encounter Summary ---
Author Organization [employer] Address [id number] [address] [place] [address] Care Team Providers Care Case Resource Manager Name Role Phone Destiny Figueroa APRN-CFNP Primary Care Pro vider Reason for Visit * Reason Onset Date Comments Hospital Follow-up 10/08/2024 Encounter Details Date Type Department Care Team (Late st Contact Info) Description 10/08/2024 [facility] [address] [place] [address] [facility] Follow-up Social History Tobacco Use Types Packs/Day Years Used Date Smoking Tobacco: Never Smokeless Tobacco: Never Alcohol Use Standard Drinks/Week Comments Never 0 (1 standard drink = 0.6 oz pur e alcohol) [facility] Utilities Answer Date Recorded In the past 12 months has [employer], gas, oil, or water company threatened [...] RBP. He signed off patient care from [facility] Dx Saddle pulmonary embolism with bilateral [...] AM EST Pt still currently admitted to [facility]. JLW * Telephone Encounter - Brittany Keene MA - 10/08/2024 10:21 AM EST Pt still currently admitted to [facility]. JLW * Telephone Encounter - Brittany Keene MA - 10/08/2024 10:21 AM EST Pt still currently admitted to [facility]. JLW * Telephone Encounter - Brittany Keene MA - 10/08/2024 10:21 AM EST Pt still currently admitted to [facility]. JLW * Telephone Encounter - Michelle Bey - 10/08/2024 10:21 AM EST STILL INPT * Telephone Encounter - Brittany Keene MA - 10/08/2024 10:21 AM EST Pt still currently admitted to [facility]. JLW * Telephone Encounter - Brittany [...] <enter goal here> General Yes Claudia Whitman AIRCRAFT POWER PLANT ASSEMBLER Note: Evaluation of progress towards goal: Current Discharge Plan: SNF for short term rehab documented as of this encounter Visit Diagnoses Not on filedocumented in this encounter Additional Health Concerns Assessment Noted Time PHQ-9 Depression Total Score: 6 10/06/19 25 7:54 PM EST documented as of this encounter Care Teams Case Resource Manager Relationship Specialty Start Date End Date Destiny Figueroa APRN-CFNP [address] [place] [address] PCP - General Family Medicine 05/30/24 documented as of this encounter
--- OUTSIDE RECORDS SUMMARY | 2025-05-05 10:56 | XMS_ITS | Encounter Summary ---
Author Organization [employer] [facility] Address [facility] [place]-[id number] [address] [place] [address] Care Team Providers Care Clutch Mechanic Name Role Phone Destiny Figueroa APRN-CFALVINO Primary Care Pro vider Encounter Details Date Type Department Care Team (Late st Contact Info) Description 10/07/2024 Orders Only [facility] [address] [place] [phone] External, Scanning Provider Pain (Primary Dx) Social History Tobacco Use Types Packs/Day Years Used Date Smoking Tobacco: Never Smokeless Tobacco: Never Alcohol Use Standard Drinks/Week Comments Never 0 (1 standard drink = 0.6 oz pur e alcohol) [facility] Utilities Answer Date Recorded In the past 12 months has [employer], gas, oil, or water [employer] threatened to shut off services in your [...] <enter goal here> General Yes Claudia Whitman NETWORK SOLUTIONS ARCHITECT Note: Evaluation of progress towards goal: Current [...] documented as of this encounter Care Teams Clutch Mechanic Relationship Specialty Start Date End Date Destiny Figueroa APRN-LAURA [address] [place] [address] PCP - General Family Medicine 05/30/24 documented as of this encounter
--- OUTSIDE RECORDS SUMMARY | 2025-05-05 10:56 | XMS_ITS | Encounter Summary ---
Author Organization [employer] tem Address [facility]-[id number] [address] [place] [address] Care Team Providers Care Radio Assembler Name Role Phone Destiny Figueroa APRN-CFNP Primary Care Pro vider Encounter Details Date Type Department Care Team (Late st Contact Info) Description 10/07/2024 Orders Only [facility] [address] [place] [phone] Transcribe, Orders Support User Pain (Primary Dx); Acute chest pain Social History Tobacco Use Types Packs/Day Years Used Date Smoking Tobacco: Never Smokeless Tobacco: Never Alcohol Use Standard Drinks/Week Comments Never 0 (1 standard drink = 0.6 oz pur e alcohol) [facility] Utilities Answer Date Recorded In the past 12 months has [employer], gas, oil, or water [employer] threatened to shut off services in your [...] documented as of this encounter Care Teams Radio Assembler Relationship Specialty Start Date End Date Destiny Figueroa APRN-CFNP [address] [place] [address] PCP - General Family Medicine 05/30/24 documented as of this encounter
--- OUTSIDE RECORDS SUMMARY | 2025-05-05 10:56 | XMS_ITS | Encounter Summary ---
Author Organization [facility] Address [facility]-[id number] [address] [place] [address] Care Team Providers Care Asphalt Blender Name Role Phone Destiny Figueroa APRN-CFNP Primary Care Pro vider Encounter Details Date Type Department Care Team (Late st Contact Info) Description 09/11/2024 Orders Only [facility] [address] [place] [phone] External, Scanning Provider Social History Tobacco Use Types Packs/Day Years Used Date Smoking Tobacco: Never Smokeless Tobacco: Never Alcohol Use Standard Drinks/Week Comments Never 0 (1 standard drink = 0.6 oz pur e alcohol) [facility] Utilities Answer Date Recorded In the past 12 months has [employer], gas, oil, or water [employer] (?) threatened to shut off services in your [...] ECG ORDERABLES Final Result Performing Organization Address City/[facility] Co de Phone Number MANUALLY TRANSCRIBED RESULTS documented in this encounter Visit Diagnoses Not on filedocumented in this encounter Additional Health Concerns Assessment Noted Time PHQ-9 Depression Total Score: 9 05/30/20 24 10:46 AM EDT documented as of this encounter Care Teams Asphalt Blender Relationship Specialty Start Date End Date Destiny Figueroa APRN-CFNP [address] [place] [address] PCP - General Family Medicine 05/30/24 documented as of this encounter
--- OUTSIDE RECORDS SUMMARY | 2025-05-05 10:56 | XMS_ITS | Clinical Summary ---
Author Organization [facility] Address [address] [place] [address] Care Team Providers Care Bottle Washing Machine Operator Name Role Phone Destiny Figueroa Primary Care Provider [phone] Allergies Active Allergy Reactions Criticality Noted Date [...] MUTUAL MEDICARE UNITED HEALTHCARE MEDICARE Care Teams Bottle Washing Machine Operator Relationship Specialty Start Date End Date Destiny Figueroa PCP - General 07/21/24
--- OUTSIDE RECORDS SUMMARY | 2025-05-05 10:56 | XMS_ITS | Patient Health Record ---
Author Organization [facility] Address [address] [place] [address] Care Team Providers Care Campus Interviews Intern Name Role Phone Lynda Jean MD Primary Care Provider Lynda Santos Unavailable [phone] Beny Blackwell Unavailable [phone] Amber Diamond Unavailable [phone] Allergies Allergen (clinical drug ingredient) Drug/Non Drug Allergy documented on EMR Reaction Allergy Type Onset Date Status PCN (uncoded) Unknown Allergy Active Reason For Referral Reason REFERRAL FOR CORNISH FLATEVU E PAINMANGEMENT FOR L4-5 JUNITO Diagnosis 1 Compression fracture of L1 vertebra with routine healing, subsequent encounter (S32.010D) Referral Organization [facility] Referring Provider First Name Lynda Referring Provider Last Name [facility] Referring Provider Speciality Orthopedic Surgery Referred Organization [facility] Referred Address [address] [facility] [address], [address],[place], [place],[address], General Notes Alyssa Gutierrez 2024 10:23:41 AM >, Alyssa Gutierrez 02/11/2025 10:02:14 AM >FAXED Referral Priority Routine Reason NO AUTH REQ......... ...................NOT SCHEDULED...................................[facility] MRI cervical and lumbar spine at [place] Diagnosis 1 Radiculopathy, lumba r region (M54.16) Diagnosis 2 Weakness (R53.1) Diagnosis 3 Cervical myelopathy (G95.9) Referral Organization [facility] Referring Provider First Name Lynda Referring Provider Last Name [facility] Referring Provider Speciality Orthopedic Surgery Referred Organization [facility] fer Referred Address [place], [place], Procedure 1 MRI Cervical w/o dye (05189) Procedure 2 MRI Lumbar Spine w/o Dye (44283) General Notes Octavia Rutherford 02/23 11:04:01 AM >, Leni Foster 03/20/2025 11:36:49 AM > [facility] ACTIVE AND EFFECTIVE 09/24/24 PER [facility] PROVIDER PORTAL. NO AUTHORIZATION REQUIRED. 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 confirmed Problem 717587551 Radiculopathy, lumbar region (M54.16) Active confirmed Problem 955017213 History of fall (Z91.81) Active confirmed Problem 84531294 Spinal stenosis, lumbar region without neurogenic claudication (M48.061) Active confirmed Problem 235627931 Compression fracture of L1 vertebra, initial encounter (S32.010A) Active confirmed Problem [id number] Compression fracture of L2 vertebra, initial encounter (S32.020A) Active confirmed Encounters Encounter Location Date Provider Diagnosis [facility] [address] [place] [address] [address] [place] [address] 02[facility]20[facility] Spinal stenosis, lumbar region without neurogenic claudication M48.061 ; Compression fracture of L1 vertebra, initial encounter S32.010A ; Compression fracture of L2 vertebra, initial encounter S32.020A ; Spondylolisthesis, lumbar region M43.16 ; Radiculopathy, lumbar region M54.16 and History of fall Z91.81 [facility] [address] [place] [address] 03/20/2025 Beny Diglio Radiculopathy, lumbar region M54.16 [...] the compression fractures and referral to the [place] [facility] for an L4-5 epidural [...] Date Lumbar spine, 4v flex ext - 67481 2024 MRI : Cervical Spine W/O Contrast - 7214 1 03/20/2025 MRI : Lumbosacral Spine W/O Contrast - 7 2148 03/20/2025 DME - Lumbar Support, Surgical OTS 02/06 Epidural injection - lumbar 02/06/2025 Insurance Providers Payer Name Payer Address Payer Phone Subscriber Number Group Number Insured Name Patient Relationship to Insured Coverage Start Date Coverage End Date MEDICARE UHC AARP [address] [address] [place] [address] [phone] [id number] FLOR NIETO Self - patient is the insured 5 [place] [address] [place] [address] [phone] [id number] FLOR NIETO Self - patient is the insured 5 [facility] [address] [place] [address] 2025 FLOR NIETO Self - patient is the insured 5 Medical (General) History Medical History History ICD Code High Blood Pressure Abnormal Heart Rhythm Liver Disease Diabetes Irritable bowel syndrome Blood Clots in Legs/Lungs Anxiety Depression Rheumatoid arthritis Surgical History Surgery Date(Month/Year) Pulmonary bilateral lung 09/2024
--- OUTSIDE RECORDS SUMMARY | 2025-05-05 10:56 | XMS_ITS | Clinical Summary ---
Author Organization [employer] Address [facility]-[id number] [address] [place] [address] Care Team Providers Care Microsoft Dynamics Manager Architect Name Role Phone Destiny Figueroa APRN-CFALVINO Primary [...] before bedtime. 4 Active ONETOUCH ULTRA2 METER [facility] USE TO CHECK GLUCOSE ONCE DAILY 4 [...] sacrum, limited to breakdown of skin ([facility]) Place 1 patch on the skin [...] incontinence 10/21/2024 Pressure injury due to medical center representative 10/21/2024 Pressure injury of deep tissue of [...] 0.6 oz pur e alcohol) [facility] Utilities Answer Date Recorded In the [...] <enter goal here> General Yes Claudia Whitman FIELD OPERATIONS TECHNICIAN Note: Evaluation of progress towards goal: Current Discharge Plan: SNF for short term rehab Medical Devices Implanted Type Area Account Manager Device Identifier Shelf Expiration Date Model / Serial / Lot Filter Embl 49mm 65cm Vc Rdpq Preld Flsh Sdprt Intro Strl Rpl [id number] - [id number] Implanted:Qty: 1 on 10/06/2024 by Mer Galvan MD at [facility] IVC Filter [employer] [id number] 07/30/2027 [id number] / / [id number] Insurance UNITEDHEALTHCARE MEDICARE Advance Directives Documents on File Type Date Recorded Patient Practical Nurse Clinical Coordinator Expl anation Durable Power of Manager [employer] Funeral Director 11/03/2024 11:17 AM Durable Power of Manager [employer] 10/15/2024 7:36 PM Power of Manager [employer] Director 10 15 2024 Advance Directive 10/15/2024 7:34 PM Ivonne Gutierrezhailey Mukul phillips Power of Manager [employer] Director 10 15 2024 Durable Power of Manager [employer] Fun[employer] Director 10/15/2024 4:46 PM [facility] Myles r of Manager Embalmer Funeral Director * Full Code (Latest Code Status on File) Date Activated Date Inactivated Comments 10/06/2024 6:34 PM 10/29/2024 2:26 PM * Full Code Date Activated Date Inactivated Comments 05/30/2024 5:31 AM 05/31/2024 7:59 PM Healthcare Agents on File Name Relationship Healthcare Agent Relationshi p Communication Ivonne Ngdavid Daughter Health Care Agent Geetha Gilmant Daughter First Alternate Health Care Agent Care Teams Microsoft Dynamics Manager Architect Relationship Specialty Start Date End Date Destiny Figueroa, COMPOSITION FLOOR LAYER-CFALVINO [address] [place] [address] PCP - General Family Medicine 05/30/24
--- OUTSIDE RECORDS SUMMARY | 2025-05-05 10:56 | XMS_ITS | Encounter Summary ---
Author Organization [facility] Address [facility]-[id number] [address] [place] [address] Care Team Providers Care Senior Benefits Manager Name Role Phone Destiny Figueroa APRN-CFNP Primary Care Pro vider Encounter Details Date Type Department Care Team (Late st Contact Info) Description 11/20/2024 Orders Only [facility] [address] [place] [phone] External, Scanning Provider Social History Tobacco Use Types Packs/Day Years Used Date Smoking Tobacco: Never Smokeless Tobacco: Never Alcohol Use Standard Drinks/Week Comments Never 0 (1 standard drink = 0.6 oz pur e alcohol) [facility] Utilities Answer Date Recorded In the past 12 months has [employer], gas, oil, or water [employer] threatened to shut off services in your [...] 2:22 PM EST) us Scanning Provider External OR IMAGING Final Result Performing Organization Address City/[facility] Co de Phone Number MANUALLY TRANSCRIBED RESULTS * CT chest with contrast (10/06/2024 2:18 PM EST) Anatomical Region Laterality Modality Body, Lung, Chest, Body Covera N/A C omputed Tomography us Scanning Provider External IMG CT ORDERABLES Fin al Result * Multiple labs (10/05/2024 2:23 PM EST) us Scanning Provider External OR IMAGING Final Result Performing Organization Address City/[facility] Co de Phone Number MANUALLY TRANSCRIBED RESULTS * ECG 12 lead (10/04/2024 2:23 PM EST) us Scanning Provider External ECG ORDERABLES Final Result Performing Organization Address City/[facility] de Phone Number MANUALLY TRANSCRIBED RESULTS documented in this encounter Visit Diagnoses Not on filedocumented in this encounter Additional Health Concerns Assessment Noted Time PHQ-9 Depression Total Score: 6 10/06/19 25 7:54 PM EST documented as of this encounter Care Teams Senior Benefits Manager Relationship Specialty Start Date End Date Destiny Figueroa APRN-CFNP [address] [place] [address] PCP - General Family Medicine 05/30/24 documented as of this encounter
== END 2025-05-05 10:54 | disposition home or self-care (01) ==
LOC: WC 10:53
PROVIDERS: Family Provider Family Medicine; PCP Family Medicine; Visit Provider Physician Assistant
DX: L89.610 Pressure ulcer of right heel, unstageable (principal); S81.802D Unspecified open wound, left lower leg, subsequent encounter
CPT/HCPCS: G0463

== ENCOUNTER 2025-05-26 10:51 | Outpatient (OUT) | payer MEDICARE, SELFPAY | END 2025-05-26 10:52 | disposition home or self-care (01) | LOC: WC 10:52 | PROVIDERS: Family Provider Family Medicine; PCP Family Medicine; Visit Provider Physician Assistant | DX: L89.610 Pressure ulcer of right heel, unstageable (principal); S81.802D Unspecified open wound, left lower leg, subsequent encounter | CPT/HCPCS: G0463 ==

== ENCOUNTER 2025-06-16 09:57 | Outpatient (RCR) | payer MEDICARE, SELFPAY | END 2025-06-23 23:59 | disposition home or self-care (01) | LOC: HEMC 09:57 | PROVIDERS: Family Provider Family Medicine; PCP Family Medicine; Visit Provider Internal Medicine Hematology & Oncology | DX: R23.3 Spontaneous ecchymoses (principal); I26.92 Saddle embolus of pulmonary artery without acute cor pulmonale; R22.41 Localized swelling, mass and lump, right lower limb; R22.42 Localized swelling, mass and lump, left lower limb; Z79.01 Long term (current) use of anticoagulants; I48.91 Unspecified atrial fibrillation | CPT/HCPCS: G0463 ==

== ENCOUNTER 2025-09-03 07:24 | Outpatient (OUT) | payer MEDICARE, SELFPAY ==
--- OUTSIDE RECORDS SUMMARY | 2025-01-14 09:30 | XMS_ITS ---
Author Organization [facility] Address [address] [place] [address] [place] [address] Care Team Providers Care Laboratory Manager Name Role Phone Lynda Jean Primary Care Provider UnavailKevin Henley Unavailable [phone] Encounters Encounter Location Date Provider Diagnosis [address] [address] 01/14/2025 Kevin Reyes Plan Of Treatment No Information Progress Notes * Kelsey NIETODOB:1950 (74 yo F)Acc No.[id number]:01/14/2025 Patient:?Kelsey Nieto :?AUDIE PadillaMDOB:1950???Age:74 Y???Sex: FemaleDate:01/14/2025Phone:[phone]:[place], [place]Pvq:Lynda Jean * Electronic signature of Kevin Reyes DPM on 09/03/2025 at 07:31 AM ESTSign off status: Pending * Provider: Joey Reyes DPM Date: 0 01/14/2025 Generated for Printing/Faxing/eTransmitting on:?09/03/2025 07:31 AM EST
--- OUTSIDE RECORDS SUMMARY | 2025-03-13 05:10 | XMS_ITS ---
Author Organization [facility] Address [address] [place] [address] Care Team Providers Care Sausage Smoker Name Role Phone Miranda PINEDA, Lynda Primary Care Provider Lynda Santos Unavailable [phone] REASON FOR VISIT LUMBAR RECHECK Encounters Encounter Location Date Provider Diagnosis [facility] [address] [place] [address] [place] [address] 03/13/2025 Lynda Perez Plan Of Treatment No Information Progress Notes * FLOR NIETODOB:1950 (74 yo F)Acc No.[id number]:03/13/2025 Patient:?FLOR NIETO :?Lynda Boswell MD, PhDDOB:1950 ???Age:74 Y???Sex:FemaleDate:03/13/2025Phone:[phone]:[address] [place], [place]Dns:Lynda Jean MD Subjective: * Chief Complaints: * 1 . LUMBAR RECHECK. * Medical History: Objective: * Vitals: Assessment: Plan: * Treatment: Forms: * Images: * Electronic signature of Lynda Perez MD, PHD on 09/03/2025 at 07:32 AM EST Sign off status: Pending * Provider: Estuardo Boswell MD, PhD Date: 0 03/13/2025 Generated for Printing/Faxing/eTransmitting on:?09/03/2025 07:32 AM EST
--- OUTSIDE RECORDS SUMMARY | 2025-04-15 08:15 | XMS_ITS ---
Author Organization [facility] Address [address] [place] [address] [place] [address] Care Team Providers Care Health Counselor Name Role Phone Lynda Jean Primary Care Provider UnavailKevin Henley Unavailable [phone] Encounters Encounter Location Date Provider Diagnosis [address] [address] 04/15/2025 Kevin Reyes Plan Of Treatment No Information Progress Notes * Kelsey NIETODOB:1950 (74 yo F)Acc No.[id number]:04/15/2025 Patient:?Kelsey Nieto :?AUDIE PadillaMDOB:1950???Age:74 Y???Sex: FemaleDate:04/15/2025Phone:[phone]:[address] [place], [place]Ozw:Lynda Jean * Electronic signature of Kevin Reyes DPM on 09/03/2025 at 07:28 AM ESTSign off status: Pending * Provider: Joey Reyes DPM Date: 0 04/15/2025 Generated for Printing/Faxing/eTransmitting on:?09/03/2025 07:28 AM EST
--- OUTSIDE RECORDS SUMMARY | 2025-04-28 03:30 | XMS_ITS ---
Author Organization [facility] [place] Address [address] [place] [address] Care Team Providers Care Merchandise Adjustment Clerk Name Role Phone Miranda PINEDA, Lynda Primary Care Provider Brittni Garcia Unavailable [phone] REASON FOR VISIT New PT Hem Encounters Encounter Location Date Provider Diagnosis [facility] Oncology [address] [place] [address] 04/28/2025 Brittni Paz Plan Of Treatment No Information Progress Notes * Kelsey NIETODOB:1950 (74 yo F)Acc No.[id number]:04/28/2025 UNLOCKED PROGRESS NOTE Progress Notes Patient: Kelsey PETER :?Brittni Ramirez M.D.:1950???Age:74 Y ???Sex:FemaleDate:04/28/2025Phone:[phone]:[employer] [place] [address]Yex:Lynda Jean MD Subjective: * Chief Complaints: * 1 . New PT Hem. * Medical History: Objective: * Vitals: Assessment: Plan: * Treatment: * * Electronic signature of Brittni Paz MD, [id number] on 09/03/2025 at 07:35 AM ESTSign off status: PendingVisit Status:?PEN (Pending) * Provider: Ruth Ann Ramirez M.D. Date: 04/28/2025 Generated for Printing/Faxing/eTransmitting on:?09/03/2025 07:35 AM EST
--- OUTSIDE RECORDS SUMMARY | 2025-06-02 04:30 | XMS_ITS ---
Author Organization [facility] [place] Address [address] [place] [address] Care Team Providers Care Health Underwriter Name Role Phone Miranda PINEDA, Lynda Primary Care Provider Brittni Garcia Unavailable [phone] REASON FOR VISIT MD Encounters Encounter Location Date Provider Diagnosis [facility] Oncology [address] [place] [address] 06/02/2025 Brittni Paz Plan Of Treatment No Information Progress Notes * Kelsey NIETODOB:1950 (74 yo F)Acc No.[id number]:06/02/2025 UNLOCKED PROGRESS NOTE Progress Notes Patient: Kelsey PETER :?Brittni Ramirez M.D.:1950???Age:74 Y ???Sex:FemaleDate:06/02/2025Phone:[phone]:[facility] [place] [address]Omf:Lynda Jean MD Subjective: * Chief Complaints: * 1 . MD. * Medical History: Objective: * Vitals: Assessment: Plan: * Treatment: * * Electronic signature of Brittni Paz MD, [id number] on 09/03/2025 at 07:36 AM ESTSign off status: PendingVisit Status:?CANC (Cancelled) * Provider: Ruth Ann Ramirez M.D. Date: 0 06/02/2025 Generated for Printing/Faxing/eTransmitting on:?09/03/2025 07:36 AM EST
--- OUTSIDE RECORDS SUMMARY | 2025-06-02 04:30 | XMS_ITS ---
Author Organization [facility] in [place] Address [address] [place] [address] Care Team Providers Care Clinic Charge Nurse Name Role Phone Miranda PINEDA, Lynda Primary Care Provider Brittni Garcia Unavailable [phone] REASON FOR VISIT MD Encounters Encounter Location Date Provider Diagnosis [facility] Oncology [address] [place] [address] 06/02/2025 Brittni Paz Plan Of Treatment No Information Progress Notes * Kelsey NIETODOB:1950 (74 yo F)Acc No.[id number]:06/02/2025 UNLOCKED PROGRESS NOTE Progress Notes Patient: Kelsey PETER :?Brittni Ramirez M.D.:1950???Age:74 Y ???Sex:FemaleDate:06/02/2025Phone:[phone]:[facility] [place] [address]Soe:Lynda Jean MD Subjective: * Chief Complaints: * 1 . MD. * Medical History: Objective: * Vitals: Assessment: Plan: * Treatment: * * Electronic signature of Brittni Paz MD, [id number] on 09/03/2025 at 07:33 AM ESTSign off status: PendingVisit Status:?CANC (Cancelled) * Provider: Ruth Ann Ramirez M.D. Date: 0 06/02/2025 Generated for Printing/Faxing/eTransmitting on:?09/03/2025 07:33 AM EST
--- OUTSIDE RECORDS SUMMARY | 2025-06-09 04:45 | XMS_ITS ---
Author Organization [facility] [place] Address [address] [place] [address] Care Team Providers Care Jammer Hooker Name Role Phone Miranda PINEDA, Lynda Primary Care Provider Brittni Garcia Unavailable [phone] REASON FOR VISIT MD Encounters Encounter Location Date Provider Diagnosis [facility] Oncology [address] [place] [address] 06/09/2025 Brittni Paz Plan Of Treatment No Information Progress Notes * Kelsey NIETODOB:1950 (74 yo F)Acc No.[id number]:06/09/2025 UNLOCKED PROGRESS NOTE Progress Notes Patient: Kelsey PETER :?Brittni Ramirez M.D.:1950???Age:74 Y ???Sex:FemaleDate:06/09/2025Phone:[phone]:[facility] [place] [address]Hob:Lynda Jean MD Subjective: * Chief Complaints: * 1 . MD. * Medical History: Objective: * Vitals: Assessment: Plan: * Treatment: * * Electronic signature of Brittni Paz MD, [id number] on 09/03/2025 at 07:27 AM ESTSign off status: PendingVisit Status:?CANC (Cancelled) * Provider: Ruth Ann Ramirez M.D. Date: 0 06/09/2025 Generated for Printing/Faxing/eTransmitting on:?09/03/2025 07:27 AM EST
--- OUTSIDE RECORDS SUMMARY | 2025-07-15 07:45 | XMS_ITS ---
Author Organization [facility] Address [address] [place] [address] [place] [address] Care Team Providers Care Risk Analyst Name Role Phone Lynda Jean Primary Care Provider UnavailKevin Henley Unavailable [phone] Encounters Encounter Location Date Provider Diagnosis [address] [address] 07/15/2025 Kevin Reyes Plan Of Treatment No Information Progress Notes * Kelsey NIETODOB:1950 (74 yo F)Acc No.[id number]:07/15/2025 Patient:?Kelsey Nieto :?AUDIE PadillaMDOB:1950???Age:74 Y???Sex: FemaleDate:07/15/2025Phone:[phone]:[address] [place], [place]Evk:Lynda Jean * Electronic signature of Kevin Reyes DPM on 09/03/2025 at 07:35 AM ESTSign off status: Pending * Provider: Joey Reyes DPM Date: 1 Generated for Printing/Faxing/eTransmitting on:?09/03/2025 07:35 AM EST
--- OUTSIDE RECORDS SUMMARY | 2025-09-03 07:28 | XMS_ITS | Clinical Summary ---
Author Organization [facility] Address [address] [place] [address] Phone Care Team Providers Care Heat Treater Helper Name Role Phone Unavailable Primary Care Provider Unavailabl e Social History Tobacco UseTypesPacks/DayYears UsedDateSmoking Tobacco: Never Assessed CommentsUnknownSex and Gender InformationValueDate RecordedSex Assigned at Not on fileLegal JzsAkjnfm80/05/2025 9:11 AM ESTGender IdentityNot on fileSexual OrientationNot on file Plan of Treatment DateTypeDepartmentCare Team (Latest Contact Info)Qzqsizuyqwj23/26/2026 3:30 PM ESTOffice Visit [facility] [address] [address] Rola Phillips MD 703 [facility] 2[address] [place] [address] Health MaintenanceDue DateLast DoneCommentsCT Pxyxtxdidqkz53/03/1950Colonoscopy 1950Colorectal Cancer Qnbgpdfic71/03/1950FIT-DNA (Cologuard)1950FIT 1950Lipid Panel1950 2373Aqkzwsoljejas65/03/1950Welcome to Medicare Visit 1950MMR Vaccines (1 of 1 - Standard series)1Diabetes Screening 1967Hepatitis C Qixicnqjp47/03/1968DTaP/Tdap/Td Vaccines (1 - Tdap) 1971Pneumococcal Vaccine (1 of 1 - PCV)1999Zoster Vaccines (1 of 2) 1999Bone Density Scan2014RSV High Risk: (Elderly (60+) or Population) (1 - 1-dose 75+ series)2024Influenza Vaccine (#1)2025 COVID-19 Vaccine ( - season)2025HIB VaccinesAged OutNo longer eligible based on patient's age to complete this topicHPV VaccinesAged OutNo longer eligible based on patient's age to complete this topicHepatitis A VaccinesAged OutNo longer eligible based on patient's age to complete this topic Hepatitis B VaccinesAged OutNo longer eligible based on patient's age to complete this topicIPV VaccinesAged OutNo longer eligible based on patient's age to complete this topicMeningococcal VaccineAged OutNo longer eligible based on patient's age to complete this topicRotavirus VaccinesAged OutNo longer eligible based on patient's age to complete this topic Insurance
--- OUTSIDE RECORDS SUMMARY | 2025-09-03 07:31 | XMS_ITS | Clinical Summary ---
Author Organization [facility] Address [address] [place] [address] Care Team Providers Care Cattle Manager Name Role Phone Unavailable Primary Care Provider Unavailabl e Social History Tobacco UseTypesPacks/DayYears UsedDateSmoking Tobacco: Never Assessed CommentsUnknownSex and Gender InformationValueDate RecordedSex Assigned at Not on fileLegal CknAsqzsh90/15/2023 10:14 PM EDTGender IdentityNot on file Sexual OrientationNot on file Plan of Treatment Not on file Insurance
--- OUTSIDE RECORDS SUMMARY | 2025-09-03 07:31 | XMS_ITS | Patient Health Record ---
Author Organization [facility] in [place] Address [address] [place] [place] [address] Care Team Providers Care Humanities And Languages Professor Name Role Phone Lynda Jean MD Primary Care Provider Brittni Garcia Unavailable [phone] Reason For Referral No Information Problems Problem Type SNOMED Code ICD Code Onset Dates Problem Status W/U Status Risk Notes Problem Unstageable pressure ulcer of right heel (L89.610)ActiveconfirmedProblemNon- pressure chronic ulcer of unspecified part of left lower leg with muscle involvement without evidence of necrosis (L97.925)Activeconfirmed Encounters Encounter Location Date Provider Diagnosis [facility] Oncology [address] [place] [address] 06/16/2025 Brittni Jackson [facility] [address] [place] [address]/05/2025 Brittni Jackson Plan Of Treatment No Information Insurance Providers Payer Name Payer Address Payer Phone Subscriber Number Group Number Insured Name Patient Relationship to Insured Coverage Start Date Coverage End Date [facility] PR[facility] MEDICARE [address] [place] [address] [id number] Remy Maciaself - patient is the insured
--- OUTSIDE RECORDS SUMMARY | 2025-09-03 07:31 | XMS_ITS | Continuity of Care Document ---
Author Organization [facility] Address [address] [place] [id number] Insurance Providers Payer Plan Claims Address Claims Phone Policy Number Group Number Relation Employer Guarantor Name Guarantor Guarantor Address Guarantor Phone MEDICARE MEDICARE tel:(727) [id number] MCR Adv PFFSMMO MCR Adv [id number] Healthcare MCR PFFSUnited Healthcare MCR [id number] Problems Condition ICD9 code ICD10 code SNOMED code Start Date End Date S tatus Enterocolitis due to Clostridium diffici le, not specified as recurrent A04.7205ActivePeripheral vascular disease, mqobrmhplynM17. ActiveType 2 diabetes mellitus without ewuevmiwxtncxF70.5Active Hyperlipidemia, vehmndutgqgQ14.5035ActiveAnxiety disorder, unspecified F41.905ActiveMajor depressive disorder, single episode, mildF32.0 035ActiveCellulitis of right lower limbL03.972925ActiveCellulitis of left lower limbL03.586725ActiveAcute respiratory failure, unspecified whether with hypoxia or fqccvpmjwqwA56.00035ActiveRheumatoid arthritis without rheumatoid factor, unspecified siteM06.5ActiveUnspecified osteoarthritis, unspecified siteM19.9005ActiveGeneralized sybeiA02.1 5ActiveAbnormality of gozdmtxN58.0035ActiveHereditary and idiopathic neuropathy, ibncoslmmmwG16.905ActiveObesity, class 2 5ActiveEssential (primary) hoipltjkdtsdO7167/4550EkdscjWtlejdJ10.0 12/05/2024tiveMuscle weakness (generalized)M62.81035ActiveDifficulty in walking, not elsewhere bajsnjwucqD04.2035ActiveDysphagia, oropharyngeal zqjcyT21.1203tiveCognitive communication risthygF57.35584 ActiveRetention of urine, jfojhayyfonF92.9035ActiveType 2 diabetes mellitus with diabetic bcjrqkvpqiguooH23.42032081XmuljdUbreofhexnE18.81 12/05/2024tiveOther disorders of plasma-protein metabolism, not elsewhere qfnsefdcpvV75.0903tiveEssential mchuftV86.003tiveParoxysmal atrial jnlfatjuvzcbA03.003tiveNon-pressure chronic ulcer of unspecified part of left lower leg with unspecified zooietsrH68.8830512/05/2024 ActiveRetention of urine, rxyaethjifhZ58.905ActivePersonal history of pulmonary jjieucbqH22.42038tiveNutritional deficiency, unspecified E63.9012/09/2024tiveDysphagia, oral deijeC74.1105ActiveNeuromuscular dysfunction of bladder, qmiudxdgielI78.905tiveNeuromuscular dysfunction of bladder, pelahwfetxzK33.905/tiveObesity, class 2E66.812 5ActiveOther fracture of first lumbar vertebra, initial encounter for closed bzkurtibA08.018A055ActiveOther fracture of second lumbar vertebra, initial encounter for closed bltjinzmD35.028A5ActiveAbnormal results of thyroid function csdzachL92.608/5ActiveSpontaneous rbihitunqkA86.3 085ActiveSaddle embolus of pulmonary artery without acute cor pulmonale I26.92088267RsstllMuxfqlhuusxqQ50.51065ActiveEncounter for yztfldhbunpnH2965/26/2025Active Results Test Result Date/Time Value / Unit Interp. Refere nce Range Blood chemistry[[id number]] Glucose [Mass/volume] in Serum or Plasma [2345-7] 06/29/2025 10:02 AM 0 mg/dL N Blood chemistry[[id number]]?Glucose [Mass/volume] in Serum or Plasma [2345-7]06/28/2025 11:22 AM0 mg/dLNTuberculosis reaction wheal[95498-9]?Tuberculosis reaction wheal [46910-8]05/03/2025 04:00 PM 0 mmNEGTuberculosis reaction wheal[23663-4]?Tuberculosis reaction wheal [85932-3]04/23/2025 07:59 AM0 mmNEGTuberculosis reaction wheal[06689-4]?Tuberculosis reaction wheal [58206-7]12/16/2024 04:00 PM See noteTB testTuberculosis reaction wheal[78423-4]?Tuberculosis reaction wheal [93382-6]12/06/2024 04:00 PM0 mmNEG Allergies, adverse reactions, alerts Substance Reaction Date Status Type No allergies have been recorded Non DrugPenicillins (PCN)12/06/2024Non Cmlouexqqoledh23/17/2025Non Drugcortisone 12/08/2024Non Iucjrmcbybyurcrnq07/17/2025Non Tqbsqfyvni18/17/2025Non Drug /17/2025Non NpoiXidzck20/17/2025Non Drug Immunizations Vaccine Route Date Status COVID-19 Vaccine Unassigned Route of Administration Refused Influenza Vaccine Unassigned Route of Administration 1 Refused COVID-19 Vaccine Unassigned Route of Administration Refused [...] Twice A Day oral 1.0 12.0 h 05/28 Generalized edema Active aspirin 81 mg tablet,chewabl e (aspirin) 81 mg, oral, Once A Day oral 1.0 1.0 d 12/05/2024 Peripheral vascular disease, unspecifiedActiveatorvastatin 80 mg tablet (atorvastatin)80 mg, oral, At Bedtimeoral1.Hyperlipidemia, unspecifiedActivecalcium carbonate-vitamin D3 600 mg-10 mcg (400 unit) tablet (calcium carbonate-vitamin D3)one tablet, oral, Once A Dayoral1.01.0 d012/05/2024 Unspecified osteoarthritis, unspecified siteActiveEliquis (apixaban) 5 mg tablet (Eliquis (apixaban))5 mg, oral, Twice A Dayoral1.012.0 12/05/2024Peripheral vascular disease, unspecifiedActiveglucagon HCl 1 mg/mL recon soln (glucagon HCl)1 mg, intramuscular, Three Times A Day - PRNintramuscular1.08.0 h012/05/2024 5ActiveLidoderm (lidocaine) 5 % adhesive patch,medicated (Lidoderm (lidocaine))one patch, patch, Twice A Day, on in AM off in PM1.012.0 h012/05/2024 Unspecified osteoarthritis, unspecified siteActivemetoprolol tartrate 25 mg tablet (metoprolol tartrate)25 mg, oral, Twice A Dayoral1.012.0 12/05/2024 07/28/2025Essential (primary) hypertensionActivemirtazapine 15 mg tablet (mirtazapine)15 mg, oral, At Bedtimeoral1./nxiety disorder, unspecifiedActivemultivitamin - tablet (multivitamin)one tablet, oral, Once A Dayoral1.01.0 d0bnormality of albuminActivepromethazine 12.5 mg tablet (promethazine)12.5 mg, oral, With Meals, Do not give after 4 pmoral 1./NauseaActiveTylenol (acetaminophen) 325 mg tablet (Tylenol (acetaminophen))650 mg, oral, Every 6 Hours - PRNoral1.06.0 12/05/2024 Unspecified osteoarthritis, unspecified siteActiveVoltaren Arthritis Pain (diclofenac sodium) 1 % gel (Voltaren Arthritis Pain (diclofenac sodium))2 grams, topical, Every 6 Hours, apply to elbow wrist and back of handtopical1.0 6.0 12/05/2024Unspecified osteoarthritis, unspecified siteActivevancomycin 250 mg capsule (vancomycin)500, oral, Every 6 Hoursoral1.06.0 ActiveBeneprotein (whey protein isolate) 6 gram-25 kcal/7 gram powder in packet (Beneprotein (whey protein isolate))1 packet, oral, Before Meals and At Bedtime oral1.Enterocolitis due to Clostridium difficile, not specified as recurrentActiveNormal Saline Flush (sodium chloride 0.9 % (flush)) - syringe (Normal Saline Flush (sodium chloride0.9 % (flush)))10ml, injection, 6 Times Per Day1.06.0 d0/tivetramadol 50 mg tablet (tramadol)1 tab, oral, Every 6 Hours - PRN, for severe painoral1.06.0 h0/5Active furosemide 20 mg tablet (furosemide)40mg, oral, Twice A Dayoral1.012.0 h 503/Generalized edemaActivevancomycin 50 mg/mL recon soln (vancomycin)10ml, oral, Every 6 Hoursoral1.06.0 h0503/ Enterocolitis due to Clostridium difficile, not specified as recurrentActive vancomycin 50 mg/mL recon soln (vancomycin)10ml, oral, Every 6 Hoursoral1.06.0 h 503/Enterocolitis due to Clostridium difficile, not specified as recurrentActivevancomycin 50 mg/mL recon soln (vancomycin)10ml, oral, Every 6 Hoursoral1.06.0 h0503/Enterocolitis due to Clostridium difficile, not specified as recurrentActiveamiodarone 200 mg tablet (amiodarone)200mg, oral, Twice A Dayoral1.012.0 h0/Peripheral vascular disease, unspecifiedActiveamiodarone 200 mg tablet (amiodarone)200mg, oral, Once A Day oral1.01.0 d0503/Peripheral vascular disease, unspecifiedActive Daily Multivitamin-Minerals (multivitamin with minerals) - tablet (Daily Multivitamin-Minerals (multivitamin with minerals))1 tablet, oral, Once A Day oral1.01.0 d0503/Type 2 diabetes mellitus without complications Activefurosemide 20 mg tablet (furosemide)20mg, oral, Twice A Dayoral1.012.0 h 12/08/2024Generalized edemaActiveamiodarone 200 mg tablet (amiodarone)200mg, oral, Twice A Dayoral1.012.0 h0503/Peripheral vascular disease, unspecifiedActiveMucinex (guaifenesin) 600 mg tablet extended release 12hr (Mucinex (guaifenesin))600, oral, Twice A Dayoral1.012.0 h0503/ Activeamiodarone 200 mg tablet (amiodarone)200mg, oral, Once A Dayoral1.01.0 d 12/09/2024Peripheral vascular disease, unspecifiedActiveNormal Saline Flush (sodium chloride 0.9 % (flush)) - syringe (Normal Saline Flush (sodium chloride 0.9 % (flush)))10ml, injection, Twice A Day1.012.0 h012/09/955017/5Active amiodarone 200 mg tablet (amiodarone)200mg, oral, Once A Dayoral1.01.0 d 503/5Activeamiodarone 200 mg tablet (amiodarone)200mg, oral, Once A Dayoral1.01.0 d0503/Peripheral vascular disease, unspecified ActiveGlucagon Emergency Kit (human) (glucagon) 1 mg recon soln (Glucagon Emergency Kit (human) (glucagon))1 mg, intramuscular, Three Times A Day - PRN intramuscular1.08.0 h012/17/2024Type 2 diabetes mellitus with diabetic hxmooybbekuevzPhpkvtztwxzemt-cch-qfzs fum-folic ac 7.5 mg iron-400 mcg tablet (bhndyvmp-jwm-oxms fum-folic ac)1 tablet, oral, Once A Day, supplementoral1.01.0 d05Activecefepime 1 gram recon soln (cefepime)1 gram, intravenous, Twice A Day, wound infection/abscess LLEintravenous1.012.0 h0504/10/2024 Activecefepime 1 gram recon soln (cefepime)1 gram, intravenous, Twice A Day, wound infection/abscess LLEintravenous1.012.0 h012/21/252615/5ActiveNormal Saline Flush (sodium chloride 0.9 % (flush)) - syringe (Normal Saline Flush (sodium chloride0.9 % (flush)))10 cc, injection, Four Times A Day1.06.0 h 504/5Activevancomycin 1,000 mg recon soln (vancomycin)1 gram, intravenous, Twice A Day, wound infection/abscess LLE. PHARMACY TO DOSE intravenous1.012.0 /5Activevancomycin 1,000 mg recon soln (vancomycin)1 gram, intravenous, Twice A Day, wound infection/abscess LLE intravenous1.012.0 5Activecefepime 1 gram recon soln (cefepime)1 gram, intravenous, Twice A Day, wound infection/abscess LLE intravenous1.012.0 5ActiveZoloft (sertraline) 25 mg tablet (Zoloft (sertraline))25mg, oral, Once A Day, Give one tablet daily for depression.oral1.01.0 5Activevancomycin in 0.9 % sodium chl 750 mg/150 mL solution (vancomycin in 0.9 % sodium chl)750 mg, intravenous, Twice A Dayintravenous1.012.0 5BacteremiaActivevancomycin 1,000 mg recon soln (vancomycin)1 gram, intravenous, Twice A Day, wound infection/abscess LLE. PHARMACY TO DOSEintravenous1.012.0 ActiveNormal Saline Flush (sodium chloride 0.9 % (flush)) - syringe (Normal Saline Flush (sodium chloride0.9 % (flush)))10 cc, injection, Four Times A Day 1.06.0 /5Activecyclobenzaprine 10 mg tablet (cyclobenzaprine) 1 tab, oral, Three Times A Day - PRN, painoral1.08.0 /5Active hydrocodone-acetaminophen 7.5-325 mg tablet (hydrocodone-acetaminophen)1 tab, oral, Every 6 Hours - PRN, painoral1.06.0 01/12/2025tivegabapentin 100 mg capsule (gabapentin)200mg, oral, Three Times A Day, Give to tabs to equal 200mg oral1.08.0 /Hereditary and idiopathic neuropathy, unspecifiedActiveferrous sulfate 325 mg (65 mg iron) tablet (ferrous sulfate) 325mg, oral, Twice A Dayoral1.012.0 5Activegabapentin 300 mg capsule (gabapentin)1 capsule, oral, Three Times A Dayoral1.08.0 5Type 2 diabetes mellitus with diabetic polyneuropathyActivemirtazapine 30 mg tablet (mirtazapine)30mg, oral, At Bedtimeoral1.5ActivePrilosec OTC (omeprazole magnesium) 20 mg tablet,delayed release (DR/EC) (Prilosec OTC (omeprazole magnesium))20mg, oral, Once A Dayoral1.01.0 5ActiveZoloft (sertraline) 50 mg tablet (Zoloft (sertraline))50mg, oral, Once A Dayoral1.01.0 01/19/2025Major depressive disorder, single episode, mildActiveCalcium with Vitamin D (calcium carbonate-vitamin d3) 600 mg-10 mcg (400 unit) tablet (Calcium withVitamin D (calcium carbonate-vitamin d3))1 tab, oral, Once A Day, hypocalcemiaoral1.01.0 d05ActiveAntacid (calcium carbonate) (calcium carbonate) 200 mg calcium (500 mg) tablet,chewable (Antacid (calcium carbonate) (calcium carbonate))500 mg, oral, Once A Dayoral1.01.0 5Hypocalcemia Activecalcium citrate 250 mg calcium tablet (calcium citrate)2 capsules, oral, Once A Day, hypocalcemiaoral1.01.0 5ActiveColace (docusate sodium) 100 mg capsule (Colace (docusate sodium))100 mg, oral, Twice A Dayoral1.012.0 h 5Constipation, unspecifiedActiveDramamine (dimenhydrinate) 50 mg tablet (Dramamine (dimenhydrinate))50mg, oral, As Needed, Give 1 tablet 30 minutes prior to leaving for an apptoral1.01.0 d05Activeferrous sulfate 325 mg (65 mg iron) tablet (ferrous sulfate)325mg, oral, Twice A Day, anemiaoral1.012.0 h05ActiveLidoderm (lidocaine) 5 % adhesive patch,medicated (Lidoderm (lidocaine))one patch, patch, Once A Day, on in AM off in PM1.01.0 d002/11/2025 Unspecified osteoarthritis, unspecified siteActiveLyrica (pregabalin) 100 mg capsule (Lyrica (pregabalin))100 mg, oral, Three Times A Dayoral1.08.0 h 5Hereditary and idiopathic neuropathy, unspecifiedActivemidodrine 5 mg tablet (midodrine)5 mg, oral, Twice A Day - PRN, Give if SBP < 22bfwg4.012.0 h 5ActiveMiralax (polyethylene glycol 3350) 17 gram/dose powder (Miralax (polyethylene glycol 3350))17 grams, oral, Once A Dayoral1.01.0 d002/18/2025 Constipation, unspecifiedActivepotassium chloride 20 mEq tablet extended release (potassium chloride)20, oral, Three Times A Day, hypokalemiaoral1.08.0 h 5095ActivePrilosec OTC (omeprazole magnesium) 20 mg tablet,delayed release (DR/EC) (Prilosec OTC (omeprazole magnesium))20mg, oral, Once A Day, gerdoral1.01.0 d05Activepromethazine 25 mg tablet (promethazine)1 tab, oral, Every 6 Hours - PRN, N&Voral1.06.0 h05Active tamsulosin 0.4 mg capsule (tamsulosin)0.4 mg, oral, At Bedtimeoral1.008 Retention of urine, unspecifiedActiveTucks (witch micah) (witch micah) 50 % pads, medicated (Tucks (witch micah) (witch micah))1 pad, topical, Every 2 Hours - PRN, hemorrhoidstopical1.02.0 h05ActiveLyrica (pregabalin) 75 mg capsule (Lyrica (pregabalin))1 tab, oral, Three Times A Day, neuropathic pain oral1.08.0 h003/11/796615/5Activefentanyl 50 mcg/hr patch 72 hour (fentanyl)one patch, transdermal, Once A Day Every 3 Daystransdermal1.01.0 d 06/06/2025Peripheral vascular disease, unspecifiedActivevitamin D3-vitamin K2 125 mcg (5,000 unit)-100 mcg capsule (vitamin D3-vitamin K2)1 capsule, oral, Once A Day, supplement from hematologyoral1.0 d006/16/2025HypocalcemiaActive metformin 500 mg tablet (metformin)1 tablet, oral, Once A Dayoral..0 d Type 2 diabetes mellitus with diabetic polyneuropathyActive Coricidin HBP Cold-Multi Sympt (zrowofvkal-eh-hpoxxeahfatkj) 6.25-15-325 mg/15 mL liquid (CoricidinHBP Cold-Multi Sympt (uqporbughw-wf-peuqulrkjkilo)) 6.25-15-325 mg, oral, Three Times A Dayoral1.08.0 h1510/5Active Enemeez (docusate sodium) 283 mg/5 mL enema (Enemeez (docusate sodium))1 enema, rectal, Once A Day - PRN, Step 3: If no BM by morning of day 4, administer 1 Enemeez MicroEnema in the morning. Indication for use: ConstipationStep 4: If no BM within 1 hour of administering Enemeez, contact provider.rectal1..0 d /5ActiveMiralax (polyethylene glycol 3350) 17 gram/dose powder (Miralax (polyethylene glycol 3350))17gm (1 capful), oral, Once A Day - PRN, Step 1: If no BM by Day 2, Mix 17gm (1 capful) in 4-8oz beverage of choice in the morning. Indication for use: Constipationoral1.01.0 d1/ ActiveEnemeez (docusate sodium) 283 mg/5 mL enema (Enemeez (docusate sodium))1 enema, rectal, Once A Day - PRN, Step 3: If no BM by morning of day 4, administer 1 Enemeez MicroEnema in the morning. Indication for use: ConstipationStep 4: If no BM within 1 hour of administering Enemeez, contact provider.rectal1.01.0 d15ActiveMiralax (polyethylene glycol 3350) 17 gram/dose powder (Miralax (polyethylene glycol 3350))17gm (1 capful), oral, Once A Day - PRN, Step 1: If no BM by Day 2, Mix 17gm (1 capful) in 4-8oz beverage of choice in the morning. Indication for use: Constipationoral1.01.0 d110/06/2024 Active Vital Signs Date Vital Result Comment 12/05/2024 11:48 PM Heart Rate (8867-4) 73 /min Blood Pressure Systolic (8480-6)109 mm[Hg]Blood Pressure Diastolic (8462-4)59 mm[Hg]12/05/2024 07:50 PMTemperature (8310-5)98.3 [degF]Oxygen Saturation (13593-9)98 %Respiratory Rate (9279-1)18 /minHeart Rate (8867-4)73 /minBlood Pressure Systolic (8480-6)109 mm[Hg]Blood Pressure Diastolic (8462-4)59 mm[Hg] 12/06/2024 06:27 AMBody Height (8302-2)64 [in_us]12/06/2024 08:04 AMHeart Rate (8867-4)76 /minBlood Pressure Systolic (8480-6)136 mm[Hg]Blood Pressure Diastolic (8462-4)58 mm[Hg]12/06/2024 04:22 PMTemperature (8310-5)98.1 [degF] Oxygen Saturation (49585-4)96 %Respiratory Rate (9279-1)18 /minHeart Rate (8867-4)83 /minBlood Pressure Systolic (8480-6)122 mm[Hg]Blood Pressure Diastolic (8462-4)72 mm[Hg]12/06/2024 04:21 PMTemperature (8310-5)98.1 [degF] Oxygen Saturation (52056-1)96 %Respiratory Rate (9279-1)18 /minHeart Rate (8867-4)83 /minBlood Pressure Systolic (8480-6)122 mm[Hg]Blood Pressure Diastolic (8462-4)72 mm[Hg]12/06/2024 07:13 PMHeart Rate (8867-4)83 /minBlood Pressure Systolic (8480-6)122 mm[Hg]Blood Pressure Diastolic (8462-4)72 mm[Hg] 12/07/2024 01:37 AMOxygen Saturation (40389-6)98 %12/07/2024 01:36 AMTemperature (8310-5)98 [degF]Respiratory Rate (9279-1)18 /minHeart Rate (88-4)80 /min Blood Pressure Systolic (8480-6)129 mm[Hg]Blood Pressure Diastolic (8462-4)70 mm[Hg]12/07/2024 08:12 AMHeart Rate (8867-4)81 /minBlood Pressure Systolic (8480-6)108 mm[Hg]Blood Pressure Diastolic (8462-4)58 mm[Hg]12/07/2024 12:17 PM Temperature (8310-5)98.3 [degF]Oxygen Saturation (74605-4)96 %Respiratory Rate (9279-1)16 /min12/07/2024 01:54 PMTemperature (8310-5)98.3 [degF]Oxygen Saturation (36131-5)96 %Respiratory Rate (9279-1)16 /minHeart Rate (8867-4)81 /minBlood Pressure Systolic (8480-6)108 mm[Hg]Blood Pressure Diastolic (8462-4) 58 mm[Hg]12/07/2024 04:56 PMTemperature (8310-5)98.3 [degF]Oxygen Saturation (16038-1)94 %Respiratory Rate (9279-1)18 /minHeart Rate (8867-4)90 /minBlood Pressure Systolic (8480-6)132 mm[Hg]Blood Pressure Diastolic (8462-4)80 mm[Hg] 12/07/2024 07:18 PMHeart Rate (8867-4)90 /minBlood Pressure Systolic (8480-6)132 mm[Hg]Blood Pressure Diastolic (8462-4)80 mm[Hg]12/07/2024 07:15 PMHeart Rate (8867-4)90 /minBlood Pressure Systolic (8480-6)132 mm[Hg]Blood Pressure Diastolic (8462-4)80 mm[Hg]12/08/2024 12:18 AMTemperature (8310-5)98 [degF] Oxygen Saturation (82585-0)95 %Respiratory Rate (9279-1)18 /minHeart Rate (8867-4)87 /minBlood Pressure Systolic (8480-6)130 mm[Hg]Blood Pressure Diastolic (8462-4)81 mm[Hg]12/08/2024 08:06 AMHeart Rate (8867-4)99 /minBlood Pressure Systolic (8480-6)151 mm[Hg]Blood Pressure Diastolic (8462-4)84 mm[Hg] 12/08/2024 04:47 AMHeart Rate (8867-4)90 /minBlood Pressure Systolic (8480-6)133 mm[Hg]Blood Pressure Diastolic (8462-4)75 mm[Hg]12/08/2024 12:06 PMTemperature (8310-5)98.2 [degF]Oxygen Saturation (91837-5)97 %Respiratory Rate (9279-1)18 /minHeart Rate (8867-4)92 /minBlood Pressure Systolic (8480-6)131 mm[Hg]Blood Pressure Diastolic (8462-4)80 mm[Hg]12/08/2024 08:30 PMHeart Rate (8867-4)97 /minBlood Pressure Systolic (8480-6)125 mm[Hg]Blood Pressure Diastolic (8462-4) 53 mm[Hg]12/08/2024 12:15 PMBody Weight (22177-8)221.2 [lb_av]Body Mass Index (78217-9)37.96 kg/m212/09/2024 02:38 AMTemperature (8310-5)98.1 [degF]Oxygen Saturation (79693-9)98 %Respiratory Rate (9279-1)16 /min12/09/2024 08:21 AMHeart Rate (8867-4)89 /minBlood Pressure Systolic (8480-6)141 mm[Hg]Blood Pressure Diastolic (8462-4)60 mm[Hg]12/09/2024 12:09 PMTemperature (8310-5)98.4 [degF] Oxygen Saturation (82044-4)98 %Respiratory Rate (9279-1)16 /min/ 10:46 PMHeart Rate (8867-4)83 /minBlood Pressure Systolic (8480-6)114 mm[Hg]Blood Pressure Diastolic (8462-4)65 mm[Hg]12/10/2024 08:28 AMTemperature (8310-5)98.3 [degF]Oxygen Saturation (61979-9)97 %Respiratory Rate (9279-1)18 /minHeart Rate (8867-4)90 /minBlood Pressure Systolic (8480-6)137 mm[Hg]Blood Pressure Diastolic (8462-4)70 mm[Hg]12/11/2024 12:09 AMHeart Rate (8867-4)56 /minBlood Pressure Systolic (8480-6)93 mm[Hg]Blood Pressure Diastolic (8462-4)59 mm[Hg] 12/11/2024 07:46 AMHeart Rate (8867-4)104 /minBlood Pressure Systolic (8480-6) 110 mm[Hg]Blood Pressure Diastolic (8462-4)60 mm[Hg]12/11/2024 09:19 AM Temperature (8310-5)98.2 [degF]Oxygen Saturation (84945-8)96 %Respiratory Rate (9279-1)18 /minHeart Rate (8867-4)104 /minBlood Pressure Systolic (8480-6)110 mm[Hg]Blood Pressure Diastolic (8462-4)60 mm[Hg]12/11/2024 09:16 PMHeart Rate (8867-4)90 /minBlood Pressure Systolic (8480-6)118 mm[Hg]Blood Pressure Diastolic (8462-4)68 mm[Hg]12/12/2024 07:44 AMHeart Rate (8867-4)89 /minBlood Pressure Systolic (8480-6)122 mm[Hg]Blood Pressure Diastolic (8462-4)80 mm[Hg] 12/12/2024 09:59 AMTemperature (8310-5)98.1 [degF]Oxygen Saturation (54238-4)98 %Respiratory Rate (9279-1)18 /minHeart Rate (8867-4)89 /minBlood Pressure Systolic (8480-6)122 mm[Hg]Blood Pressure Diastolic (8462-4)80 mm[Hg]12/12/2024 09:07 PMHeart Rate (8867-4)90 /minBlood Pressure Systolic (8480-6)131 mm[Hg] Blood Pressure Diastolic (8462-4)84 mm[Hg]12/13/2024 09:36 AMHeart Rate (8867-4) 86 /minBlood Pressure Systolic (8480-6)126 mm[Hg]Blood Pressure Diastolic (8462-4)80 mm[Hg]12/13/2024 01:33 PMTemperature (8310-5)98 [degF]Oxygen Saturation (56886-2)98 %Respiratory Rate (9279-1)18 /min12/13/2024 08:33 PMHeart Rate (8867-4)97 /minBlood Pressure Systolic (8480-6)115 mm[Hg]Blood Pressure Diastolic (8462-4)67 mm[Hg]12/14/2024 09:20 AMHeart Rate (8867-4)90 /minBlood Pressure Systolic (8480-6)121 mm[Hg]Blood Pressure Diastolic (8462-4)63 mm[Hg] 12/14/2024 10:23 AMTemperature (8310-5)98.2 [degF]Oxygen Saturation (71059-3)98 %Respiratory Rate (9279-1)18 /minHeart Rate (8867-4)84 /minBlood Pressure Systolic (8480-6)126 mm[Hg]Blood Pressure Diastolic (8462-4)66 mm[Hg]12/14/2024 09:05 PMHeart Rate (8867-4)98 /minBlood Pressure Systolic (8480-6)125 mm[Hg] Blood Pressure Diastolic (8462-4)60 mm[Hg]12/15/2024 07:43 AMHeart Rate (8867-4) 83 /minBlood Pressure Systolic (8480-6)126 mm[Hg]Blood Pressure Diastolic (8462-4)90 mm[Hg]12/15/2024 10:02 AMTemperature (8310-5)98 [degF]Oxygen Saturation (07154-7)95 %Respiratory Rate (9279-1)18 /minHeart Rate (8867-4)83 /minBlood Pressure Systolic (8480-6)126 mm[Hg]Blood Pressure Diastolic (8462-4) 90 mm[Hg]12/15/2024 09:10 PMHeart Rate (8867-4)86 /minBlood Pressure Systolic (8480-6)128 mm[Hg]Blood Pressure Diastolic (8462-4)86 mm[Hg]12/15/2024 12:08 PM Body Weight (45106-9)207.2 [lb_av]Body Mass Index (69328-4)35.56 kg/m212/16/2024 07:30 AMHeart Rate (8867-4)83 /minBlood Pressure Systolic (8480-6)130 mm[Hg] Blood Pressure Diastolic (8462-4)82 mm[Hg]12/16/2024 09:32 AMTemperature (8310-5)98.4 [degF]Oxygen Saturation (49263-5)93 %Respiratory Rate (9279-1)18 /minHeart Rate (8867-4)83 /minBlood Pressure Systolic (8480-6)130 mm[Hg]Blood Pressure Diastolic (8462-4)82 mm[Hg]12/16/2024 09:51 PMHeart Rate (8867-4)89 /minBlood Pressure Systolic (8480-6)132 mm[Hg]Blood Pressure Diastolic (8462-4) 72 mm[Hg]12/17/2024 07:47 AMTemperature (8310-5)97.9 [degF]Oxygen Saturation (07836-3)95 %Respiratory Rate (9279-1)20 /minHeart Rate (8867-4)91 /minBlood Pressure Systolic (8480-6)103 mm[Hg]Blood Pressure Diastolic (8462-4)81 mm[Hg] 12/17/2024 07:41 PMHeart Rate (8867-4)89 /minBlood Pressure Systolic (8480-6)135 mm[Hg]Blood Pressure Diastolic (8462-4)69 mm[Hg]12/18/2024 10:57 AMTemperature (8310-5)97.5 [degF]Oxygen Saturation (32766-6)95 %Respiratory Rate (9279-1)18 /minHeart Rate (8867-4)88 /minBlood Pressure Systolic (8480-6)132 mm[Hg]Blood Pressure Diastolic (8462-4)76 mm[Hg]12/18/2024 09:17 AMHeart Rate (8867-4)86 /minBlood Pressure Systolic (8480-6)140 mm[Hg]Blood Pressure Diastolic (8462-4) 72 mm[Hg]12/18/2024 08:57 PMHeart Rate (8867-4)86 /minBlood Pressure Systolic (8480-6)126 mm[Hg]Blood Pressure Diastolic (8462-4)75 mm[Hg]12/19/2024 09:21 AM Heart Rate (8867-4)82 /minBlood Pressure Systolic (8480-6)122 mm[Hg]Blood Pressure Diastolic (8462-4)70 mm[Hg]12/19/2024 08:59 PMHeart Rate (8867-4)89 /minBlood Pressure Systolic (8480-6)108 mm[Hg]Blood Pressure Diastolic (8462-4) 56 mm[Hg]12/20/2024 08:00 AMHeart Rate (8867-4)84 /minBlood Pressure Systolic (8480-6)142 mm[Hg]Blood Pressure Diastolic (8462-4)86 mm[Hg]12/20/2024 09:56 AM Temperature (8310-5)98.3 [degF]Oxygen Saturation (61634-3)95 %Respiratory Rate (9279-1)18 /minHeart Rate (8867-4)84 /minBlood Pressure Systolic (8480-6)142 mm[Hg]Blood Pressure Diastolic (8462-4)86 mm[Hg]12/20/2024 07:27 PMHeart Rate (8867-4)88 /minBlood Pressure Systolic (8480-6)118 mm[Hg]Blood Pressure Diastolic (8462-4)78 mm[Hg]12/21/2024 07:58 AMHeart Rate (8867-4)87 /minBlood Pressure Systolic (8480-6)120 mm[Hg]Blood Pressure Diastolic (8462-4)80 mm[Hg] 12/21/2024 10:00 AMTemperature (8310-5)98.6 [degF]Oxygen Saturation (50587-5)95 %Respiratory Rate (9279-1)18 /minHeart Rate (8867-4)87 /minBlood Pressure Systolic (8480-6)120 mm[Hg]Blood Pressure Diastolic (8462-4)80 mm[Hg]12/21/2024 08:13 PMHeart Rate (8867-4)85 /minBlood Pressure Systolic (8480-6)124 mm[Hg] Blood Pressure Diastolic (8462-4)82 mm[Hg]12/22/2024 09:14 AMTemperature (8310-5)97.9 [degF]Oxygen Saturation (34533-8)97 %Respiratory Rate (9279-1)18 /minHeart Rate (8867-4)80 /minBlood Pressure Systolic (8480-6)126 mm[Hg]Blood Pressure Diastolic (8462-4)77 mm[Hg]12/22/2024 08:01 PMHeart Rate (8867-4)87 /minBlood Pressure Systolic (8480-6)125 mm[Hg]Blood Pressure Diastolic (8462-4) 70 mm[Hg]12/22/2024 02:39 PMBody Weight (29838-6)201.6 [lb_av]Body Mass Index (31916-0)34.6 kg/m212/23/2024 08:25 AMTemperature (8310-5)98 [degF]Oxygen Saturation (55538-3)97 %Respiratory Rate (9279-1)18 /minHeart Rate (8867-4)82 /minBlood Pressure Systolic (8480-6)132 mm[Hg]Blood Pressure Diastolic (8462-4) 73 mm[Hg]12/23/2024 11:34 PMHeart Rate (8867-4)93 /minBlood Pressure Systolic (8480-6)127 mm[Hg]Blood Pressure Diastolic (8462-4)80 mm[Hg]12/24/2024 08:54 AM Temperature (8310-5)98.1 [degF]Respiratory Rate (9279-1)18 /minHeart Rate (8867-4)85 /min12/24/2024 08:50 AMBlood Pressure Systolic (8480-6)116 mm[Hg] Blood Pressure Diastolic (8462-4)41 mm[Hg]12/24/2024 08:48 AMHeart Rate (8867-4) 60 /min12/24/2024 08:55 AMOxygen Saturation (71195-8)98 %12/24/2024 10:57 PM Heart Rate (8867-4)82 /minBlood Pressure Systolic (8480-6)124 mm[Hg]Blood Pressure Diastolic (8462-4)54 mm[Hg]12/25/2024 07:54 AMHeart Rate (8867-4)76 /minBlood Pressure Systolic (8480-6)128 mm[Hg]Blood Pressure Diastolic (8462-4) 80 mm[Hg]12/25/2024 09:47 AMTemperature (8310-5)98.2 [degF]Oxygen Saturation (80894-0)99 %Respiratory Rate (9279-1)18 /minHeart Rate (8867-4)76 /minBlood Pressure Systolic (8480-6)128 mm[Hg]Blood Pressure Diastolic (8462-4)80 mm[Hg] 12/25/2024 07:46 PMHeart Rate (8867-4)79 /minBlood Pressure Systolic (8480-6)130 mm[Hg]Blood Pressure Diastolic (8462-4)78 mm[Hg]12/26/2024 07:52 AMHeart Rate (8867-4)78 /minBlood Pressure Systolic (8480-6)122 mm[Hg]Blood Pressure Diastolic (8462-4)80 mm[Hg]12/26/2024 11:22 AMTemperature (8310-5)98.3 [degF] Oxygen Saturation (39557-2)97 %Respiratory Rate (9279-1)18 /minHeart Rate (8867-4)78 /minBlood Pressure Systolic (8480-6)122 mm[Hg]Blood Pressure Diastolic (8462-4)80 mm[Hg]12/26/2024 08:13 PMHeart Rate (8867-4)80 /minBlood Pressure Systolic (8480-6)129 mm[Hg]Blood Pressure Diastolic (8462-4)75 mm[Hg] 12/27/2024 08:49 AMHeart Rate (8867-4)82 /minBlood Pressure Systolic (8480-6)122 mm[Hg]Blood Pressure Diastolic (8462-4)78 mm[Hg]12/28/2024 12:43 AMHeart Rate (8867-4)75 /minBlood Pressure Systolic (8480-6)118 mm[Hg]Blood Pressure Diastolic (8462-4)64 mm[Hg]12/27/2024 10:50 AMTemperature (8310-5)98 [degF] Oxygen Saturation (60135-0)98 %Blood Pressure Systolic (8480-6)130 mm[Hg]Blood Pressure Diastolic (8462-4)74 mm[Hg]12/28/2024 08:31 AMHeart Rate (8867-4)76 /minBlood Pressure Systolic (8480-6)124 mm[Hg]Blood Pressure Diastolic (8462-4) 66 mm[Hg]12/28/2024 10:14 PMHeart Rate (8867-4)84 /minBlood Pressure Systolic (8480-6)121 mm[Hg]Blood Pressure Diastolic (8462-4)73 mm[Hg]12/29/2024 08:04 AM Heart Rate (8867-4)76 /minBlood Pressure Systolic (8480-6)118 mm[Hg]Blood Pressure Diastolic (8462-4)80 mm[Hg]12/29/2024 10:03 AMTemperature (8310-5)98.1 [degF]Oxygen Saturation (48067-7)96 %Respiratory Rate (9279-1)18 /minHeart Rate (8867-4)76 /minBlood Pressure Systolic (8480-6)118 mm[Hg]Blood Pressure Diastolic (8462-4)80 mm[Hg]12/29/2024 02:45 PMTemperature (8310-5)98.2 [degF] Oxygen Saturation (73282-2)97 %Respiratory Rate (9279-1)18 /minHeart Rate (8867-4)75 /minBlood Pressure Systolic (8480-6)130 mm[Hg]Blood Pressure Diastolic (8462-4)72 mm[Hg]12/29/2024 04:23 PMTemperature (8310-5)98.2 [degF] Oxygen Saturation (36084-3)97 %Respiratory Rate (9279-1)18 /minHeart Rate (8867-4)75 /minBlood Pressure Systolic (8480-6)130 mm[Hg]Blood Pressure Diastolic (8462-4)72 mm[Hg]12/29/2024 11:21 PMTemperature (8310-5)98.4 [degF] Oxygen Saturation (75769-8)98 %Respiratory Rate (9279-1)18 /minHeart Rate (8867-4)78 /minBlood Pressure Systolic (8480-6)120 mm[Hg]Blood Pressure Diastolic (8462-4)82 mm[Hg]12/29/2024 10:48 PMHeart Rate (8867-4)80 /min 12/29/2024 10:50 PMBlood Pressure Systolic (8480-6)126 mm[Hg]Blood Pressure Diastolic (8462-4)78 mm[Hg]12/30/2024 07:52 AMHeart Rate (8867-4)65 /minBlood Pressure Systolic (8480-6)130 mm[Hg]Blood Pressure Diastolic (8462-4)90 mm[Hg] 12/30/2024 01:01 AMBody Weight (01058-4)190.2 [lb_av]Body Mass Index (85159-9) 32.64 kg/m212/30/2024 10:06 AMTemperature (8310-5)98.1 [degF]Oxygen Saturation (71508-1)91 %Respiratory Rate (9279-1)16 /minHeart Rate (8867-4)65 /minBlood Pressure Systolic (8480-6)130 mm[Hg]Blood Pressure Diastolic (8462-4)90 mm[Hg] 12/30/2024 09:42 PMHeart Rate (8867-4)79 /minBlood Pressure Systolic (8480-6)95 mm[Hg]Blood Pressure Diastolic (8462-4)67 mm[Hg]12/31/2024 01:29 AMTemperature (8310-5)98.4 [degF]Oxygen Saturation (56381-7)95 %Respiratory Rate (9279-1)16 /minHeart Rate (8867-4)79 /minBlood Pressure Systolic (8480-6)95 mm[Hg]Blood Pressure Diastolic (8462-4)67 mm[Hg]12/31/2024 09:31 AMHeart Rate (8867-4)76 /minBlood Pressure Systolic (8480-6)110 mm[Hg]Blood Pressure Diastolic (8462-4) 87 mm[Hg]12/31/2024 12:28 PMTemperature (8310-5)98.4 [degF]Oxygen Saturation (92179-1)95 %Respiratory Rate (9279-1)18 /minHeart Rate (8867-4)78 /minBlood Pressure Systolic (8480-6)128 mm[Hg]Blood Pressure Diastolic (8462-4)68 mm[Hg] 12/31/2024 05:46 PMTemperature (8310-5)98.3 [degF]Oxygen Saturation (93319-4)95 %Respiratory Rate (9279-1)20 /minHeart Rate (8867-4)74 /minBlood Pressure Systolic (8480-6)118 mm[Hg]Blood Pressure Diastolic (8462-4)62 mm[Hg]12/31/2024 09:53 PMHeart Rate (8867-4)68 /min12/31/2024 09:52 PMBlood Pressure Systolic (8480-6)110 mm[Hg]Blood Pressure Diastolic (8462-4)58 mm[Hg]12/31/2024 10:29 PM Body Weight (47262-5)299.8 [lb_av]Body Mass Index (31661-0)51.45 kg/m201/01/2025 01:31 AMTemperature (8310-5)98.4 [degF]Oxygen Saturation (30347-0)97 % Respiratory Rate (9279-1)18 /minHeart Rate (8867-4)70 /minBlood Pressure Systolic (8480-6)118 mm[Hg]Blood Pressure Diastolic (8462-4)70 mm[Hg]01/01/2025 09:11 AMHeart Rate (8867-4)76 /min01/01/2025 09:12 AMBlood Pressure Systolic (8480-6)114 mm[Hg]Blood Pressure Diastolic (8462-4)72 mm[Hg]01/01/2025 12:47 PM Oxygen Saturation (57537-6)97 %Respiratory Rate (9279-1) /min01/01/2025 12:46 PMTemperature (8310-5)98.1 [degF]01/02/2025 08:10 AMTemperature (8310-5)97.5 [degF]Oxygen Saturation (65627-7)96 %Respiratory Rate (9279-1)18 /minHeart Rate (8867-4)74 /minBlood Pressure Systolic (8480-6)96 mm[Hg]Blood Pressure Diastolic (8462-4)74 mm[Hg]01/02/2025 07:57 AMTemperature (8310-5)97.8 [degF]Oxygen Saturation (15113-5)96 %Respiratory Rate (9279-1)18 /minHeart Rate (8867-4)80 /minBlood Pressure Systolic (8480-6)87 mm[Hg]Blood Pressure Diastolic (8462-4)70 mm[Hg]01/02/2025 02:00 PMBody Weight (06971-5)198.2 [lb_av]Body Mass Index (23724-5)34.02 kg/m201/02/2025 10:06 PMHeart Rate (8867-4)62 /minBlood Pressure Systolic (8480-6)120 mm[Hg]Blood Pressure Diastolic (8462-4)76 mm[Hg]01/03/2025 07:57 AMHeart Rate (8867-4)75 /minBlood Pressure Systolic (8480-6)120 mm[Hg] Blood Pressure Diastolic (8462-4)72 mm[Hg]01/03/2025 09:52 AMTemperature (8310-5)98.2 [degF]Oxygen Saturation (37541-9)97 %Respiratory Rate (9279-1)18 /minHeart Rate (8867-4)75 /minBlood Pressure Systolic (8480-6)120 mm[Hg]Blood Pressure Diastolic (8462-4)72 mm[Hg]01/03/2025 08:49 PMHeart Rate (8867-4)83 /minBlood Pressure Systolic (8480-6)95 mm[Hg]Blood Pressure Diastolic (8462-4)72 mm[Hg]01/04/2025 07:42 AMHeart Rate (8867-4)71 /minBlood Pressure Systolic (8480-6)140 mm[Hg]Blood Pressure Diastolic (8462-4)88 mm[Hg]01/04/2025 09:40 AM Temperature (8310-5)98.3 [degF]Oxygen Saturation (97159-9)98 %Respiratory Rate (9279-1)18 /minHeart Rate (8867-4)71 /minBlood Pressure Systolic (8480-6)140 mm[Hg]Blood Pressure Diastolic (8462-4)88 mm[Hg]01/04/2025 07:37 PMHeart Rate (8867-4)77 /minBlood Pressure Systolic (8480-6)131 mm[Hg]Blood Pressure Diastolic (8462-4)61 mm[Hg]01/05/2025 08:34 AMHeart Rate (8867-4)82 /minBlood Pressure Systolic (8480-6)136 mm[Hg]Blood Pressure Diastolic (8462-4)66 mm[Hg] 01/05/2025 11:48 AMTemperature (8310-5)98.1 [degF]Oxygen Saturation (17297-7)97 %Respiratory Rate (9279-1)18 /min01/05/2025 11:51 AMBody Weight (59143-7)202.4 [lb_av]Body Mass Index (06363-0)34.74 kg/m201/05/2025 08:12 PMBlood Pressure Systolic (8480-6)106 mm[Hg]Blood Pressure Diastolic (8462-4)62 mm[Hg]01/05/2025 08:11 PMHeart Rate (8867-4)64 /min01/06/2025 08:46 AMHeart Rate (8867-4)66 /min 01/06/2025 08:42 AMBlood Pressure Systolic (8480-6)110 mm[Hg]Blood Pressure Diastolic (8462-4)66 mm[Hg]01/07/2025 01:19 AMHeart Rate (8867-4)75 /minBlood Pressure Systolic (8480-6)104 mm[Hg]Blood Pressure Diastolic (8462-4)57 mm[Hg] 01/07/2025 09:07 AMTemperature (8310-5)98 [degF]Oxygen Saturation (73994-6)94 % Respiratory Rate (9279-1)18 /min01/07/2025 09:06 AMHeart Rate (8867-4)80 /min Blood Pressure Systolic (8480-6)147 mm[Hg]Blood Pressure Diastolic (8462-4)41 mm[Hg]01/07/2025 09:28 PMHeart Rate (8867-4)74 /minBlood Pressure Systolic (8480-6)136 mm[Hg]Blood Pressure Diastolic (8462-4)66 mm[Hg]01/08/2025 10:05 AM Temperature (8310-5)98.6 [degF]Oxygen Saturation (06700-3)91 %Respiratory Rate (9279-1)16 /minHeart Rate (8867-4)71 /minBlood Pressure Systolic (8480-6)100 mm[Hg]Blood Pressure Diastolic (8462-4)66 mm[Hg]01/08/2025 10:52 PMHeart Rate (8867-4)73 /minBlood Pressure Systolic (8480-6)98 mm[Hg]Blood Pressure Diastolic (8462-4)68 mm[Hg]01/09/2025 07:46 AMTemperature (8310-5)99 [degF]Oxygen Saturation (89074-0)98 %Respiratory Rate (9279-1)15 /minHeart Rate (88-4)83 /minBlood Pressure Systolic (8480-6)121 mm[Hg]Blood Pressure Diastolic (8462-4) 59 mm[Hg]01/09/2025 12:07 PMTemperature (8310-5)99 [degF]Oxygen Saturation (22658-6)98 %Respiratory Rate (9279-1)16 /minHeart Rate (8867-4)83 /minBlood Pressure Systolic (8480-6)121 mm[Hg]Blood Pressure Diastolic (8462-4)59 mm[Hg] 01/09/2025 07:59 PMBlood Pressure Systolic (8480-6)136 mm[Hg]Blood Pressure Diastolic (8462-4)50 mm[Hg]01/09/2025 07:58 PMHeart Rate (8867-4)72 /min 01/10/2025 08:53 AMHeart Rate (8867-4)76 /minBlood Pressure Systolic (8480-6)130 mm[Hg]Blood Pressure Diastolic (8462-4)58 mm[Hg]01/10/2025 09:00 AMTemperature (8310-5)98.4 [degF]Oxygen Saturation (29679-3)97 %Respiratory Rate (9279-1)16 /minBlood Pressure Systolic (8480-6)122 mm[Hg]Blood Pressure Diastolic (8462-4) 60 mm[Hg]01/10/2025 10:41 PMHeart Rate (8867-4)61 /minBlood Pressure Systolic (8480-6)106 mm[Hg]Blood Pressure Diastolic (8462-4)56 mm[Hg]01/11/2025 08:56 AM Heart Rate (8867-4)66 /minBlood Pressure Systolic (8480-6)110 mm[Hg]Blood Pressure Diastolic (8462-4)62 mm[Hg]01/11/2025 11:40 PMHeart Rate (8867-4)71 /minBlood Pressure Systolic (8480-6)105 mm[Hg]Blood Pressure Diastolic (8462-4) 61 mm[Hg]01/12/2025 07:39 AMHeart Rate (8867-4)78 /minBlood Pressure Systolic (8480-6)122 mm[Hg]Blood Pressure Diastolic (8462-4)80 mm[Hg]01/12/2025 09:41 AM Temperature (8310-5)98.9 [degF]Oxygen Saturation (09237-6)99 %Respiratory Rate (9279-1)18 /minHeart Rate (8867-4)78 /minBlood Pressure Systolic (8480-6)122 mm[Hg]Blood Pressure Diastolic (8462-4)80 mm[Hg]01/12/2025 07:34 PMHeart Rate (8867-4)69 /minBlood Pressure Systolic (8480-6)120 mm[Hg]Blood Pressure Diastolic (8462-4)64 mm[Hg]01/13/2025 01:33 AMTemperature (8310-5)98 [degF] Oxygen Saturation (07677-5)93 %Respiratory Rate (9279-1)18 /minHeart Rate (8867-4)63 /minBlood Pressure Systolic (8480-6)125 mm[Hg]Blood Pressure Diastolic (8462-4)57 mm[Hg]01/13/2025 08:32 AMHeart Rate (8867-4)65 /minBlood Pressure Systolic (8480-6)126 mm[Hg]Blood Pressure Diastolic (8462-4)60 mm[Hg] 01/13/2025 01:27 PMTemperature (8310-5)98.2 [degF]01/13/2025 03:47 PMBody Weight (09724-0)202.6 [lb_av]Body Mass Index (72553-7)34.77 kg/m201/13/2025 09:27 PM Heart Rate (8867-4)75 /minBlood Pressure Systolic (8480-6)100 mm[Hg]Blood Pressure Diastolic (8462-4)77 mm[Hg]01/14/2025 08:23 AMTemperature (8310-5)98.2 [degF]Oxygen Saturation (75557-1)96 %Respiratory Rate (9279-1)18 /minHeart Rate (8867-4)73 /min04 08:21 AMHeart Rate (8867-4)73 /minBlood Pressure Systolic (8480-6)134 mm[Hg]Blood Pressure Diastolic (8462-4)55 mm[Hg]01/14/2025 09:25 PMHeart Rate (8867-4)77 /minBlood Pressure Systolic (8480-6)85 mm[Hg]Blood Pressure Diastolic (8462-4)51 mm[Hg]01/15/2025 01:04 AMTemperature (8310-5)97.8 [degF]Oxygen Saturation (38198-0)95 %Respiratory Rate (9279-1)18 /minHeart Rate (8867-4)72 /minBlood Pressure Systolic (8480-6)109 mm[Hg]Blood Pressure Diastolic (8462-4)61 mm[Hg]01/15/2025 06:52 AMTemperature (8310-5)98 [degF] Oxygen Saturation (41940-2)98 %Respiratory Rate (9279-1)18 /minHeart Rate (8867-4)83 /minBlood Pressure Systolic (8480-6)155 mm[Hg]Blood Pressure Diastolic (8462-4)66 mm[Hg]01/15/2025 08:49 PMHeart Rate (8867-4)76 /min 01/15/2025 08:47 PMBlood Pressure Systolic (8480-6)147 mm[Hg]Blood Pressure Diastolic (8462-4)86 mm[Hg]01/15/2025 08:42 AMHeart Rate (8867-4)80 /minBlood Pressure Systolic (8480-6)150 mm[Hg]Blood Pressure Diastolic (8462-4)62 mm[Hg] 01/16/2025 02:02 AMTemperature (8310-5)98 [degF]Oxygen Saturation (90479-7)98 % Respiratory Rate (9279-1)16 /minHeart Rate (8867-4)73 /minBlood Pressure Systolic (8480-6)121 mm[Hg]Blood Pressure Diastolic (8462-4)62 mm[Hg]01/16/2025 10:42 AMHeart Rate (8867-4)70 /minBlood Pressure Systolic (8480-6)124 mm[Hg] Blood Pressure Diastolic (8462-4)66 mm[Hg]01/16/2025 10:44 AMTemperature (8310-5)97.8 [degF]Oxygen Saturation (40273-6)97 %Respiratory Rate (9279-1)16 /min01/16/2025 11:43 PMHeart Rate (8867-4)88 /minBlood Pressure Systolic (8480-6)122 mm[Hg]Blood Pressure Diastolic (8462-4)52 mm[Hg]01/17/2025 07:45 AM Heart Rate (8867-4)78 /minBlood Pressure Systolic (8480-6)140 mm[Hg]Blood Pressure Diastolic (8462-4)80 mm[Hg]01/17/2025 09:35 AMTemperature (8310-5)98.7 [degF]Oxygen Saturation (60475-4)94 %Respiratory Rate (9279-1)18 /minHeart Rate (8867-4)78 /minBlood Pressure Systolic (8480-6)140 mm[Hg]Blood Pressure Diastolic (8462-4)80 mm[Hg]01/17/2025 07:48 PMHeart Rate (88-4)90 /minBlood Pressure Systolic (8480-6)138 mm[Hg]Blood Pressure Diastolic (8462-4)84 mm[Hg] 01/18/2025 07:35 AMHeart Rate (8867-4)71 /minBlood Pressure Systolic (8480-6)142 mm[Hg]Blood Pressure Diastolic (8462-4)74 mm[Hg]01/18/2025 09:53 AMTemperature (8310-5)98.4 [degF]Oxygen Saturation (04648-9)96 %Respiratory Rate (9279-1)18 /minHeart Rate (88-4)71 /minBlood Pressure Systolic (8480-6)142 mm[Hg]Blood Pressure Diastolic (8462-4)74 mm[Hg]01/18/2025 07:37 PMHeart Rate (88-4)103 /minBlood Pressure Systolic (8480-6)111 mm[Hg]Blood Pressure Diastolic (8462-4) 83 mm[Hg]01/19/2025 08:37 AMRespiratory Rate (9279-1)18 /minHeart Rate (8866-4) 98 /minBlood Pressure Systolic (8480-6)110 mm[Hg]Blood Pressure Diastolic (8462-4)80 mm[Hg]01/19/2025 08:38 AMOxygen Saturation (34672-1)95 %01/19/2025 08:36 AMTemperature (8310-5)98.2 [degF]01/20/2025 02:55 AMTemperature (8310-5) 97.8 [degF]Oxygen Saturation (81355-4)98 %Respiratory Rate (9279-1)16 /minHeart Rate (8867-4)68 /minBlood Pressure Systolic (8480-6)131 mm[Hg]Blood Pressure Diastolic (8462-4)64 mm[Hg]01/20/2025 08:47 AMOxygen Saturation (91856-3)97 % Respiratory Rate (9279-1)16 /minHeart Rate (8867-4)62 /minBlood Pressure Systolic (8480-6)128 mm[Hg]Blood Pressure Diastolic (8462-4)66 mm[Hg]01/20/2025 08:45 AMTemperature (8310-5)97.8 [degF]01/20/2025 11:26 PMHeart Rate (8867-4)81 /minBlood Pressure Systolic (8480-6)113 mm[Hg]Blood Pressure Diastolic (8462-4) 51 mm[Hg]01/21/2025 08:22 AMTemperature (8310-5)98.8 [degF]Oxygen Saturation (65342-5)95 %Respiratory Rate (9279-1)18 /minHeart Rate (88-4)58 /minBlood Pressure Systolic (8480-6)102 mm[Hg]Blood Pressure Diastolic (8462-4)60 mm[Hg] 01/21/2025 11:54 PMHeart Rate (88-4)85 /minBlood Pressure Systolic (8480-6)123 mm[Hg]Blood Pressure Diastolic (8462-4)66 mm[Hg]01/22/2025 07:37 AMHeart Rate (88-4)80 /minBlood Pressure Systolic (8480-6)148 mm[Hg]Blood Pressure Diastolic (8462-4)82 mm[Hg]01/22/2025 09:33 AMTemperature (8310-5)98.4 [degF] Oxygen Saturation (58038-6)90 %Respiratory Rate (9279-1)18 /minHeart Rate (8867-4)80 /minBlood Pressure Systolic (8480-6)148 mm[Hg]Blood Pressure Diastolic (8462-4)82 mm[Hg]01/22/2025 08:33 PMHeart Rate (8867-4)71 /minBlood Pressure Systolic (8480-6)75 mm[Hg]Blood Pressure Diastolic (8462-4)49 mm[Hg] 01/23/2025 07:48 AMHeart Rate (8867-4)74 /minBlood Pressure Systolic (8480-6)120 mm[Hg]Blood Pressure Diastolic (8462-4)88 mm[Hg]01/23/2025 09:34 AMTemperature (8310-5)98.3 [degF]Oxygen Saturation (56424-2)97 %Respiratory Rate (9279-1)16 /minHeart Rate (8867-4)74 /minBlood Pressure Systolic (8480-6)120 mm[Hg]Blood Pressure Diastolic (8462-4)88 mm[Hg]01/23/2025 02:25 PMBody Weight (54766-2) 192.4 [lb_av]Body Mass Index (12733-8)33.02 kg/m201/23/2025 08:37 PMHeart Rate (8867-4)73 /minBlood Pressure Systolic (8480-6)129 mm[Hg]Blood Pressure Diastolic (8462-4)64 mm[Hg]01/24/2025 07:13 AMHeart Rate (8867-4)75 /minBlood Pressure Systolic (8480-6)131 mm[Hg]Blood Pressure Diastolic (8462-4)67 mm[Hg] 01/25/2025 09:20 AMTemperature (8310-5)98.1 [degF]Oxygen Saturation (97430-0)98 %Respiratory Rate (9279-1)16 /minBlood Pressure Systolic (8480-6)122 mm[Hg]Blood Pressure Diastolic (8462-4)68 mm[Hg]01/25/2025 09:14 AMHeart Rate (8867-4)70 /minBlood Pressure Systolic (8480-6)130 mm[Hg]Blood Pressure Diastolic (8462-4) 64 mm[Hg]01/25/2025 08:37 PMHeart Rate (8867-4)75 /minBlood Pressure Systolic (8480-6)158 mm[Hg]Blood Pressure Diastolic (8462-4)63 mm[Hg]01/26/2025 07:35 AM Heart Rate (8867-4)66 /minBlood Pressure Systolic (8480-6)116 mm[Hg]Blood Pressure Diastolic (8462-4)80 mm[Hg]01/26/2025 09:30 AMTemperature (8310-5)98.1 [degF]Oxygen Saturation (65687-0)94 %Respiratory Rate (9279-1)16 /minHeart Rate (8867-4)66 /minBlood Pressure Systolic (8480-6)116 mm[Hg]Blood Pressure Diastolic (8462-4)80 mm[Hg]05/22/2025 07:43 PMHeart Rate (8867-4)64 /minBlood Pressure Systolic (8480-6)108 mm[Hg]Blood Pressure Diastolic (8462-4)57 mm[Hg] 04/21/2025 02:30 PMBody Weight (26927-6)216.8 [lb_av]Body Mass Index (61494-5) 37.21 kg/m202/15/2025 09:40 AMTemperature (8310-5)98 [degF]Oxygen Saturation (71173-5)100 %Respiratory Rate (9279-1)16 /min02/22/2025 04:32 PMTemperature (8310-5)98.2 [degF]Oxygen Saturation (09568-6)96 %Respiratory Rate (9279-1)18 min05/28/2025 07:53 AMHeart Rate (8867-4)67 /minBlood Pressure Systolic (8480-6)132 mm[Hg]Blood Pressure Diastolic (8462-4)70 mm[Hg]05/25/2025 08:59 AM Heart Rate (8867-4)76 /minBlood Pressure Systolic (8480-6)116 mm[Hg]Blood Pressure Diastolic (8462-4)74 mm[Hg]03/29/2025 01:35 PMTemperature (8310-5)97.5 [degF]Oxygen Saturation (73225-8)98 %Respiratory Rate (9279-1)05/27/2025 12:57 PMBody Weight (51118-7)222.4 [lb_av]Body Mass Index (37825-5)38.17 kg/m2 05/29/2025 08:10 AMHeart Rate (8867-4)72 /minBlood Pressure Systolic (8480-6)114 mm[Hg]Blood Pressure Diastolic (8462-4)66 mm[Hg]05/27/2025 08:42 AMHeart Rate (8867-4)79 /minBlood Pressure Systolic (8480-6)110 mm[Hg]Blood Pressure Diastolic (8462-4)62 mm[Hg]05/24/2025 10:35 PMHeart Rate (8867-4)80 /minBlood Pressure Systolic (8480-6)119 mm[Hg]Blood Pressure Diastolic (8462-4)78 mm[Hg] 05/26/2025 09:07 PMHeart Rate (8867-4)69 /minBlood Pressure Systolic (8480-6)100 mm[Hg]Blood Pressure Diastolic (8462-4)61 mm[Hg]04/25/2025 05:10 PMTemperature (8310-5)98.1 [degF]Oxygen Saturation (23658-8)95 %Respiratory Rate (9279-1)04/24/2025 12:59 AMBody Weight (94969-4)217.9 [lb_av]Body Mass Index (95275-6)37.4 kg/m202/23/2025 04:54 PMTemperature (8310-5)98 [degF]Respiratory Rate (9279-1)05/23/2025 08:08 AMHeart Rate (8867-4)71 /minBlood Pressure Systolic (8480-6)116 mm[Hg]Blood Pressure Diastolic (8462-4)80 mm[Hg]05/21/2025 09:03 AMHeart Rate (8867-4)74 /minBlood Pressure Systolic (8480-6)114 mm[Hg] Blood Pressure Diastolic (8462-4)68 mm[Hg]02/12/2025 09:55 AMTemperature (8310-5)98 [degF]Respiratory Rate (9279-1)02/12/2025 09:56 AMOxygen Saturation (67343-8)95 %02/10/2025 09:32 AMOxygen Saturation (15486-6)95 % 02/25/2025 02:57 PMTemperature (8310-5)98.1 [degF]Oxygen Saturation (58193-7)96 %Respiratory Rate (9279-1)02/11/2025 08:49 AMTemperature (8310-5)98.2 [degF]Oxygen Saturation (43611-8)94 %Respiratory Rate (9279-1)02/14/2025 09:09 AMTemperature (8310-5)98.2 [degF]Oxygen Saturation (99532-5)98 % Respiratory Rate (9279-1)03/25/2025 02:31 PMBody Weight (36418-4)197 [lb_av]Body Mass Index (71162-8)33.81 kg/m202/24/2025 01:26 AMTemperature (8310-5)97.7 [degF]Oxygen Saturation (78998-3)97 %Respiratory Rate (9279-1)05/23/2025 07:30 PMHeart Rate (8867-4)69 /minBlood Pressure Systolic (8480-6)111 mm[Hg]Blood Pressure Diastolic (8462-4)51 mm[Hg]05/30/2025 12:09 AM Heart Rate (8867-4)63 /minBlood Pressure Systolic (8480-6)110 mm[Hg]Blood Pressure Diastolic (8462-4)51 mm[Hg]05/30/2025 09:10 AMHeart Rate (8867-4)58 /minBlood Pressure Systolic (8480-6)112 mm[Hg]Blood Pressure Diastolic (8462-4) 58 mm[Hg]05/30/2025 08:28 PMHeart Rate (8867-4)73 /minBlood Pressure Systolic (8480-6)92 mm[Hg]Blood Pressure Diastolic (8462-4)62 mm[Hg]05/31/2025 09:56 AM Heart Rate (8867-4)76 /minBlood Pressure Systolic (8480-6)101 mm[Hg]Blood Pressure Diastolic (8462-4)66 mm[Hg]05/31/2025 07:38 PMHeart Rate (8867-4)66 /minBlood Pressure Systolic (8480-6)133 mm[Hg]Blood Pressure Diastolic (8462-4) 75 mm[Hg]06/03/2025 08:42 AMHeart Rate (8867-4)64 /minBlood Pressure Systolic (8480-6)108 mm[Hg]Blood Pressure Diastolic (8462-4)72 mm[Hg]06/04/2025 08:12 AM Heart Rate (8867-4)74 /minBlood Pressure Systolic (8480-6)116 mm[Hg]Blood Pressure Diastolic (8462-4)76 mm[Hg]06/04/2025 08:18 PMHeart Rate (8867-4)74 /minBlood Pressure Systolic (8480-6)113 mm[Hg]Blood Pressure Diastolic (8462-4) 52 mm[Hg]06/05/2025 09:18 AMHeart Rate (8867-4)78 /minBlood Pressure Systolic (8480-6)120 mm[Hg]Blood Pressure Diastolic (8462-4)64 mm[Hg]06/05/2025 08:41 PM Heart Rate (8867-4)84 /minBlood Pressure Systolic (8480-6)135 mm[Hg]Blood Pressure Diastolic (8462-4)82 mm[Hg]06/06/2025 07:56 AMHeart Rate (8867-4)69 /minBlood Pressure Systolic (8480-6)132 mm[Hg]Blood Pressure Diastolic (8462-4) 74 mm[Hg]06/06/2025 08:19 PMHeart Rate (8867-4)67 /minBlood Pressure Systolic (8480-6)114 mm[Hg]Blood Pressure Diastolic (8462-4)58 mm[Hg]06/07/2025 11:26 PM Heart Rate (8867-4)71 /minBlood Pressure Systolic (8480-6)119 mm[Hg]Blood Pressure Diastolic (8462-4)61 mm[Hg]06/08/2025 08:19 AMHeart Rate (8867-4)76 /minBlood Pressure Systolic (8480-6)122 mm[Hg]Blood Pressure Diastolic (8462-4) 64 mm[Hg]06/09/2025 09:01 AMHeart Rate (8867-4)72 /minBlood Pressure Systolic (8480-6)116 mm[Hg]Blood Pressure Diastolic (8462-4)66 mm[Hg]06/09/2025 08:28 PM Heart Rate (8867-4)68 /minBlood Pressure Systolic (8480-6)110 mm[Hg]Blood Pressure Diastolic (8462-4)62 mm[Hg]06/10/2025 09:11 AMHeart Rate (8867-4)70 /min06/10/2025 09:09 AMBlood Pressure Systolic (8480-6)110 mm[Hg]Blood Pressure Diastolic (8462-4)58 mm[Hg]06/10/2025 07:40 PMHeart Rate (8867-4)67 /minBlood Pressure Systolic (8480-6)111 mm[Hg]Blood Pressure Diastolic (8462-4)57 mm[Hg] 06/13/2025 08:40 AMHeart Rate (8867-4)70 /minBlood Pressure Systolic (8480-6)122 mm[Hg]Blood Pressure Diastolic (8462-4)55 mm[Hg]06/11/2025 07:45 AMHeart Rate (8867-4)71 /minBlood Pressure Systolic (8480-6)130 mm[Hg]Blood Pressure Diastolic (8462-4)70 mm[Hg]06/13/2025 09:17 PMHeart Rate (8867-4)66 /minBlood Pressure Systolic (8480-6)128 mm[Hg]Blood Pressure Diastolic (8462-4)60 mm[Hg] 06/15/2025 07:56 AMHeart Rate (8867-4)63 /minBlood Pressure Systolic (8480-6)118 mm[Hg]Blood Pressure Diastolic (8462-4)60 mm[Hg]06/17/2025 09:02 AMHeart Rate (8867-4)66 /minBlood Pressure Systolic (8480-6)102 mm[Hg]Blood Pressure Diastolic (8462-4)63 mm[Hg]06/18/2025 09:02 AMHeart Rate (8867-4)72 /minBlood Pressure Systolic (8480-6)106 mm[Hg]Blood Pressure Diastolic (8462-4)68 mm[Hg] 06/18/2025 03:46 PMTemperature (8310-5)97.8 [degF]Oxygen Saturation (73727-4)97 %Respiratory Rate (9279-1)18 /minHeart Rate (8867-4)76 /minBlood Pressure Systolic (8480-6)134 mm[Hg]Blood Pressure Diastolic (8462-4)66 mm[Hg]06/18/2025 08:11 PMHeart Rate (8867-4)65 /minBlood Pressure Systolic (8480-6)140 mm[Hg] Blood Pressure Diastolic (8462-4)58 mm[Hg]06/19/2025 02:14 AMTemperature (8310-5)98.6 [degF]Oxygen Saturation (37092-5)92 %Respiratory Rate (9279-1)18 /minHeart Rate (8867-4)66 /minBlood Pressure Systolic (8480-6)96 mm[Hg]Blood Pressure Diastolic (8462-4)64 mm[Hg]06/19/2025 09:05 AMHeart Rate (8867-4)62 /minBlood Pressure Systolic (8480-6)104 mm[Hg]Blood Pressure Diastolic (8462-4) 68 mm[Hg]06/19/2025 02:58 PMTemperature (8310-5)98.5 [degF]Oxygen Saturation (36092-6)97 %Respiratory Rate (9279-1)18 /minBlood Pressure Systolic (8480-6)108 mm[Hg]Blood Pressure Diastolic (8462-4)62 mm[Hg]06/19/2025 03:17 PMTemperature (8310-5)98.2 [degF]Oxygen Saturation (77043-7)97 %Respiratory Rate (9279-1)18 /minHeart Rate (8867-4)64 /minBlood Pressure Systolic (8480-6)114 mm[Hg]Blood Pressure Diastolic (8462-4)70 mm[Hg]06/20/2025 04:19 AMTemperature (8310-5)98 [degF]Oxygen Saturation (18445-7)98 %Respiratory Rate (9279-1)18 /minHeart Rate (8867-4)75 /minBlood Pressure Systolic (8480-6)90 mm[Hg]Blood Pressure Diastolic (8462-4)46 mm[Hg]06/20/2025 10:31 AMTemperature (8310-5)98 [degF]Oxygen Saturation (82043-5)96 %Respiratory Rate (9279-1)16 /minHeart Rate (8867-4)71 /minBlood Pressure Systolic (8480-6)109 mm[Hg]Blood Pressure Diastolic (8462-4) 63 mm[Hg]06/20/2025 12:03 PMTemperature (8310-5)98 [degF]Oxygen Saturation (40397-4)96 %Respiratory Rate (9279-1)16 /minHeart Rate (8867-4)71 /minBlood Pressure Systolic (8480-6)109 mm[Hg]Blood Pressure Diastolic (8462-4)63 mm[Hg] 06/20/2025 11:25 PMTemperature (8310-5)98.1 [degF]06/20/2025 09:24 PMHeart Rate (8867-4)70 /minBlood Pressure Systolic (8480-6)112 mm[Hg]Blood Pressure Diastolic (8462-4)59 mm[Hg]06/20/2025 09:25 PMOxygen Saturation (64973-2)94 % Respiratory Rate (9279-1)16 /min06/21/2025 05:30 AMTemperature (8310-5)98.2 [degF]Oxygen Saturation (93526-6)95 %Respiratory Rate (9279-1)16 /minHeart Rate (8867-4)66 /minBlood Pressure Systolic (8480-6)104 mm[Hg]Blood Pressure Diastolic (8462-4)66 mm[Hg]06/21/2025 08:20 PMTemperature (8310-5)98.2 [degF] Oxygen Saturation (21917-7)95 %Respiratory Rate (9279-1)16 /minHeart Rate (8867-4)72 /minBlood Pressure Systolic (8480-6)110 mm[Hg]Blood Pressure Diastolic (8462-4)56 mm[Hg]06/22/2025 02:50 PMTemperature (8310-5)98 [degF] Oxygen Saturation (63177-2)95 %Respiratory Rate (9279-1)18 /minHeart Rate (8867-4)60 /minBlood Pressure Systolic (8480-6)122 mm[Hg]Blood Pressure Diastolic (8462-4)78 mm[Hg]06/23/2025 08:55 AMHeart Rate (8867-4)66 /minBlood Pressure Systolic (8480-6)130 mm[Hg]Blood Pressure Diastolic (8462-4)73 mm[Hg] 06/23/2025 11:43 PMHeart Rate (8867-4)64 /minBlood Pressure Systolic (8480-6)101 mm[Hg]Blood Pressure Diastolic (8462-4)52 mm[Hg]06/24/2025 08:48 AMHeart Rate (8867-4)67 /minBlood Pressure Systolic (8480-6)111 mm[Hg]Blood Pressure Diastolic (8462-4)62 mm[Hg]06/23/2025 11:34 PMBody Weight (27835-7)228 [lb_av] Body Mass Index (95893-8)39.13 kg/m206/25/2025 09:50 AMHeart Rate (8867-4)94 /minBlood Pressure Systolic (8480-6)153 mm[Hg]Blood Pressure Diastolic (8462-4) 74 mm[Hg]06/24/2025 02:59 PMBody Weight (48587-3)288 [lb_av]Body Mass Index (27729-7)49.43 kg/m206/26/2025 07:58 AMHeart Rate (8867-4)61 /minBlood Pressure Systolic (8480-6)116 mm[Hg]Blood Pressure Diastolic (8462-4)66 mm[Hg]06/26/2025 07:48 PMHeart Rate (8867-4)61 /minBlood Pressure Systolic (8480-6)118 mm[Hg] Blood Pressure Diastolic (8462-4)72 mm[Hg]06/27/2025 08:00 AMHeart Rate (8867-4) 66 /minBlood Pressure Systolic (8480-6)124 mm[Hg]Blood Pressure Diastolic (8462-4)69 mm[Hg]06/27/2025 09:38 PMHeart Rate (8867-4)68 /minBlood Pressure Systolic (8480-6)116 mm[Hg]Blood Pressure Diastolic (8462-4)50 mm[Hg]06/28/2025 10:19 AMHeart Rate (8867-4)68 /minBlood Pressure Systolic (8480-6)112 mm[Hg] Blood Pressure Diastolic (8462-4)56 mm[Hg]06/28/2025 09:21 PMHeart Rate (8867-4) 61 /minBlood Pressure Systolic (8480-6)132 mm[Hg]Blood Pressure Diastolic (8462-4)61 mm[Hg]07/01/2025 07:42 AMHeart Rate (8867-4)65 /minBlood Pressure Systolic (8480-6)115 mm[Hg]Blood Pressure Diastolic (8462-4)58 mm[Hg]07/02/2025 09:02 AMHeart Rate (8867-4)66 /minBlood Pressure Systolic (8480-6)116 mm[Hg] Blood Pressure Diastolic (8462-4)60 mm[Hg]07/02/2025 08:30 PMHeart Rate (8867-4) 64 /minBlood Pressure Systolic (8480-6)158 mm[Hg]Blood Pressure Diastolic (8462-4)82 mm[Hg]07/03/2025 09:11 AMHeart Rate (8867-4)68 /minBlood Pressure Systolic (8480-6)150 mm[Hg]Blood Pressure Diastolic (8462-4)76 mm[Hg]07/03/2025 09:05 PMHeart Rate (8867-4)59 /minBlood Pressure Systolic (8480-6)77 mm[Hg]Blood Pressure Diastolic (8462-4)36 mm[Hg]07/06/2025 09:03 AMHeart Rate (8867-4)66 /minBlood Pressure Systolic (8480-6)119 mm[Hg]Blood Pressure Diastolic (8462-4) 78 mm[Hg]07/06/2025 09:34 PMHeart Rate (8867-4)57 /minBlood Pressure Systolic (8480-6)123 mm[Hg]Blood Pressure Diastolic (8462-4)70 mm[Hg]07/07/2025 08:59 AM Heart Rate (8867-4)62 /minBlood Pressure Systolic (8480-6)118 mm[Hg]Blood Pressure Diastolic (8462-4)68 mm[Hg]07/07/2025 09:49 PMHeart Rate (8867-4)62 /minBlood Pressure Systolic (8480-6)110 mm[Hg]Blood Pressure Diastolic (8462-4) 59 mm[Hg]07/08/2025 09:03 AMHeart Rate (8867-4)66 /minBlood Pressure Systolic (8480-6)104 mm[Hg]Blood Pressure Diastolic (8462-4)55 mm[Hg]07/08/2025 10:27 PM Heart Rate (8867-4)84 /minBlood Pressure Systolic (8480-6)117 mm[Hg]Blood Pressure Diastolic (8462-4)54 mm[Hg]07/11/2025 09:25 PMHeart Rate (8867-4)63 /minBlood Pressure Systolic (8480-6)106 mm[Hg]Blood Pressure Diastolic (8462-4) 60 mm[Hg]07/11/2025 06:32 AMHeart Rate (8867-4)84 /minBlood Pressure Systolic (8480-6)121 mm[Hg]Blood Pressure Diastolic (8462-4)61 mm[Hg]07/12/2025 09:32 AM Heart Rate (8867-4)58 /minBlood Pressure Systolic (8480-6)102 mm[Hg]Blood Pressure Diastolic (8462-4)52 mm[Hg]07/12/2025 09:16 PMHeart Rate (8867-4)74 /minBlood Pressure Systolic (8480-6)112 mm[Hg]Blood Pressure Diastolic (8462-4) 68 mm[Hg]07/13/2025 08:59 PMHeart Rate (8867-4)63 /minBlood Pressure Systolic (8480-6)106 mm[Hg]Blood Pressure Diastolic (8462-4)63 mm[Hg]07/15/2025 08:38 AM Heart Rate (8867-4)73 /minBlood Pressure Systolic (8480-6)162 mm[Hg]Blood Pressure Diastolic (8462-4)82 mm[Hg]07/15/2025 09:21 PMHeart Rate (8867-4)61 /minBlood Pressure Systolic (8480-6)113 mm[Hg]Blood Pressure Diastolic (8462-4) 56 mm[Hg]07/16/2025 09:21 AMBlood Pressure Systolic (8480-6)121 mm[Hg]Blood Pressure Diastolic (8462-4)66 mm[Hg]07/16/2025 09:20 AMHeart Rate (8867-4)66 /min07/17/2025 09:13 AMHeart Rate (8867-4)70 /min07/18/2025 12:44 AMHeart Rate (8867-4)61 /minBlood Pressure Systolic (8480-6)111 mm[Hg]Blood Pressure Diastolic (8462-4)46 mm[Hg]07/18/2025 10:03 AMHeart Rate (8867-4)64 /minBlood Pressure Systolic (8480-6)110 mm[Hg]Blood Pressure Diastolic (8462-4)58 mm[Hg] 07/19/2025 08:33 AMHeart Rate (8867-4)65 /minBlood Pressure Systolic (8480-6)146 mm[Hg]Blood Pressure Diastolic (8462-4)71 mm[Hg]07/20/2025 09:30 AMHeart Rate (8867-4)68 /minBlood Pressure Systolic (8480-6)136 mm[Hg]Blood Pressure Diastolic (8462-4)66 mm[Hg]07/20/2025 11:32 PMHeart Rate (8867-4)63 /minBlood Pressure Systolic (8480-6)139 mm[Hg]Blood Pressure Diastolic (8462-4)63 mm[Hg] 07/21/2025 10:27 AMHeart Rate (8867-4)70 /minBlood Pressure Systolic (8480-6)136 mm[Hg]Blood Pressure Diastolic (8462-4)60 mm[Hg]07/21/2025 08:38 PMHeart Rate (8867-4)61 /minBlood Pressure Systolic (8480-6)104 mm[Hg]Blood Pressure Diastolic (8462-4)58 mm[Hg]07/22/2025 08:15 AMHeart Rate (8867-4)63 /minBlood Pressure Systolic (8480-6)109 mm[Hg]Blood Pressure Diastolic (8462-4)81 mm[Hg] 07/22/2025 10:00 PMHeart Rate (8867-4)69 /minBlood Pressure Systolic (8480-6)105 mm[Hg]Blood Pressure Diastolic (8462-4)53 mm[Hg]07/23/2025 08:03 AMHeart Rate (8867-4)65 /minBlood Pressure Systolic (8480-6)122 mm[Hg]Blood Pressure Diastolic (8462-4)66 mm[Hg]07/24/2025 08:47 PMHeart Rate (8867-4)77 /minBlood Pressure Systolic (8480-6)116 mm[Hg]Blood Pressure Diastolic (8462-4)66 mm[Hg] 07/25/2025 09:06 AMHeart Rate (8867-4)64 /minBlood Pressure Systolic (8480-6)103 mm[Hg]Blood Pressure Diastolic (8462-4)53 mm[Hg]07/25/2025 09:32 PMHeart Rate (8867-4)67 /minBlood Pressure Systolic (8480-6)105 mm[Hg]Blood Pressure Diastolic (8462-4)61 mm[Hg]07/26/2025 08:51 AMHeart Rate (8867-4)72 /minBlood Pressure Systolic (8480-6)110 mm[Hg]Blood Pressure Diastolic (8462-4)66 mm[Hg] 07/26/2025 08:58 PMHeart Rate (8867-4)58 /minBlood Pressure Systolic (8480-6)98 mm[Hg]Blood Pressure Diastolic (8462-4)51 mm[Hg]07/28/2025 04:29 PMTemperature (8310-5)98.1 [degF]Oxygen Saturation (57478-5)95 %Respiratory Rate (9279-1)16 /minHeart Rate (8867-4)62 /minBlood Pressure Systolic (8480-6)123 mm[Hg]Blood Pressure Diastolic (8462-4)83 mm[Hg]06/24/2025 10:24 AMBody Weight (41474-8)228 [lb_av]Body Mass Index (16487-3)39.13 kg/m207/30/2025 10:24 AMBody Weight (20467-9)231.8 [lb_av]Body Mass Index (74725-2)39.78 kg/m208/30/2025 06:38 PM Temperature (8310-5)98.4 [degF]Oxygen Saturation (27923-8)98 %Respiratory Rate (9279-1)20 /minHeart Rate (8867-4)99 /minBlood Pressure Systolic (8480-6)146 mm[Hg]Blood Pressure Diastolic (8462-4)100 mm[Hg]08/27/2025 12:45 AMBody Weight (39669-8)236.6 [lb_av]Body Mass Index (11566-4)40.61 kg/m208/31/2025 09:36 AM Temperature (8310-5)98.2 [degF]Oxygen Saturation (76385-0)95 %Respiratory Rate (9279-1)16 /minHeart Rate (8867-4)72 /minBlood Pressure Systolic (8480-6)109 mm[Hg]Blood Pressure Diastolic (8462-4)57 mm[Hg]08/31/2025 11:15 PMTemperature (8310-5)97.7 [degF]Oxygen Saturation (46107-0)97 %Respiratory Rate (9279-1)18 /minHeart Rate (8867-4)75 /minBlood Pressure Systolic (8480-6)104 mm[Hg]Blood Pressure Diastolic (8462-4)64 mm[Hg]09/01/2025 10:32 AMOxygen Saturation (18539-9)98 %09/01/2025 10:29 AMTemperature (8310-5)97.6 [degF]Respiratory Rate (9279-1)18 /minHeart Rate (8867-4)70 /minBlood Pressure Systolic (8480-6)108 mm[Hg]Blood Pressure Diastolic (8462-4)68 mm[Hg]09/01/2025 12:18 PMTemperature (8310-5)97.9 [degF]Oxygen Saturation (04639-5)94 %Respiratory Rate (9279-1)18 /minHeart Rate (8867-4)68 /minBlood Pressure Systolic (8480-6)140 mm[Hg]Blood Pressure Diastolic (8462-4)65 mm[Hg]09/02/2025 12:10 AMTemperature (8310-5)98.4 [degF]Oxygen Saturation (55170-3)95 %Respiratory Rate (9279-1)18 /minHeart Rate (8867-4)70 /minBlood Pressure Systolic (8480-6)134 mm[Hg]Blood Pressure Diastolic (8462-4)68 mm[Hg]09/02/2025 03:30 PMTemperature (8310-5)97.4 [degF] Oxygen Saturation (83807-9)94 %Respiratory Rate (9279-1)18 /minHeart Rate (8867-4)83 /minBlood Pressure Systolic (8480-6)126 mm[Hg]Blood Pressure Diastolic (8462-4)81 mm[Hg]09/03/2025 12:56 AMTemperature (8310-5)97.8 [degF] Oxygen Saturation (72007-7)96 %Respiratory Rate (9279-1)16 /minHeart Rate (8867-4)72 /minBlood Pressure Systolic (8480-6)132 mm[Hg]Blood Pressure Diastolic (8462-4)70 mm[Hg] Social History No smoking Hx information available Encounters Type CPT Code Date Location Provider Indication s encounter report 12/05/2024 04:01 PMLynda Jean MD01encounter [id number]/05/2024 07:00 PMLynda Jean MD01 Advance Directives Directive Description Verification Date Supporting Document(s) Other Directive
--- OUTSIDE RECORDS SUMMARY | 2025-09-03 07:31 | XMS_ITS | Continuity of Care Document ---
Author Organization [facility] Address [address] [place] [address] Care Team Providers Care Antisqueak Chalker Name Role Phone Lynda Jean MD Attending Physician Medications Medication Frequency Instructions Diagnosis Start Date End Date Status Last Administered amiodarone 200 mg tablet Once A Day 200mg, oral, Once A Day I73.9 : Peripheral vascular disease, unspecified 12/09/2024 Yrdxyi3709/01/2025 08:53 AMAntacid (calcium carbonate) (calcium carbonate) 200 mg calcium (500 mg) tablet,chewableOnce A Cse450 mg, oral, Once A DayE83.51 : Ulrmptelnqir11/23/0010Ywuhxl56/08/2025 01:39 PMaspirin 81 mg tablet,chewableOnce A Day81 mg, oral, Once A DayI73.9 : Peripheral vascular disease, unspecified 12/05/20241931Lqfhoz48/09/2025 08:53 AMatorvastatin 80 mg tabletAt Gcbhzjk95 mg, oral, At WyrhrlwL96.5 : Hyperlipidemia, alkbohtprkt80/14/9563Jilssr57/08/2025 07:48 PMcalcium citrate 250 mg calcium tabletOnce A Day2 capsules, oral, Once A Day, hypocalcemia 04/20/20253349Gmevub35/09/2025 08:53 AMCalcium with Vitamin D (calcium carbonate- vitamin d3) 600 mg-10 mcg (400 unit) tabletOnce A Day1 tab, oral, Once A Day, hypocalcemia 01/26/20256683Dwfmea81/09/2025 08:53 AMColace (docusate sodium) 100 mg capsuleTwice A Kca326 mg, oral, Twice A DayK59.00 : Constipation, skkoqdwswsb52/28/2025tive 09/01/2025 08:53 AMDramamine (dimenhydrinate) 50 mg tabletAs Xvmmzd65ot, oral, As Needed, Give 1 tablet 30 minutes prior to leaving for an appt 03/26/20253172Rbhxcq63/08/2025 02:43 PMEliquis (apixaban) 5 mg tabletTwice A Day5 mg, oral, Twice A DayI73.9 : Peripheral vascular disease, zhbdxbmtuse01/14/2025 Rnslwy1509/01/2025 08:53 AMEnemeez (docusate sodium) 283 mg/5 mL enemaOnce A Day - PRN1 enema, rectal, Once A Day - PRN, Step 3: If no BM by morning of day 4, administer 1 Enemeez MicroEnema in the morning. Indication for use: Constipation Step 4: If no BM within 1 hour of administering Enemeez, contact provider. 08/06/2025tivefentanyl 50 mcg/hr patch 72 hourOnce A Day Every 3 Daysone patch, transdermal, Once A Day Every 3 DaysI73.9 : Peripheral vascular disease, zuioulfmayt69/13/9215Rvvdjw01/09/2025 05:12 AMferrous sulfate 325 mg (65 mg iron) tabletTwice A Ijo402vo, oral, Twice A Day, anemia 03/25/20259164Kvidvw31/09/2025 08:53 AMfurosemide 20 mg tabletTwice A Osj55ej, oral, Twice A DayI10 : Essential (primary) vqttirhdlkjw34/17/3387Yyppqs67/09/2025 08:53 AMGlucagon Emergency Kit (human) (glucagon) 1 mg recon solnThree Times A Day - PRN1 mg, intramuscular, Three Times A Day - PRNE11.42 : Type 2 diabetes mellitus with diabetic sttgvyehdkdoec49/26/2025tivehydrocodone-acetaminophen 7.5-325 mg tabletEvery 6 Hours - PRN1 tab, oral, Every 6 Hours - PRN, pain 01/12/20252422Wfgkak42/09/2025 04:37 AMLidoderm (lidocaine) 5 % adhesive patch,medicatedOnce A Dayone patch, patch, Once A Day, on in AM off in PMM19.90 : Unspecified osteoarthritis, unspecified site02/11/20252700Msxsik95/09/2025 08:53 AMLyrica (pregabalin) 100 mg capsuleThree Times A Fga656 mg, oral, Three Times A DayG60.9 : Hereditary and idiopathic neuropathy, njcqgteyzld60/15/2025tive 09/01/2025 05:12 AMmidodrine 5 mg tabletTwice A Day - PRN5 mg, oral, Twice A Day - PRN, Give if SBP < 80 04/15/2025tiveMiralax (polyethylene glycol 3350) 17 gram/dose powderOnce A Day 17 grams, oral, Once A DayK59.00 : Constipation, /28/2025tive 09/01/2025 08:53 AMMiralax (polyethylene glycol 3350) 17 gram/dose powderOnce A Day - XOS83ly (1 capful), oral, Once A Day - PRN, Step 1: If no BM by Day 2, Mix 17gm (1 capful) in 4-8oz beverage of choice in the morning. Indication for use: Constipation 08/06/2025tiveMiralax (polyethylene glycol 3350) 17 gram/dose powderOnce A Day - BZQ65cl (1 Capful), oral, Once A Day - PRN, Step 2: If no BM by Day 3, Give 17gm (1 Capful) in 4-8 ounces of beverage of choice. Indication for use: Constipation 08/06/20258635Thtxqtoxqkltsg-kjk-nvyd fum-folic ac 7.5 mg iron-400 mcg tabletOnce A Day1 tablet, oral, Once A Day, supplement 12/17/20245650Ngrldr07/09/2025 08:53 AMpotassium chloride 20 mEq tablet extended releaseThree Times A Day20, oral, Three Times A Day, hypokalemia 05/28/20255587Fykccc03/09/2025 05:12 AMPrilosec OTC (omeprazole magnesium) 20 mg tablet,delayed release (DR/EC)Once A Ubp42xv, oral, Once A Day, gerd 03/25/20255448Bqcryf02/09/2025 08:53 AMpromethazine 25 mg tabletEvery 6 Hours - PRN1 tab, oral, Every 6 Hours - PRN, N&V 02/06/20259649Jfftpx57/18/2025 04:32 AMtamsulosin 0.4 mg capsuleAt Bedtime0.4 mg, oral, At TbeqxihZ84.9 : Retention of urine, ntlikgpwzhv98/05/202508/31/2025 07:48 PMTucks (witch micah) (witch micah) 50 % pads, medicatedEvery 2 Hours - PRN1 pad, topical, Every 2 Hours - PRN, hemorrhoids 02/23/2025tiveTylenol (acetaminophen) 325 mg tabletEvery 6 Hours - BSP010 mg, oral, Every 6 Hours - PRNM19.90 : Unspecified osteoarthritis, unspecified site 12/05/20243275Urkvdv90/05/2025 04:59 AMvitamin D3-vitamin K2 125 mcg (5,000 unit)- 100 mcg capsuleOnce A Day1 capsule, oral, Once A Day, supplement from hematology E83.51 : Viobtpilytep04/23/2225Etzlsu37/09/2025 08:53 AMVoltaren Arthritis Pain (diclofenac sodium) 1 % gelEvery 6 Hours2 grams, topical, Every 6 Hours, apply to elbow wrist and back of handM19.90 : Unspecified osteoarthritis, unspecified site12/05/20244017Fjoaqx28/09/2025 05:12 AMZoloft (sertraline) 50 mg tabletOnce A Vmi02dt, oral, Once A DayF32.0 : Major depressive disorder, single episode, mild 01/19/20252393Hchgox25/09/2025 08:53 AM Problems Code Type Problem ICD Code Effective Date Status ICD-10 Rheumatoid arthritis without rheumatoid factor, unspecified site M06.00 12/05/2024 Active ICD-10 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 E11.42 12/05/2024 Active ICD-10 Neuromuscular dysfun ction of bladder, unspecified N31.9 01/23/2025 Active ICD-10 Peripheral vascular disease, unspecified I73.9 12/05/2024 Active ICD-10 Hyperlipidemia, unspecified E78.5 12/06/19 25 Active ICD-10 Anxiety disorder, unspecified F41.9 2024 Active ICD-10 Major depressive dis order, single episode, mild F32.0 12/05/2024 Active ICD-10 Unspecified osteoarthritis, unspecified site M1 9.90 12/05/2024 Active ICD-10 Abnormality of albumin R77.0 12/05/2024 Ac tive ICD-10 Hereditary and idiop athic neuropathy, unspecified G60.9 12/05/2024 Active ICD-10 Other disorders of p lasma-protein metabolism, 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 12/05/2024 Act mgada ICD-10 Essential tremor G25.0 12/05/2024 Active ICD-10 Essential (primary) hypertension I10 Active ICD-10 Paroxysmal atrial fibrillation I48.0 12/05 Active ICD-10 Obesity, class 2 E66.812 12/05/2024 Active ICD-10 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.929 12/05/2024 Active ICD-10 Muscle weakness (generalized) M62.81 2024 Active ICD-10 Dysphagia, oropharyngeal phase R13.12 12/06 Active ICD-10 Retention of urine, unspecified R33.9 11/22 Active ICD-10 Difficulty in walkin g, not elsewhere classified R26.2 12/06/2024 Active ICD-10 Cognitive communication deficit R41.841 11/22 Active ICD-10 Personal history of pulmonary embolism Z86.711 12/05/2024 Active ICD-10 Nausea R11.0 12/05/2024 Active ICD-10 Neuromuscular dysfun ction of bladder, unspecified N31.9 01/23/2025 Active ICD-10 Other fracture of fi rst lumbar vertebra, initial encounter for closed fracture S32.018A 01/22/2025 Ac tive ICD-10 Other fracture of se cond lumbar vertebra, initial encounter for closed fracture S32.028A 01/22/2025 Ac tive ICD-10 Nutritional deficiency, unspecified E63.9 12/09/2024 Active ICD-10 Hypocalcemia E83.51 03/16/2025 Active ICD-10 Saddle embolus of pu lmonary artery without acute cor pulmonale I26.92 04/28/2025 Active ICD-10 Spontaneous ecchymoses R23.3 04/28/2025 Ac tive ICD-10 Abnormal results of thyroid function studies R9 4.6 04/30/2025 Active ICD-10 Dysphagia, oral phase R13.11 12/11/2024 Act magda ICD-10 Encounter for immunization Z23 Active ICD-10 Enterocolitis due to Clostridium difficile, not specified as recurrent A04.72 12/05/2024 Active Current Allergies and Intolerances Category Substance Type Reaction Severity Begin Date Status Drug allergy citalopram Allergy 12/08/2024tiveDrug allergycortisoneAllergy 12/08/2024tiveDrug allergyhydromorphoneAllergy 12/08/2024tiveDrug allergyiodineAllergy 12/08/2024tiveDrug allergymorphineAllergy 12/08/2024tiveDrug allergyPenicillins (PCN)Allergy 5ActiveFood allergyShrimpAllergy 5Active Vital Signs Height: 64.0 in Date / Time Temperature Pulse (per minute) Respirations (per minute) Systolic BP (mmHg) Diastolic BP (mmHg) O2 Saturation (%) Weight BMI 09/01/2025 10:32 AM 98.0 09/01/2025 10:29 AM97.6 [id number] 08/31/2025 11:15 PM97.7 [id number] 08/31/2025 09:36 AM98.2 O28113652419.0 08/30/2025 06:38 PM98.4 R482007559421.0 08/27/2025 12:45 AM 236.6 lbs40.6107/30/2025 10:24 AM 231.8 lbs39.7807/28/2025 04:29 PM98.1 S44287050151.0 07/26/2025 08:58 PM 58 9851 07/26/2025 08:51 AM 72 51940 07/25/2025 09:32 PM 67 66135 07/25/2025 09:06 AM 64 88672 07/24/2025 08:47 PM 77 67661 06/24/2025 10:24 AM 228.0 lbs39.13006/23/2025 11:34 PM 228.0 lbs39.1309 02:50 PM98.0 F 18 95.0 06/21/2025 08:20 PM98.2 F 16 95.0 06/21/2025 05:30 AM98.2 F 16 95.0 06/20/2025 11:25 PM98.1 F 06/20/2025 09:25 PM 16 94.0 06/20/2025 12:03 PM98.0 F 16 96.0 Advance Directives Directive Note Full Code Insurance Providers Payer Policy type Group Name Group number Policy ID Address Ph one Medicare A Medicare Part A [id number]: Fax:[facility] Medicare/Comm LevelsCommercial Insurance [id number]: Fax:[facility] Sales Service Supervisor Part BCommercial Insurance [id number]: Fax:Vaccinations - [employer] Medicare Part B [id number] [address] [place] [address] [place] [id number]: Fax:[place]icaid [place]icaid [place] [id number]: Fax[place]Managed Coins [place] [id number] Default, [address] [place] [address] Phone: Fax:Managed Coins PrivatePrivate Phone: Fax:Resident ResourcePrivate Phone: Fax:Private PayPrivate Phone: Fax: Immunizations Vaccine Process Artist Date Status Dose Series Complete COVID-19 Vaccine 07/07/2025Refused COVID-19 Vaccine 12/08/2024Refused Influenza Vaccine 06/24/2025Refused Influenza Vaccine 12/08/2024Refused Pneumococcal Vaccine 12/08/2024Refused RSV Vaccine 12/08/2024Refused Procedures Not available for this record Results Name Date Time Positive/Negative Value Unit Range Blood Sugar 06/29/2025 06:02 AM 0.0mg/dLBlood Sugar507:22 AM0.0mg/dL Goals Goal Date Resident's code status decision will be honored daily through next review 10/01/2025 The resident will be free from injury fr om complications r/t medication 10/01/2025 Resident will have BM at least every 3 d ays until next review 10/01/2025 The resident will have no co mplications related to diabetes through the review date 10/01/2025 2. Will be free of s/s dehyd ration, fluid overload, electrolyte imbalance through next review 10/01/2025 1. Will be free of significa nt weight changes q month 5% +/- per nursing/grand rounds, weight reports 10/01/2025 Resident will have proper nu trition and hydration/ will be free of pain or bleeding in the oral cavity through next review 10/01/2025 Resident will not have an in terruption in normal activities d/t pain through the next review 10/01/2025 Resident will see (printed m aterial, television, self-care items, faces, etc.)./Resident will not have unrecognized declines in visual impairment. 10/01/2025 Resident will regain some documented bow el continence thru next review 10/01/2025 Resident will not exhibit si gns of side effects of complications secondary to diuretic use. 10/01/2025 Resident will have no active bleeding. 0 10/01/2025 Resident will not exhibit si gns of drug related: sedation, hypotension, or anticholinergic symptoms. 10/01/2025 Resident will remain free from injury. 0 10/01/2025 Resident needs will be met with staff as sistance as needed. 10/01/2025 Resident's skin will be free of further skin breakdown. 10/01/2025 The resident will voice sati sfaction with his/her self-initiated leisure pursuits through the next review 10/01/2025 The resident will voice sati sfaction with his/her self-initiated leisure pursuits through the next review 10/01/2025 Resident will participate in leave of absence (TALA) with family/friends and follow facility TALA rules through next review. 10/01/2025 Resident will have no indica tions of psychosocial well- being problem by/ through review date 10/01/2025 Resident will maintain psych osocial well being in [facility] setting AEB: resident will accept care daily, positive expressions, positive body language thru next review 10/01/2025 Resident will accept assista nce for ___ (e.g., mobility, eating, toileting, bathing, dressing, personal hygiene, etc.) w/o exhibiting resistance to care 10/01/2025 Resident will have no defici t to ROM cole upper and lower ext thru next review 10/01/2025 -Resident will receive jose juan tance with toileting/ maintained comfortable, clean and dry/ free from skin breakdown. Resident will have decreased episodes of incontinence. 10/01/2025 Resident will return to appropriate, saf e placement once stable 10/01/2025 Encounters Admission Date Discharge Date Description MRN Visit Count 12/05/2024 19:00 LTPAC [id number]
--- OUTSIDE RECORDS SUMMARY | 2025-09-03 07:33 | XMS_ITS | Clinical Summary ---
Author Organization [facility] Address [address] [place] [address] Care Team Providers Care Heavy Lift Rigger Name Role Phone Destiny Figueroa Primary Care Provider [phone] Allergies Active AllergyReactionsCriticalityNoted DateCommentsCortisoneOtherMedium 07/07/2024 ELEVATES B/P LinxhgvftffybHpufiIcm59/14/2024 COULDN'T TALK GgvwgvHqkngykpLhca29/14/2024 TONGUE AND LIPS PenicillinHives,IehzspybUbdb06/14/2024 LIPS AND TONGUE Shellfish WjgeqtpBysbwnnlWbey24/14/2024 LIPS AND TONGUE Medications MedicationSigDispense QuantityRefillsLast FilledStart DateEnd DateStatus celecoxib (CeleBREX) 200 mg capsule Take 200 mg by mouth two times daily.Active hydrOXYzine HCL (Atarax) 25 mg tablet Take 25 mg by mouth if needed for anxiety.Active metoprolol succinate XL (Toprol-XL) 25 mg 24 hr tablet Take 25 mg by mouth at bedtime. Do not crush or chew.Active oxybutynin XL (Ditropan-XL) 15 mg 24 hr tablet Take 15 mg by mouth in the morning. Do not crush, chew, or split.Active pravastatin (Pravachol) 20 mg tablet Take 20 mg by mouth at bedtime.Active tiZANidine (Zanaflex) 4 mg capsule Take 4 mg by mouth two times daily.Active traZODone (Desyrel) 50 mg tablet Take 50 mg by mouth at bedtime.Active amLODIPine (Norvasc) 10 mg tablet Take by mouth in the morning.Active polyethylene glycol (Glycolax) oral powder Take 17 g by mouth in the morning.Active ondansetron (Zofran) 4 mg tablet Take 4 mg by mouth every 8 (eight) hours if needed for nausea or vomiting.Active aspirin 325 mg EC tablet Take 325 mg by mouth in the morning.Active pantoprazole (ProtoNix) 40 mg EC tablet Indications:Gastroesophageal reflux disease, unspecified whether esophagitis presentTake 1 tablet (40 mg) by mouth before breakfast. Do not crush, chew, or split. 30 tablet 4Active Social History Tobacco UseTypesPacks/DayYears UsedDateSmoking Tobacco: NeverSmokeless Tobacco: Never Tobacco Cessation:Counseling Given: Not Answered Alcohol UseStandard Drinks/WeekCommentsYes0 (1 standard drink = 0.6 oz pure alcohol)1-2 A YEARCommentsNoSex and Gender InformationValueDate Recorded Sex Assigned at BirthNot on fileLegal UvmFhojhd88/07/2024 11:59 PM EDTGender IdentityNot on fileSexual OrientationNot on file Last Filed Vital Signs Vital SignReadingTime TakenCommentsBlood Iilkthjq965/7207/21/2024 3:45 PM EDT Hiloh617707/21/2024 3:45 PM KLDZtdkcestkkz86.5 ??C (97.7 ??F)07/21/2024 3:30 PM EDTRespiratory Zwip7952 3:45 PM EDTOxygen Blpttnqqas02%07/21/2024 3:45 PM EDTInhaled Oxygen Concentration--Whdzjr341 kg (248 lb 7.3 oz)07/21/2024 11:44 AM UMFOjggjx949.8 cm (5' 4.5 )07/21/2024 11:44 AM EDTBody Mass Index41.99 07/21/2024 11:44 AM EDT Plan of Treatment Health MaintenanceDue DateLast DoneCommentsCT Zijohbvwquin57/03/1950Colonoscopy 1949Colorectal Cancer Ldsdihjjk91/03/1950Diabetes: Hemoglobin A1C 1949FIT-DNA1949FIT1949FOBT1949Medicare Annual Wellness (AWV)1950 7716Epzxrukredikr03/03/1950Diabetes: Retinopathy Saqqdutel19/03/1960 Depression Wvwwblrtq51/03/1962Diabetes: Urine Protein Gouwznfbu81/03/1969Adult Obsruet8110/27/1971Pneumococcal Vaccine: 50+ Years (1 of 1 - PCV)1999Zoster Vaccines (1 of 2)1999Fall Risk Zsqcttycj82/03/2015COVID-19 Vaccine (1 - 2024- season)2025Influenza Vaccine (#1)2025HIB VaccinesAged OutNo longer eligible based on patient's age to complete this topicHPV VaccinesAged OutNo longer eligible based on patient's age to complete this topicIPV Vaccines Aged OutNo longer eligible based on patient's age to complete this topic Meningococcal B VaccineAged OutNo longer eligible based on patient's age to complete this topicMeningococcal VaccineAged OutNo longer eligible based on patient's age to complete this topicRotavirus VaccinesAged OutNo longer eligible based on patient's age to complete this topic Insurance Care Teams Team MemberRelationshipSpecialtyStart DateEnd Date Destiny Figueroa [facility]07/21/24
--- OUTSIDE RECORDS SUMMARY | 2025-09-03 07:33 | XMS_ITS | Patient Health Record ---
Author Organization [facility] Address [address] [place] [address] Care Team Providers Care Windshield Technician Name Role Phone Lynda Jean MD Primary Care Provider [facility] Unavailable [phone] Beny Blackwell Unavailable [phone] Amber Diamond Unavailable [phone] Allergies Allergen (clinical drug ingredient) Drug/Non Drug Allergy documented on EMR Reaction Allergy Type Onset Date Status PCN (uncoded)UnknownAllergyActive Reason For Referral Reason REFERRAL FOR BATTLETOWNEVU E PAINMANGEMENT FOR L4-5 JUNITO Diagnosis 1 Compression fracture of L1 vertebra with routine healing, subsequent encounter (S32.010D) Referral Organization [facility] Referring Provider First Name Lynda Referring Provider Last Name [facility] Referring Provider Speciality Orthopedic Surgery Referred Organization [facility] Referred Address [address], [address],[place], [place],[address], General Notes Alyssa Gutierrez 2024 10:23:41 AM >, Alyssa Gutierrez 02/11/2025 10:02:14 AM >FAXED Referral Priority Routine Reason NO AUTH REQ......... ...................NOT SCHEDULED...................................[facility] MRI cervical and lumbar spine at [place] Diagnosis 1 Radiculopathy, lumba r region (M54.16) Diagnosis 2 Weakness (R53.1) Diagnosis 3 Cervical myelopathy (G95.9) Referral Organization [facility] Referring Provider First Name Nickiileana Referring Provider Last Name Chris Referring Provider Speciality Orthopedic Surgery Referred Organization [facility] tovarsh[facility] Referred Address [place], [place], Procedure 1 MRI Cervical w/o dye (07020) Procedure 2 MRI Lumbar Spine w/o Dye (07360) General Notes Octavia Rutherford 02/23 11:04:01 AM >, Leni Foster 03/20/2025 11:36:49 AM > [facility] ACTIVE AND EFFECTIVE 09/24/24 PER [facility] PROVIDER PORTAL. NO AUTHORIZATION REQUIRED. FAXED TO KARIN.Sangeeta Sara 03/23/2025 09:49:57 AM > faxed Referral Priority Routine Medications Medication SIG (Take, Route, Frequency, Duration) Notes Start Date End Date Status Lyrica ActivemetoprololActivemirtazapineActivegabapentinActiveColaceActiveEliquisActive ferrous sulfateActivefurosemideActivepotassium chlorideActiveamiodaroneActive promethazineActiveaspirinActiveTylenolActiveatorvastatinActiveZoloftActive Calcium 600+DActive Problems Problem Type SNOMED Code ICD Code Onset Dates Problem Status W/U Status Risk Notes Problem Cervical myelopathy (204995079) Cervical myelopathy (G95.9) ActiveconfirmedProblemCompression fracture of second lumbar vertebra (disorder) (77690006351751199)Compression fracture of L2 vertebra, initial encounter (S32.020A)ActiveconfirmedProblemCompression fracture of L1 vertebra, initial encounter (S32.010A)ActiveconfirmedProblemSpinal stenosis of lumbar region (27709514)Spinal stenosis, lumbar region without neurogenic claudication (M48.061)ActiveconfirmedProblemHistory of fall (538711241)History of fall (Z91.81)ActiveconfirmedProblemLumbar radiculopathy (648249271)Radiculopathy, lumbar region (M54.16)ActiveconfirmedProblemAcquired spondylolisthesis (491228590)Spondylolisthesis, 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)Activeconfirmed Encounters Encounter Location Date Provider Diagnosis [facility] [address] [place] [address] [place] [address] 02/06/2025 [facility] Spinal stenosis, lumbar region without neurogenic claudication M48.061 ; Compression fracture of L1 vertebra, initial encounter S32.010A ; Compression fracture of L2 vertebra, initial encounter S32.020A ; Spondylolisthesis, lumbar region M43.16 ; Radiculopathy, lumbar region M54.16 and History of fall Z91.81 [facility] Office [address] [place] [address] 03/20/2025 Beny Sundayo Radiculopathy, lumbar region M54.16 ; Spinal stenosis, lumbar region without neurogenic claudication M48.061 ; Cervical myelopathy G95.9 and Weakness R53.1 Assessments Encounter Date Diagnosis (ICD Code) Assessment Notes Treatment Notes Treatment Clinical Notes Section Notes 02/06/2025 Spinal stenosis, lum bar region without neurogenic claudication (ICD- 10 - M48.061) 1. Dynamic L4-5 spondylolisthesis 2. L1 and L2 compression fracture 3. L4-5 neuroforaminal stenosis/stenosis/radiculopathy 02/06/2025ompression fracture of L1 vertebra, initial encounter (ICD-10 - S32.010A) 1. Dynamic L4-5 spondylolisthesis 2. L1 and L2 compression fracture 3. L4-5 neuroforaminal stenosis/stenosis/radiculopathy 02/06/2025ompression fracture of L2 vertebra, initial encounter (ICD-10 - S32.020A) 1. Dynamic L4-5 spondylolisthesis 2. L1 and L2 compression fracture 3. L4-5 neuroforaminal stenosis/stenosis/radiculopathy 03/20/2025Radiculopathy, lumbar region (ICD-10 - M54.16) 1. Upper and lower extremity weakness 2. Cervical myelopathy 3. L4-5 spondylolisthesis, grade 1 with stenosis and radiculopathy 4. L1 and L2 compression fractures 03/20/2025Spinal stenosis, lumbar region without neurogenic claudication (ICD-10 - M48.061) 1. Upper and lower extremity weakness 2. Cervical myelopathy 3. L4-5 spondylolisthesis, grade 1 with stenosis and radiculopathy 4. L1 and L2 compression fractures 02/06/2025Spondylolisthesis, lumbar region (ICD-10 - M43.16) 1. Dynamic L4-5 spondylolisthesis 2. L1 and L2 compression fracture 3. L4-5 neuroforaminal stenosis/stenosis/radiculopathy 02/06/2025Radiculopathy, lumbar region (ICD-10 - M54.16) 1. Dynamic L4-5 spondylolisthesis 2. L1 and L2 compression fracture 3. L4-5 neuroforaminal stenosis/stenosis/radiculopathy 03/20/2025ervical myelopathy (ICD-10 - G95.9) 1. Upper and lower extremity weakness 2. Cervical myelopathy 3. L4-5 spondylolisthesis, grade 1 with stenosis and radiculopathy 4. L1 and L2 compression fractures 03/20/2025Weakness (ICD-10 - R53.1) 1. Upper and lower extremity weakness 2. Cervical myelopathy 3. L4-5 spondylolisthesis, grade 1 with stenosis and radiculopathy 4. L1 and L2 compression fractures 02/06/2025History of fall (ICD-10 - Z91.81) 1. Dynamic L4-5 spondylolisthesis 2. L1 and L2 compression fracture 3. L4-5 neuroforaminal stenosis/stenosis/radiculopathy 02/06/2025Other Plan established by Dr. Boswell. Patient evaluated by myself and Dr. Boswell today. We did review imaging with patient and her daughter and recommend an LSO brace for the compression fractures and referral to the [place] [facility] for an L4-5 epidural steroid injection. She can wear the LSO brace when out of bed. We will see her back in 4 weeks for symptom recheck for her tirso brianna fracture. The patient is very much in [...] and L2 compression fracture 3. L4-5 neuroforaminal stenosis/stenosis/radiculopathy 03/20/2025Other Patient with complaints today of worsening weakness/heavy sensation in the lower extremities. We will get a MRI of the cervical and lumbar spine to rule out a cervical myelopathy or possible hematomafrom the epidural steroid injection. We will see her back after the testing is completed to discussthe results. The patient is very much in [...] Date Lumbar spine, 4v flex ext - 05317 2024 MRI : Cervical Spine W/O Contrast - 7214 1 03/20/2025 MRI : Lumbosacral Spine W/O Contrast - 7 2148 03/20/2025 DME - Lumbar Support, Surgical OTS 02/06 Epidural injection - lumbar 02/06/2025 Insurance Providers Payer Name Payer Address Payer Phone Subscriber Number Group Number Insured Name Patient Relationship to Insured Coverage Start Date Coverage End Date MEDICARE UHC AARP [address] [address] [place], [place] [phone] [id number] Jethro NIETO - patient is the [id number] [address] [id number], NANCYSelf - patient is the [id number] [address] [phone] NIETO - patient is the [id number] 2025 Medical (General) History Medical History History ICD Code High Blood Pressure Abnormal Heart RhythmLiver DiseaseDiabetesIrritable bowel syndromeBlood Clots in Legs/LungsAnxietyDepressionRheumatoid arthritisSurgical History Surgery Date(Month/Year) Pulmonary bilateral lung 09/2024
--- OUTSIDE RECORDS SUMMARY | 2025-09-03 07:34 | XMS_ITS | Clinical Summary ---
Author Organization [employer] [facility] Address [id number] [address] [place] [address] Care Team Providers Care Aviation Support Equipment Repairer Name Role Phone Destiny Figueroa APRN-CFALVINO Primary Care Pro vider Allergies Active AllergyReactionsCriticalityNoted DateCommentsCitalopramOther (See Comments)05/30/2024 unknown CortisoneOther (See Comments)Hehkbn0205/30/2024 Unknown ELEVATES B/P HydromorphoneOther (See Comments)05/30/2024 Severe sedation KitfzjTdkjcubjWadi76/14/2024 Other Reaction(s): Tongue swelling TONGUE AND LIPS PenicillinHives,VbutequaGotz76/06/2024 Mouth and tongue swelling Other Reaction(s): HIVES SWELLING LIPS AND TONGUE Shellfish VhsdimdGhzcxnbsJlaz61/14/2024 LIPS AND TONGUE EtzyfrntuixmZrty68/06/2024 Medications MedicationSigDispense QuantityRefillsLast FilledStart DateEnd DateStatus pravastatin (PRAVACHOL) 20 mg tablet Take 1 tablet (20 mg total) by mouth in the morning.Active traZODone (DESYREL) 50 mg tablet Take 1 tablet (50 mg total) by mouth nightly.Active hydrOXYzine (ATARAX) 25 mg tablet Take 1 tablet (25 mg total) by mouth 4 (four) times a day as needed for anxiety. Active aspirin 81 mg Take 1 tablet (81 mg total) by mouth in the morning.Active oxybutynin XL (DITROPAN XL) 15 mg 24 hr tablet Take 1 tablet (15 mg total) by mouth in the morning.Active tiZANidine (ZANAFLEX) 4 mg tablet Take 1 tablet (4 mg total) by mouth in the morning and at bedtime.Active ELIQUIS 5 mg tablet Take 1 tablet (5 mg total) by mouth in the morning and 1 tablet (5 mg total) before bedtime.08/22/2024ctive ONETOUCH ULTRA2 METER [facility] USE TO CHECK GLUCOSE ONCE DAILY08/07/2024ctive ONETOUCH DELICA PLUS LANCET 33 gauge misc USE 1 LANCET TO CHECK GLUCOSE ONCE DAILY08/07/2024ctive mirtazapine (REMERON) 15 mg tablet Take 1 tablet (15 mg total) by mouth nightly.08/22/2024ctive acetaminophen (TYLENOL) 325 mg tablet Take 2 tablets (650 mg total) by mouth every 6 (six) hours as needed for pain. 30 tablet 5Active diclofenac sodium (VOLTAREN) 1 % gel Apply 2 g topically in the morning and 2 g at noon and 2 g in the evening and 2 g before bedtime. 100 g 5Active lidocaine (LIDODERM) 5 % Indications:Skin ulcer of sacrum, limited to breakdown of skin (CMS-HCC)Place 1 patch on the skin in the morning. Remove & Discard patch within 12 hours or as directedby . 30 patch 5Active Active Problems ProblemNoted DateDiagnosed DateSkin ulcer of perineum, limited to breakdown of skin10/21/2024Dermatitis associated with moisture from stool incontinence 10/21/2024Dermatitis associated with moisture from urinary incontinence 10/21/2024Pressure injury due to medical ppjrfw9210/21/2024Pressure injury of deep tissue of sacral yzerjd3710/07/2024Traumatic injury of bupcmq8510/07/2024Skin ulcer of sacrum, limited to breakdown of skin10/07/2024Traumatic ulcer of left lower extremity with fat layer plhdlvd4210/07/2024Pulmonary /13/2025 Mojfszfhqcppl46/06/2024enign essential cgcblb8805/30/2024HTN (hypertension) 05/30/2024Hyperlipemia, mixed05/30/2024Type 2 diabetes gskvminu17/06/2024ight upper quadrant abdominal pain05/30/2024 Immunizations No known immunizations Family History Medical HistoryRelationNameCommentsHeart attackBrotherOtherFathercerebral hemorrhageStrokeFatherHeart diseaseMotherStrokeMotherCOPDSisterHeart disease SisterRelationNameStatusCommentsBrotherFatherMotherSister Social History Tobacco UseTypesPacks/DayYears UsedDateSmoking Tobacco: NeverSmokeless Tobacco: Never Tobacco Cessation:Counseling Given: Not Answered Alcohol UseStandard Drinks/WeekCommentsNever0 (1 standard drink = 0.6 oz pure alcohol)[facility] UtilitiesAnswerDate RecordedIn the past 12 months has the [employer], gas, oil, or water [employer] threatened to shut off services in your home?No 10/07/2024UDIT-CAnswerDate RecordedQ1: How often do you have a drink containing alcohol?Never10/06/2024Q2: How many drinks containing alcohol do you have on a typical day when you are drinking?Patient does not drink10/06/2024Q3: How often do you have six or more drinks on one occasion?Never10/06/2024PHQ-2AnswerDate RecordedTotal Tjstr60810/06/2024PRAPARE - TransportationAnswerDate RecordedIn the past 12 months, has lack of transportation kept you from medical appointments or from getting medications?No10/07/2024In the past 12 months, has lack of transportation kept you from meetings, work, or from getting things needed for daily living?No10/07/2024Housing InstabilityAnswerDate RecordedAre you worried or concerned that in the next two months you may not have stable housing that you own, rent or stay in as a part of a household?No10/07/2024Hunger Screening AnswerDate RecordedWithin the past 12 months we worried whether our food would run out before we got money to buy more.Never True10/08/2024Within the past 12 months the food we bought just didn't last and we didn't have money to get more. Never True01/15/2025CommentsNoSex and Gender InformationValueDate RecordedSex Assigned at BirthNot on fileLegal VjvVdbiqr54/03/2024 8:35 PM EDT Gender IdentityNot on fileSexual OrientationNot on file Last Filed Vital Signs Vital SignReadingTime TakenCommentsBlood Juihjuyk004/76010/29/2024 8:05 AM EST Zvzfh620010/29/2024 9:00 AM YYUVnshppmoary68.7 ??C (98 ??F)10/29/2024 8:05 AM EST Respiratory Jcto837110/29/2024 8:05 AM ESTOxygen Tjkwmtodqg95%10/29/2024 8:05 AM ESTInhaled Oxygen Concentration--Jcrhll946.2 kg (234 lb 2.1 oz)10/29/2024 5:00 AM AKUXvmiun182.1 cm (5' 5 )10/07/2024 4:39 AM ESTBody Mass Index38.9610/07/2024 4:39 AM EST Plan of Treatment Health MaintenanceDue DateLast DoneCommentsDiabetic Ophthalmology Exam1950 DTaP,Tdap and Td Vaccines (1 - Tdap)1968Zoster (Shingles) Vaccine (1 of 2) 1999Fall Risk Szmlngueu65/03/2015RSV ( or age 60+ yrs) (1 - 1-dose 75+ series)2024Influenza Hhrhqir7805/25/2025Depression Fbdjtolmf98/13/2026 10/06/2024Tobacco Cdvmilyxm40 Goals GoalPatient Goal TypeAssociated ProblemsRecent ProgressPatient-Stated?Author safe transition from hospital Corrine Hebert, RN Note: Evaluation of progress towards goal: Progressing towards safe transition from hospital <enter goal here> Claudia Interiano LSW Note: Evaluation of progress towards goal: Current Discharge Plan: SNF for short term rehab Medical Devices ImplantedTypeAreaManufacturerDevice IdentifierShelf Expiration DateModel / Serial / LotFilter Embl 49mm 65cm Vc Rdpq Preld Flsh Sdprt Intro Strl Rpl [id number] - [id number] Implanted:Qty: 1 on 10/06/2024 by Mer Galvan MD at [facility] FilterCOOK [id number] / / [id number] Insurance Advance Directives TypeDate RecordedPatient RepresentativeExplanationDurable Power of [employer]cher [employer] 11/03/2024 11:17 AMDurable Power of Attorney10/15/2024 7:36 PMPower of [employer]cher Electrolytic 1 dvance Directive10/15/2024 7:34 PM* Ivonne Pinedo * Geetha Holguin Power of [employer] 1 2024Durable Power of Attorney10/15/2024 4:46 PM[facility] Power of [employer] Electro[employer] * Full Code (Latest Code Status on File) Date ActivatedDate InactivatedComments10/06/2024 6:34 PM2/01/2025 2:26 PM * Full Code Date ActivatedDate InactivatedComments05/30/2024 5:31 AM9 7:59 PM NameRelationshipHealthcare Agent RelationshipCommunicationJulia Trinidadad[facility]health [facility] Health Care Agent* Geetha HolguinDaughterFirst Alternate Health Care Agent* Care Teams Team MemberRelationshipSpecialtyStart DateEnd Date Destiny Figueroa, TORI-LAURA [address] [place] [address] [facility]05/30/24
--- OUTSIDE RECORDS SUMMARY | 2025-09-03 07:34 | XMS_ITS ---
Author Organization [facility] Care Team Providers Care Scrap Hooker Name Role Phone OsorioCarlos whitingn Unavailable Unavailable Allergies and adverse reactions Code CodeSystem Substance Reaction Severity StartDate Concern Status 2556 RXNORM Citalopram Unknown 09/05/2024 active 2878 RXNORM Cortisone Unknown 09/05/2024 active 3423 RXNORM Dilaudid Unknown 09/05/2024 active 7984 RXNORM Penicillin Unknown 09/05/[address] Shrimp Unknown 09/05/2024 active Care Team Name Role Address Phone Organization Dates Rome Smithahan PCP [address], [place], [address], [place] (Office): : : [facility] 09/12/2024 - 10/04/2024 Goals Section Goals [...] ions Active 12/28/2024 Resident will discharge to [facility] with services as necessary upon completion of [...] completed tuberculin skin test; unspecified formulation lotNumber: [id number] expiry: 01/22/2026 Mfg: Aplisol Given 0.1 ml Left Forearm intradermally Step 1 of Multi-step with next step required 98 CVX created date: 09/19/2024 consent date: 09/19/2024 administere d date: 09/19/2024 TB 2 Step Mantoux Skin Testcompletedtuberculin skin test; unspecified formulation Given 0.1 ml Right Forearm intradermally Step 2 of Multi-step with next step mvhwifyf17SABfasrsxx date: 09/15/2024 consent date: 09/12/2024 administered date: 09/12/2024TB 2 Step Mantoux Skin Testcompletedtuberculin skin test; unspecified formulation Given 0.1 ml intradermally Step 1 of Multi-step with next step kirhdllm82SGBawczwuj date: 09/15/2024 consent date: 09/12/2024 administered date: 09/12/2024 Mental Status Section Date Assessment Total Score Description 10/04/2024 CAM 0 No delirium ind icated 09/30/2024 BIMS 12 moderate cognit magda impairment CAM 0 No delirium ind icated PHQ-9 01 minimal depress ion Insurance Providers Coverage Status Coverage Type Relationship to Subscriber Member Identifier Subscriber Identifier Group Identifier Payer Identifier and Other information 2024 Code: 51 Code System OID:[id number] .[id number]. 5 Code System Name: Source of Payment Typology (PHDTN) Display: Managed Care (Private) Translation: Code: Code System: OID:2.16.840.1 .016998.6.255. 1336 Code System Name: Insurance Type Code ([id number]) Display Name: Health Maintenance Organization (HMO) Plan Code: SELF Code System Name: HL7 RoleCode Code System OID:[id number] .246778.5.111 Display Name: Self [phone] Root: [id number] Payer Name: [facility] Address: [address] [address] City: [place] State: [place] Country: [facility] Plan of Treatment Section Interventions Intervention Code Code System Display Name Proposed D ate Problems Problem # Description Date of onset Resolved Date Code CodeSystem Concern Status 1 ACIDOSIS, UNSPECIFIED 09/12/[address] active 2 ACUTE STRESS REACTION 09/12/[address] active 3 ANXIETY DISORDER, UNSPECIFIED 09/12/[address] active 4 CONTUSION OF LEFT LOWER LEG, SUBSEQUENT ENCOUNTER 09/12/[address] active 5 COVID-19 09/12/[address] active 6 DEPRESSION, UNSPECIFIED 09/12/[address] active 7 ESSENTIAL TREMOR 09/12/[address] active 8 HISTORY OF FALLING 09/12/[address] active 9 HYPOKALEMIA 09/12/[address] active 10 IRON DEFICIENCY ANEMIA SECONDARY TO BLOOD LOSS (CHRONIC) 09/12/[address] active 11 MIXED HYPERLIPIDEMIA 09/12/[address] active 12 MORBID (SEVERE) OBESITY DUE TO EXCESS CALORIES 09/12/[address] active 13 MUSCLE WEAKNESS (GENERALIZED) 09/12/[address] active 14 NEED FOR ASSISTANCE WITH PERSONAL CARE 09/12/[address] active 15 ORTHOSTATIC HYPOTENSION 09/12/[address] active 16 OVERACTIVE BLADDER 09/12/[address] active 17 PAROXYSMAL ATRIAL FIBRILLATION 09/12/[address] active 18 TYPE 2 DIABETES MELLITUS WITH DIABETIC POLYNEUROPATHY 09/12/[address] active 19 UNSPECIFIED OSTEOARTHRITIS, UNSPECIFIED SITE 09/12/[address] active 20 UNSTEADINESS ON FEET 09/12/[address] active Reason for Referral No Reasons for Referral Entered Social History Social History Observation Description Start Date End Date Code Code System Current Smoking Status Tobacco smoking consumption unknown 626871145 SNOMED CT Sex Assigned At Female 1950 39532-2 [facility] Gender Identity Sexual Orientation Vital Signs Code Code System Vitals Name Values and Units Timing Information 9279-1 [facility] Respiratory Rate Value=18.0 Units=/m in 10/04/2024 8462-4 [facility] Blood Pressure-Diastolic Value=43 Un its=mmHg 10/04/2024 8480-6 [facility] Blood Pressure-Systolic Value=86 Uni ts=mmHg 10/04/2024 8310-5 [facility] Body Temperature Iccxz=324.7 Units= F 10/04/2024 8867-4 [facility] Heart rate Wynzy=873.0 Units=/min 10/04/2024 72441-5 [facility] O2 % BldC Oximetry Value=92.0 Units= % 10/04/2024 91194-0 [facility] Pain Level Value=0.0 10/04/2024 2339-0 [facility] Blood Sugar Xhqyg=229.0 Units=mg/dL 10/03/2024 48603-7 [facility] Weight Amoac=874.0 Units=Lbs 12/2024 8302-2 [facility] Height Value=65.0 Units=Inches 09/12/2024
--- OUTSIDE RECORDS SUMMARY | 2025-09-03 07:35 | XMS_ITS | Patient Health Record ---
Author Organization [facility] Address [address] [place] [address] [place] [address] Care Team Providers Care Orthodontist Assistant Name Role Phone Lynda Jean Primary Care Provider UnavailKevin Henley Unavailable [phone] Reason For Referral No Information Encounters Encounter Location Date Provider Diagnosis [facility] [address] [place] [address] 01/14/2025 [facility] [place] [address]/[facility] [place] [address] Plan Of Treatment No Information Insurance Providers Payer Name Payer Address Payer Phone Subscriber Number Group Number Insured Name Patient Relationship to Insured Coverage Start Date Coverage End Date [facility] [address] [address] [place] [address] [id number], NancySelf - patient is the insuredMedicaid [place] Dpt of Job Fmly [address]PO [address] [place], [place] [id number], NancySelf - patient is the insured
== END 2025-09-03 07:25 | disposition home or self-care (01) ==
LOC: US 07:25
PROVIDERS: Family Provider Family Medicine; PCP Family Medicine; Visit Provider Internal Medicine Hematology & Oncology
DX: R23.3 Spontaneous ecchymoses (principal); I26.92 Saddle embolus of pulmonary artery without acute cor pulmonale; R22.43 Localized swelling, mass and lump, lower limb, bilateral; M71.22 Synovial cyst of popliteal space [Baker], left knee
CPT/HCPCS: 93970